=== PATIENT | male | born 1955 | race Caucasian/White ===

== ENCOUNTER 2024-10-13 21:47 | Inpatient (IN) ==
--- OUTSIDE RECORDS SUMMARY | 2024-10-13 21:54 | External Medical Summary | Summary of Care ---
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 [address] [place] [address] Jamel James MD [address] [place] [address] HTN, goal below 140/90 Allergies No known active allergiesdocumented as of this encounter (statuses as of 08/18/2024) Medications Medication Sig Dispensed Refills Start Date End Date Status Multivitamin Adult Oral Tablet Chewable Take by mouth . Active Iron 325 (65 Fe) MG Oral Tablet Take 1 Tablet by mouth once a day on Friday, Friday, and Friday only. Active Dicyclomine HCl 10 MG Oral Capsule (Bentyl) TAKE 1 CAPSULE BY MOUTH TWICE DAILY NEEDED FOR LOWER ABDOMINAL CRAMPING 180 Capsule 3 11/21/2023 Active Allopurinol 300 MG Oral Tablet (Zyloprim)Indicat ions:Chronic idiopathic gout involving toe without tophus, unspecified laterality Take 1 tablet by mouth once daily 90 Tablet 3 02/12/2024 Active Lisinopril-hydroC HLOROthiazide 20-25 MG Oral TabletIndications :HTN, goal below 140/90 TAKE 1 TABLET BY MOUTH IN THE MORNING 90 Tablet 2 02/26/2024 Active Omeprazole 20 MG Oral Capsule Delayed Release (PriLOSEC)Indicat ions:Anemia Take 1 capsule by mouth twice daily 180 Capsule 2 02/26/2024 Active Metoprolol Succinate ER 50 MG Oral Tablet Extended Release 24 Hour (toPROL XL)Indications:Pe rsistent atrial fibrillation (HCC),Ventricular ectopy TAKE 1 TABLET BY MOUTH IN THE MORNING 90 Tablet 3 03/04/2024 Active Rosuvastatin Calcium 20 MG Oral Tablet (Crestor)Indicati ons:Hypertriglyce ridemia Take 1 Tablet by mouth in the morning. 90 Tablet 3 03/25/2024 Active Lisinopril 20 MG Oral Tablet (Prinivil)Indicat ions:HTN, goal below 140/90 Take 1 Tablet by mouth in the morning. FOR A TOTAL OF 40 MG OF LISINOPRIL. 90 Tablet 1 03/25/2024 Active Eliquis 5 MG Oral Tablet (Apixaban)Indicat ions:PAF (paroxysmal atrial fibrillation) (HCC) TAKE 1 TABLET BY MOUTH IN THE MORNING 1 TABLET AT BEDTIME 180 Tablet 3 04/22/2024 Active traMADol HCl 50 MG Oral Tablet (Ultram)Indicatio ns:Polyarthralgia Take 1 Tablet by mouth every 8 hours as needed for Pain, Severe. 23 Tablet 08/06/2024 Active Amoxicillin 500 MG Oral Capsule (Amoxil)Indicatio ns:SBE (subacute bacterial endocarditis) prophylaxis candidate,S/P MVR (mitral valve replacement) One hour prior to dental appt 4 Capsule 3 08/09/2024 Active amLODIPine Besylate 5 MG Oral Tablet (Norvasc)Indicati ons:HTN, goal below 140/90 TAKE 1 TABLET BY MOUTH IN THE MORNING 90 Tablet 1 08/18/2024 Active amLODIPine Besylate 5 MG Oral Tablet (Norvasc)Indicati ons:HTN, goal below 140/90 Take 1 Tablet by mouth in the morning. 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 06/30/2022 PAF (paroxysmal atrial fibrillation) 06/02/2020 Chronic pain of both shoulders 07/27/2019 History of GI bleed 01/21/2019 Overview: UGI from NSAID NICM (nonischemic cardiomyopathy) 01/21/2019 Other irritable bowel syndrome 01/21/2019 Prediabetes 10/26/2018 Overview: Per Prediabetes protocol #1 Hypertriglyceridemia 07/23/2018 S/P MVR (mitral valve replacement) 05/12/2018 Non-rheumatic mitral regurgitation 03/20/2018 Erectile dysfunction 09/16/2014 HTN, goal below 140/90 Gout documented as of this encounter (statuses as of 08/18/2024) Resolved Problems Problem Noted Date Diagnosed Date Resolved Date Renal cyst, right 01/22/2021 06/26/2022 Mitral valve disease 04/09/2018 020 Bioprosthetic mitral valve r eplacement, current hospitalization 04/07/2018 05/12/2018 Persistent atrial fibrillation 02/13/2018 06/02/2020 Elevated glucose 09/16/2014 01/21/2019 GI bleed due to NSAIDs 06/06/201401/19 Joint pain, knee 01/19/2019 Dyslipidemia, goal LDL below 130 05/12/2018 documented as of this encounter (statuses as of 08/18/2024) Immunizations Name Administration Dates Next Due COVID-19 mRNA, LNP-s, No Pre serve, 2-Dose Series (Moderna) 06/23/2024,12/25/2020,11/27/2020 COVID-19, MRNA-LNP, PF, 30 M CG/0.3 mL, 12 YRS AND ABOVE, IM (PFIZER-Comirnaty) 07/08/2023 COVID-19, MRNA-LNP, PF, 50 M CG/0.5 mL, 12 YRS AND ABOVE, IM (MODERNA-Spikevax) 02/17/2024 COVID-19, mRNA, LNP-s, PF, B ooster, 100mcg/0.5mg (Moderna) 02/17/2024,06/21/2022,01/16/2022,07/14 H1N1 2009 Influenza, IM 08/23/2009 Pneumococcal Conjugate Vacc, 13 Valent (Prevnar) 07/23/2018 Pneumococcal Polysaccharide PPV23 (Pneumovax) 07/27/2019 RSV Vac., Bivalent, Perfusio n F, Pf,0.5 Ml (Abrysvo) 06/19/2023 Season Influenza, Quad, PF, Adjuvanted, 65+ Yrs, IM (FLUAD) 07/03/2020 Seasonal Influenza Vac., MDV , IM, 0.5 mL (Fluzone) 07/27/2014,10/11/2013,09/01/2012,08/1307/27/2015 Seasonal Influenza Virus Vac cine, Unspecified Formulation 07/08/2023,07/23/2022,07/18/2021,06/14,07/27/2019,07/23/2018,06/20/20 17,07/26/2016,07/24/2015,07/27/2014,1 ,09/01/2012,08/27/2010 Seasonal Influenza, PF, 6 M & above, IM , (FluLaval or Fluzone) 07/23/2018 Seasonal Influenza, Quadriva lent, No Preserve, IM 06/20/2017,07/26/2016,07/24/2015 Seasonal Influenza, Trivalen t, Adjuvanted, 65+ YRS, PF, (Fluad) 07/27/2019 TD - Tetanus/Diptheria (ADULT) 06/18/2005 TDAP (age 10 and older)(Boostrix) 05/16/2015 TDAP, Age 7 and older, IM (Adacel) 05/13/2005 Varicella Zoster Vaccine (Adult) 04/22/2013 Zoster Vaccine Recombinant (Shingrix) 03/14/2020 ,11/02/2019 documented as of this encounter Social History Tobacco Use Types Packs/Day Years Used Date Smoking Tobacco: Former Cigarettes 1 5 0 02/20/1978 - 02/20/1983 Smokeless Tobacco: Never Comments:Pt only smoked from age [age] Alcohol Use Standard Drinks/Week Comments Yes 11.7 (1 standard drink = 0.6 oz pure alcohol) 2 per day PHQ-2 Answer Date Recorded PHQ Adult Total Score 0 07/24/2023 Hunger Vital Sign Answer Date Recorded Within the past 12 months, y ou worried that your food would run out before you got the money to buy more. Never true 06/13/20 22 Within the past 12 months, t he food you bought just didn't last and you didn't have money to get more. Never true 06/13/2022 Utilities Answer Date Recorded Do you have trouble paying y our heating, water, or electric bill? (Adult - for ages 18 years and over) Not on file 03/30/2024 Is your family able to pay t he heat, water, or electric bill? (Household - for ages 0-17 years) Not on file 03/30/2024 Does your family have access to good internet? (Household - for ages 0-17 years) Not on file 03/30/2024 Social Connections Answer Date Recorded How often do you feel lonely or isolated from those around you? (Adult - for ages 18 years and over) Not on file 03/30/2024 Sex and Gender Information Value Date Recorded Sex Assigned at Male 07/27/2019 10:03 AM EDT Gender Identity Male 07/27/2019 10:03 AM EDT Sexual Orientation Straight 07/27/2019 10 :03 AM EDT Job Start Date Occupation Industry Not on file Not on file Not on file documented as of this encounter Miscellaneous Notes * Telephone Encounter - Jarek Mary [facility] - 08/18/2024 7:37 PM ESTSigned Prescriptions: Disp Refills amLODIPine Besylate 5 MG Oral Tablet (Norv*90 Tab*1 Sig: TAKE 1 TABLET BY MOUTH IN THE MORNINGAuthorizing Provider: JAMEL JAMES User: JAREK MARY documented in this encounter Plan of Treatment Upcoming Encounters Date Type Department Care Team (Late st Contact Info) Description 08/24/2024 8:00 AM EST Laboratory [facility] [address] [place] [phone] Leeann Pak [facility] [address] [place] [address] 09/02/2024 10:40 AM EST Office Visit General Internal Medicine [facility] [address] [facility] [place] [address] Jamel James MD [address] [facility] [place] [address] 10/27/2024 9:30 AM EST Cardiac Studies Cardiac Studies, [facility] [address] [facility] [place] [id number] Scheduled Procedures Name Priority Associated Diagnoses Date/Ti me COLONOSCOPY FLEXIBLE PROXIMA L DIAGNOSTIC Recall History of colonic polyps Health Maintenance Due Date Last Done Comments Cologuard 1998 Sigmoidoscopy 1998 Adult Wellness Visit 2019 Fecal Occult Blood Test 02/20/2023 02/21/20 22, 02/20/2022, 12/21/2018, Additional history exists Depression Screening 07/24/2024 07/24/2023 COVID-19 Vaccine ( season) 2024 06/23/2024, 02/17/2024, 02/17/2024, Additional history exists GFR 01/26/2025 01/27/2024, 12/12, 08/15/2022, Additional history exists HbA1c 01/26/2025 01/27/2024, 03/14, 01/03/2023, Additional history exists DTap/Tdap Vaccines (4 - Td or Tdap) 05/16/2025 05/16/2015, 06/18/2005, 05/13/2005 Albumin/Creatinine Ratio 06/26/2025 022, 02/05/2016, 06/07/2014 Colonoscopy 07/30/2025 07/30/2022, 07/13, 08/07/2016, Additional history exists Colorectal Cancer Screening 07/30/2025 Lipid Panel 01/26/2029 01/27/2024, 12/12, 12/18/2021, Additional history exists Pneumococcal Vaccine: 65+ Years Completed 07/27/2019, 07/23/2018 AAA Screening Completed 08/16/2019, 05/2018, 06/20/2017, Additional history exists Zoster Vaccines Completed 03/14/2020, 10/14, 04/22/2013 Influenza Vaccine (FLU shot) Completed 08/2024, 07/08/2023, 07/08/2023, Additional history exists HPV (Gardasil) Vaccine Aged Out No lo nger eligible based on patient's age to complete this topic Hepatitis B Vaccine Aged Out No longe r eligible based on patient's age to complete this topic MENINGOCOCCAL (MENACTRA/MENVEO) Aged Out No longer eligible based on patient's age to complete this topic documented as of this encounter Medical Devices Implanted Type Area [employer] Veterinarian Device Identifier Shelf Expiration Date Model / Serial / Lot Atriclip 40mm [id number] - [id number] Implanted:Qty : 1 on 04/06/2018 by Esequiel Kirkland MD at OR [facility] [place] N/A: Heart ATRICURE 10/13/2020 [id number] / / [id number] Suture Steel 6 B&S19 [id number] - [id number] Implanted:Qty : 4 on 04/06/2018 by Esequiel Kirkland MD at OR [facility] [place] N/A: Sternum JNJ : [employer] 12/10/2022 [id number] / / [id number] Valve Heart Mitral Epic 33mm - [id number] - [id number] Implanted:Qty : 1 on 04/06/2018 by Esequiel Kirkland MD at OR [facility] [place] N/A: Heart ST SUZANNA : CARDIOVASCULAR 10/26/2021 [id number] / [id number] / documented as of this encounter Visit Diagnoses Diagnosis HTN, goal below 140/90 Unspecified essential hypertension documented in this encounter Advance Directives Documents on File Type Date Recorded 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 Care Teams Commercial Shrimping Captain Relationship Specialty Start Date End Date Jamel James MD [address] [place] [address] PCP - General Internal Medicine 02/09/18 documented as of this encounter
--- OUTSIDE RECORDS SUMMARY | 2024-10-13 21:54 | External Medical Summary | Summary of Care ---
Author Name Unknown Organization [facility] Address [address] [place] [address] Phone [phone] Care Team Providers Care Grader Tender Name Role Phone Jamel Hutchison MD Primary Care Provider + Reason for Referral * Evaluate & Treat - Unlimited Visits (Within 30 days (routine)) - Authorized Specialty Diagnoses / Procedures Referred By Contact Referred To Contact Cardiovascular Medicine / Cardiology Diagnoses S/P MVR (mitral valve replacement) PAF (paroxysmal atrial fibrillation) (FORMERLY [facility]) Jamel Hutchison MD [address] [place] [address] Phone: tel: fax: Referral ID Status Reason Start Date Expiration Date Visits Requested Visits Authorized [id number] Authorized Specialty Services Required [phone] Question Answer Referral Priority Within 30 days (routine) Where should this appointment be scheduled? [facility] To which of the following clinics are you referring your patient? General Cardiology Clinic Reason for Visit * Reason Comments Re-Check Routine check up Medication Discussion Magnesium suppleme nt Encounter Details Date Type Department Care Team (Late st Contact Info) Description 09/02/2024 10:40 AM EST Office Visit General Internal Medicine Ralf Borrego [place] [address] [facility] [place] [address] Jamel Hutchison MD 200 [facility] [place] [address] HTN, goal below 140/90*; Idiopathic chronic gout of multiple sites without tophus; Prediabetes; Hypertriglyceridemia; Screening for prostate cancer; S/P MVR (mitral valve replacement); PAF (paroxysmal atrial fibrillation) (HCC); 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 Active Iron 325 (65 Fe) MG Oral Tablet Take 1 Tablet by mouth once a day on Friday, Friday, and Friday only. Active Dicyclomine HCl 10 MG Oral Capsule (Bentyl) TAKE 1 CAPSULE BY MOUTH TWICE DAILY NEEDED FOR LOWER ABDOMINAL CRAMPING 180 Capsule 3 4 Active Allopurinol 300 MG Oral Tablet (Zyloprim)Indicat ions:Chronic idiopathic gout involving toe without tophus, unspecified laterality Take 1 tablet by mouth once daily 90 Tablet 3 4 Active Lisinopril-hydroC HLOROthiazide 20-25 MG Oral TabletIndications :HTN, goal below 140/90 TAKE 1 TABLET BY MOUTH IN THE MORNING 90 Tablet 2 4 Active Omeprazole 20 MG Oral Capsule Delayed Release (PriLOSEC)Indicat ions:Anemia Take 1 capsule by mouth twice daily 180 Capsule 2 4 Active Metoprolol Succinate ER 50 MG Oral Tablet Extended Release 24 Hour (toPROL XL)Indications:Pe rsistent atrial fibrillation (HCC),Ventricular ectopy TAKE 1 TABLET BY MOUTH IN THE MORNING 90 Tablet 3 4 Active Rosuvastatin Calcium 20 MG Oral Tablet (Crestor)Indicati ons:Hypertriglyce ridemia Take 1 Tablet by mouth in the morning. 90 Tablet 3 4 Active Lisinopril 20 MG Oral Tablet (Prinivil)Indicat ions:HTN, goal below 140/90 Take 1 Tablet by mouth in the morning. FOR A TOTAL OF 40 MG OF LISINOPRIL. 90 Tablet 1 4 Active Eliquis 5 MG Oral Tablet (Apixaban)Indicat ions:PAF (paroxysmal atrial fibrillation) (HCC) TAKE 1 TABLET BY MOUTH IN THE MORNING 1 TABLET AT BEDTIME 180 Tablet 3 4 Active traMADol HCl 50 MG Oral Tablet (Ultram)Indicatio ns:Polyarthralgia Take 1 Tablet by mouth every 8 hours as needed for Pain, Severe. 23 Tablet 4 Active Amoxicillin 500 MG Oral Capsule (Amoxil)Indicatio ns:SBE (subacute bacterial endocarditis) prophylaxis candidate,S/P MVR (mitral valve replacement) One hour prior to dental appt 4 Capsule 3 4 Active amLODIPine Besylate 5 MG Oral Tablet (Norvasc)Indicati ons:HTN, goal below 140/90 TAKE 1 TABLET BY MOUTH IN THE MORNING 90 Tablet 1 4 Active documented as of this encounter (statuses as of 09/02/2024) Active Problems Problem Noted Date Diagnosed Date Heart failure 02/04/2024 Isolated proteinuria without specific morphologi c lesion 06/30/2022 PAF (paroxysmal atrial fibrillation) 06/02/2020 Chronic pain of both shoulders 07/27/2019 History of GI bleed 01/21/2019 Overview (01/21/2019): UGI from NSAID NICM (nonischemic cardiomyopathy) 01/21/2019 Other irritable bowel syndrome 01/21/2019 Prediabetes 10/26/2018 Overview: Per Prediabetes protocol #1 Hypertriglyceridemia 07/23/2018 S/P MVR (mitral valve replacement) 05/12/2018 Non-rheumatic mitral regurgitation 03/20/2018 Erectile dysfunction 09/16/2014 HTN, goal below 140/90 Gout documented as of this encounter (statuses as of 09/02/2024) Resolved Problems Problem Noted Date Diagnosed Date Resolved Date Renal cyst, right 01/22/2021 06/26/2022 Mitral valve disease 04/09/2018 020 Bioprosthetic mitral valve r eplacement, current hospitalization 04/07/2018 05/12/2018 Persistent atrial fibrillation 02/13/2018 06/02/2020 Elevated glucose 09/16/2014 01/21/2019 GI bleed due to NSAIDs 06/06/201401/19 Joint pain, knee 01/19/2019 Dyslipidemia, goal LDL below 130 05/12/2018 documented as of this encounter (statuses as of 09/02/2024) Immunizations Name Administration Dates Next Due COVID-19 [...] 0 02/20/1978 - 02/20/1983 Smokeless Tobacco: Never Tobacco Cessation:Counseling Given: Not Answered Comments:Pt only smoked from age [age] Alcohol [...] Assigned at Male 07/27/2019 10:03 AM EDT Legal Sex Male 5:54 AM EST Gender Identity Male 07/27/2019 10:03 AM EDT Sexual Orientation Straight 07/27/2019 10 :03 AM EDT Occupation Industry Job Start Date Job End Date RETIRED Not on file Not on file Not on file documented as of this encounter Last Filed Vital Signs Vital Sign Reading Time Taken Comments Blood Pressure 136/76 09/02/2024 10:45 AM EST Pulse 72 09/02/2024 10:34 AM EST Temperature 36.8 C (98.2 F) 09/02/2024 10:[address] Respiratory Rate 16 09/02/2024 10:34 AM EST Oxygen Saturation - - Inhaled Oxygen Concentration - - Weight 107.7 kg (237 lb 8 oz) 09/02/2024 10:34 A M EST Height - - Body Mass Index 36.11 04/22/2024 10:53 AM EDT documented in this encounter Progress Notes * Jamel Hutchison MD - 09/02/2024 10:53 AM EST Chief Complaint Patient presents with Re-Check Routine check up Medication Discussion Magnesium supplement SUBJECTIVE: Milton Nam is a 69 year old male with PMH as below who presents for follow up htn, pre-DM, gout. No cp, sob, stuart. Feels good. May take magnesium supplement. No n/v/d. 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 Iron 325 (65 Fe) MG Oral Tablet Take 1 Tablet by mouth once a day on Friday, Friday, and Friday only. Dicyclomine HCl 10 MG Oral Capsule (Bentyl) TAKE 1 CAPSULE BY MOUTH TWICE DAILY NEEDED FOR LOWERABDOMINAL CRAMPING 180 Capsule 3 Allopurinol 300 MG Oral Tablet (Zyloprim) Take 1 tablet by mouth once daily 90 Tablet 3 Lisinopril-hydroCHLOROthiazide 20-25 MG Oral Tablet TAKE 1 TABLET BY MOUTH IN THE MORNING 90 Tablet2 Omeprazole 20 MG Oral Capsule Delayed Release (PriLOSEC) Take 1 capsule by mouth twice daily 180 Capsule 2 Metoprolol Succinate ER 50 MG Oral Tablet Extended Release 24 Hour (toPROL XL) TAKE 1 TABLET BY MOUTH IN THE MORNING 90 Tablet 3 Rosuvastatin Calcium 20 MG Oral Tablet (Crestor) Take 1 Tablet by mouth in the morning. 90 Tablet 3 Lisinopril 20 MG Oral Tablet (Prinivil) Take 1 Tablet by mouth in the morning. FOR A TOTAL OF 40 MGOF LISINOPRIL. 90 Tablet 1 Eliquis 5 MG Oral Tablet (Apixaban) TAKE 1 TABLET BY MOUTH IN THE MORNING 1 TABLET AT BEDTIME 180 Tablet 3 traMADol HCl 50 MG Oral Tablet (Ultram) Take 1 Tablet by mouth every 8 hours as needed for Pain, Severe. 23 Tablet 0 Amoxicillin 500 MG Oral Capsule (Amoxil) One hour prior to dental appt 4 Capsule 3 amLODIPine Besylate 5 MG Oral Tablet (Norvasc) TAKE 1 TABLET BY MOUTH IN THE MORNING 90 Tablet 1 No current facility-administered medications for this visit. Review of patient's allergies indicates: No Known Allergies Health Maintenance Due Topic Date Due Adult Wellness Visit Never done Depression Screening 07/24/2024 COVID-19 Vaccine ( season) 2024 ROS: CONSTITUTIONAL: No weakness, No fatigue, and No fevers, sweats, or chills PULMONARY: No cough, sputum, or hemoptysis, No wheezing, No rales, No shortness of breath, and No recent change in breathing CARDIOVASCULAR: No chest pain, No shortness of breath, No dyspnea on exertion, No orthopnea, No paroxysmal nocturnal dyspnea, No edema, No palpitations, and No syncope GASTROINTESTINAL: No abdominal pain, No change in bowel habits, No significant heartburn, No significant change in appetite, No nausea, vomiting, diarrhea, or constipation, No hematemesis, No blood in stools or black tarry stools, No abdominal bloating or early satiety, and No dysphagia ALL OTHER SYSTEMS NEGATIVE I reviewed social, PMH, PSH, and family history and updated where needed. Social History Socioeconomic History Marital status: Spouse name: Nichole Number of children: 3 Years of education: Not on file Highest education level: Not on file Occupational History Occupation: RETIRED Tobacco Use Smoking status: Former Current packs/day: 0.00 Average packs/day: 1 pack/day for 5.0 years (5.0 ttl pk-yrs) Types: Cigarettes Start date: 02/20/1978 Quit date: 02/20/1983 Years since quittin.5 Smokeless tobacco: Never Tobacco comments: Pt only smoked from age [age] Vaping Use Vaping status: Never Used Substance and Sexual Activity Alcohol use: Yes Alcohol/week: 11.7 standard drinks of alcohol Types: 14 12 oz of beer per week Comment: 2 per day Drug use: No Sexual activity: Yes Partners: Female Comment: no history of STD's Other Topics Concern Not on file Social History Narrative Not on file Social Needs Financial Resource Strain: Not on file Food Insecurity: No Food Insecurity (06/13/2022) Hunger Vital Sign Worried About Running Out of Food in the Last Year: Never true Ran Out of Food in the Last Year: Never true Transportation Needs: Not on file Social Connections: Unknown (03/30/2024) Social Connections How often do you feel lonely or isolated from those around you? 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 06/30/2022 Joint pain, knee Other irritable bowel syndrome 01/21/2019 PAF (paroxysmal atrial fibrillation) (HCC) 06/02/2020 Renal cyst, right 01/22/2021 Past Surgical History: Procedure Laterality Date ARTHROPLASTY KNEE TOTAL 2010 ATRIA ABLATION,ADD-ON W/ CARDIOPULM BYPASS N/A 04/06/2018 MAZE procedure performed [place] Esequiel Kirkland [place] [facility], DIAGNOSTIC (RECTUM) 09/11/2011 diverticulosis, repeat in 10 years COLONOSCOPY, DIAGNOSTIC (RECTUM) N/A 08/07/2016 mild-mod inflammation/COLONOSCOPY FLEXIBLE PROXIMAL DIAGNOSTIC performed by Дмитрий Davis MD at END[facility]COPY [facility] COLONOSCOPY, DIAGNOSTIC (RECTUM) 07/30/2022 diverticulosis sigmoid and descending colon/internal hemorrhoids/congested and erythematous mucosa sigmoid in setting of diverticuli/biopsies show adenomatous polyps/recall 3 years/COLONOSCOPY FLEXIBLE PROXIMAL DIAGNOSTIC performed by Дмитрий Davis MD at ENDOSCOPY [facility] EGD, FLEXIBLE, DIAGNOSTIC 09/11/2011 ulcerations, await bx EGD, FLEXIBLE, DIAGNOSTIC 07/30/2022 single gastric polyp/biopsies normal/ESOPHAGOGASTRODUODENOSCOPY (EGD), FLEXIBLE, TRANSORAL, DIAGNOSTIC performed by Дмитрий Davis MD at [facility]OSCOPY [facility] EGD, FLEXIBLE, W/BIOPSY 10/10/2011 await BX REMOVAL OF APPENDIX 12/15/2004 [facility], Dr. Jones REMOVE TONSILS & ADENOIDS, UNDER 12 [address] REPLACE MITRAL VALVE W/BYPASS N/A 04/06/2018 REPLACEMENT MITRAL VALVE performed [place] Esequiel Kirkland [place] [facility] Family History Problem Relation Name Age of Onset Cancer Father bladder/prostate Other (afib) Mother No Past Hx Sister No Past Hx Brother No Past Hx Brother No Past Hx Sister Coronary Artery disease Grandfather (Maternal) 58 OBJECTIVE: PHYSICAL EXAM: BP 136/76 | Pulse 72 | Temp 98.2 F (36.8 C) (Tympanic) | Resp 16 | Wt 237 lb 8 oz (107.7 kg) | BMI 36.11 kg/m | BSA 2.27 m General: alert, healthy, and no distress Head: Normocephalic, No masses, lesions, or abnormalities Heart: regular rate & rhythm, no murmur, no gallops, PMI non-displaced, S-1 normal, and S-2 normal Lungs: normal respiratory rate and rhythm, lungs clear to auscultation Psych: normal affect, no flight of ideas or tangential thought, good eye contact, no pressured speech ASSESSMENT: (I10) HTN, goal below 140/90 (primary encounter diagnosis) (M1A.09X0) Idiopathic chronic gout of multiple sites without tophus (R73.03) Prediabetes (E78.1) Hypertriglyceridemia (Z12.5) Screening for prostate cancer (Z95.2) S/P MVR (mitral valve replacement) (I48.0) PAF (paroxysmal atrial fibrillation) (HCC) (R80.0) 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 (Z79.899) Encounter for long-term (current) use of medications PLAN: HTN, goal below 140/90 (Primary) - COMPREHENSIVE METABOLIC PANEL; Future; Expected date: 03/02/2025 - LIPID PANEL WITH DIRECT LDL IF TG IS HIGH; Future; Expected date: 03/02/2025 Cont amlodipine, lisinopril, metoprolol, hctz Idiopathic chronic gout of multiple sites without tophus - URIC ACID; Future; Expected date: 03/02/2025 Cont allopurinol Follow labs Prediabetes - HEMOGLOBIN A1C; Future; Expected date: 03/02/2025 Follow A1c, diet Hypertriglyceridemia Labs 6 months Cont rosuvastatin Screening for prostate cancer - PSA; Future; Expected date: 03/02/2025 S/P MVR (mitral valve replacement) - CARDIOLOGY REFERRAL OP PAF (paroxysmal atrial fibrillation) (HCC) - CARDIOLOGY REFERRAL OP Cont metoprolol, eloquis 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 | For: Fasting Labs 2-5 Days Before Next Visit Jamel Hutchison MD documented in this encounter Nursing Notes * Tristan Lerma, RN - 09/02/2024 10:36 AM EST Chief Complaint Patient presents with Re-Check Routine check up Medication Discussion Magnesium supplement documented in this encounter Plan of Treatment Upcoming Encounters Date Type Department Care Team (Late st Contact Info) Description 10/27/2024 9:30 AM EST Cardiac Studies Cardiac Studies, [facility] [address] [place] [address] 03/17/2025 8:00 AM EDT Office Visit Cardiology, [facility] [address] [place] [address] Edwin Zhao MD [address] [place] [address] 04/13/2025 12:00 PM EDT Office Visit General Internal Medicine [facility] 200 [facility] [place] [address] Jamel Hutchison MD 200 [facility] [place] [address] Scheduled Orders Name Type Priority Associated Diagnoses Orde r Schedule COMPREHENSIVE METABOLIC PANEL Lab Routine HTN, goal below 140/90 Expected: 03/02/2025 (Approximate), Expires: 09/02/2025 LIPID PANEL WITH DIRECT LDL IF TG IS HIGH Lab Routine HTN, goal below 140/90 Expected: 03/02/2025, Expires: 09/02/2025 PSA Lab Routine Screening for prostate cancer Expected: 03/02/2025 (Approximate), Expires: 09/02/2025 HEMOGLOBIN A1C Lab Routine Prediabetes Expected: 03/02/2025 (Approximate), Expires: 09/02/2025 URIC ACID Lab Routine Idiopathic chronic gout of multiple sites without tophus Expected: 03/02/2025 (Approximate), Expires: 09/02/2025 ALBUMIN / CREATININE RATIO, URINE Lab Routine 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 Expected: 03/02/2025 (Approximate), Expires: 09/02/2025 CBC WITH WBC DIFFERENTIAL Lab Routine Encounter for long-term (current) use of medications Expected: 03/02/2025, Expires: 09/02/2025 IRON SCREEN, INCLUDING TIBC Lab Routine Encounter for long-term (current) use of medications Expected: 03/02/2025, Expires: 09/02/2025 MAGNESIUM Lab Routine Encounter for long-term (current) use of medications Expected: 03/02/2025 (Approximate), Expires: 09/02/2025 VITAMIN B12 Lab Routine Encounter for long-term (current) use of medications Expected: 03/02/2025 (Approximate), Expires: 09/02/2025 Scheduled Procedures Name Priority Associated Diagnoses Date/Ti me COLONOSCOPY FLEXIBLE PROXIMA L DIAGNOSTIC Recall History of colonic polyps Scheduled Referrals Name Type Priority Associated Diagnoses Orde r Schedule CARDIOLOGY REFERRAL OP Referral Within 30 days (routine) S/P MVR (mitral valve replacement) PAF (paroxysmal atrial fibrillation) (HCC) Ordered: 09/02/2024 Health Maintenance Due Date Last Done Comments Cologuard 1998 Sigmoidoscopy 1998 Adult Wellness Visit 2019 Fecal Occult Blood Test 02/20/2023 02/21/20 22, 02/20/2022, 12/21/2018, Additional history exists Depression Screening 07/24/2024 07/24/2023 COVID-19 Vaccine ( season) 2024 06/23/2024, 02/17/2024, 02/17/2024, Additional history exists GFR 01/26/2025 01/27/2024, 12/12, 08/15/2022, Additional history exists DTap/Tdap Vaccines (4 - Td or Tdap) 05/16/2025 05/16/2015, 06/18/2005, 05/13/2005 Albumin/Creatinine Ratio 06/26/2025 022, 02/05/2016, 06/07/2014 Colonoscopy 07/30/2025 07/30/2022, 07/13, 08/07/2016, Additional history exists Colorectal Cancer Screening 07/30/2025 HbA1c 08/24/2025 08/24/2024, 01/11, 04/07/2023, Additional history exists Lipid Panel 01/26/2029 01/27/2024, 12/12, 12/18/2021, Additional history exists Pneumococcal Vaccine: 65+ Years Completed 07/27/2019, 07/23/2018 AAA Screening Completed 08/16/2019, 05/0 05/2018, 06/20/2017, Additional history exists Zoster Vaccines [...] this encounter Medical Devices Implanted Type Area Hotel Associate Device Identifier Shelf Expiration Date Model / Serial / Lot Atriclip 40mm [id number] - [id number] Implanted:Qty : 1 on 04/06/2018 by Esequiel Kirkland [place] [facility]/A: Heart ATRICURE 10/13/2020 [id number] / / [id number] Suture Steel 6 B&S19 M654g - [id number] Implanted:Qty : 4 on 04/06/2018 by Esequiel Kirkland [place] [facility] N/A: Sternum JNJ : [employer] 12/10/2022 [id number] / / [id number] Valve Heart Mitral Epic 33mm - [id number] - [id number] Implanted:Qty : 1 on 04/06/2018 by Esequiel Kirkland MD [place] [facility] N/A: Heart ST SUZANNA : CARDIOVASCULAR 10/26/2021 [id number] / [id number] / documented as of this encounter Visit Diagnoses Diagnosis HTN, goal below 140/90- Primary Unspecified essential hypertension Idiopathic chronic gout of multiple sites without tophus Chronic gouty arthropathy without mention of tophus (tophi) Prediabetes Other abnormal glucose Hypertriglyceridemia Pure hyperglyceridemia Screening for prostate cancer Special screening for malignant neoplasm of prostate S/P MVR (mitral valve replacement) Heart valve replaced by other means PAF (paroxysmal atrial fibrillation) (HCC) Atrial fibrillation 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 Care Teams Grader Tender Relationship Specialty Start Date End Date Jamel Hutchison MD [address] [place] [address], [place] [address] PCP - General Internal Medicine 02/09/18 documented as of this encounter"
--- OUTSIDE RECORDS SUMMARY | 2024-10-13 21:54 | External Medical Summary ---
Author Name Unknown Address Unknown Organization [id number]:LABORATORY [facility] [place] - [address] [facility] [address] Laboratory Report Ordering Provider Test Date Status JACOB BAGLEY 08/24/2024 07:51:26 Final Observation Date Value Abnormality Reference (Units ) Status HbA1C 08/24/2024 07:51:26 6.3 Above high normal 4. 0-5.6 (%) Final The use of HbA1c to monitor glycemic status is based on normal hemoglobin and HbA composition. This test should not be used in patients with abnormal hemoglobin that affects the half life of the red blood cell or the in vivo glycation rates. Glucose, estimated average 08/24/2024 07:51:26 134 Above high normal <126 (mg/dL) Carlos cisse Performing Location [facility] [place] - [address] [facility] [address]
--- OUTSIDE RECORDS SUMMARY | 2024-10-13 21:54 | External Medical Summary ---
Author Name Unknown Address Unknown Organization [id number]:[facility]ORY [facility] [place] - [address] [place] [address] Laboratory Report Ordering Provider Test Date Status JACOB BAGLEY 08/24/2024 07:51:26 Final Observation Date Value Abnormality Reference (Units ) Status Vitamin B12 08/24/2024 07:51:26 [id number] (pg/mL) Final Performing Location LABORATORY [facility] - [address] [place] [address]
--- OUTSIDE RECORDS SUMMARY | 2024-10-13 21:54 | External Medical Summary | Summary of Care ---
Author Name Unknown Organization [facility] Address [address] [place] [address] Phone [phone] Care Team Providers Care Card Seller Name Role Phone Jamel Hutchison MD Primary Care Provider + Reason for Visit * Reason Comments Follow Up Pt here to f/u for I BS/GERD. GERD stable on BID omeprazole. Pt states the iron regimen and Bentyl has improved his bowels. Encounter Details Date Type Department Care Team (Latest Contact Info) Description 04/22/2024 11:00 AM EDT Office Visit Gastroenterology, [facility] [address] [place] [address] Vinod Jones CRNP [address] [facility] [place] [address] Gastroesophageal reflux disease, unspecified whether esophagitis present*; History of IBS Allergies No known active allergiesdocumented as of this encounter (statuses as of 04/22/2024) Medications Medication Sig Dispensed Refills Start Date End Date Status Multivitamin Adult Oral Tablet Chewable Take by mouth . Active Iron 325 (65 Fe) MG Oral Tablet Take 1 Tablet by mouth once a day on Friday, Friday, and Friday only. Active amLODIPine Besylate 5 MG Oral Tablet (Norvasc)Indicati ons:HTN, goal below 140/90 Take 1 Tablet by mouth in the morning. 90 Tablet 3 08/05/2023 Active Dicyclomine HCl 10 MG Oral Capsule (Bentyl) TAKE 1 CAPSULE BY MOUTH TWICE DAILY NEEDED FOR LOWER ABDOMINAL CRAMPING 180 Capsule 3 11/21/2023 Active Allopurinol 300 MG Oral Tablet (Zyloprim)Indicat ions:Chronic idiopathic gout involving toe without tophus, unspecified laterality Take 1 tablet by mouth once daily 90 Tablet 3 02/12/2024 Active traMADol HCl 50 MG Oral Tablet (Ultram)Indicatio ns:Polyarthralgia Take 1 Tablet by mouth every 8 hours as needed for Pain, Severe. 23 Tablet 02/13/2024 Active Amoxicillin 500 MG Oral Capsule (Amoxil)Indicatio ns:SBE (subacute bacterial endocarditis) prophylaxis candidate,S/P MVR (mitral valve replacement) One hour prior to dental appt 4 Capsule 3 02/26/2024 Active Lisinopril-hydroC HLOROthiazide 20-25 MG Oral TabletIndications [...] OF LISINOPRIL. 90 Tablet 1 03/25/2024 Active Apixaban 5 MG Oral Tablet (Eliquis)Indicati ons:PAF (paroxysmal atrial fibrillation) (HCC) Take 1 Tablet by mouth in the morning and 1 Tablet before bedtime. 60 Tablet 11 05/02/2023 4 Discontinued documented as of this encounter (statuses as of 04/22/2024) Active Problems Problem Noted Date Diagnosed Date [...] as of this encounter (statuses as of 04/22/2024) Resolved Problems Problem Noted Date Diagnosed Date Resolved Date Renal cyst, right 01/22/2021 06/26/2022 Mitral valve disease 04/09/2018 020 Bioprosthetic mitral valve r eplacement, current hospitalization 04/07/2018 05/12/2018 Persistent atrial fibrillation 02/13/2018 06/02/2020 Elevated glucose 09/16/2014 01/21/2019 GI bleed due to NSAIDs 06/06/201401/19 Joint pain, knee 01/19/2019 Dyslipidemia, goal LDL below 130 05/12/2018 documented as of this encounter (statuses as of 04/22/2024) Immunizations Name Administration Dates Next Due COVID-19 mRNA, LNP-s, No Pre serve, 2-Dose Series (Moderna) 12/25/2020,11/27/2020 COVID-19, MRNA-LNP, 23-24, P F, 30 MCG/0.3 mL, 12 YRS AND ABOVE, IM (P[facility]ZER-[facility]) 07/08/2023 COVID-19, MRNA-LNP, 23-24, P F, 50 MCG/0.5 mL, 12 YRS AND ABOVE, IM (MODERNA-Spikevax) 02/17/2024 COVID-19, mRNA, LNP-s, PF, B ooster, 100mcg/0.5mg (Moderna) 02/17/2024,06/21/2022,01/16/2022,07/14 H1N1 2009 Influenza, IM 08/23/2009 Pneumococcal Conjugate Vacc, 13 Valent (Prevnar) 07/23/2018 Pneumococcal Polysaccharide PPV23 (Pneumovax) 07/27/2019 RSV Vac., Bivalent, Perfusio n F, Pf,0.5 Ml (Abrysvo) 06/19/2023 Season Influenza, Quad, PF, Adjuvanted, 65+ Yrs, IM (FLUAD) 07/03/2020 Seasonal Influenza Virus Vac cine, Unspecified Formulation 07/08/2023,07/23/2022,07/18/2021,06/14,07/27/2019,07/23/2018,06/20/20 17,07/26/2016,07/24/2015,07/27/2014,1 ,09/01/2012,08/27/2010 Seasonal Influenza, PF, 6 M & above, IM , (FluLaval or Fluzone) 07/23/2018 Seasonal Influenza, Quadriva lent, No Preserve, IM 06/20/2017,07/26/2016,07/24/2015 Seasonal Influenza, Split, I IV3, With Preserve, Inj 07/27/2014,10/11/2013,09/01/2012,08/1307/27/2015 Seasonal Influenza, Trivalen t, Adjuvanted, 65+ yrs 07/27/2019 TD - Tetanus/Diptheria (ADULT) 06/18/2005 TDAP [...] Sign Reading Time Taken Comments Blood Pressure 142/78 04/22/2024 10:53 AM EDT Pulse 74 04/22/2024 10:53 AM EDT Temperature 36.7 C (98 F) 04/22/2024 10:53 AM EDT Respiratory Rate - - Oxygen Saturation - - Inhaled Oxygen Concentration - - Weight 110.2 kg (243 lb) 04/22/2024 10:53 AM EDT Height 172.7 cm (5' 8") 04/22/2024 10:53 AM EDT Body Mass Index 36.95 04/22/2024 10:53 AM EDT documented in this encounter Progress Notes * Vinod Jones CRNP - 2024 9:48 AM EDT CC: dicyclomine refill; f/u recurrent diverticulitis HPI: Recall that Mr. Milton Nam is a 69 yr old male pt of Dr. Hutchison with a hx of HTN, A-fib, Mitral valve replacement (bioprosthetic), gout who has been seen previously most recently in 2021for iron deficiency anemia, diverticulitis, IBS. Current GI Meds: Dicyclomine 10 BID, takes regularly Omeprazole 20mg BID, takes regularly Current GI Symptoms: IBS is very well controlled, minimal pain. No reflux, doesn't remember his most recent reflux event/symptom. Diagnostic Testing: EGD 2021: - Normal esophagus. - A single gastric polyp. Biopsied. - Normal examined duodenum. Biopsied. Colonoscopy 2021: - The examined portion of the ileum was normal. - Two 3 to 5 mm polyps in the ascending colon, removed with a cold snare. Resected and retrieved. - One 1 mm polyp in the transverse colon, removed with a jumbo cold forceps. Resected and retrieved. - Congested and erythematous mucosa in the sigmoid colon in setting of diverticuli. - Diverticulosis in the sigmoid colon and in the descending colon. - Internal hemorrhoids. A: Duodenal biopsy: Duodenal mucosa with no pathologic diagnosis. B: Stomach, polyp, biopsy: Hyperplastic polyp. C: Ascending colon, polyps, biopsy: Fragments of tubular adenoma. D: Transverse colon, polyp, biopsy: Slightly polypoid colonic mucosa with some stromal edema and congestion. E: Sigmoid abnormal mucosa, biopsy: Colonic mucosa with slight reactive vascular congestion. Additional levels examined. Clinical Histor Colonoscopy Jul 2016: Congested, erythematous and inflamed mucosa in the sigmoid colon. Internal hemorrhoids. EGDs Aug 2011: Ring esophagitis, antral gastritis, duodenitis. H Pylori (-) Sep 2011: Resolution ofgastritis, duodenitis. Path: GE junc with inflammation no dysplasia. Duodenal bx w increased inflammation, no crypt abscess. EXAM: BP 142/78 | Pulse 74 | Temp 36.7 C (98 F) | Ht 1.727 m (5' 8") | Wt 110.2 kg (243 lb) | BMI 36.95 kg/m | BSA 2.3 m GENERAL: 69 year old male well developed and well nourished in no acute distress SKIN: no rashes, ulcers, or spider angiomata HEENT: normocephalic, sclera clear, pharynx normal NECK: supple, no lymphadenopathy, no masses or thyroid enlargement LUNGS: clear to auscultation anterior and posterior HEART: regular rate & rhythm, no murmurs and no gallops ABDOMEN: normo-active bowel sounds, soft, non-tender, non-distended no masses, no hepatosplenomegaly, no rebound or guarding, no bruits EXTREMITIES: no palmar erythema, no edema, no skin discoloration, no clubbing, no cyanosis NEURO: no lateralizing findings, Sensory/Motor grossly normal IMPRESSION/RECOMMENDATIONS: 69 year old male with Gastroesophageal reflux disease, unspecified whether esophagitis present (Primary) - try decreasing omeprazole to once daily in the morning, 1/2 hr before breakfast. If the reflux returns then back up to 2x/day. History of IBS - continue the dicyclomine 10mg BID. Hx of anemia Iron supplement no longer medically necessary . Yearly recheck. I spent a total of 30 minutes on the date of service in review of patient's record, and previously obtained information in person and appropriate medical visit, discussion and education of plan, withpatient and/or caregiver, placing orders for tests/referral/procedures as medically necessary and documentation of pertinent clinical information in patient's medical records for their visit today. documented in this encounter Nursing Notes * Karrie Adkins CMA - 04/22/2024 10:52 AM EDT Chief Complaint Patient presents with Follow Up Pt here to f/u for IBS/GERD. GERD stable on BID omeprazole. Pt states the iron regimen and Bentyl has improved his bowels. documented in this encounter Plan of Treatment Upcoming Encounters Date Type Department Care Team (Late st Contact Info) Description 09/02/2024 10:40 AM EST Office Visit General Internal Medicine [facility] [address] [place] [address] Jamel Hutchison MD [address] [place] [address] 10/27/2024 9:30 AM EST Cardiac Studies Cardiac Studies, [facility] [address] [facility] [place] [address] Scheduled Procedures Name Priority Associated Diagnoses Date/Ti me COLONOSCOPY FLEXIBLE PROXIMA L DIAGNOSTIC Recall History of colonic polyps Health Maintenance Due Date Last Done Comments Cologuard 1998 Sigmoidoscopy 1998 Fecal Occult Blood Test 02/20/2023 02/21/20 22, 02/20/2022, 12/21/2018, Additional history exists Influenza Vaccine (FLU shot) (#1) 2024 07/08/2023, 07/08/2023, 07/23/2022, Additional history exists COVID-19 Vaccine ( season) 2024 02/17/2024, 02/17/2024, 07/08/2023, Additional history exists Depression Screening 07/24/2024 07/24/2023 GFR 01/26/2025 01/27/2024, 12/12, 08/15/2022, Additional history exists HbA1c 01/26/2025 01/27/2024, 03/14, 01/03/2023, Additional history exists DTaP,Tdap,and Td Vaccines (4 - Td or Tdap) 05/16/2025 05/16/2015, 06/18/2005, 05/13/2005 Albumin/Creatinine Ratio 06/26/2025 022, 02/05/2016, 06/07/2014 Colonoscopy 07/30/2025 07/30/2022, 07/13, 08/07/2016, Additional history exists Colorectal Cancer Screening 07/30/2025 Lipid Panel 01/26/2029 01/27/2024, 12/12, 12/18/2021, Additional history exists Pneumococcal Vaccine: 65+ Years Completed 07/27/2019, 07/23/2018 AAA Screening Completed 08/16/2019, 05/0 05/2018, 06/20/2017, Additional history exists Zoster Vaccines Completed 03/14/2020, 10/14, 04/22/2013 HPV (Gardasil) Vaccine Aged Out No lo nger eligible based on patient's age to complete this topic Hepatitis B Vaccine Aged Out No longe r eligible based on patient's age to complete this topic MENINGOCOCCAL (MENACTRA/MENVEO) Aged Out No longer eligible based on patient's age to complete this topic documented as of this encounter Medical Devices Implanted Type Area Boiling Tub Operator Device Identifier Shelf Expiration Date Model / Serial / Lot Atriclip 40mm [id number] - [id number] Implanted:Qty : 1 on 04/06/2018 by Esequiel Kirkland MD at OR [facility] [place] [place] N/A: Heart ATRICURE 10/13/2020 [id number] / / [id number] Suture Steel 6 B&S19 M654g - [id number] Implanted:Qty : 4 on 04/06/2018 by Esqeuiel Kirkland MD at OR [facility] [place] [place] N/A: Sternum JNJ : [employer] 12/10/2022 [id number] / / [id number] Valve Heart Mitral Epic 33mm - [id number] - [id number] Implanted:Qty : 1 on 04/06/2018 by Esequiel Kirkland MD at OR [facility] [place] [place] N/A: Heart ST SUZANNA : CARDIOVASCULAR 10/26/2021 [id number] / [id number] / documented as of this encounter Visit Diagnoses Diagnosis Gastroesophageal reflux disease, unspecified whether esophagitis present- Primary History of IBS Personal history of other diseases of digestive system documented in this encounter Advance Directives Documents on File Type Date Recorded Patient Care Administrative Tech Expl anation Advance Directives and Living Will 04/07/2018 ADVANCE DIRECTIVE / LIVING WILL * Full Code (Latest Code Status on File) Date Activated Date Inactivated Comments 04/06/2018 10:57 AM 04/11/2018 3:17 PM This order reflects the patients wishes and were consensually agreed upon. Care Teams Card Seller Relationship Specialty Start Date End Date Jamel Hutchison MD [address] [facility] [place] [address] PCP - General Internal Medicine 02/09/18 documented as of this encounter
--- OUTSIDE RECORDS SUMMARY | 2024-10-13 21:54 | External Medical Summary | Summary of Care ---
Author Name Unknown Organization [facility] Address [address] [place] [address] Phone [phone] Care Team Providers Care Auditor Appraiser Name Role Phone Jamel James MD Primary Care Provider + Reason for Visit * Reason Onset Date Comments Medication Refill 08/04/2024 Encounter Details Date Type Department Care Team (Late st Contact Info) Description 08/04/2024 Refill General Internal Medicine [facility] [address] [place] [address] Jamel James MD [address] [place] [address] Polyarthralgia Allergies No known active allergiesdocumented as of this encounter (statuses as of 08/06/2024) Medications Medication Sig Dispensed Refills Start Date End Date Status Multivitamin Adult Oral Tablet Chewable Take by mouth . Active Iron 325 (65 Fe) MG Oral Tablet Take 1 Tablet by mouth once a day on Friday, Friday, and Friday only. Active amLODIPine Besylate 5 MG Oral Tablet (Norvasc)Indicatio ns:HTN, goal below 140/90 Take 1 Tablet by mouth in the morning. 90 Tablet 3 08/05/2023 Active Dicyclomine HCl 10 MG Oral Capsule (Bentyl) TAKE 1 CAPSULE BY MOUTH TWICE DAILY NEEDED FOR LOWER ABDOMINAL CRAMPING 180 Capsule 3 11/21/2023 Active Allopurinol 300 MG Oral Tablet (Zyloprim)Indicati ons:Chronic idiopathic gout involving toe without tophus, unspecified laterality Take 1 tablet by mouth once daily 90 Tablet 3 02/12/2024 Active Amoxicillin 500 MG Oral Capsule (Amoxil)Indication s:SBE (subacute bacterial endocarditis) prophylaxis candidate,S/P MVR (mitral valve replacement) One hour prior to dental appt 4 Capsule 3 02/26/2024 Active Lisinopril-hydroCH LOROthiazide 20-25 MG Oral TabletIndications: HTN, goal below 140/90 TAKE 1 TABLET BY MOUTH IN THE MORNING 90 Tablet 2 02/26/2024 Active Omeprazole 20 MG Oral Capsule Delayed Release (PriLOSEC)Indicati ons:Anemia Take 1 capsule by mouth twice daily 180 Capsule 2 02/26/2024 Active Metoprolol Succinate ER 50 MG Oral Tablet Extended Release 24 Hour (toPROL XL)Indications:Per sistent atrial fibrillation (HCC),Ventricular ectopy TAKE 1 TABLET BY MOUTH IN THE MORNING 90 Tablet 3 03/04/2024 Active Rosuvastatin Calcium 20 MG Oral Tablet (Crestor)Indicatio ns:Hypertriglyceri demia Take 1 Tablet by mouth in the morning. 90 Tablet 3 03/25/2024 Active Lisinopril 20 MG Oral Tablet (Prinivil)Indicati ons:HTN, goal below 140/90 Take 1 Tablet by mouth in the morning. FOR A TOTAL OF 40 MG OF LISINOPRIL. 90 Tablet 1 03/25/2024 Active Eliquis 5 MG Oral Tablet (Apixaban)Indicati ons:PAF (paroxysmal atrial fibrillation) (HCC) TAKE 1 TABLET BY MOUTH IN THE MORNING 1 TABLET AT BEDTIME 180 Tablet 3 04/22/2024 Active traMADol HCl 50 MG Oral Tablet (Ultram)Indication s:Polyarthralgia Take 1 Tablet by mouth every 8 hours as needed for Pain, Severe. 23 Tablet 08/06/2024 Active traMADol HCl 50 MG Oral Tablet (Ultram)Indication s:Polyarthralgia Take 1 Tablet by mouth every 8 hours as needed for Pain, Severe. 23 Tablet 02/13/2024 4 Discontinue d(Refill) documented as of this encounter (statuses as of 08/06/2024) Active Problems Problem Noted Date Diagnosed Date [...] as of this encounter (statuses as of 08/06/2024) Resolved Problems Problem Noted Date Diagnosed Date Resolved Date Renal cyst, right 01/22/2021 06/26/2022 Mitral valve disease 04/09/2018 020 Bioprosthetic mitral valve r eplacement, current hospitalization 04/07/2018 05/12/2018 Persistent atrial fibrillation 02/13/2018 06/02/2020 Elevated glucose 09/16/2014 01/21/2019 GI bleed due to NSAIDs 06/06/201401/19 Joint pain, knee 01/19/2019 Dyslipidemia, goal LDL below 130 05/12/2018 documented as of this encounter (statuses as of 08/06/2024) Immunizations Name Administration Dates Next Due COVID-19 mRNA, LNP-s, No Pre serve, 2-Dose Series (Moderna) 06/23/2024,12/25/2020,11/27/2020 COVID-19, MRNA-LNP, 23-24, P F, 30 MCG/0.3 mL, 12 YRS AND ABOVE, IM (PFIZER-[facility]) 07/08/2023 COVID-19, MRNA-LNP, 23-24, P F, 50 [...] encounter Miscellaneous Notes * Telephone Encounter - Jamel James MD - 08/06/2024 12:20 PM EDT Signed Prescriptions: Disp Refills traMADol HCl 50 MG Oral Tablet (Ultram) 23 Tab*0 Sig: Take 1 Tablet by mouth every 8 hours as needed for Pain, Severe. Authorizing Provider: JAMEL JAMES * Telephone Encounter - Yola Miramontes RPh - 08/06/2024 12:17 PM EDTPending Prescriptions: Disp Refills traMADol HCl 50 MG Oral Tablet (Ultram) 23 Tab*0 Sig: Take 1 Tablet by mouth every 8 hours as needed for Pain, Severe. * Telephone Encounter - Yola Miramontes RPh - 08/06/2024 12:16 PM EDT I have reviewed the patients controlled substance dispensing history in the Prescription Drug Monitoring Program in compliance with the [facility] regulations before prescribing a controlled substance. PDMP checked on 08/06/2024. Pending Prescriptions: Disp Refills traMADol HCl 50 MG Oral Tablet (Ultram) 23 Tab*0 Sig: Take 1 Tablet by mouth every 8 hours as needed for Pain, Severe. Last Visit: 02/04/2024 (in office), Visit date not found (telemedicine) Next Visit: 09/02/2024 Date medication was last filled: 02/19/24 Date medication is due for refill: 02/27/24 [facility] [address] [place] [address] Is this request for a controlled substance? Yes and Urine Drug Screen Not completed Toxicology results: No results found for this or any previous visit. Please approve if appropriate. Thanks, Yola Miramontes, PharmD Clinical Pharmacist [facility] [phone] 08/06/2024 12:16 PM documented in this encounter Plan of Treatment Upcoming Encounters Date Type Department Care Team (Late st Contact Info) Description 08/24/2024 8:00 AM EST [facility] [address] [address] [place] [phone] [place] [address] [place] [address] 09/02/2024 10:40 AM EST Office Visit General Internal Medicine [facility] [address] [facility] [place] [address] Jamel James MD [address] [facility] [place] [address] 10/27/2024 9:30 AM EST Cardiac Studies Cardiac Studies, [facility] [address] [facility] [place] [address] Scheduled Procedures Name Priority Associated Diagnoses Date/Ti [...] this encounter Medical Devices Implanted Type Area Resistance Welding Machine Operator Device Identifier Shelf Expiration Date Model / Serial / Lot Atriclip 40mm [id number] - [id number] Implanted:Qty : 1 on 04/06/2018 by Esequiel Kirkland MD [place] [facility] [place]: Heart ATRICURE 10/13/2020 [id number] / / [id number] Suture Steel 6 B&S19 M654g - [id number] Implanted:Qty : 4 on 04/06/2018 by Esequiel Kirkland MD at [place] [facility] [place]/A: Sternum JNJ : [employer] 12/10/2022 [id number] / / [id number] Valve Heart Mitral Epic 33mm - [id number] - [id number] Implanted:Qty : 1 on 04/06/2018 by Esequiel Kirkland MD at [place] [facility] [place] N/A: Heart ST SUZANNA : CARDIOVASCULAR 10/26/2021 [id number] / [id number] / documented as of this encounter Visit Diagnoses Diagnosis Polyarthralgia Pain in joint, multiple sites documented in this encounter Advance Directives Documents on File Type Date Recorded Patient Commercial Development Manager Expl anation Advance Directives and Living Will 04/07/2018 ADVANCE DIRECTIVE / LIVING WILL * Full Code (Latest Code Status on File) Date Activated Date Inactivated Comments 04/06/2018 10:57 AM 04/11/2018 3:17 PM This order reflects the patients wishes and were consensually agreed upon. Care Teams Auditor Appraiser Relationship Specialty Start Date End Date Jamel James MD [address] [place] [address] PCP - General Internal Medicine 02/09/18 documented as of this encounter
--- OUTSIDE RECORDS SUMMARY | 2024-10-13 21:54 | External Medical Summary | Summary of Care ---
Author Name Unknown Organization [facility] Address [address] [place] [address] Phone [phone] Care Team Providers Care Buttonholer Name Role Phone Jamel Hutchison MD Primary Care Provider + Reason for Visit * Reason Comments eRx-Medication Refill Encounter Details Date Type Department Care Team (Late st Contact Info) Description 04/22/2024 Refill Cardiology, [facility] [address] [place] [address] [place], [address] [place] [address] PAF (paroxysmal atrial fibrillation) ([facility]) Allergies No known active allergiesdocumented as of [...] AT BEDTIME 180 Tablet 3 04/22/2024 Active Apixaban 5 MG Oral Tablet (Eliquis)Indicati ons:PAF (paroxysmal atrial fibrillation) ([facility]) Take 1 Tablet by mouth in the [...] MCG/0.3 mL, 12 YRS AND ABOVE, IM (PFIZER-Comirnaty) 07/08/2023 COVID-19, MRNA-LNP, 23-24, P F, 48 [...] encounter Miscellaneous Notes * Telephone Encounter - Marielle Crawford PA-C - 04/22/2024 11:13 AM EDT Signed Prescriptions: Disp Refills Eliquis 5 MG Oral Tablet (Apixaban) 180 Ta*3 Sig: TAKE 1 TABLET BY MOUTH IN THE MORNING 1 TABLET AT BEDTIMEAuthorizing Provider: MARIELLE CRAWFORD * Telephone Encounter - Ching Andrews CMA - 04/22/2024 10:44 AM EDTPending Prescriptions: Disp Refills Eliquis 5 MG Oral Tablet (Apixaban) 180 Ta*3 Sig: TAKE 1 TABLET BY MOUTH IN THE MORNING 1 TABLET AT BEDTIME * Telephone Encounter - Ching Andrews CMA - 04/22/2024 10:44 AM EDT Did you pend patient's preferred pharmacy and medication before forwarding?yes Pharmacy: [facility] [address] [place] [address] OREN MENDEZ Pending Prescriptions: Disp Refills Eliquis 5 MG Oral Tablet (Apixaban) [Phar*180 Ta*3 Sig: TAKE 1 TABLET BY MOUTH IN THE MORNING 1 TABLET AT BEDTIME Last Visit: 10/08/2023 (in office), Visit date not found (telemedicine) Next Visit: Visit date not found If no future appointments scheduled, and last appointment is greater than a year ago, please schedule patient for a follow-up appointment Last date the medication was ordered: 05-02-2023 Is this request for a controlled substance?No Urine Drug Screen:No results found for this or any previous visit. Patient Phone Numbers Labs: Lab Results Component Value Date/Time CREAT 0.8 01/27/2024 07:54 AM CREAT 0.8 06/02/2020 11:23 AM POTASSIUM 4.2 01/27/2024 07:54 AM POTASSIUM 4.1 06/02/2020 11:23 AM TSH 1.83 03/20/2018 11:07 AM LDLCALC 32 01/27/2024 07:54 AM LDLCALC 31 04/08/2019 09:25 AM LDLDIRECT 41 06/02/2020 11:23 AM LDLDIRECT 124 (H) 05/25/2008 07:31 AM ALT 22 01/27/2024 07:54 AM ALT 28 06/02/2020 11:23 AM HGBA1C 6.2 (H) 01/27/2024 07:54 AM HGBA1C 5.8 (H) 06/02/2020 11:23 AM documented in this encounter Plan of Treatment Upcoming Encounters Date Type Department Care Team (Late st Contact Info) Description 09/02/2024 10:40 AM EST Office Visit General Internal Medicine [facility] [address] [facility] [place] [address] Jamel Hutchison MD [address] [facility] [address] 10/27/2024 9:30 AM EST Cardiac Studies Cardiac Studies, [facility] 132 [facility] [place] [address] Scheduled Procedures Name Priority Associated Diagnoses Date/Ti [...] this encounter Medical Devices Implanted Type Area Director Of Student Financial Aid Device Identifier Shelf Expiration Date Model / Serial / Lot Atriclip 40mm [id number] - [id number] Implanted:Qty : 1 on 04/06/2018 by Esequiel Kirkland MD at OR [facility] N/A: Heart ATRICURE 10/13/2020 [id number] / / [id number] Suture Steel 6 B&S19 M654g - [id number] Implanted:Qty : 4 on 04/06/2018 by Esequiel Kirkland MD at OR [facility] N/A: Sternum JNJ : [employer] 12/10/2022 [id number] / / [id number] Valve Heart Mitral Epic 33mm - [id number] - [id number] Implanted:Qty : 1 on 04/06/2018 by Esequiel Kirkland MD at OR [facility] N/A: Heart ST SUZANNA : CARDIOVASCULAR 10/26/2021 [id number] / [id number] / documented as of this encounter Visit Diagnoses Diagnosis PAF (paroxysmal atrial fibrillation) (HCC) Atrial fibrillation documented in this encounter Advance Directives Documents on File Type Date Recorded Patient Work Order Detailer Expl anation Advance Directives and Living Will 04/07/2018 ADVANCE DIRECTIVE / LIVING WILL * Full Code (Latest Code Status on File) Date Activated Date Inactivated Comments 04/06/2018 10:57 AM 04/11/2018 3:17 PM This order reflects the patients wishes and were consensually agreed upon. Care Teams Buttonholer Relationship Specialty Start Date End Date Jamel Hutchison MD [address] [place] [address] PCP - General Internal Medicine 02/09/18 documented as of this encounter
--- OUTSIDE RECORDS SUMMARY | 2024-10-13 21:54 | External Medical Summary | Summary of Care ---
Author Name Unknown Organization [facility] Address [address] [place] [address] Phone [phone] Care Team Providers Care Cargo Vessel Stewardess Name Role Phone Jamel Hutchison MD Primary Care Provider + Reason for Visit * Reason Onset Date Comments Medication Refill 08/04/2024 Encounter Details Date Type Department Care Team (Late st Contact Info) Description 08/04/2024 Refill Cardiology, [facility] [address] [place] [address] aPlma Ohara CRNP [address] [place] [address] SBE (subacute bacterial endocarditis) prophylaxis candidate; S/P MVR (mitral valve replacement) Allergies No known active allergiesdocumented as of this encounter (statuses as of 08/09/2024) Medications Medication Sig Dispensed Refills Start Date [...] once daily 90 Tablet 3 02/12/2024 Active Lisinopril-hydroCH LOROthiazide 20-25 MG Oral TabletIndications: [...] 08/06/2024 Active Amoxicillin 500 MG Oral Capsule (Amoxil)Indication s:SBE (subacute bacterial endocarditis) prophylaxis candidate,S/P MVR (mitral valve replacement) One hour prior to dental appt 4 Capsule 3 08/09/2024 Active Amoxicillin 500 MG Oral Capsule (Amoxil)Indication s:SBE (subacute bacterial endocarditis) prophylaxis candidate,S/P MVR (mitral valve replacement) One hour prior to dental appt 4 Capsule 3 02/26/2024 4 Discontinue d(Refill) documented as of this encounter (statuses as of 08/09/2024) Active Problems Problem Noted Date Diagnosed Date [...] as of this encounter (statuses as of 08/09/2024) Resolved Problems Problem Noted Date Diagnosed Date Resolved Date Renal cyst, right 01/22/2021 06/26/2022 Mitral valve disease 04/09/2018 020 Bioprosthetic mitral valve r eplacement, current hospitalization 04/07/2018 05/12/2018 Persistent atrial fibrillation 02/13/2018 06/02/2020 Elevated glucose 09/16/2014 01/21/2019 GI bleed due to NSAIDs 06/06/201401/19 Joint pain, knee 01/19/2019 Dyslipidemia, goal LDL below 130 05/12/2018 documented as of this encounter (statuses as of 08/09/2024) Immunizations Name Administration Dates Next Due COVID-19 [...] Telephone Encounter - Marielle Crawford PA-C - 08/09/2024 7:44 AM EDT Signed Prescriptions: Disp Refills Amoxicillin 500 MG Oral Capsule (Amoxil) 4 Caps*3 Sig: One hour prior to dental appt Authorizing Provider: MARIELLE CRAWFORD * Telephone Encounter - Viviane Ozuan RPh - 08/07/2024 1:37 PM EDTPending Prescriptions: Disp Refills Amoxicillin 500 MG Oral Capsule (Amoxil) 4 Caps*3 Sig: One hour prior to dental appt * Telephone Encounter - Viviane Ozuna RPh - 08/07/2024 1:36 PM EDT [facility] is currently not authorized to approve refills for the pended medication(s) per refill protocol. Please approve if appropriate. Thanks, Viviane Ozuna, PharmD Clinical Pharmacist [facility] ([facility]) 08/07/2024, 1:36 PM documented in this encounter Plan of Treatment Upcoming Encounters Date Type Department Care Team (Late st Contact Info) Description 08/24/2024 8:00 AM EST Laboratory Laboratory [place] Mellisa Guerrero [address] [place] [id number] Leeann Pak [place] [place] [address] 09/02/2024 10:40 AM EST Office Visit General Internal Medicine [place] [place] [address] [place] [address] Jamel Hutchison MD [address] [place] [id number] 10/27/2024 9:30 AM EST Cardiac Studies Cardiac Studies, [facility] [address] [place] [address] Scheduled Procedures Name Priority Associated Diagnoses Date/Ti [...] Completed 07/27/2019, 07/23/2018 AAA Screening Completed 08/16/2019, 05/05/2018, 06/20/2017, Additional history exists Zoster Vaccines Completed [...] this encounter Medical Devices Implanted Type Area Pants Maker Device Identifier Shelf Expiration Date Model / Serial / Lot Atriclip 40mm [id number] - [id number] Implanted:Qty : 1 on 04/06/2018 by Esequiel Kirkland MD at OR [facility] N/A: Heart ATRICURE 10/13/2020 [id number] / / [id number] Suture Steel 6 B&S19 M654g - [id number] Implanted:Qty : 4 on 04/06/2018 by Esequiel Kirkland MD at OR [facility] N/A: Sternum JNJ : [employer] 12/10/2022 M654G / / [id number] Valve Heart Mitral Epic 33mm - [id number] - [id number] Implanted:Qty : 1 on 04/06/2018 by Esequiel Kirkland MD at OR 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 Care Teams Cargo Vessel Stewardess Relationship Specialty Start Date End Date Jamel Hutchison MD [address] [place], [place] [address] PCP - General Internal Medicine 02/09/18 documented as of this encounter
--- OUTSIDE RECORDS SUMMARY | 2024-10-13 21:54 | External Medical Summary ---
Author Name Unknown Address Unknown Organization K01:[facility] [address] [place] [address] Laboratory Report Ordering Provider Test Date Status JACOB BAGLEY 08/24/2024 07:51:26 Final Observation Date Value Abnormality Reference (Units ) Status Magnesium 08/24/2024 07:51:26 1.5 1.5-2.6 (m g/dL) Final Performing Location [facility] [address] [place] [address]
--- OUTSIDE RECORDS SUMMARY | 2024-10-13 21:54 | External Medical Summary | Summary of Care ---
Author Name Unknown Organization [facility] Address [address] [place] [address] Phone [phone] Care Team Providers Care Music Assistant Name Role Phone Jamel Hutchison MD Primary Care Provider + Reason for Visit * Reason Comments Outpatient Testing Encounter Details Date Type Department Care Team (Late st Contact Info) Description 08/24/2024 8:00 AM EST [facility] [address] [facility] [place] [phone] [facility] [address] [place] [address] Prediabetes; Encounter for long-term (current) use of medications Allergies No known active allergiesdocumented as of this encounter (statuses as of 08/24/2024) Medications Multivitamin Adult Oral Tablet Chewable Take [...] as of this encounter (statuses as of 08/24/2024) Active Problems Problem Noted Date Diagnosed Date [...] as of this encounter (statuses as of 08/24/2024) Resolved Problems Problem Noted Date Diagnosed Date Resolved Date Renal cyst, right 01/22/2021 06/26/2022 Mitral valve disease 04/09/2018 020 Bioprosthetic mitral valve r eplacement, current hospitalization 04/07/2018 05/12/2018 Persistent atrial fibrillation 02/13/2018 06/02/2020 Elevated glucose 09/16/2014 01/21/2019 GI bleed due to NSAIDs 06/06/201401/19 Joint pain, knee 01/19/2019 Dyslipidemia, goal LDL below 130 05/12/2018 documented as of this encounter (statuses as of 08/24/2024) Immunizations Name Administration Dates Next Due COVID-19 [...] on file documented as of this encounter Plan of Treatment Upcoming Encounters Date Type Department Care Team (Late st Contact Info) Description 09/02/2024 10:40 AM EST Office Visit General Internal [facility] [address] [place], [place] [address] Jamel Hutchison MD [address] [place] [address] 10/27/2024 9:30 AM EST Cardiac Studies Cardiac Studies, [facility] [address] [facility] [place] [address] Pending Results Name Type Priority Associated Diagnoses Date /Time HEMOGLOBIN A1C Lab Routine Prediabetes 08/24/2024 7:51 AM EST MAGNESIUM Lab Routine Encounter for long-term (current) use of medications 08/24/2024 7:51 AM EST VITAMIN B12 Lab Routine Encounter for long-term (current) use of medications 08/24/2024 7:51 AM EST Scheduled Procedures Name Priority Associated Diagnoses Date/Ti [...] Completed 07/27/2019, 07/23/2018 AAA Screening Completed 08/16/2019, 0505/2018, 06/20/2017, Additional history exists Zoster Vaccines Completed [...] this encounter Medical Devices Implanted Type Area Insurance Marketing Rep Device Identifier Shelf Expiration Date Model / Serial / Lot Atriclip 40mm [id number] - [id number] Implanted:Qty : 1 on 04/06/2018 by Esequiel Kirkland MD at OR [facility] N/A: Heart ATRICURE 10/13/2020 [id number] / / [id number] Suture Steel 6 B&S19 M654g - [id number] Implanted:Qty : 4 on 04/06/2018 by Esequiel Kirkland MD at OR [facility] N/A: Sternum JNJ : [employer] 12/10/2022 M654G / / [id number] Valve Heart Mitral Epic 33mm - [id number] - [id number] Implanted:Qty : 1 on 04/06/2018 by Esequiel Kirkland MD at OR [facility] N/A: Heart ST SUZANNA : CARDIOVASCULAR 10/26/2021 [id number] / [id number] / documented as of this encounter Visit Diagnoses Diagnosis Prediabetes Other abnormal glucose Encounter for long-term (current) use of medications Encounter for long-term (current) use of other medications documented in this encounter Advance Directives Documents on File Type Date Recorded Patient Maritime Guard Expl anation Advance Directives and Living Will 04/07/2018 ADVANCE DIRECTIVE / LIVING WILL * Full Code (Latest Code Status on File) Date Activated Date Inactivated Comments 04/06/2018 10:57 AM 04/11/2018 3:17 PM This order reflects the patients wishes and were consensually agreed upon. Care Teams Music Assistant Relationship Specialty Start Date End Date Jamel Hutchison MD [address] [place] [address] PCP - General Internal Medicine 02/09/18 documented as of this encounter
[2024-10-13 22:14] LABS: Basophils # (auto) 0.02 K/uL (0.00-0.20); Basophils % (auto) 0.2 %; Eosinophils # (auto) 0.04 K/uL (0.00-0.50); Eosinophils % (auto) 0.4 %; Hematocrit (blood only) 39.8 % (42.0-52.0); Hemoglobin 13.3 g/dl (14.0-18.0); Immature Granulocytes # (auto) 0.03 K/uL (0.01-0.20); Immature Granulocytes % (auto) 0.3 %; Lymphocytes # (auto) 0.99 K/uL (1.20-3.40); Lymphocytes % (auto) 10.4 %; Mean Corpuscular Hemoglobin 31.5 pg (25.0-34.0); Mean Corpuscular Hgb Conc 33.4 g/dL (32.0-36.0); Mean Corpuscular Volume 94.3 fL (80.0-100.0); Mean Platelet Volume 9.6 fL (9.4-12.4); Monocytes % (auto) 10.5 %; Neutrophils # (auto) 7.44 K/uL (1.40-6.50); Neutrophils % (auto) 78.2 %; Platelet Count 175 K/uL (130-400); RDW Coefficient of Variation 14.1 % (11.5-14.5); RDW Standard Deviation 47.4 fL (36.4-46.3); Red Blood Count 4.22 M/uL (4.70-6.10); White Blood Count 9.52 K/ul (4.8-10.8)
[2024-10-13 22:32] LABS: Albumin Globulin Ratio 1.1 (0.9-2); Albumin Level 4.3 gm/dl (3.4-5.0); BUN Creatinine Ratio 13.7 (10-20); Bilirubin,Total 0.7 mg/dl (0.2-1.0); Calcium 9.7 mg/dl (8.6-10.3); Creatinine Clr Calc Pharmacy 64.9 ml/min; Globulin 3.8 gm/dl (2.5-4.0); Potassium 4.3 mmol/L (3.5-5.1); Total Protein 8.1 gm/dl (6.0-8.3)
[2024-10-13 22:38] LABS: Troponin I High Sensitivity 16.4 pg/ml (0-20)
[2024-10-13 22:47] LABS: INR 1.2 (0.9-1.1); Partial Thromboplastin Ratio 1.1; Partial Thromboplastin Time 29 Seconds (21-31); Prothrombin Time 12.4 Seconds (9.0-12.0)
--- NOTE | 2024-10-13 22:55 | Emergency Department Note ---
Impression & Plan Chest pain, Elevated brain natriuretic peptide (BNP) level, Thoracic aortic aneurysm ED Provider Note HISTORY OF PRESENT ILLNESS: Patient is a 69-year-old male presenting with chest pain. Patient reports that he was working out and doing exercises on Friday (3 days ago). He states he started having some vague substernal chest pain at that time and thought he just pulled a muscle. Reports the pain has been intermittent and persistently more prominent over the last 3 days. Reports that earlier today the pain became significantly worse. He describes the pain as a 9 out of 10. Describes it as a pressure and sharp sensation in the substernal region with radiation into his shoulder. He denies ever having pain like this before. He is on Eliquis. He reports a history of a mitral valve replacement. Denies any history of cardiac stents. Denies any DVT or PE history. Denies any associated shortness of breath or lightheadedness. Denies any associated nausea or vomiting. He denies any abdominal pain. Patient reports that he took multiple doses of his prescribed tramadol for his chest pain earlier today with little relief in his symptoms. ROS: as above PHYSICAL EXAM: Constitutional: Patient appears in no acute distress. HENT: Head: Normocephalic and atraumatic. Eyes: EOMI, PERRL Mouth/Throat: Mucous membranes moist. Neck: Trachea midline. Neck supple. Cardiovascular: RRR, No murmurs, rubs or gallops. Intact distal pulses. Pulmonary/Chest: No respiratory distress. Breath sounds clear and equal bilaterally. No wheezes or rales. Abdominal: Abdomen soft, no tenderness, rebound or guarding. Musculoskeletal: No edema, tenderness or deformity noted. Skin: Warm and dry. No rash, erythema, pallor or cyanosis Psychiatric: Appropriate mood and affect for situation. Neurological: Alert and keenly responsive. CN II-XII grossly intact, moving all extremities equally and fully. MDM: - Vitals signs showed hypertension - History obtained via patient. History as above. - Chronic conditions affecting care: HTN; HLD - Differential diagnoses include, but are not limited to: Acute coronary syndrome; pulmonary embolism; dissection; tension pneumothorax; esophageal rupture; pneumonia - Order placed for continuous cardiac monitoring. At this time, monitor showed rate of 62 bpm with normal sinus rhythm, per my interpretation. - External medical records reviewed. Cardiac catheterization documentation dated 03/05/2018 was reviewed. Patient had a left heart cath and a right heart cath at that catheterization. He was found to have mild left ventricular systolic dysfunction and mild to moderate mitral regurgitation. Recommendations by cardiology for medical therapy. No significant coronary artery disease. EF was 45 to 50% with global hypokinesis. - EKG interpreted by myself showed normal sinus rhythm. Rate 102 bpm. QT 360. Patient has noted to have frequent PVCs. Also looks like he has an incomplete right bundle branch block. - Laboratory workup interpreted by myself showed normal WBC; slightly elevated INR (1.2); stable electrolytes; hyperglycemia (glucose 139); normal troponin; elevated BNP (250) - CXR negative for pneumonia but does show cardiomegaly, per my interpretation. - Repeat EKG obtained at 2309 interpreted by myself showed normal sinus rhythm. Rate 88 bpm. QT 380. Noted to have frequent PVCs. - CTA chest showed a 4 cm aneurysm in the ascending aorta. Noted to have dilated pulmonary artery suggestive of pulmonary hypertension. No dissection or PE. - Given 0.4 mg SL nitro. - On reassessment, patient reports that his chest pain is only down to a 7 out of 10 after the sublingual nitro. 4 mg IV morphine ordered. - HEART score 6 (History +1 moderately suspicious; EKG +1; Age +2; Risk factors +2; Initial troponin +0), amounting to a moderate score. - Repeat troponin within normal limits - On reassessment, the patient is still complaining of chest pain. Will admit for further cardiac workup. - Discussion was had with social work case manager about patient's case and need for admission - Hospitalist, Dr. Goetz, consulted for admission - [facility] ASSESSMENT AND PLAN: Diagnosis: Chest pain; elevated BNP; thoracic aortic aneurysm Plan: admit Past Med/Surg History Problem List (Updated 05/28/18 @ 03:[address] [employer]) Thoracic aortic aneurysm (Acute) Elevated brain natriuretic peptide (BNP) level (Acute) Chest pain (Acute) Hypertension (Chronic) Hyperlipidemia (Chronic) Tophaceous gout (Chronic) Diverticulosis (Chronic) History of GI bleed (Chronic) History of gastric ulcer (Chronic) S/P appendectomy (Chronic) Hx of tonsillectomy (Chronic) H/O esophagogastroduodenoscopy (Chronic) Hx of total knee arthroplasty (Chronic) H/O colonoscopy (Chronic) Social History Smoking Status: Former smoker Preferred Language: [place] Feels Safe at Home: Yes Allergies Allergies Allergy/AdvReac Type Severity Reaction Status Date / Time No Known Allergies Allergy Mild Verified 12/15/04 13:04 Home Meds Home Medications Medication Instructions Recorded Confirmed Allopurinol (Zyloprim *) 300 mg PO QAM ##0 10/22/10 Fenofibrate (Tricor ) 145 mg PO QAM ##0 10/22/10 OMEPRAZOLE (PRILOSEC) 20 mg PO BID #0 caps 02/09/16 APIXABAN (ELIQUIS) 5 mg PO BID #0 tabs 03/05/18 DICYCLOMINE HCL 1 cap PO Q6H PRN Documentation 25 03/05/18 days #100 caps HCTZ/LISINOPRIL (Lisinopril/Hctz 1 tab PO DAILY #0 tabs 03/05/18 20/25 Mg) Lactobacillus (Probiotic 1 cap PO DAILY ##0 03/05/18 Acidophilus) Metoprolol Tartrate (Lopressor) 1 tab PO BID 90 days #180 tabs 03/05/18 (Lopressor) Tramadol (Ultram) 50 mg PO Q6H PRN Pain #0 tabs 03/05/18 Results & Data (ED) Vital Signs Vital Signs - 24 hr 10/13/24 21:50 10/13/24 22:33 10/13/24 22:39 Temperature 36.5 C Temperature Source Temporal Artery Scan Pulse Rate 62 86 93 H Pulse Rate from SpO2 Sensor Respiratory Rate 18 Respiratory Effort / Characteristics Non-Labored Spontaneous Respiratory Depth Normal Blood Pressure 166/70 H Blood Pressure Mean 102 Pulse Oximetry 93 Oxygen Delivery Method Room Air Sepsis Recent Fever Within 48 Hours No Sepsis New/Unexplained Change in Mental Status No Sepsis Action Taken by Nursing No Action Required 10/13/24 22:43 10/13/24 22:47 10/13/24 23:00 Temperature Temperature Source Pulse Rate 89 81 Pulse Rate from SpO2 Sensor 88 83 Respiratory Rate 19 19 Respiratory Effort / Characteristics Respiratory Depth Blood Pressure 160/110 H 147/93 H Blood Pressure Mean 128 111 Pulse Oximetry 93 92 Oxygen Delivery Method Room Air Sepsis Recent Fever Within 48 Hours Sepsis New/Unexplained Change in Mental Status Sepsis Action Taken by Nursing 10/13/24 23:54 10/14/24 00:00 Temperature Temperature Source Pulse Rate 86 86 Pulse Rate from SpO2 Sensor 88 78 Respiratory Rate 22 23 Respiratory Effort / Characteristics Respiratory Depth Blood Pressure 130/89 128/83 Blood Pressure Mean 94 96 Pulse Oximetry 94 94 Oxygen Delivery Method Sepsis Recent Fever Within 48 Hours Sepsis New/Unexplained Change in Mental Status Sepsis Action Taken by Nursing Laboratory Data 10/13/24 22:00 10/13/24 22:00 Lab Results 10/13/24 10/13/24 10/13/24 Range/Units 22:00 22:10 23:58 WBC 9.52 (4.8-10.8) K/ul RBC 4.22 L (4.70-6.10) M/uL Hgb 13.3 L (14.0-18.0) g/dl Hct 39.8 L (42.0-52.0) % MCV 94.3 (80.0-100.0) fL MCH 31.5 (25.0-34.0) pg MCHC 33.4 (32.0-36.0) g/dL RDW Std Deviation 47.4 H (36.4-46.3) fL RDW Coeff of Christina 14.1 (11.5-14.5) % Plt Count 175 (130-400) K/uL MPV 9.6 (9.4-12.4) fL Immature Gran % (Auto) 0.3 % Neut % (Auto) 78.2 % Lymph % (Auto) 10.4 % [place] % (Auto) 10.5 % Eos % (Auto) 0.4 % Baso % (Auto) 0.2 % Neut # (Auto) 7.44 H (1.40-6.50) K/uL Lymph # (Auto) 0.99 L (1.20-3.40) K/uL [place] # (Auto) 1.00 H (0.11-0.59) K/uL Eos # (Auto) 0.04 (0.00-0.50) K/uL Baso # (Auto) 0.02 (0.00-0.20) K/uL Immature Gran # (Auto) 0.03 (0.01-0.20) K/uL PT 12.4 H (9.0-12.0) Seconds INR 1.2 H (0.9-1.1) APTT 29 (21-31) Seconds PTT Ratio 1.1 Sodium 138 (136-145) mmol/L Potassium 4.3 (3.5-5.1) mmol/L Chloride 102 (98-107) mmol/L Carbon Dioxide 27 (21-32) mmol/L Anion Gap 9 (3-11) BUN 17 (6-23) mg/dl Creatinine 1.24 (0.6-1.4) mg/dl Est Cr Clr Drug Dosing 64.9 ml/min eGFR 62.16 BUN/Creatinine Ratio 13.7 (10-20) Glucose 139 H (70-99(Fasting)) mg/dl Calcium 9.7 (8.6-10.3) mg/dl Total Bilirubin 0.7 (0.2-1.0) mg/dl AST 24 (13-39) U/L ALT 21 (7-52) U/L Alkaline Phosphatase 99 (34-104) U/L Troponin I High Sens 16.4 14.4 (0-20) pg/ml B-Natriuretic Peptide 250 H (0-100) pg/ml Total Protein 8.1 (6.0-8.3) gm/dl Albumin 4.3 (3.4-5.0) gm/dl Globulin 3.8 (2.5-4.0) gm/dl Albumin/Globulin Ratio 1.1 (0.9-2) Administered Medications Discontinued Medications Ioversol (Optiray 320 125ml) 125 ml IV ONCE ONE Stop: 10/13/24 23:39 Last Admin: 10/13/24 23:39 Dose: 118 ml Documented By: NAHUN Morphine Sulfate (Morphine Sulfate 4 Mg/Ml 1 Ml Carp\Vial) 4 mg IV NOW STA Stop: 10/14/24 00:09 Last Admin: 10/14/24 00:17 Dose: 4 mg Documented By: MARIELENA Nitroglycerin (Nitroglycerin Sl 0.4 Mg/Tab Tab) 0.4 mg SL NOW STA Stop: 10/13/24 22:56 Last Admin: 10/13/24 23:06 Dose: 0.4 mg Documented By: MARLI Imaging Data Radiologist's Impression: Chest CTA 10/13/24 22:52 Exam(s): CTA CHEST W/WO Contrast IV Amt: 118 ML OPTIRAY 320 EXAM: CT Angiography Chest Without and With Intravenous Contrast CLINICAL HISTORY: Reason for exam: chest pain radiating to shoulder; hx of valve rep. TECHNIQUE: Axial computed tomographic angiography images of the chest without and with intravenous contrast. CTDI is 78.78 mGy and DLP is 1763.81 mGy-cm. Automated exposure control was utilized for the study. A dose lowering technique was utilized adhering to the principles of ALARA. MIP reconstructed images were created and reviewed. CONTRAST: Patient received 118 ML OPTIRAY 320 of IV contrast COMPARISON: No relevant prior studies available. FINDINGS: Pulmonary arteries: No pulmonary embolism is seen. There is dilatation of the main pulmonary artery. Aorta: There is a 4 cm aneurysm noted of the ascending aorta. No evidence of dissection.. Lungs: No mass. No consolidation. Pleural space: No significant effusion. No pneumothorax. Heart: The patient is status post midline sternotomy. There are postoperative changes involving the heart. Heart is enlarged and contains coronary artery calcifications.. Bones/joints: There are degenerative changes in the spine.. Soft tissues: Unremarkable. Lymph nodes: There are small mediastinal lymph nodes.. IMPRESSION: There is a 4 cm aneurysm noted of the ascending aorta. There is dilatation of the main pulmonary artery which can be seen with pulmonary hypertension. See discussion above. Electronically signed by: Anibal Larios MD 10/14/24 00:14 AM Discharge Plan Visit Data Chief Complaint: Cardiac Assessment Stated Complaint: CARDIAC ASSESSMENT ED Provider: Jazmin Rey Discharge Problem: Chest pain, Elevated brain natriuretic peptide (BNP) level, Thoracic aortic aneurysm Forms Stand Alone Forms: [facility] Prescriptions Prescriptions: No Action Allopurinol (Zyloprim *) 300 MG tablet 300 mg PO QAM Qty: 0 Fenofibrate (Tricor ) 145 MG tablet 145 mg PO QAM Qty: 0 OMEPRAZOLE (PRILOSEC) 20 MG CONTR REL CAP 20 mg PO BID Qty: 0 APIXABAN (ELIQUIS) 5 MG tablet 5 mg PO BID Qty: 0 DICYCLOMINE HCL 10 MG capsule 1 cap PO Q6H PRN (Reason: Documentation) 25 Days Qty: 100 HCTZ/LISINOPRIL (Lisinopril/Hctz 20/25 Mg) 1 EA tablet 1 tab PO DAILY Qty: 0 Lactobacillus (Probiotic Acidophilus) 1 CAP capsule 1 cap PO DAILY Qty: 0 Metoprolol Tartrate (Lopressor) (Lopressor) 25 MG tablet 1 tab PO BID 90 Days Qty: 180 Tramadol (Ultram) 50 MG tablet 50 mg PO Q6H PRN (Reason: Pain) Qty: 0 Referrals Referrals: Jamel Hutchison MD [Primary Care Provider] -
[2024-10-13] MEDS: NITROGLYCERIN SL 0.4 MG/TAB TAB SL STA (23:06)
[2024-10-13] MEDS: OPTIRAY 320 125ml IV ONE (23:39)
--- NOTE | 2024-10-14 00:15 | CT Scan Report ---
Exam(s): CTA CHEST W/WO Contrast IV Amt: 118 ML OPTIRAY 320 EXAM: CT Angiography Chest Without and With Intravenous Contrast CLINICAL HISTORY: Reason for exam: chest pain radiating to shoulder; hx of valve rep. TECHNIQUE: Axial computed tomographic angiography images of the chest without and with intravenous contrast. CTDI is 78.78 mGy and DLP is 1763.81 mGy-cm. Automated exposure control was utilized for the study. A dose lowering technique was utilized adhering to the principles of ALARA. MIP reconstructed images were created and reviewed. CONTRAST: Patient received 118 ML OPTIRAY 320 of IV contrast COMPARISON: No relevant prior studies available. FINDINGS: Pulmonary arteries: No pulmonary embolism is seen. There is dilatation of the main pulmonary artery. Aorta: There is a 4 cm aneurysm noted of the ascending aorta. No evidence of dissection.. Lungs: No mass. No consolidation. Pleural space: No significant effusion. No pneumothorax. Heart: The patient is status post midline sternotomy. There are postoperative changes involving the heart. Heart is enlarged and contains coronary artery calcifications.. Bones/joints: There are degenerative changes in the spine.. Soft tissues: Unremarkable. Lymph nodes: There are small mediastinal lymph nodes.. IMPRESSION: There is a 4 cm aneurysm noted of the ascending aorta. There is dilatation of the main pulmonary artery which can be seen with pulmonary hypertension. See discussion above. Electronically signed by: Anibal Larios MD 10/14/24 00:14 AM
[2024-10-14] MEDS: MoRPHine SULFATE 4 MG/ML 1 ML CARP\\VIAL IV STA (00:17)
[2024-10-14 00:34] LABS: Troponin I High Sensitivity 14.4 pg/ml (0-20)
--- NOTE | 2024-10-14 01:08 | XRay Report ---
Exam(s): XR CXR 1 VIEW EXAM: XR Chest, 1 View CLINICAL HISTORY: Reason for exam: Chest pain, nonspecific. TECHNIQUE: Frontal view of the chest. COMPARISON: 04/10/2016. FINDINGS: Lungs: No consolidation. Pleural space: No pleural effusion is seen. No pneumothorax. Heart: The patient is status post midline sternotomy. The heart is enlarged.. Mediastinum: There is mild uncoiling of thoracic aorta.. . IMPRESSION: No acute pulmonary disease. Cardiomegaly Electronically signed by: Anibal Larios MD 10/14/24 01:08 AM
[2024-10-14] MEDS ORDERED: ACETAMINOPHEN 325 MG TAB PO PRN (01:09)
[2024-10-14] MEDS ORDERED: PROMETHAZINE 6.25 MG/50.25 ML BAG IV PRN (01:09)
[2024-10-14] MEDS ORDERED: HYDROmorphone INJ 1 MG/ML SYRINGE IV PRN (01:09)
[2024-10-14 01:29] LABS: Magnesium 1.3 mg/dl (1.7-2.4)
--- NOTE | 2024-10-14 02:29 | History & Physical Report ---
Date of Service October 14, 2024 Assessment & Plan (1) Atypical chest pain: Plan: Likely musculoskeletal given reproducibility and history of new workout routine No relief with nitroglycerin administration at the ER chronic systolic heart failure (EF 45%, TTE 2022), patient euvolemic A-fib on Eliquis, rate controlled severe MR status post bioprosthetic MVR with concomitant Maze procedure Incidental finding of TAA on CT chest New onset anemia, outpatient hemoglobin the last couple of years 14, patient on iron intake following GI bleed episode from a few years ago; FOBT done at there was negative hypertension, slightly elevated upon arrival at the ER hyperlipidemia, on statin Rx pulmonary hypertension prediabetes, hemoglobin A1c of 6.15 August 2024 At risk EtOH intake OBS PCU Analgesia TTE, cardiology consult re: chest pain Anemia workup Outpatient follow-up surveillance imaging for TAA DVT prophylaxis. Eliquis Full code Text document was generated using [employer] voice recognition software. It may contain grammatical or spelling errors. Kindly contact undersigned for clarification of any documentation item in question. History of Present Illness Chief Complaint: Chest pain Primary Care Provider: Jamel Hutchison MD History obtained from patient and records. Medical history significant for chronic systolic heart failure (EF 45%, TTE 2022), A-fib on Eliquis, severe MR status post bioprosthetic MVR with concomitant Maze procedure, hypertension, hyperlipidemia, pulmonary hypertension, proteinuria as per records, prediabetes, gout, daily alcohol intake, past tobacco abuse 3 days history of pleuritic substernal pain with some radiation to the left arm. No SOB or cough symptoms. No fever, no chills. Denies abdominal pain, black/bloody stools. Admits to new workout routine last week. No relief with nitroglycerin administration at the ER. 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 Allergies Allergy/AdvReac Type Severity Reaction Status Date / Time No Known Allergies Allergy Mild Verified 12/15/04 13:04 Home Medications Medication Instructions Recorded Confirmed Type allopurinol 300 mg tablet 300 mg PO DAILY 10/14/24 10/14/24 History amlodipine 5 mg tablet 5 mg PO QAM 10/14/24 10/14/24 History amoxicillin 500 mg capsule 500 mg PO DIRECTED PRN DENTAL 10/14/24 10/14/24 History PROCEDURE apixaban 5 mg tablet (Eliquis) 5 mg PO BID 10/14/24 10/14/24 History dicyclomine 10 mg capsule 10 mg PO BID PRN CRAMPING 10/14/24 10/14/24 History ferrous sulfate 325 mg (65 mg 325 mg PO 3XWK 10/14/24 10/14/24 History iron) tablet (iron) lisinopril 20 1 tab PO QAM 10/14/24 10/14/24 History mg-hydrochlorothiazide 25 mg tablet metoprolol succinate 50 mg 50 mg PO QAM 10/14/24 10/14/24 History tablet,extended release 24 hr multivitamin 1 tab PO DAILY 10/14/24 10/14/24 History omeprazole 20 mg capsule,delayed 20 mg PO BID 10/14/24 10/14/24 History release rosuvastatin 20 mg tablet 20 mg PO QAM 10/14/24 10/14/24 History tramadol 50 mg tablet 50 mg PO Q8H PRN Pain 10/14/24 10/14/24 History Past Med/Surg History Problem List (Updated 10/14/24 @ 10:58 by JOSELO Parsons) Permanent atrial fibrillation Cardiomyopathy History of mitral valve replacement Atypical chest pain Thoracic aortic aneurysm (Acute) Elevated brain natriuretic peptide (BNP) level (Acute) Chest pain (Acute) Hypertension (Chronic) Hyperlipidemia (Chronic) Tophaceous gout (Chronic) Diverticulosis (Chronic) History of GI bleed (Chronic) History of gastric ulcer (Chronic) S/P appendectomy (Chronic) Hx of tonsillectomy (Chronic) H/O esophagogastroduodenoscopy (Chronic) Hx of total knee arthroplasty (Chronic) H/O colonoscopy (Chronic) Social History Smoking Status: Never smoker Do You Dip or Chew Tobacco: No; Hx Alcohol Use: Yes Hx Substance Use: No Preferred Language: Czech Communication Ability: Effective Piano Player Required: No Beliefs That Will Affect Care: None Current Living Situation: Spouse Feels Safe at Home: Yes Safety Concerns: Feels Safe At This Time Assistive Devices: Glasses Review of Systems Review of Systems: As per HPI, all other systems reviewed and negative Physical Exam Physical Exam: GENERAL: Comfortable, slightly anxious, pleasant, obese, no respiratory distress SKIN: Normal color, warm HEENT: [place] palpebral conjunctivae, no ptosis, dry buccal mucosa NECK : Supple, no tenderness CHEST : Decreased breath sounds, anterior chest wall tenderness HEART : Irregular, diminished S1-S2, systolic murmur ABDOMEN: Some distention, nontender RECTAL : Intact sphincter, brown stool (FOBT negative) EXTREMITIES : No LE swelling/tenderness, no other conspicuous deformities noted NEUROLOGIC : Coherent, no facial asymmetry, no other gross focality Results & Data Results & Data Vital Signs (Past 12 Hours) Vital Signs Temp Pulse Resp BP Pulse Ox O2 Del Method 10/14/24 01:01 79 23 152/88 H 92 10/14/24 00:00 86 23 128/83 94 10/13/24 23:54 86 22 130/89 94 10/13/24 23:00 81 19 147/93 H 92 10/13/24 22:47 Room Air 10/13/24 22:43 89 19 160/110 H 93 10/13/24 22:39 93 H 10/13/24 22:33 86 10/13/24 21:50 36.5 C 62 18 166/70 H 93 Room Air Laboratory Results Laboratory Results WBC 9.52 K/ul (4.8-10.8) 10/13/24 22:00 RBC 4.22 M/uL (4.70-6.10) L 10/13/24 22:00 Hgb 13.3 g/dl (14.0-18.0) L 10/13/24 22:00 Hct 39.8 % (42.0-52.0) L 10/13/24 22:00 MCV 94.3 fL (80.0-100.0) 10/13/24 22:00 MCH 31.5 pg (25.0-34.0) 10/13/24 22:00 MCHC 33.4 g/dL (32.0-36.0) 10/13/24 22:00 RDW Std Deviation 47.4 fL (36.4-46.3) H 10/13/24 22:00 RDW Coeff of Christina 14.1 % (11.5-14.5) 10/13/24 22:00 Plt Count 175 K/uL (130-400) 10/13/24 22:00 MPV 9.6 fL (9.4-12.4) 10/13/24 22:00 Immature Gran % (Auto) 0.3 % 10/13/24 22:00 Neut % (Auto) 78.2 % 10/13/24 22:00 Lymph % (Auto) 10.4 % 10/13/24 22:00 [place] % (Auto) 10.5 % 10/13/24 22:00 Eos % (Auto) 0.4 % 10/13/24 22:00 Baso % (Auto) 0.2 % 10/13/24 22:00 Neut # (Auto) 7.44 K/uL (1.40-6.50) H 10/13/24 22:00 Lymph # (Auto) 0.99 K/uL (1.20-3.40) L 10/13/24 22:00 [place] # (Auto) 1.00 K/uL (0.11-0.59) H 10/13/24 22:00 Eos # (Auto) 0.04 K/uL (0.00-0.50) 10/13/24 22:00 Baso # (Auto) 0.02 K/uL (0.00-0.20) 10/13/24 22:00 Immature Gran # (Auto) 0.03 K/uL (0.01-0.20) 10/13/24 22:00 PT 12.4 Seconds (9.0-12.0) H 10/13/24 22:00 INR 1.2 (0.9-1.1) H 10/13/24 22:00 APTT 29 Seconds (21-31) 10/13/24 22:00 PTT Ratio 1.1 10/13/24 22:00 Sodium 138 mmol/L (136-145) 10/13/24 22:00 Potassium 4.3 mmol/L (3.5-5.1) 10/13/24 22:00 Chloride 102 mmol/L (98-107) 10/13/24 22:00 Carbon Dioxide 27 mmol/L (21-32) 10/13/24 22:00 Anion Gap 9 (3-11) 10/13/24 22:00 BUN 17 mg/dl (6-23) 10/13/24 22:00 Creatinine 1.24 mg/dl (0.6-1.4) 10/13/24 22:00 Est Cr Clr Drug Dosing 64.9 ml/min 10/13/24 22:00 eGFR 62.16 10/13/24 22:00 BUN/Creatinine Ratio 13.7 (10-20) 10/13/24 22:00 Glucose 139 mg/dl (70-99(Fasting)) H 10/13/24 22:00 Calcium 9.7 mg/dl (8.6-10.3) 10/13/24 22:00 Magnesium 1.3 mg/dl (1.7-2.4) L 10/13/24 23:58 Total Bilirubin 0.7 mg/dl (0.2-1.0) 10/13/24 22:00 AST 24 U/L (13-39) 10/13/24 22:00 ALT 21 U/L (7-52) 10/13/24 22:00 Alkaline Phosphatase 99 U/L (34-104) 10/13/24 22:00 Troponin I High Sens 14.4 pg/ml (0-20) 10/13/24 23:58 B-Natriuretic Peptide 250 pg/ml (0-100) H 10/13/24 22:10 Total Protein 8.1 gm/dl (6.0-8.3) 10/13/24 22:00 Albumin 4.3 gm/dl (3.4-5.0) 10/13/24 22:00 Globulin 3.8 gm/dl (2.5-4.0) 10/13/24 22:00 Albumin/Globulin Ratio 1.1 (0.9-2) 10/13/24 22:00 Impressions Chest X-Ray 10/13/24 21:53 Exam(s): XR CXR 1 VIEW EXAM: XR Chest, 1 View CLINICAL HISTORY: Reason for exam: Chest pain, nonspecific. TECHNIQUE: Frontal view of the chest. COMPARISON: 04/10/2016. FINDINGS: Lungs: No consolidation. Pleural space: No pleural effusion is seen. No pneumothorax. Heart: The patient is status post midline sternotomy. The heart is enlarged.. Mediastinum: There is mild uncoiling of thoracic aorta.. . IMPRESSION: No acute pulmonary disease. Cardiomegaly Electronically signed by: Anibal Larios MD 10/14/24 01:08 AM Chest CTA 10/13/24 22:52 Exam(s): CTA CHEST W/WO Contrast IV Amt: 118 ML OPTIRAY 320 EXAM: CT Angiography Chest Without and With Intravenous Contrast CLINICAL HISTORY: Reason for exam: chest pain radiating to shoulder; hx of valve rep. TECHNIQUE: Axial computed tomographic angiography images of the chest without and with intravenous contrast. CTDI is 78.78 mGy and DLP is 1763.81 mGy-cm. Automated exposure control was utilized for the study. A dose lowering technique was utilized adhering to the principles of ALARA. MIP reconstructed images were created and reviewed. CONTRAST: Patient received 118 ML OPTIRAY 320 of IV contrast COMPARISON: No relevant prior studies available. FINDINGS: Pulmonary arteries: No pulmonary embolism is seen. There is dilatation of the main pulmonary artery. Aorta: There is a 4 cm aneurysm noted of the ascending aorta. No evidence of dissection.. Lungs: No mass. No consolidation. Pleural space: No significant effusion. No pneumothorax. Heart: The patient is status post midline sternotomy. There are postoperative changes involving the heart. Heart is enlarged and contains coronary artery calcifications.. Bones/joints: There are degenerative changes in the spine.. Soft tissues: Unremarkable. Lymph nodes: There are small mediastinal lymph nodes.. IMPRESSION: There is a 4 cm aneurysm noted of the ascending aorta. There is dilatation of the main pulmonary artery which can be seen with pulmonary hypertension. See discussion above. Electronically signed by: Anibal Larios MD 10/14/24 00:14 AM Diagnostic Findings EKG as per my interpretation :Rate 100, A-fib, LAD, LAFB, LVH, incomplete RBBB, T wave abnormality septal leads, PVCs
[2024-10-14] MEDS ORDERED: LORazepam 0.5 MG TAB PO PRN (02:33)
[2024-10-14] MEDS: oxyCODONE HCL IR 5 MG TAB (IMMEDIATE RELEASE) PO PRN (02:54)
[2024-10-14] MEDS: MAGNESIUM SULFATE / D5W 1 GM/100 ML BAG IV SCH (02:56)
[2024-10-14] MEDS: THIAMINE HCL 100 MG in SYRINGE 9 ML IV STA (02:58)
[2024-10-14 03:05] LABS: Basophils # (auto) 0.02 K/uL (0.00-0.20); Basophils % (auto) 0.2 %; Eosinophils # (auto) 0.04 K/uL (0.00-0.50); Eosinophils % (auto) 0.4 %; Hemoglobin 12.4 g/dl (14.0-18.0); Immature Granulocytes # (auto) 0.04 K/uL (0.01-0.20); Immature Granulocytes % (auto) 0.4 %; Lymphocytes # (auto) 0.92 K/uL (1.20-3.40); Lymphocytes % (auto) 10.2 %; Mean Corpuscular Hgb Conc 33.5 g/dL (32.0-36.0); Mean Corpuscular Volume 92.5 fL (80.0-100.0); Mean Platelet Volume 9.8 fL (9.4-12.4); Monocytes # (auto) 0.99 K/uL (0.11-0.59); Neutrophils # (auto) 6.98 K/uL (1.40-6.50); Neutrophils % (auto) 77.8 %; Platelet Count 159 K/uL (130-400); RDW Coefficient of Variation 14.2 % (11.5-14.5); RDW Standard Deviation 48.5 fL (36.4-46.3); White Blood Count 8.99 K/ul (4.8-10.8)
--- NOTE | 2024-10-14 08:40 | Cardiology Consultation ---
Date of Consultation October 14, 2024 Assessment & Plan (1) Chest pain: (2) Cardiomyopathy: (3) Hypertension: (4) Hyperlipidemia: (5) History of mitral valve replacement: (6) Thoracic aortic aneurysm: (7) Permanent atrial fibrillation: Plan Assessment: 69 year old male presents with chest pain, worse with exertion. hx of permanent atrial fibrillation with notable PVC's on EKG and telemetry. Echocardiogram with reduced LVEF change from one year prior. Plan: 1. Chest pain 2. Cardiomyopathy: -patient presents with several days of intermittent chest discomfort with radiation into the left shoulder. No acute ischemic changes on EKG; however, increased PVC burden noted on telemetry. -Carries a history of known non-ischemic Cardiomyopathy dating back to 2018 at time of mitral valve replacement. Last OP echo dated 08/2023 shows a stable EF of 45%. Repeat echocardiogram obtained today shows a drop in LVEF 25%. -In the setting of patient's symptoms, co-morbidities and decline in LVEF, recommend further ischemic work up through cardiac catheterization. Will hold Eliquis at this time in Lieu of starting a heparin gtt, standard protocol, no bolus at 2100 tonight. -NPO after midnight. -Will discuss case with Dr. Choe and Dr. Diaz. -Continue amlodipine, Toprol xl, Crestor and Lisinopril at this time. -Renal function stable. 3. HTN -Controlled. -Continue Amlodipine, Toprol xl and Lisinopril. 4. HLD: -Last known lipid panel 01/27/2024 OP. LDL 32 -Continue Crestor. 5. History of mitral valve replacement -Will await final echo report for review of his known bioprosthesis MVR 6. thoracic aortic aneurysm -CTA chest on admission suggest 4cm aneurysm of the ascending aorta 7. Permanent Atrial fibrillation -Rate controlled on telemetry. Continue Toprol xl -notation of PVC's, unsure if this is new, but is of concern given his sudden decline in LVEF. -Recommend pursing cardiac cath as previously noted for further investigation. -Received his AM dose of Eliquis. Hold starting now in lieu of starting heparin gtt. Case has been discussed with Dr. Choe. Further recommendations regarding plan of care as per his assessment. I spent a total of 40 minutes on the date of service in preparation, delivery, documentation of the care provided to the patient excluding any time spent in the performance of separately billed services. JOSELO Parsons [facility] Cardiology [facility] Supervising Physician Co-Signing Physician Notes Attending attestation: Case reviewed with the advanced practitioner. I have personally performed a history and physical examination on the patient. I have reviewed the advanced practitioner's documentation on the date of service referenced in note, and I agree with, and take responsibility for the plan of care. Subjective: Today is . Patient notes since starting an exercise routine with 1 pound free weights on Friday. He started having pain in his chest on Friday and this is progressed and as of yesterday on Friday when trying to go to sleep and it progressed to a 10/10 intensity with involvement of the shoulders. The discomfort that prompted him to come to the hospital did not come on with aerobic exertion. He takes tramadol at home and noted partial palliation with this medication. He took a dose of oxycodone just before my evaluation and he was without any discomfort when I had seen him. He states that his aerobic activity is limited by arthritis pain in his knees. During the summer he did utilize a push lawnmower to cut his grass without any perceived chest discomfort, shortness of breath, or decrease in activity tolerance. He had undergone surgical mitral valve replacement in 2018 with a bioprosthesis. Preoperative cardiac catheterization revealed no obstructive coronary heart disease. He had undergone a Piper-Michael procedure interoperatively in March,. Preoperatively he was felt to have a nonischemic cardiomyopathy with ejection fraction of around 45% and this has persisted throughout the intervening years. Postoperatively he has had persistent atrial fibrillation versus atypical atrial flutter. He has a history of what is felt to been been frequent premature ventricular contractions versus aberrant conduction, a 24-hour Holter monitor performed in 2018 was notable for over 13,000 isolated wide-complex beats in a 24-hour interval. He had been on amiodarone just after surgery but this was discontinued shortly after his surgery in 2018. Exam: Cardiovascular: Irregular rhythm, no murmurs, no edema Musculoskeletal:No chest discomfort reproduced on palpation of the costal sternal margin or scapula Data: EKG performed 10/14/2024 at 1501 and interpret independently: Atrial flutter with premature ventricular contractions versus aberrant complexes Summary of transthoracic echocardiogram performed 10/14/2024: The study is technically adequate for the evaluation of the referral indication. The ultrasound enhancement agent Definity was administered to improve delineation of the endocardial border. Rate controlled atrial fibrillation with frequent premature ventricular contractions present during the echocardiogram study. There is normal left ventricular wall thickness. There is severe global hypokinesis of the left ventricle. Left ventricular systolic function is severely reduced. Left Ventricular Ejection Fraction = 25-30%. The left atrium is mildly dilated. There is a mitral valve bioprosthesis present ([address] Prosper Epic ). The prosthetic leaflets appear thickened with noted reduced excursion of the posterior leaflet. The diastolic gradient across the mitral valve prosthesis= 6.8 mmHg (minimally elevated for this prosthesis) without suggestion of significant mitral valve stenosis. No significant mitral valve regurgitation is observed, however the evaluation may be limited due to the presence of the calcified mitral valve prosthesis with acoustic shadowing. There is mild tricuspid regurgitation. Mild pulmonary hypertension is present. The pulmonary artery systolic pressure is estimated be 47 mmHg. The aortic root diameter is normal. The proximal ascending aorta is not visualized adequately enough to allow for measurement. Compared to the report of the outpatient study performed 08/18/2023 was 45% at that time and the pulmonary artery systolic pressure was estimated to be 52 mm Hg at that time. High sensitive troponin negative x 2 Liver function test within normal limits Impression/ Plan: Chest discomfort, somewhat atypical in character for angina History of nonischemic cardiomyopathy, LVEF previously 45% on most recent echocardiogram August,, now down to 25-30% Chronic rate controlled atrial fibrillation/flutter with PVCs versus aberrant complexes -Eliquis is on hold, continue heparin. -Proceed with invasive coronary angiography to definitively exclude interval development of obstructive CAD -Continue current dose of metoprolol succinate 50 mg daily - add TSH to morning labs -Future considerations include adding amiodarone for arrhythmia suppression, but the patient does not endorse any recent dyspnea and is certainly not volume overloaded on exam, so I am uncertain if he will get much in the way of symptomatic relief to that regard. I spent a total of 30 minutes coordinating, documenting, and providing care for this patient excluding time spent in the performance of separately billed services or time spent by another provider. Sadiq Choe DO History of Present Illness Reason for Consultation: Chest pain Requesting Physician: Livia browne Attending Physician: Lexus Ag MD History of Present Illness HPI: Patient is a 69 year old male that presents to the ER on 10/13/2024 with 3 day complaints of intermittent chest pain. Patient states that he had been doing some weight training approx 4 days ago and so when he developed his pain the following day, he initially assumed it was musculoskeletal and tried Tramadol with little to no relief. Patient states that the episodes have been intermittent, but increasing in frequency. Described as a dull aching tightness substernal with radiation into the left shoulder. Often occur at rest, worse with exertion. No other associated symptoms. No aggravating or alleviating factors. Patient is chest pain free at time of exam and currently eating breakfast. 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 Last known cardiac cath was dated 2017 which demonstrates normal epicardial coronaries. Last echo noted in diagnostics through [facility] 08/2023 which demonstrates a LVEF of 45% Past Medical History: 1. Severe mitral regurgitation status post mitral valve replacement with a [address] Prosper Epic bioprosthesis with concomitant Piper Maze procedure 03/2018 2. Permanent atrial fibrillation 3. Hypertension 4. No significant coronary artery disease by cardiac catheterization preoperatively 2017 5. Nonischemic cardiomyopathy EF 40-45%. 6. Irritable bowel syndrome. Last seen by OP cardiology EKG Afib with PVC's rate 88bpm. Anterior infarct previously cited on studies dated 2018. Chest xray negative for acute process chest CTA: IMPRESSION: There is a 4 cm aneurysm noted of the ascending aorta. There is dilatation of the main pulmonary artery which can be seen with pulmonary hypertension. Troponin negative x2 Review of telemetry demonstrates A-fib with PVC's 90-110bpm. No acute events overnight. Echo pending Allergies Allergy/AdvReac Type Severity Reaction Status Date / Time No Known Allergies Allergy Mild Verified 12/15/04 13:04 Home Medications Medication Instructions Recorded Confirmed Type allopurinol 300 mg tablet 300 mg PO DAILY 10/14/24 10/14/24 History amlodipine 5 mg tablet 5 mg PO QAM 10/14/24 10/14/24 History amoxicillin 500 mg capsule 500 mg PO DIRECTED PRN DENTAL 10/14/24 10/14/24 History PROCEDURE apixaban 5 mg tablet (Eliquis) 5 mg PO BID 10/14/24 10/14/24 History dicyclomine 10 mg capsule 10 mg PO BID PRN CRAMPING 10/14/24 10/14/24 History ferrous sulfate 325 mg (65 mg 325 mg PO 3XWK 10/14/24 10/14/24 History iron) tablet (iron) lisinopril 20 1 tab PO QAM 10/14/24 10/14/24 History mg-hydrochlorothiazide 25 mg tablet metoprolol succinate 50 mg 50 mg PO QAM 10/14/24 10/14/24 History tablet,extended release 24 hr multivitamin 1 tab PO DAILY 10/14/24 10/14/24 History omeprazole 20 mg capsule,delayed 20 mg PO BID 10/14/24 10/14/24 History release rosuvastatin 20 mg tablet 20 mg PO QAM 10/14/24 10/14/24 History tramadol 50 mg tablet 50 mg PO Q8H PRN Pain 10/14/24 10/14/24 History Patient History Social History Smoking Status: Never smoker Do You Dip or Chew Tobacco: No; Hx Alcohol Use: Yes Hx Substance Use: No Preferred Language: Nauruan Communication Ability: Effective Barrow Worker Required: No Beliefs That Will Affect Care: None Current Living Situation: Spouse Feels Safe at Home: Yes Safety Concerns: Feels Safe At This Time Assistive Devices: Glasses Review of Systems Review of Systems: All systems reviewed & are unremarkable except as noted in HPI & below Physical Exam Constitutional: well developed and well nourished; no acute distress and not ill appearing Neck: normal visual inspection and trachea midline Respiratory: normal respiratory effort, lungs clear to auscultation Cardiovascular: Rate/Rhythm: + irregularly irregular Heart Sounds: normal S1, normal S2 and + murmur (+1/6 systolic ) Vessels: dorsalis pedis pulses present and radial pulses present; no JVD Extremities: no edema Skin: no rashes, warm and dry Psychiatric: A+Ox3, euthymic affect Results & Data Vital Signs (Past 12 Hours) Vital Signs Temp Pulse Pulse Resp BP BP Pulse Ox 10/14/24 07:52 103 H 10/14/24 07:46 86 20 135/96 97 10/14/24 06:27 70 16 128/88 96 10/14/24 05:30 10/14/24 03:52 36.5 C 82 20 131/70 93 10/14/24 03:00 85 24 131/70 92 10/14/24 02:50 87 10/14/24 02:00 85 22 122/101 H 92 10/14/24 01:01 79 23 152/88 H 92 10/14/24 00:00 86 23 128/83 94 10/13/24 23:54 86 22 130/89 94 10/13/24 23:00 81 19 147/93 H 92 10/13/24 22:47 10/13/24 22:43 89 19 160/110 H 93 10/13/24 22:39 93 H 10/13/24 22:33 86 10/13/24 21:50 36.5 C 62 18 166/70 H 93 Pulse Ox O2 Del Method O2 Del Method O2 Flow Rate O2 Flow Rate 10/14/24 07:52 10/14/24 07:46 Room Air 10/14/24 06:27 Nasal Cannula 2 10/14/24 05:30 94 Nasal Cannula 2 10/14/24 03:52 Room Air 10/14/24 03:00 10/14/24 02:50 10/14/24 02:00 10/14/24 01:01 10/14/24 00:00 10/13/24 23:54 10/13/24 23:00 10/13/24 22:47 Room Air 10/13/24 22:43 10/13/24 22:39 10/13/24 22:33 10/13/24 21:50 Room Air Laboratory Results Cardiac Enzymes 10/13/24 10/13/24 10/13/24 Range/Units 22:00 22:10 23:58 AST 24 (13-39) U/L Troponin I High Sens 16.4 14.4 (0-20) pg/ml B-Natriuretic Peptide 250 H (0-100) pg/ml Coagulation 10/13/24 10/13/24 Range/Units 22:00 22:10 PT 12.4 H (9.0-12.0) Seconds APTT 29 (21-31) Seconds B-Natriuretic Peptide 250 H (0-100) pg/ml CBC 10/13/24 10/14/24 Range/Units 22:00 02:50 WBC 9.52 8.99 (4.8-10.8) K/ul RBC 4.22 L 4.00 L (4.70-6.10) M/uL Hgb 13.3 L 12.4 L (14.0-18.0) g/dl Hct 39.8 L 37.0 L (42.0-52.0) % Plt Count 175 159 (130-400) K/uL Neut # (Auto) 7.44 H 6.98 H (1.40-6.50) K/uL Lymph # (Auto) 0.99 L 0.92 L (1.20-3.40) K/uL Todd # (Auto) 1.00 H 0.99 H (0.11-0.59) K/uL Eos # (Auto) 0.04 0.04 (0.00-0.50) K/uL Baso # (Auto) 0.02 0.02 (0.00-0.20) K/uL Comprehensive Metabolic Panel 10/13/24 10/14/24 Range/Units 22:00 08:10 Sodium 138 137 (136-145) mmol/L Potassium 4.3 3.8 (3.5-5.1) mmol/L Chloride 102 100 (98-107) mmol/L Carbon Dioxide 27 30 (21-32) mmol/L BUN 17 18 (6-23) mg/dl Creatinine 1.24 0.80 D (0.6-1.4) mg/dl Glucose 139 H 141 H (70-99(Fasting)) mg/dl Calcium 9.7 9.3 (8.6-10.3) mg/dl AST 24 (13-39) U/L ALT 21 (7-52) U/L Alkaline Phosphatase 99 (34-104) U/L Total Protein 8.1 (6.0-8.3) gm/dl Albumin 4.3 (3.4-5.0) gm/dl Intake and Output 10/13/24 10/14/24 10/14/24 22:59 06:59 14:59 Intake Total 100 / 100 100 / 100 Balance 100 / 100 100 / 100 Intake: IV 100 / 100 100 / 100 Magnesium Sulfate / D5w 1 gm In 100 / 100 100 / 100 100 ml @ 50 mls/hr IV Q2H [facility] Rx#:[id number] Other: Weight 107.3 kg 107.3 kg Weight Measurement Method Built in [facility] Diagnostic Findings EKG 10/08/23 ?atrial flutter with variable AV block with premature ventricular or aberrantly conducted complexes, 97 bpm Echo 08/18/23 Calculated LV ejection Fraction = 45% (three dimensional volumes). There is mild diffuse left ventricular hypokinesis. The left atrium is severely enlarged (>48 ml/m^2,). There is a mitral valve bioprosthesis present. Significant mitral valve prosthesis stenosis is absent. Significant mitral valve prosthesis regurgitation is absent. Mild tricuspid regurgitation is present. The estimated pulmonary artery systolic pressure is 52mm Hg. Dilated IVC with normal inspiratory variation suggesting a right atrial pressure of 8 mmHg. Compared to last available study changes are noted as follows: Bioprosthetic mitral valve inflow gradient has mildly increased, moderate pulmonary hypertension now present. Patient was last seen 10/08/2023 by VANESSA Arreaga
[2024-10-14 08:55] LABS: Reticulocyte % 2.05 % (0.50-2.00); Reticulocytes # 0.08 10^6/uL (0.020-0.100)
[2024-10-14 08:59] LABS: BUN Creatinine Ratio 22.5 (10-20); Calcium 9.3 mg/dl (8.6-10.3); Creatinine Clr Calc Pharmacy 100.6 ml/min; Potassium 3.8 mmol/L (3.5-5.1)
[2024-10-14] MEDS: amLODIPine BESYLATE 5 MG TAB PO SCH (09:18)
[2024-10-14] MEDS: METOPROLOL SUCC 50MG EXT REL TAB PO SCH (09:18)
[2024-10-14] MEDS: APIXABAN 5 MG TABLET PO SCH (09:18)
[2024-10-14] MEDS: lisinopril 20 MG TAB PO SCH (09:18)
[2024-10-14] MEDS: allopurinoL 300 MG TAB PO SCH (09:18)
[2024-10-14] MEDS: ROSUVASTATIN CALCIUM 20 MG TAB PO SCH (09:18)
[2024-10-14] MEDS: PANTOprazole 40 MG TAB PO SCH (09:18)
[2024-10-14] MEDS: MULTIVITAMIN TAB PO SCH (09:18)
[2024-10-14 09:19] LABS: Ferritin 214.3 ng/ml (8-388)
[2024-10-14] MEDS: HEPARIN SODIUM/DEXTROSE 25,000 UNITS/500 ML BAG IV SCH (12:01)
--- NOTE | 2024-10-14 12:13 | Communication Note ---
Date of Service: October 14, 2024 Patient was seen and examined and extensively discussed, echocardiogram was reviewed showed ejection fraction dropped to 25 to 30% from initial previously at 40%, cardiology recommended additional ischemic workup, Eliquis was held and patient will be made n.p.o. for cardiac catheterization tomorrow.
[2024-10-14] MEDS: Heparin IV Adult Wt-Based Standard *NO* INITIAL Bolus Protocol IV STA (12:22)
--- NOTE | 2024-10-14 12:52 | Electrocardiogram Report ---
Test Reason : Blood Pressure : */* mmHG Vent. Rate : 102 BPM Atrial Rate : 96 BPM P-R Int : * ms QRS Dur : 110 ms QT Int : 360 ms P-R-T Axes : * -52 85 degrees QTcB Int : 469 ms Atrial fibrillation with rapid ventricular response with premature ventricular or aberrantly conducte d complexes Left axis deviation Incomplete right bundle branch block Minimal voltage criteria for LVH, may be normal variant Anteroseptal infarct , age undetermined Abnormal ECG When compared with ECG of 09-Feb-2016 13:36, Atrial fibrillation now present Incomplete right bundle branch block is now Present Anteroseptal infarct is now Present Confirmed by Mykel Carlos ([id number]) on 10/14/2024 12:52:40 PM Referred By: REFERRED SELF Confirmed By: Mykel Carlos
--- NOTE | 2024-10-14 12:59 | Electrocardiogram Report ---
Test Reason : Blood Pressure : */* mmHG Vent. Rate : 88 BPM Atrial Rate : * BPM P-R Int : * ms QRS Dur : 112 ms QT Int : 380 ms P-R-T Axes : * -66 83 degrees QTcB Int : 459 ms Sinus rhythm with short LA Left axis deviation Anteroseptal infarct (cited on or before 13-Oct-2024) Abnormal ECG When compared with ECG of 13-Oct-2024 21:56, (unconfirmed) Atrial fibrillation no longer present Confirmed by Mykel Carlos ([id number]) on 10/14/2024 12:58:34 PM Referred By: REFERRED SELF Confirmed By: Mykel Carlos
--- NOTE | 2024-10-14 14:14 | Electrocardiogram Report ---
Test Reason : Blood Pressure : */* mmHG Vent. Rate : 94 BPM Atrial Rate : 90 BPM P-R Int : 72 ms QRS Dur : 112 ms QT Int : 378 ms P-R-T Axes : * -39 56 degrees QTcB Int : 472 ms Sinus rhythm with short NV with frequent , and consecutive Premature ventricular complexes Left axis deviation Minimal voltage criteria for LVH, may be normal variant Anterior infarct (cited on or before 13-Oct-2024) Abnormal ECG When compared with ECG of 13-Oct-2024 23:09, (unconfirmed) No significant change Confirmed by Mykel Carlos ([id number]) on 10/14/2024 2:13:50 PM Referred By: REFERRED SELF Confirmed By: Mykel Carlos
[2024-10-14] MEDS ORDERED: NITROGLYCERIN SL 0.4 MG/TAB TAB SL PRN (15:34)
[2024-10-14 19:21] LABS: ANTI-Xa, UFH(UnfractionatedHep 1.31 IU/ml (0.3-0.7)
[2024-10-14 20:26] LABS: ANTI-Xa, UFH(UnfractionatedHep 1.18 IU/ml (0.3-0.7)
[2024-10-14 21:10] LABS: ANTI-Xa, UFH(UnfractionatedHep 0.89 IU/ml (0.3-0.7)
[2024-10-14 22:05] LABS: ANTI-Xa, UFH(UnfractionatedHep 0.74 IU/ml (0.3-0.7)
[2024-10-15 01:48] LABS: ANTI-Xa, UFH(UnfractionatedHep 0.66 IU/ml (0.3-0.7)
[2024-10-15] MEDS: FERROUS SULFATE 325 MG TAB PO SCH (08:32)
--- NOTE | 2024-10-15 08:34 | Pre Anesthesia Assessment ---
Date of Service October 15, 2024 Pre Sedation Assessment Vital Signs Temp Pulse Pulse Pulse Resp BP BP 10/15/24 07:55 68 10/15/24 03:54 98.1 F 66 16 116/74 10/14/24 23:24 75 10/14/24 22:25 99.1 F 78 20 122/77 10/14/24 19:47 99.5 F 84 21 138/74 10/14/24 16:21 86 10/14/24 15:43 98.1 F 84 18 154/83 H 10/14/24 12:44 98.1 F 66 16 144/83 H 10/14/24 12:19 87 20 135/77 10/14/24 09:16 93 H 20 169/92 H Pulse Ox O2 Del Method O2 Flow Rate 10/15/24 07:55 10/15/24 03:54 92 Room Air 10/14/24 23:24 10/14/24 22:25 93 Nasal Cannula 2 10/14/24 19:47 91 Room Air 10/14/24 16:21 10/14/24 15:43 93 Room Air 10/14/24 12:44 91 Room Air 10/14/24 12:19 94 Nasal Cannula 1 10/14/24 09:16 97 Room Air Cardiovascular + regular rate Respiratory + respiratory effort normal Pre-Sedation Airway Assessment Smoking Status: Never smoker Hx Sleep Apnea: No Hx Difficult Intubation: No Short, Thick Neck: No Thyromental Distance: < 3.5 Finger Breadths Oral Cavity: + Dental Abnormalities ASA: ASA3 Procedure Planning Contraindications for Sedation: none Current Medications Reviewed: Yes Notes The planned sedation has been discussed with the patient. Informed Consent was obtained. I have identified the patient, determined the appropriateness of sedation and have assessed the patient immediately prior to the procedure. All medicine(s) and interventions are by my order.
--- NOTE | 2024-10-15 08:39 | Cardiology Progress Note ---
Date of Service October 15, 2024 Assessment & Plan (1) Chest pain: (2) Cardiomyopathy: (3) Hypertension: (4) Hyperlipidemia: (5) History of mitral valve replacement: (6) Thoracic aortic aneurysm: (7) Permanent atrial fibrillation: Plan Assessment: 69 year old male presents with chest pain, worse with exertion. hx of permanent atrial fibrillation with notable PVC's on EKG and telemetry. Echocardiogram with reduced LVEF change from one year prior. Plan: 1. Chest pain 2. Cardiomyopathy: -patient presents with several days of intermittent chest discomfort with radiation into the left shoulder. No acute ischemic changes on EKG; however, increased PVC burden noted on telemetry. -Carries a history of known non-ischemic Cardiomyopathy dating back to 2018 at time of mitral valve replacement. Last OP echo dated 08/2023 shows a stable EF of 45%. Repeat echocardiogram obtained today shows a drop in LVEF 25%. -In the setting of patient's symptoms, co-morbidities and decline in LVEF, recommend further ischemic work up through cardiac catheterization. Will hold E liquis at this time in Lieu of starting a heparin gtt, standard protocol, no bolus at 2100 tonight. -NPO after midnight. -Will discuss case with Dr. Choe and Dr. Diaz. -Continue amlodipine, Toprol xl, Crestor and Lisinopril at this time. -Renal function stable. 3. HTN -Controlled. -Continue Amlodipine, Toprol xl and Lisinopril. 4. HLD: -Last known lipid panel 01/27/2024 OP. LDL 32 -Continue Crestor. 5. History of mitral valve replacement -Will await final echo report for review of his known bioprosthesis MVR 6. thoracic aortic aneurysm -CTA chest on admission suggest 4cm aneurysm of the ascending aorta 7. Permanent Atrial fibrillation -Rate controlled on telemetry. Continue Toprol xl -notation of PVC's, unsure if this is new, but is of concern given his sudden decline in LVEF. -Recommend pursing cardiac cath as previously noted for further investigation. -Received his AM dose of Eliquis. Hold starting now in lieu of starting heparin gtt. 10/15/2024: -Patient underwent Left heart catheterization to further investigate decline in LVEF. Cardiac cath preformed by Dr. Bubba Diaz and Revealed minimal nonobstructive coronary heart disease with 20% mid LAD, 30% mid circumflex after OM 2. Elevated intracardiac filling pressure, LVEDP 24 mmHg. -Euvolemic on exam. -No acute changes on echocardiogram with regards to patient's history of bioprosthetic MVR. -At this time we will continue the following medications: Amlodipine 5mg QD, Toprol xl 50mg QD, Crestor 20mg Daily, and Lisinopril 20mg Daily. Resume Eliquis 5mg PO BID at time of discharge. -Patient will be contacted by Cardiology office to have a 3 day ZIO placed to assess PVC burden as we are suspicious an increased burden has precipitated a reduced LVEF. they will also arrange for close cardiology follow up and establish care with our [facility] clinical pharmacist for maximizing HF therapies. -Patient is ok for discharge from a cardiac perspective when post cath protocols have been achieved. Case has been discussed with Dr. Choe. Further recommendations regarding plan of care as per his assessment. I spent a total of 30 minutes on the date of service in preparation, delivery, documentation of the care provided to the patient excluding any time spent in the performance of separately billed services. JOSELO Parsons [facility] Cardiology [facility] Admission and Anticipated Discharge Date Admission Date: October 14, 2024 Supervising Physician Co-Signing Physician Notes Attending attestation: Case reviewed with the advanced practitioner. I have personally performed a history and physical examination on the patient. I have reviewed the advanced practitioner's documentation on the date of service referenced in note, and I agree with, and take responsibility for the plan of care. I do not believe his present symptom of chest pain was due to angina or heart failure. The finding of the decline in LVEF in retrospect may have been somewhat incidental. With heart catheter sensation data, can confidently say that the cardiomyopathy is nonischemic. Question if it is due to frequent ventricular ectopy. As an outpatient, we will optimize guideline directed medical therapy with consideration of transition ulcers amlodipine and onto Entresto, spironolactone, perhaps SGLT2 inhibitor. Repeat Zio patch as outpatient. Future considerations include EP consult as outpatient. Resume prior to hospital treatment with Eliquis. I spent a total of 30 minutes coordinating, documenting, and providing care for this patient excluding time spent in the performance of separately billed services or time spent by another provider. Sadiq Choe, Subjective 10/15/2024: Patient seen and examined in follow up today. Feeling well overall. Denies any active chest pain, pressure or palpitations. NPO in anticipation of left heart catheterization today. Labs, vitals, diagnostics, telemetry and documentation reviewed. Telemetry reviewed showing A-fib with PVC's 70-80's. Review of Systems Review of Systems: All systems reviewed & are unremarkable except as noted in HPI & below Physical Exam Constitutional: well developed and well nourished; no acute distress and not ill appearing Neck: normal visual inspection and trachea midline Respiratory: normal respiratory effort, lungs clear to auscultation Cardiovascular: Rate/Rhythm: + irregularly irregular Heart Sounds: normal S1, normal S2 and + murmur (+1/6 systolic ) Vessels: dorsalis pedis pulses present and radial pulses present; no JVD Extremities: no edema Skin: no rashes, warm and dry Psychiatric: A+Ox3, euthymic affect Results & Data Vital Signs (Past 12 Hours) Vital Signs Temp Pulse Pulse Resp BP Pulse Ox O2 Del Method 10/15/24 07:55 68 10/15/24 03:54 36.7 C 66 16 116/74 92 Room Air 10/14/24 23:24 75 10/14/24 22:25 37.3 C 78 20 122/77 93 Nasal Cannula O2 Flow Rate 10/15/24 07:55 10/15/24 03:54 10/14/24 23:24 10/14/24 22:25 2 Laboratory Results Comprehensive Metabolic Panel 10/14/24 Range/Units 08:10 Sodium 137 (136-145) mmol/L Potassium 3.8 (3.5-5.1) mmol/L Chloride 100 (98-107) mmol/L Carbon Dioxide 30 (21-32) mmol/L BUN 18 (6-23) mg/dl Creatinine 0.80 D (0.6-1.4) mg/dl Glucose 141 H (70-99(Fasting)) mg/dl Calcium 9.3 (8.6-10.3) mg/dl Intake and Output 10/14/24 10/15/24 10/15/24 22:59 06:59 14:59 Intake Total 523.5 / 623.5 0 / 623.5 Balance 523.5 / 623.5 0 / 623.5 Intake: IV 223.5 / 323.5 0 / 323.5 Heparin Sodium/Dextrose 25,000 223.5 / 223.5 0 / 223.5 units In 500 ml @ 1,100 UNITS/ HR 22 mls/hr IV .[id number] JANNET Rx #:[id number] Oral 300 / 300 0 / 300 Other: Other Intake Source NPO # Unmeasured Voids 1 2 Weight 106.8 kg Weight Measurement Method Standing Scale
[2024-10-15 08:45] LABS: Troponin I High Sensitivity 15.2 pg/ml (0-20)
[2024-10-15 08:49] LABS: ANTI-Xa, UFH(UnfractionatedHep 0.74 IU/ml (0.3-0.7)
[2024-10-15 08:54] LABS: Thyroid Stimulating Hormone 2.633 uIu/ml (0.300-4.500)
[2024-10-15 09:30] LABS: BUN Creatinine Ratio 26.2 (10-20); Calcium 9.3 mg/dl (8.6-10.3); Creatinine Clr Calc Pharmacy 95.6 ml/min; Potassium 4.1 mmol/L (3.5-5.1)
[2024-10-15] MEDS: niCARdipine 2,000 MCG/20 ML SYR ONE (10:43)
[2024-10-15] MEDS: NITROGLYCERIN/D5W 100MCG/ML 20ML SYR ONE (10:44)
[2024-10-15] MEDS: MIDAZOLAM HCL 1 MG/ML 2ML VIAL ONE (10:48)
[2024-10-15] MEDS: fentaNYL citrate PF 100 MCG/2 ML VIAL ONE (10:48)
[2024-10-15] MEDS: HEPARIN (PORCINE) 1000 UNIT/ML 10 ML (CATH LAB USE ONLY) ONE (10:48)
[2024-10-15] MEDS: OPTIRAY 350 ONE (10:49)
--- NOTE | 2024-10-15 10:55 | Post Anesthesia Assessment ---
Date of Service October 15, 2024 Post Sedation Assessment Vital Signs Temp Pulse Pulse Pulse Resp BP BP 10/15/24 09:24 80 18 140/88 10/15/24 08:27 98.1 F 81 16 117/71 10/15/24 07:55 68 10/15/24 03:54 98.1 F 66 16 116/74 10/14/24 23:24 75 10/14/24 22:25 99.1 F 78 20 122/77 10/14/24 19:47 99.5 F 84 21 138/74 10/14/24 16:21 86 10/14/24 15:43 98.1 F 84 18 10/14/24 12:44 98.1 F 66 16 10/14/24 12:19 87 20 BP Pulse Ox O2 Del Method O2 Flow Rate 10/15/24 09:24 92 Room Air 10/15/24 08:27 92 Room Air 10/15/24 07:55 10/15/24 03:54 92 Room Air 10/14/24 23:24 10/14/24 22:25 93 Nasal Cannula 2 10/14/24 19:47 91 Room Air 10/14/24 16:21 10/14/24 15:43 154/83 H 93 Room Air 10/14/24 12:44 144/83 H 91 Room Air 10/14/24 12:19 135/77 94 Nasal Cannula 1 Recovery Score Activity: Moves 4 extremities Respiration: Deep Breath/Cough Circulation: +/-20% PreAnes Value Consciousness: Fully Awake Oxygen Saturation: O2 needed for >90% Discharge Sedation Level of Care: Fast Track Phase II Post Sedation Plan On clinical assessment, the patient appears to have tolerated the sedation without complications. Patient is recovering as anticipated. Patient will continue to be monitored by nursing and may be discharged when sedation discharge criteria are met per below protocol. Upon Completions of procedure up to 15 minutes continue every 5 minute vital signs and the P.A.R. score; then discharge to a Phase I or Fast Track to Phase II per the following guidelines: * Discharge Patient to appropriate Phase II area if PAR is 8 or greater or return to pre- procedure baseline. The post - procedure orders will be as directed. * If PAR score is less than 8 or not return to pre-procedure baseline then patient will follow Phase I monitoring till PAR is reached for Phase II. The Phase I may be done in procedure room or may call to secure a Phase I area. * If naloxone or flumazenil are used for reversal, hold in Phase I for continued monitoring from when last reversal dose was given for a minimum of 60 minutes or longer pending the nurse and/or physician discretion of patient condition before discharge to Phase II. Please call the Sedation Physician to re-evaluate and complete post-note for discharge to Phase II area. Do NOT discharge from procedure sedation or Phase 1 until post- sedation evaluation note is complete by procedure /sedation MD Sedation Discharge Instructions to be given to the patient at discharge to home.
--- NOTE | 2024-10-15 11:05 | Cardiac Catheterization ---
[facility] Data: Delivery Analyst Cardiac Status Clinical evaluation leading to the procedure CAD Presenation: Sx unlikely to be ischemic Diagnostic Physicians Name: Bubba Diaz MD Closure Device Recommendations: Medical Therapy and/or Counseling Cardiac Cath Procedure Full Procedure Date October 15, 2024 Pre-Procedure Diagnosis Pre-Procedure Diagnosis: Angina and Cardiomyopathy AUC Score AUC Score: 7 Post-Procedure Diagnosis Post-Procedure Diagnosis: Mild CAD and Elevated Intracardiac Pressures Procedure(s) Performed Procedure(s) Performed: Coronary Angiography and Left Heart Cath Customer Resolution Specialist Bubba Diaz MD Pump Installation And Servicer(s) Showers Estimated Blood Loss Estimated Blood Loss: 10 Medication(s) Medication(s): Fentanyl, Lidocaine 1%, Nicardipine, Nitroglycerin and Versed Summary of Findings Indication: Chest pain, worsened LV dysfunction Access: 6 Fr slender right radial artery Catheters: Herman, diagnostic JR4 Findings: LM -normal caliber, no significant disease LAD -large-caliber, proximal luminal irregularities. 20% mid stenosis at takeoff of D2. Distal vessel without significant disease and wraps around apex. Large D2 without significant disease. Circumflex -codominant large-caliber, proximal luminal irregularities. Large OM2 without significant disease. 30% mid stenosis just after takeoff of OM2. Remainder of AV groove circumflex and left PDA without significant disease. RCA -codominant, small to medium caliber. Proximal/mid vessel without significant disease. Small distal vessel and very small RPDA without disease. LVEDP -24 Arterial Closure: TR band Summary: 1. Minimal nonobstructive coronary artery disease -20% mid LAD 30% mid circumflex after OM2 2. Elevated intracardiac filling pressure (LVEDP 24) Recommendations: GDMT for NICM and further arrhythmia management per Dr. Choe. Hemodynamics Rest Ao:: 106/68/83 Final Ao: 114/66/85 LV: 114/24 Recommendations Recommendations: Medical Therapy and/or Counseling Radiation Exposure (mGy) 1044 Contrast (mls) 45 Anesthesia Moderate [id number] Procedural Complication(s) None Disposition PCU I attest to the content of the Intraoperative Record and any orders documented therein. Any exceptions are noted below. Mor.slG Card Cath Procedure Codes Cardiac Catheterization Procedure 1: Cardiovascular Cath Procedures: 15916 Coronaries and LHC (+/-LV) Moderate Sedation Procedure 1: Sedation/Anesthesia: 09490 Mod Sedation by the same physician;Init15 Min Child Age 5 & Up PG Care Time/CCT Total # of Minutes Spent Total Time Spent with Patient: Total time spent is greater than 50% in coordination of care (as documented) at patient's floor/unit and/or counseling patient:
[2024-10-15 11:31] VITALS: RESP 16; TEMP 97.9
[2024-10-15 11:55] VITALS: O2SAT 92
--- NOTE | 2024-10-15 12:10 | Discharge Summary ---
Discharge Summary Date of Service October 15, 2024 Principal Dx & Hospital Course #1 = Principal Diagnosis (1) Atypical chest pain: (2) Permanent atrial fibrillation: (3) Cardiomyopathy: (4) Hypertension: (5) Chest pain: Notes For Next Care Provider Medication Changes From Visit Lisinopril 20 mg daily was added to the regimen Admission HPI Per Admitting Provider History obtained from patient and records. Medical history significant for chronic systolic heart failure (EF 45%, TTE 2022), A-fib on Eliquis, severe MR status post bioprosthetic MVR with concomitant Maze procedure, hypertension, hyperlipidemia, pulmonary hypertension, proteinuria as per records, prediabetes, gout, daily alcohol intake, past tobacco abuse who was admitted with chest pain, over the course of monitoring when patient was placed in observation, he was found to have some PVCs and PACs. Patient was seen by cardiology, recommended to have ischemic workup, he underwent cardiac catheterization this morning which showed no significant evidence of ischemia, he was reported to have 20% mild LAD disease and 30% mid circumflex after OM 2 disease. Case was discussed with cardiology, patient will be discharged on previous medications which would be Toprol-XL 50 mg daily, lisinopril 20 mg daily, amlodipine 5 mg daily, Crestor 20 mg daily And Eliquis. Patient will be followed up by cardiology as outpatient. I met him and gave him explanation of his findings, he was educated on how to reduce the total fluid intake every day and to lower his sodium intake and avoiding canned food and fast foods. Updated Medication List Medication Instructions Recorded Confirmed Type allopurinol 300 mg tablet 300 mg PO DAILY 10/14/24 10/14/24 History amlodipine 5 mg tablet 5 mg PO QAM 10/14/24 10/14/24 History amoxicillin 500 mg capsule 500 mg PO DIRECTED PRN DENTAL 10/14/24 10/14/24 History PROCEDURE apixaban 5 mg tablet (Eliquis) 5 mg PO BID 10/14/24 10/14/24 History dicyclomine 10 mg capsule 10 mg PO BID PRN CRAMPING 10/14/24 10/14/24 History ferrous sulfate 325 mg (65 mg 325 mg PO 3XWK 10/14/24 10/14/24 History iron) tablet (iron) metoprolol succinate 50 mg 50 mg PO QAM 10/14/24 10/14/24 History tablet,extended release 24 hr multivitamin 1 tab PO DAILY 10/14/24 10/14/24 History omeprazole 20 mg capsule,delayed 20 mg PO BID 10/14/24 10/14/24 History release rosuvastatin 20 mg tablet 20 mg PO QAM 10/14/24 10/14/24 History tramadol 50 mg tablet 50 mg PO Q8H PRN Pain 10/14/24 10/14/24 History lisinopril 20 mg tablet 20 mg PO QAM 30 days #30 tabs 10/15/24 Rx Hospital Stay Data Consultations 10/14/24 00:47 ED Decision to Admit Stat 10/14/24 03:28 Consult Cardiology Routine Procedures Performed Operation Date: 10/15/24 10:00 Actual Procedures p Cineradiography w/Routine Exam - Bubba Diaz MD p Cath, Left with Cors and Vent - Bubba Diaz MD Diagnostic Imagining Performed 10/13/24 22:52 CTA chest dissec wo/w con [CT angio chest dissec wo/w con] Stat 10/15/24 10:18 CL Cath Imgs for PACS use only Routine Pending Results Patient Have Any Pending Studies at Discharge: No Discharge Instructions Given to Patient (Per Discharging Provider) Follow-up with cardiology as recommended Total Time Total Time Spent Total Time Spent (In Minutes): More than 35 minutes
--- NOTE | 2024-10-15 13:18 | Electrocardiogram Report ---
Test Reason : Blood Pressure : */* mmHG Vent. Rate : 85 BPM Atrial Rate : 85 BPM P-R Int : 80 ms QRS Dur : 108 ms QT Int : 384 ms P-R-T Axes : -29 -41 84 degrees QTcB Int : 456 ms Poor data quality, interpretation may be adversely affected Sinus rhythm with short VT with frequent Premature ventricular complexes Left axis deviation Anterior infarct (cited on or before 13-Oct-2024) Abnormal ECG When compared with ECG of 14-Oct-2024 09:39, No significant change was found Confirmed by Mykel Carlos ([id number]) on 10/15/2024 1:18:29 PM Referred By: REFERRED SELF Confirmed By: Mykel Carlos
[2024-10-15 14:16] VITALS: BP 154/83; PULSE 84
== END 2024-10-15 14:49 | disposition home or self-care (01) | DRG 287 ==
LOC: ED 21:47 → EDINP 10-14 02:32 → 4W 10-14 03:30

== ENCOUNTER 2024-11-06 15:43 | Inpatient (IN) ==
--- OUTSIDE RECORDS SUMMARY | 2024-11-06 15:48 | External Medical Summary ---
Author Name Unknown Address Unknown Organization K01:[facility] - [address] [facility] [address] Laboratory Report Ordering Provider Test Date Status JACOB BAGLEY 11/05/2024 12:17:50 Final Observation Date Value Abnormality Reference (Units ) Status SARS Coronavirus 2 11/05/2024 12:17:50 Negative N egative Final No SARS-CoV2 Coronavirus RNA detected by PCR (amplified probe).
This express test was developed and its performance characteristics determined by [facility]. It has not been cleared or approved by the U.S. Food and Drug Administration (FDA). FDA does not require this test to go thru premarket FDA review. This test is used for clinical purposes. It should not be regarded as investigational or for research. This laboratory is certified under the Clinical Laboratory Improvement Amendments (CLIA) as qualified to perform high complexity clinical laboratory testing.

This test is a nucleic acid amplification test (NAAT), a reverse transcriptase polymerase chain reaction (RT-PCR) test, or a Centers for Disease Control-acceptable equivalent. The test is performed in a high complexity Clinical Laboratory Improvement Amendments-(CLIA) certified laboratory. The test is acceptable for SARS-CoV-2 diagnosis, surveillance, and travel within the [facility] and to most countries. Please check with local testing authorities about requirements before travel.

The validation of bronchial specimens, tracheal aspirates, and sputum for this assay was developed and performance characteristics determined by [facility]. The validation of alternate specimen types has not been cleared or approved by the U.S. Food and Drug Administration (FDA). It has been determined that such clearance is not necessary. Influenza virus A RNA [Prese nce] in Specimen by [facility] with probe detection 11/05/2024 12:17:50 Positive Abnormal Negative Final Influenza A RNA detected by PCR (amplified probe). Test results reported to [place] [facility]. Influenza virus B RNA [Prese nce] in Specimen by [facility] with probe detection 11/05/2024 12:17:50 Negative Negative Final No Influenza B RNA detected by PCR (amplified probe) Respiratory syncytial virus RNA [Identifier] in Specimen by [facility] with probe detection 11/05/2024 12:17:50 Negative Negative Final No Respiratory Syncytial Vir us RNA detected by PCR (amplified probe) Performing Location LABORATORY [address] Satish Larson. [facility] [id number]
--- OUTSIDE RECORDS SUMMARY | 2024-11-06 15:48 | External Medical Summary | Summary of Care ---
Author Name Unknown Organization [facility] Address [address] [place] [address] Phone [phone] Care Team Providers Care Estate Manager Name Role Phone Jamel Hutchison MD Primary Care Provider + Encounter Details Date Type Department Care Team (Late st Contact Info) Description 11/02/2024 10:15 AM EST Scheduled Telephone Care Coordination and Integration [address], [place] [id number] Jacinta Crain [facility] Elevator Technician [address] [place] [address] Allergies No known active allergiesdocumented as of this encounter (statuses as of 11/02/2024) Medications Multivitamin Adult Oral Tablet Chewable Take by mouth . Active Iron 325 (65 Fe) MG Oral Tablet Take 1 Tablet by mouth once a day on Friday, Friday, and Friday only. Active Dicyclomine HCl 10 MG Oral Capsule (Bentyl) TAKE 1 CAPSULE BY MOUTH TWICE DAILY NEEDED FOR LOWER ABDOMINAL CRAMPING 180 Capsule 3 4 Active Allopurinol 300 MG Oral Tablet (Zyloprim)Indica tions:Chronic idiopathic gout involving toe without tophus, unspecified laterality Take 1 tablet by mouth once daily 90 Tablet 3 4 Active Omeprazole 20 MG Oral Capsule Delayed Release (PriLOSEC)Indica tions:Anemia Take 1 capsule by mouth twice daily 180 Capsule 2 4 Active Metoprolol Succinate ER 50 MG Oral Tablet Extended Release 24 Hour (toPROL XL)Indications:P ersistent atrial fibrillation (HCC),Ventricula r ectopy TAKE 1 TABLET BY MOUTH IN THE MORNING 90 Tablet 3 4 Active Rosuvastatin Calcium 20 MG Oral Tablet (Crestor)Indicat ions:Hypertrigly ceridemia Take 1 Tablet by mouth in the morning. 90 Tablet 3 4 Active Lisinopril 20 MG Oral Tablet (Prinivil)Indica tions:HTN, goal below 140/90 Take 1 Tablet by mouth in the morning. FOR A TOTAL OF 40 MG OF LISINOPRIL. 90 Tablet 1 4 Active Additional Information Patient taking differently:20 mg Oral Daily(AM),(No instructions reported), Reported on 10/18/2024 Eliquis 5 MG Oral Tablet (Apixaban)Indica tions:PAF (paroxysmal atrial fibrillation) (HCC) TAKE 1 TABLET BY MOUTH IN THE MORNING 1 TABLET AT BEDTIME 180 Tablet 3 4 Active traMADol HCl 50 MG Oral Tablet (Ultram)Indicati ons:Polyarthralg ia Take 1 Tablet by mouth every 8 hours as needed for Pain, Severe. 23 Tablet 4 Active Amoxicillin 500 MG Oral Capsule (Amoxil)Indicati ons:SBE (subacute bacterial endocarditis) prophylaxis candidate,S/P MVR (mitral valve replacement) One hour prior to dental appt 4 Capsule 3 4 Active amLODIPine Besylate 5 MG Oral Tablet (Norvasc)Indicat ions:HTN, goal below 140/90 TAKE 1 TABLET BY MOUTH IN THE MORNING 90 Tablet 1 4 Active Magnesium 400 MG Oral Tablet Take 400 mg by mouth once a day on Friday, Friday, and Friday only. Active documented as of this encounter (statuses as of 11/02/2024) Active Problems Problem Noted Date Diagnosed Date [...] as of this encounter (statuses as of 11/02/2024) Resolved Problems Problem Noted Date Diagnosed Date Resolved Date Renal cyst, right 01/22/2021 06/26/2022 Mitral valve disease 04/09/2018 020 Bioprosthetic mitral valve r eplacement, current hospitalization 04/07/2018 05/12/2018 Persistent atrial fibrillation 02/13/2018 06/02/2020 Elevated glucose 09/16/2014 01/21/2019 GI bleed due to NSAIDs 06/06/201401/19 Joint pain, knee 01/19/2019 Dyslipidemia, goal LDL below 130 05/12/2018 documented as of this encounter (statuses as of 11/02/2024) Immunizations Name Administration Dates Next Due COVID-19 mRNA, LNP-s, No Pre serve, 2-Dose Series (Moderna) 06/23/2024,12/25/2020,11/27/2020 COVID-19, MRNA-LNP, PF, 30 M CG/0.3 mL, 12 YRS AND ABOVE, IM (PFIZER-Comirnaty) 07/08/2023 COVID-19, MRNA-LNP, PF, 50 M CG/0.5 mL, 12 YRS AND ABOVE, IM (MODERNA-Spikevax) 06/23/2024,02/17/2024 COVID-19, mRNA, LNP-s, PF, B ooster, 100mcg/0.5mg [...] age 25-30 Alcohol Use Standard Drinks/Week Comments Not Currently 11.7 (1 standard drink = 0.6 oz pure alcohol) 2 per day PHQ-2 Answer Date Recorded PHQ Adult Total Score 0 10/18/2024 Hunger Vital Sign Answer Date Recorded Within the past 12 months, y ou worried that your food would run out before you got the money to buy more. Never true 10/18/19 25 Within the past 12 months, t he food you bought just didn't last and you didn't have money to get more. Never true 10/18/2024 Childcare Answer Date Recorded Do you feel overwhelmed with taking care of a child, family member or friend? No 10/18/2024 Does your family need help f inding childcare? (Household - for ages 0-17 years) Not on file 10/18/2024 Clothing Answer Date Recorded Have you been unable to get clothing when it was really needed? No 10/18/2024 Is your family able to get c lothes or diapers when needed? (Household - for ages 0-17 years) Not on file 10/18/2024 Personal Safety Answer Date Recorded Do you feel unsafe or have concerns for your saf ety? No 10/18/2024 Do you have concerns for you r family's safety? (Household - for ages 0-17 years) Not on file 10/18/2024 Utilities Answer Date Recorded Do you have trouble paying y our heating, water, or electric bill? No 10/18/2024 Is your family able to pay t he heat, water, or electric bill? (Household - for ages 0-17 years) Not on file 10/18/2024 Does your family have access to good internet? (Household - for ages 0-17 years) Not on file 10/18/2024 Employment Status Answer Date Recorded Are you unemployed or without regular income? No 10/18/2024 Does the household have a re gular source of income? (Household - for ages 0-17 years) Not on file 10/18/2024 Social Connections Answer Date Recorded How often do you feel lonely or isolated from th ose around you? Never 10/18/2024 Financial Resource Strain Answer Date R ecorded Do you have any trouble payi ng for your medications, or do you think you might in the future? No 10/18/2024 Does your family have troubl e paying for medicine? (Household - for ages 0-17 years) Not on file 10/18/2024 Transportation Needs Answer Date Record ed Do you have trouble getting a ride to medical visits or work? (Adult - for ages 18 years and over) Not on file 10/18/2024 Does your family have a hard time getting a ride to doctors visits? (Household - for ages 0-17 years) Not on file 10/18/2024 Has lack of transportation k ept you from medical appointments, meetings, work, or from getting things needed for daily living? Check all that apply. No 10/18/2024 Do you (or your family) have trouble finding or paying for a ride (transportation)? (Household - for ages 0-17 years) Not on file 10/18/2024 Housing Stability Answer Date Recorded Do you currently live in a s helter or have no steady place to sleep at night? No 10/18/2024 Do you think you are at risk of becoming homeless? (Adult - for ages 18 years and over) Not on file 10/18/2024 Does your family worry about paying for your home or becoming homeless? (Household - for ages 0-17 years) Not on file 0 10/18/2024 Are you homeless or worried that you might be in the future? No 10/18/2024 Are you (or your family) yoana eless or worried that you might be in the future? (Household - for ages 0-17 years) Not on file Food Insecurity Answer Date Recorded Do you need food for this week? No 10/18/2024 Are you able to get enough f ood for your family? (Household - for ages 0-17 years) Not on file 10/18/2024 Does your family need food t his week? (Household - for ages 0-17 years) Not on file 10/18/2024 Do you always have enough fo od for your family? (Household - for ages 0-17 years) Not on file 10/18/2024 Sex and Gender Information Value Date Recorded Sex Assigned at Male 07/27/2019 10:03 AM EDT Legal Sex Male 5:54 AM EST Gender Identity Male 07/27/2019 10:03 AM EDT Sexual Orientation Straight 07/27/2019 10 :03 AM EDT Occupation Industry Job Start Date Job End Date RETIRED Not on file Not on file Not on file documented as of this encounter Progress Notes * Jacinta Crain [facility] Elevator Technician - 11/02/2024 10:17 AM EST Telemedicine visit: No Community Health Elevator Technician (KAY) documentation: CHW week 2 ismael call per NICOLE Marshall! Please call patient for weekly BE x 4. Please ask: how is appetite? good How is energy level? good Any pain? no Any falls? No Any changes to medications? no Are all appointments scheduled? Yes, PCP is Nov 05 and cardiology is Nov 19 How is breathing? no Any weight gain? Stable Need to report 3 lb weight gain over night, 5 lbs in one week. Any swelling in legs? no Are they watching their salt intake/Fluid intake? yes Did he get [facility] scale? Yes about a week and a half ago and it is transmitting as it should Confirmed pt has contact number for the CM documented in this encounter Plan of Treatment Upcoming Encounters Date Type Department Care Team (Late st Contact Info) Description 11/05/2024 12:00 PM EST Office Visit General Internal Medicine [facility] [address] [facility] [place] [address] [facility] [address] 11/19/2024 8:30 AM EST Office Visit Cardiology, [facility] [address] [place] [address] Helena Grewal CRNP [address] [place] [address] 03/17/2025 8:00 AM EDT Office Visit Cardiology, [facility] [address] [place] [address] Edwin Zhao MD [address] [place] [address] 04/13/2025 12:00 PM EDT Office Visit General Internal Medicine [address] [address] [place] [address] [place], [place] [address] Jamel Hutchison MD [address] [facility] [place] [address] Scheduled Procedures Name Priority Associated Diagnoses Date/Ti me COLONOSCOPY FLEXIBLE PROXIMA L DIAGNOSTIC Recall History of colonic polyps Health Maintenance Due Date Last Done Comments Cologuard 1998 Sigmoidoscopy 1998 Adult Wellness Visit 2019 Fecal Occult Blood Test 02/20/2023 02/21/20 22, 02/20/2022, 12/21/2018, Additional history exists COVID-19 Vaccine ( season) 2024 06/23/2024, 06/23/2024, 02/17/2024, Additional history exists GFR 01/26/2025 01/27/2024, 12/12, 08/15/2022, Additional history exists DTap/Tdap Vaccines (4 - Td or Tdap) 05/16/2025 05/16/2015, 06/18/2005, 05/13/2005 Albumin/Creatinine Ratio 06/26/2025 022, 02/05/2016, 06/07/2014 Colonoscopy 07/30/2025 07/30/2022, 07/13, 08/07/2016, Additional history exists Colorectal Cancer Screening 07/30/2025 HbA1c 08/24/2025 08/24/2024, 01/11, 04/07/2023, Additional history exists Depression Screening 10/18/2025 10/18/2024 Lipid Panel 01/26/2029 01/27/2024, 12/12, 12/18/2021, Additional history exists Pneumococcal Vaccine: 50+ Years Completed 07/27/2019, 07/23/2018 AAA Screening Completed 08/16/2019, 05/0 05/2018, 06/20/2017, Additional history exists Zoster Vaccines Completed 03/14/2020, 10/14, 04/22/2013 Influenza Vaccine (FLU shot) Completed 08/2024, 06/23/2024, 07/08/2023, Additional history exists HPV (Gardasil) Vaccine Aged Out No lo nger eligible based on patient's age to complete this topic Hepatitis B Vaccine Aged Out No longe r eligible based on patient's age to complete this topic MENINGOCOCCAL (MENACTRA/MENVEO) Aged Out No longer eligible based on patient's age to complete this topic documented as of this encounter Medical Devices Implanted Type Area Pressure Supervisor Device Identifier Shelf Expiration Date Model / Serial / Lot Atriclip 40mm [id number] - [id number] Implanted:Qty : 1 on 04/06/2018 by Esequiel Kirkland [place] [facility] [place]: Heart ATRICURE 10/13/2020 [id number] / / [id number] Suture Steel 6 B&S19 M654g - [id number] Implanted:Qty : 4 on 04/06/2018 by Esequiel Kirkland MD [place] [facility] [place]: Sternum JNJ : [employer] 12/10/2022 [id number] / / [id number] Valve Heart Mitral Epic 33mm - [id number] - [id number] Implanted:Qty : 1 on 04/06/2018 by Esequiel Kirkland MD [place] [facility] [place] N/A: Heart ST SUZANNA : CARDIOVASCULAR 10/26/2021 [id number] / [id number] / documented as of this encounter Advance Directives Documents on File Type Date Recorded 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 Healthcare Agents on File Name Relationship Healthcare Agent Relationshi p Communication Nichole Nam Spouse Health Care Agen t (per Health Care Power of Electronic Organ Technician document) Care Teams Estate Manager Relationship Specialty Start Date End Date Jamel Hutchison MD [address] [facility] [place] [address] PCP - General Internal Medicine 02/09/18 documented as of this encounter
--- OUTSIDE RECORDS SUMMARY | 2024-11-06 15:49 | External Medical Summary | Summary of Care ---
Author Name Unknown Organization [facility] Address [address] [place] [address] Phone [phone] Care Team Providers Care Human Intelligence Name Role Phone Jamel Hutchison MD Primary Care Provider + Reason for Referral * Evaluate & Treat - Unlimited Visits (Within 10 days (routine)) - Authorized Specialty Diagnoses / Procedures Referred By Theodore norman Referred To Contact Pharmacist / Pharmacy Diagnoses Hospital discharge follow-up NICM (nonischemic cardiomyopathy) (HCC) Helena Grewal CRNP [address] [place] [address] Phone: tel: fax: Referral ID Status Reason Start Date Expiration Date Visits Requested Visits Authorized [id number] Authorized Specialty Services Required 10/15/2024 04/13/2025 99 99 Question Answer Referral Priority Within 10 days (routine) Where should this appointment be scheduled? [facility] Referring Provider Role: Specialist Specialty: Cardio Reason for Referral: HF Comments Pharmacist Medication Therapy Management: Minimum frequency patient should be seen in person for medication management: as appropriate per clinical condition and patient status By my signature, I understand that my patient Milton Nam will have his medication therapy managed by the [facility] Medication Therapy [facility] ([facility]) per established policies, procedures, and protocols. I also certify that this referral may serve as an initiation of service for the management of drug therapy in the above noted patient. [facility] providers will be responsible for scheduling patient visits, obtaining appropriate laboratory studies, and adjusting medication management therapy per patient's need, in addition to those roles spelled out in the clinic policy, procedures, and drug management protocols. I understand that the service provided by the [facility] is voluntary and have informed patient that they can refuse the service at their discretion. I am aware that the [facility] will provide me with a copy of the patient encounter via my [employer]. I authorize the [facility] to carry out these activities on my behalf. I consider this program to be a necessary part of the patient's medical care. JOSELO Hoffman Reason for Visit * Reason Onset Date Comments Advice 10/15/2024 Carmina Encounter Details Date Type Department Care Team (Late st Contact Info) Description 10/15/2024 Telephone Cardiology, [facility] [address] [place] [address] Helena Grewal CRNP [address] [facility] [place] [address] Advice (Carmina) Allergies No known active allergiesdocumented as of this encounter (statuses as of 10/18/2024) Medications Multivitamin Adult Oral Tablet Chewable Take by mouth . Active Iron 325 (65 Fe) MG Oral Tablet Take 1 Tablet by mouth once a day on Friday, Friday, and Friday only. Active Dicyclomine HCl 10 MG Oral Capsule (Bentyl) TAKE 1 CAPSULE BY MOUTH TWICE DAILY NEEDED FOR LOWER ABDOMINAL CRAMPING 180 Capsule 3 11/21/19 24 Active Allopurinol 300 MG Oral Tablet (Zyloprim)Indic ations:Chronic idiopathic gout involving toe without tophus, unspecified laterality Take 1 tablet by mouth once daily 90 Tablet 3 02/12/20 24 Active Omeprazole 20 MG Oral Capsule Delayed Release (PriLOSEC)Indic ations:Anemia Take 1 capsule by mouth twice daily 180 Capsule 2 02/26/20 24 Active Metoprolol Succinate ER 50 MG Oral Tablet Extended Release 24 Hour (toPROL XL)Indications: Persistent atrial fibrillation (HCC),Ventricul ar ectopy TAKE 1 TABLET BY MOUTH IN THE MORNING 90 Tablet 3 03/04/20 24 Active Rosuvastatin Calcium 20 MG Oral Tablet (Crestor)Indica tions:Hypertrig lyceridemia Take 1 Tablet by mouth in the morning. 90 Tablet 3 03/25/20 24 Active Lisinopril 20 MG Oral Tablet (Prinivil)Indic ations:HTN, goal below 140/90 Take 1 Tablet by mouth in the morning. FOR A TOTAL OF 40 MG OF LISINOPRIL. 90 Tablet 1 03/25/20 24 Active Additional Information Patient taking differently:20 mg Oral Daily(AM),(No instructions reported), Reported on 10/18/2024 Eliquis 5 MG Oral Tablet (Apixaban)Indic ations:PAF (paroxysmal atrial fibrillation) (HCC) TAKE 1 TABLET BY MOUTH IN THE MORNING 1 TABLET AT BEDTIME 180 Tablet 3 04/22/20 24 Active traMADol HCl 50 MG Oral Tablet (Ultram)Indicat ions:Polyarthra lgia Take 1 Tablet by mouth every 8 hours as needed for Pain, Severe. 23 Tablet 08/06/20 24 Active Amoxicillin 500 MG Oral Capsule (Amoxil)Indicat ions:SBE (subacute bacterial endocarditis) prophylaxis candidate,S/P MVR (mitral valve replacement) One hour prior to dental appt 4 Capsule 3 08/09/20 24 Active amLODIPine Besylate 5 MG Oral Tablet (Norvasc)Indica tions:HTN, goal below 140/90 TAKE 1 TABLET BY MOUTH IN THE MORNING 90 Tablet 1 08/18/20 24 Active Lisinopril-hydr oCHLOROthiazide 20-25 MG Oral TabletIndicatio ns:HTN, goal below 140/90 TAKE 1 TABLET BY MOUTH IN THE MORNING 90 Tablet 2 02/26/20 24 2024 Discontinued documented as of this encounter (statuses as of 10/18/2024) Active Problems Problem Noted Date Diagnosed Date [...] as of this encounter (statuses as of 10/18/2024) Resolved Problems Problem Noted Date Diagnosed Date Resolved Date Renal cyst, right 01/22/2021 06/26/2022 Mitral valve disease 04/09/2018 020 Bioprosthetic mitral valve r eplacement, current hospitalization 04/07/2018 05/12/2018 Persistent atrial fibrillation 02/13/2018 06/02/2020 Elevated glucose 09/16/2014 01/21/2019 GI bleed due to NSAIDs 06/06/201401/19 Joint pain, knee 01/19/2019 Dyslipidemia, goal LDL below 130 05/12/2018 documented as of this encounter (statuses as of 10/18/2024) Immunizations Name Administration Dates Next Due COVID-19 [...] 10/18/2024 Does the household have a re lar source of income? (Household - for ages [...] encounter Miscellaneous Notes * Telephone Encounter - Helena Grewal CRNP - 10/18/2024 1:10 PM EST Noted. Thank you * Telephone Encounter - Job Bowen OSA - 10/18/2024 11:24 AM EST ECHO has been cancelled. * Telephone Encounter - Job Bowen OSA - 10/18/2024 11:23 AM EST Called patient he is setup for the ZIO and is aware of the date and time: ZIOPATCH at 1:15 PM (15 min) Sunday October 20, 2024 Appointment Provider:NURSE CARDIO LUIS VELEZ in [facility] LUIS VELEZ * Telephone Encounter - Taiwo Loya LPN - 10/18/2024 11:10 AM EST Echo on 10/27/24 can be cancelled per Helena. * Telephone Encounter - Helena Grewal CRNP - 10/18/2024 11:07 AM EST Patient will not need his Echo on 10/27 as he just had one on the hospital. It will be too soon. We can do a resting EKG on the day of his visit. I also sent a patient reply. Thank you, Helena * Telephone Encounter - Taiwo Loya LPN - 10/18/2024 10:52 AM EST Sent patient a MyChart to ask about additional questions. Awaiting reply. * Telephone Encounter - Era Disla OSA - 10/18/2024 10:22 AM EST Person calling: Elías Relationship to patient: self Phone/Fax to return call: [phone] Reason for call(brief): echo/questions Pharmacy: na Provider Name:Helena Grewal Detailed message to office:Patient has echo scheduled for 10/27, had echo while in patient at [facility] asking if he still needs it, also has some other questions for Helena. Please advise. Thanks * Telephone Encounter - Helena rGewal CRNP - 10/15/2024 12:07 PM EST Established patient/Hospital discharge follow up needed: Admission date: 10/14/2024 Anticipated DC date: today 10/15/2024 Dx: Chest pain, Reduced LVEF Patient will need to be set up HUBER for a 3 day ZIO with our office. He will need cardiology follow up in 4-5 weeks (post zio results) Will also need set up with [facility] pharmacy for maximizing HF regimen. (Looping in [facility] as FYI) Previously followed with Dr. Jeronimo, then Dr. Franklin so establish with Dr. Choe please. Thank you, Helena documented in this encounter Plan of Treatment Upcoming Encounters Date Type Department Care Team (Late st Contact Info) Description 10/20/2024 1:15 PM EST Cardiac Studies Cardiac Studies, [facility] [address] [facility] [place] [address] 11/05/2024 12:00 PM EST Office Visit General Internal Medicine [facility] [address] [place] [address] Jamel Hutchison MD [address] [facility] [place] [address] 11/19/2024 8:30 AM EST Office Visit Cardiology, [facility] [address] [place] [address] Helena Grewal CRNP [address] [place] [address] 03/17/2025 8:00 AM EDT Office Visit Cardiology, [facility] [address] [place] [address] Edwin Zhao MD [address] [place] [address] 04/13/2025 12:00 PM EDT Office Visit General Internal Medicine [facility] [address] [place] [address] Jamel Hutchison MD [address] [place] [address] Scheduled Orders Name Type Priority Associated Diagnoses Orde r Schedule EXTERNAL EKG 2 TO 7 DAYS Holter Routine Hospital discharge follow-up NICM (nonischemic cardiomyopathy) (HCC) Ventricular ectopy Expected: 10/16/2024 (Approximate), Expires: 10/15/2025 Scheduled Procedures Name Priority Associated Diagnoses Date/Ti me COLONOSCOPY FLEXIBLE PROXIMA L DIAGNOSTIC Recall History of colonic polyps Scheduled Referrals Name Type Priority Associated Diagnoses Orde r Schedule PHARMACIST MEDS THERAPY MGMT REFERRAL OP Referral Within 10 days (routine) Hospital discharge follow-up NICM (nonischemic cardiomyopathy) (HCC) Ordered: 10/15/2024 Health Maintenance Due Date Last Done Comments Cologuard 1998 Sigmoidoscopy 1998 Adult Wellness Visit 2019 Fecal Occult Blood Test 02/20/2023 02/21/20 22, 02/20/2022, 12/21/2018, Additional history exists Depression Screening 07/24/2024 07/24/2023 COVID-19 Vaccine ( season) 2024 06/23/2024, 06/23/2024, [...] Completed 07/27/2019, 07/23/2018 AAA Screening Completed 08/16/2019, 050 05/2018, 06/20/2017, Additional history exists Zoster Vaccines [...] this encounter Medical Devices Implanted Type Area Certified Surgical First Assistant Device Identifier Shelf Expiration Date Model / Serial / Lot Atriclip 40mm [id number] - [id number] Implanted:Qty : 1 on 04/06/2018 by Esequiel Kirkland MD at [place] [facility] [place] N/A: Heart ATRICURE 10/13/2020 [id number] / / [id number] Suture Steel 6 B&S19 M654g - [id number] Implanted:Qty : 4 on 04/06/2018 by Esequiel Kirkland MD at OR [facility] N/A: Sternum JNJ : [employer] 12/10/2022 [id number] / / [id number] Valve Heart Mitral Epic 33mm - [id number] - [id number] Implanted:Qty : 1 on 04/06/2018 by Esequiel Kirkland MD at OR [facility] [place] N/A: Heart ST SUZANNA : CARDIOVASCULAR 10/26/2021 [id number] / [id number] / documented as of this encounter Visit Diagnoses Diagnosis Hospital discharge follow-up- Primary Other follow-up examination NICM (nonischemic cardiomyopathy) (HCC) Other primary cardiomyopathies Ventricular ectopy Other premature beats documented in this encounter Advance Directives Documents on File Type Date 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
--- OUTSIDE RECORDS SUMMARY | 2024-11-06 15:49 | External Medical Summary | Summary of Care ---
Author Name Unknown Organization [facility] Address [address] [place] [address] Phone [phone] Care Team Providers Care Director Of Collections And Archives Name Role Phone Jamel Hutchison MD Primary Care Provider + Encounter Details Date Type Department Care Team (Late st Contact Info) Description 10/22/2024 2:15 PM EST Scheduled Telephone Care Coordination and Integration [address], [place] [id number] Jacinta Crain [facility] [address], [place] [id number] Allergies No known active allergiesdocumented as of this encounter (statuses as of 10/22/2024) Medications Multivitamin Adult Oral Tablet Chewable Take [...] as of this encounter (statuses as of 10/22/2024) Active Problems Problem Noted Date Diagnosed Date [...] as of this encounter (statuses as of 10/22/2024) Resolved Problems Problem Noted Date Diagnosed Date Resolved Date Renal cyst, right 01/22/2021 06/26/2022 Mitral valve disease 04/09/2018 020 Bioprosthetic mitral valve r eplacement, current hospitalization 04/07/2018 05/12/2018 Persistent atrial fibrillation 02/13/2018 06/02/2020 Elevated glucose 09/16/2014 01/21/2019 GI bleed due to NSAIDs 06/06/201401/19 Joint pain, knee 01/19/2019 Dyslipidemia, goal LDL below 130 05/12/2018 documented as of this encounter (statuses as of 10/22/2024) Immunizations Name Administration Dates Next Due COVID-19 [...] Progress Notes * Jacinta [facility] - 10/22/2024 2:23 PM EST Telemedicine visit: No [facility] (KAY) documentation: CHW ismael call week1 per NICOLE Marshall CHW spoke with pt. This date. How is appetite? Fine How is energy level? Pretty good improving Any pain? None Any falls? None Any changes to medications? No Are all appointments scheduled? Yes How is breathing? Good no problems Any weight gain? Steady, no gains Need to report 3 lb weight gain over night, 5 lbs in one week. Any swelling in legs? No Are they watching their salt intake/Fluid intake? Watching it, but not happy about it. Did he get [facility] scale? He did receive it and has it connected. Confirmed pt had contact information for CM documented in this encounter Plan of Treatment Upcoming Encounters Date Type Department Care Team (Late st Contact Info) Description 11/05/2024 12:00 PM EST Office Visit General Internal Medicine [facility] [address] [facility] [place], [place] [address] Jamel Hutchison MD 200 [place] [place] [address] 11/19/2024 8:30 AM EST Office Visit Cardiology, [facility] [address] [place] [address] Helena Grewal CRNP [address] [place] [address] 03/17/2025 8:00 AM EDT Office Visit Cardiology, [facility] [address] [place] [address] Edwin Zhao MD [address] [place] [address] 04/13/2025 12:00 PM EDT Office Visit General Internal Medicine [facility] [place] [address] [facility] [place], [place] [address] Jamel Hutchison MD [address] [facility] [place], [place] [address] Scheduled Procedures Name Priority Associated Diagnoses Date/Ti [...] this encounter Medical Devices Implanted Type Area Commercial Pest Control Representative Device Identifier Shelf Expiration Date Model / Serial / Lot Atriclip 40mm [id number] - [id number] Implanted:Qty : 1 on 04/06/2018 by Esequiel Kirkland MD at OR [facility] N/A: Heart ATRICURE 10/13/2020 [id number] / / [id number] Suture Steel 6 B&S19 M654g - [id number] Implanted:Qty : 4 on 04/06/2018 by Esequiel Kirkland MD at OR [facility] N/A: Sternum JNJ : [employer] 12/10/2022 [id number] / / [id number] Valve Heart Mitral Epic 33mm - [id number] - [id number] Implanted:Qty : 1 on 04/06/2018 by Esequiel Kirkland MD at OR [facility] N/A: Heart ST SUZANNA : CARDIOVASCULAR 10/26/2021 [id number] / [id number] / documented as of this encounter Advance Directives Documents on File Type Date Recorded Patient Head Of Maintenance Expl anation Advance Directives and Living Will 04/07/2018 ADVANCE DIRECTIVE / LIVING WILL * Full Code (Latest Code Status on File) Date Activated Date Inactivated Comments 04/06/2018 10:57 AM 04/11/2018 3:17 PM This order reflects the patients wishes and were consensually agreed upon. Healthcare Agents on File Name Relationship Healthcare Agent Relationshi p Communication Nichole Guzmann Spouse Health Care Agen t (per Health Care Power of Ui Designer document) Care Teams Director Of Collections And Archives Relationship Specialty Start Date End Date Jamel Hutchison MD [address] [place] [address] PCP - General Internal Medicine 02/09/18 documented as of this encounter
--- OUTSIDE RECORDS SUMMARY | 2024-11-06 15:49 | External Medical Summary | Summary of Care ---
Author Name Unknown Organization [facility] Address [address] [place] [address] Phone [phone] Care Team Providers Care Gum Puller Name Role Phone Jamel Hutchison MD Primary Care Provider + Reason for Referral * Evaluate & Treat - Unlimited Visits (Within 10 days (routine)) - Authorized Specialty Diagnoses / Procedures Referred By Theodore norman Referred To Contact Pharmacist / Pharmacy Diagnoses Hospital discharge follow-up NICM (nonischemic cardiomyopathy) (HCC) Helena Grewal CRNP [address] [place] [address] Phone: tel: fax: Referral ID Status Reason Start Date Expiration Date Visits Requested Visits Authorized [id number] Authorized Specialty Services Required 10/15/2024 04/13/2025 99 99 Question Answer Referral Priority Within 10 days (routine) Where should this appointment be scheduled? [facility] Referring Provider Role: Specialist Specialty: Cardio Reason for Referral: HF Comments Pharmacist Medication Therapy Management: Minimum frequency patient should be seen in person for medication management: as appropriate per clinical condition and patient status By my signature, I understand that my patient Milton Nam will have his medication therapy managed by the [facility] Medication Therapy Disease Management Clinic (MTD) per established policies, procedures, and protocols. I also certify that this referral may serve as an initiation of service for the management of drug therapy in the above noted patient. [facility] providers will be responsible for scheduling patient visits, obtaining appropriate laboratory studies, and adjusting medication management therapy per patient's need, in addition to those roles spelled out in the clinic policy, procedures, and drug management protocols. I understand that the service provided by the [facility] is voluntary and have informed patient that they can refuse the service at their discretion. I am aware that the [facility] will provide me with a copy of the patient encounter via my [employer]. I authorize the [facility] to carry out these activities on my behalf. I consider this program to be a necessary part of the patient's medical care. JOSELO Hoffman Reason for Visit * Reason Onset Date Comments Advice 10/15/2024 Carmina Encounter Details Date Type Department Care Team (Late st Contact Info) Description 10/15/2024 Telephone Cardiology, [facility] [address] [place] [address] Helena Grewal CRNP 132 [facility] [place] [address] Advice (Carmina) Allergies No known active allergiesdocumented [...] money to get more. Never true 06/13/2022 Sex and Gender Information Value Date Recorded [...] encounter Miscellaneous Notes * Telephone Encounter - Job Bowen OSA [...] to patient: self Phone/Fax to return call: [phone] Reason for call(brief): echo/questions Pharmacy: na Provider Name:Helena Grewal Detailed message to office:Patient has echo scheduled for 10/27, had echo while in patient at [facility] asking if he still needs it, also has some other questions for Helena. Please advise. Thanks * Telephone Encounter - Helena Grewal CRNP - 10/15/2024 12:07 PM EST Established patient/Hospital discharge follow up needed: Admission date: 10/14/2024 Anticipated DC date: today 10/15/2024 Dx: Chest pain, Reduced LVEF Patient will need to be set up HUBER for a 3 day ZIO with our office. He will need cardiology follow up in 4-5 weeks (post zio results) Will also need set up with [facility] pharmacy for maximizing HF regimen. (Looping in [facility] as FYI) Previously followed with Dr. Jeronimo, then Dr. Franklin so establish with Dr. Choe please. Thank you, Helena documented in this encounter Plan of Treatment Upcoming Encounters Date Type Department Care Team (Late st Contact Info) Description 10/20/2024 1:15 PM EST Cardiac Studies Cardiac Studies, [address] [place] [address] 10/26/2024 11:00 AM EST Office Visit General Internal Medicine [facility] [address] [facility] [place], [place] [address] Viri Carroll MD [address] [facility] [place], [place] [address] 11/19/2024 8:30 AM EST Office Visit Cardiology, [facility] [address] [facility] [place] [address] Helena Grewal CRNP [address] [place] [address] 03/17/2025 8:00 AM EDT Office Visit Cardiology, [facility] 132 [place] [address] Edwin Zhao MD [address] [place] [address] 04/13/2025 12:00 PM EDT Office Visit General Internal Medicine [facility] [address] [facility] [place], [place] [address] Jamel Hutchison MD [address] [facility] [place], [place] [address] Scheduled Orders Name Type Priority Associated Diagnoses [...] this encounter Medical Devices Implanted Type Area Hassock Maker Device Identifier Shelf Expiration Date Model / Serial / Lot Atriclip 40mm [id number] - [id number] Implanted:Qty : 1 on 04/06/2018 by Esequiel Kirkland MD at OR [facility] N/A: Heart ATRICURE 10/13/2020 [id number] / / [id number] Suture Steel 6 B&S19 M654g - [id number] Implanted:Qty : 4 on 04/06/2018 by Esequiel Kirkland MD at OR [facility] N/A: Sternum JNJ : [employer] 12/10/2022 M654G / / [id number] Valve Heart Mitral Epic 33mm - [id number] - [id number] Implanted:Qty : 1 on 04/06/2018 by Esequiel Kirkland MD at OR [facility] N/A: Heart ST SUZANNA : CARDIOVASCULAR 10/26/2021 [id number] / [id number] / documented as of this encounter Visit Diagnoses Diagnosis Hospital discharge follow-up- Primary Other follow-up examination NICM (nonischemic cardiomyopathy) (HCC) Other primary cardiomyopathies Ventricular ectopy Other premature beats documented in this encounter Advance Directives Documents on File Type Date Recorded Patient Computer Technology Instructor Expl anation Advance Directives and Living Will 04/07/2018 ADVANCE DIRECTIVE / LIVING WILL * Full Code (Latest Code Status on File) Date Activated Date Inactivated Comments 04/06/2018 10:57 AM 04/11/2018 3:17 PM This order reflects the patients wishes and were consensually agreed upon. Care Teams Gum Puller Relationship Specialty Start Date End Date Jamel Hutchison MD [address] [facility] [place] [address] PCP - General Internal Medicine 02/09/18 documented as of this encounter
--- OUTSIDE RECORDS SUMMARY | 2024-11-06 15:49 | External Medical Summary | Summary of Care ---
Author Name Unknown Organization [facility] Address [address] [place] [address] Phone [phone] Care Team Providers Care Uniform Designer Name Role Phone Jamel Hutchison MD Primary Care Provider + Encounter Details Date Type Department Care Team (Late st Contact Info) Description 11/01/2024 Population Health External Data Unspecified Department Allergies No known active allergiesdocumented as of this encounter (statuses as of 11/01/2024) Medications Multivitamin Adult Oral Tablet Chewable Take [...] as of this encounter (statuses as of 11/01/2024) Active Problems Problem Noted Date Diagnosed Date [...] as of this encounter (statuses as of 11/01/2024) Resolved Problems Problem Noted Date Diagnosed Date Resolved Date Renal cyst, right 01/22/2021 06/26/2022 Mitral valve disease 04/09/2018 020 Bioprosthetic mitral valve r eplacement, current hospitalization 04/07/2018 05/12/2018 Persistent atrial fibrillation 02/13/2018 06/02/2020 Elevated glucose 09/16/2014 01/21/2019 GI bleed due to NSAIDs 06/06/201401/19 Joint pain, knee 01/19/2019 Dyslipidemia, goal LDL below 130 05/12/2018 documented as of this encounter (statuses as of 11/01/2024) Immunizations Name Administration Dates Next Due COVID-19 [...] PM EST Office Visit General Internal Medicine [facility] [place] [address] [place] [address] Jamel Hutchison MD 200 [facility] [place] [address] 11/19/2024 8:30 AM EST Office Visit Cardiology, [facility] [address] [place] [address] Helena Grewal CRNP [address] [place] [address] 03/17/2025 8:00 AM EDT Office Visit Cardiology, [facility] [address] [place] [address] Edwin Zhao MD [address] [place] [address] 04/13/2025 12:00 PM EDT Office Visit General Internal Medicine [facility] [address] [facility] [place] [address] Jamel Hutchison MD 200 [facility] [place], [place] [address] Scheduled Procedures Name Priority Associated Diagnoses Date/Ti [...] this encounter Medical Devices Implanted Type Area Manager Of Human Resources Device Identifier Shelf Expiration Date Model / Serial / Lot Atriclip 40mm [id number] - [id number] Implanted:Qty : 1 on 04/06/2018 by Esequiel Kirkland MD at [place] [facility] N/A: Heart ATRICURE 10/13/2020 [id number] / / [id number] Suture Steel 6 B&S19 M654g - [id number] Implanted:Qty : 4 on 04/06/2018 by Esequiel Kirkland MD at [place] [facility] N/A: Sternum JNJ : [employer] 12/10/2022 M654G / / [id number] Valve Heart Mitral Epic 33mm - [id number] - [id number] Implanted:Qty : 1 on 04/06/2018 by Esequiel Kirkland MD [place] [facility] N/A: Heart ST SUZANNA : CARDIOVASCULAR 10/26/2021 [id number] / [id number] / documented as of this encounter Advance Directives Documents on File Type Date Recorded Patient General Merchandise Salesperson Expl anation Advance Directives and Living Will 04/07/2018 ADVANCE DIRECTIVE / LIVING WILL * Full Code (Latest Code Status on File) Date Activated Date Inactivated Comments 04/06/2018 10:57 AM 04/11/2018 3:17 PM This order reflects the patients wishes and were consensually agreed upon. Healthcare Agents on File Name Relationship Healthcare Agent [facility] Communication Nichole Nam Spouse Health Care Agen t (per Health Care Power of Wastewater Treatment Plant Supervisor document) Care Teams Uniform Designer Relationship Specialty Start Date End Date Jamel Hutchison MD 200 [place] [address] PCP - General Internal Medicine 02/09/18 documented as of this encounter
--- OUTSIDE RECORDS SUMMARY | 2024-11-06 15:49 | External Medical Summary | Summary of Care ---
Author Name Unknown Organization [facility] Address [address] [place] [address] Phone [phone] Care Team Providers Care Auricular Acupuncturist Name Role Phone Jamel Hutchison MD Primary Care Provider + Reason for Referral * Evaluate & Treat - Unlimited Visits (Within 10 days (routine)) - Authorized Specialty Diagnoses / Procedures Referred By Theodore norman Referred To Contact Pharmacist / Pharmacy Diagnoses Hospital discharge follow-up NICM (nonischemic cardiomyopathy) (HCC) Helena Grewal CRNP [address] [place] [address] Phone: tel: fax: Referral ID Status Reason Start Date Expiration Date Visits Requested Visits Authorized [id number] Authorized Specialty Services Required 10/15/2024 04/13/2025 99 99 Question Answer Referral Priority Within 10 days (routine) Where should this appointment be scheduled? [facility] Referring Provider Role: Specialist Specialty: Cardio Reason for Referral: HF Comments Pharmacist Medication Therapy Management: Minimum frequency patient should be seen in person for medication management: as appropriate per clinical condition and patient status By my signature, I understand that my patient Milton Nam will have his medication therapy managed by the [facility] Medication Therapy Disease Management Clinic (MTD) per established policies, procedures, and protocols. I also certify that this referral may serve as an initiation of service for the management of drug therapy in the above noted patient. [facility] providers will be responsible for scheduling patient visits, obtaining appropriate laboratory studies, and adjusting medication management therapy per patient's need, in addition to those roles spelled out in the clinic policy, procedures, and drug management protocols. I understand that the service provided by the [facility] is voluntary and have informed patient that they can refuse the service at their discretion. I am aware that the [facility] Clinic will provide me with a copy of the patient encounter via my [employer]. I authorize the [facility] to carry out these activities on my behalf. I consider this program to be a necessary part of the patient's medical care. JOSELO Hoffman Reason for Visit * Reason Onset Date Comments Advice 10/15/2024 Carmina Encounter Details Date Type Department Care Team (Late st Contact Info) Description 10/15/2024 Telephone Cardiology, [facility] [address] [place] [address] Helena Grewal CRNP 132 [facility] [place] [address] Advice (Carmina) Allergies No known active allergiesdocumented [...] to patient: self Phone/Fax to return call: [phone] Reason for call(brief): echo/questions Pharmacy: na Provider Name:Helena Grewal Detailed message to office:Patient has echo scheduled for 10/27, had echo while in patient at [facility] asking if he still needs it, also [...] results) Will also need set up with [facility] pharmacy for maximizing HF regimen. (Looping in [facility] as FYI) Previously followed with Dr. Jeronimo, then Dr. Franklin so establish with Dr. Choe please. Thank you, Helena documented in this encounter Plan of Treatment Upcoming Encounters Date Type Department Care Team (Late st Contact Info) Description 10/20/2024 1:15 PM EST Cardiac Studies Cardiac Studies, [address] [place] [address] 10/26/2024 11:00 AM EST Office Visit General Internal Medicine [facility] [address] [facility] [place], [place] [address] Viri Carroll MD [address] [facility] [place], [place] [address] 11/19/2024 8:30 AM EST Office Visit Cardiology, [facility] [address] [facility] [address] Helena Grewal CRNP [address] [place] [address] 03/17/2025 8:00 AM EDT Office Visit Cardiology, [facility] [address] [place] [address] Edwin Zhao MD [address] [place] [address] 04/13/2025 12:00 PM EDT Office Visit General Internal Medicine [facility] [address] [facility] [place], [place] [address] Jamel Hutchison MD [address] [facility] [place], [place] [address] Scheduled Orders Name Type Priority Associated Diagnoses [...] this encounter Medical Devices Implanted Type Area Vp & General Counsel Device Identifier Shelf Expiration Date Model / Serial / Lot Atriclip 40mm [id number] - [id number] Implanted:Qty : 1 on 04/06/2018 by Esequiel Kirkland MD at [place] [facility] [place] N/A: Heart ATRICURE 10/13/2020 [id number] / / [id number] Suture Steel 6 B&S19 M654g - [id number] Implanted:Qty : 4 on 04/06/2018 by Esequiel Kirkland MD at [place] [facility] [place] [facility] N/A: Sternum JNJ : [employer] 12/10/2022 M654G / / [id number] Valve Heart Mitral Epic 33mm - [id number] - [id number] Implanted:Qty : 1 on 04/06/2018 by Esequiel Kirkland MD at OR [facility] [place] N/A: Heart ST SUZANNA : CARDIOVASCULAR 10/26/2021 [id number] 0 / [id number] / documented as of this encounter Visit Diagnoses Diagnosis Hospital discharge follow-up- Primary Other follow-up examination NICM (nonischemic cardiomyopathy) (HCC) Other primary cardiomyopathies Ventricular ectopy Other premature beats documented in this encounter Advance Directives Documents on File Type Date Recorded Patient Planning Technician Expl anation Advance Directives and Living Will 04/07/2018 ADVANCE DIRECTIVE / LIVING WILL * Full Code (Latest Code Status on File) Date Activated Date Inactivated Comments 04/06/2018 10:57 AM 04/11/2018 3:17 PM This order reflects the patients wishes and were consensually agreed upon. Care Teams Auricular Acupuncturist Relationship Specialty Start Date End Date Jamel Hutchison MD 200 [facility] [place] [address] PCP - General Internal Medicine 02/09/18 documented as of this encounter
--- OUTSIDE RECORDS SUMMARY | 2024-11-06 15:49 | External Medical Summary | Summary of Care ---
Author Name Unknown Organization [facility] Address [address] [place] [address] Phone [phone] Care Team Providers Care Meat Department Manager Name Role Phone Jamel Hutchison MD Primary Care Provider + Encounter Details Date Type Department Care Team (Late st Contact Info) Description 10/15/2024 Result Scan Unspecified Department <No scans attached> Allergies No known active allergiesdocumented as of [...] Influenza Virus Vac cine, Unspecified Formulation 07/08/2023,07/23/2022,07/18/2021,06/14,07/27/2019,07/23/2018,06/20/20 17,07/26/2016,07/24/2015,07/27/2014,,09/01/2012,08/27/2010 Seasonal Influenza, PF, 6 M & above, [...] Care Team (Late st Contact Info) Description 10/26/2024 11:00 AM EST Office Visit General Internal Medicine [facility] [place] [address] [place] [address] Viri Carroll MD [address] [place] [address] 10/27/2024 9:30 AM EST Cardiac Studies Cardiac Studies, [facility] [address] [place] [address] 03/17/2025 8:00 AM EDT Office Visit Cardiology, [facility] [address] [place] [address] Edwin Zhao MD [address] [address] 04/13/2025 12:00 PM EDT Office Visit General Internal Medicine [facility] [place] [address] [place] [place] [address] Jamel Hutchison MD [address] [facility] [place] [address] Scheduled Procedures Name Priority Associated Diagnoses Date/Ti [...] this encounter Medical Devices Implanted Type Area Surgical Physician Assistant Device Identifier Shelf Expiration Date Model / Serial / Lot Atriclip 40mm [id number] - [id number] Implanted:Qty : 1 on 04/06/2018 by Esequiel Kirkland MD at OR [facility] N/A: Heart ATRICURE 10/13/2020 [id number] / / [id number] Suture Steel 6 B&S19 M654g - [id number] Implanted:Qty : 4 on 04/06/2018 by Esequiel Kirkland MD at OR [facility] N/A: Sternum JNJ : [employer] 12/10/2022 [id number] / / [id number] Valve Heart Mitral Epic 33mm - [id number] - [id number] Implanted:Qty : 1 on 04/06/2018 by Esequiel Kirkland MD at OR [facility] N/A: Heart [employer] SUZANNA : CARDIOVASCULAR 10/26/2021 [id number] / [id number] / documented as of this encounter Procedures Procedure Name Priority Date/Time Associated Diagnosis Comments CARDIAC CATH SCANNED RESULT 10/15/2024 documented in this encounter Results * CARDIAC CATH SCANNED RESULT (10/15/2024) 10/15/2024 us No Physician Data Unknown CARD CATH Final Result documented in this encounter Advance Directives Documents on File Type Date Recorded Patient Structural Engineering Technician Expl anation Advance Directives and Living Will 04/07/2018 ADVANCE DIRECTIVE / LIVING WILL * Full Code (Latest Code Status on File) Date Activated Date Inactivated Comments 04/06/2018 10:57 AM 04/11/2018 3:17 PM This order reflects the patients wishes and were consensually agreed upon. Care Teams Meat Department Manager Relationship Specialty Start Date End Date Jamel Hutchison MD [facility] [place] [address] PCP - General Internal Medicine 02/09/18 documented as of this encounter
--- OUTSIDE RECORDS SUMMARY | 2024-11-06 15:49 | External Medical Summary | Summary of Care ---
Author Name Unknown Organization [facility] Address [address] [place] [address] Phone [phone] Care Team Providers Care Pier Worker Name Role Phone Jamel Hutchison MD Primary Care Provider + Reason for Referral * Evaluate & Treat - Unlimited Visits (Within 10 days (routine)) - Authorized Specialty Diagnoses / Procedures Referred By Theodore norman Referred To Contact Pharmacist / Pharmacy Diagnoses Hospital discharge follow-up NICM (nonischemic cardiomyopathy) (HCC) Helena Grewal CRNP [address] [place] [address] Phone: tel: fax: Referral ID Status Reason Start Date Expiration Date Visits Requested Visits Authorized [id number] Authorized Specialty Services Required 10/15/2024 04/13/2025 99 99 Question Answer Referral Priority Within 10 days (routine) Where should this appointment be scheduled? [facility] Referring Provider Role: Specialist Specialty: Cardio Reason for Referral: HF Comments Pharmacist Medication Therapy Management: Minimum frequency patient should be seen in person for medication management: as appropriate per clinical condition and patient status By my signature, I understand that my patient Milton Nam will have his medication therapy managed by the [facility] Medication Therapy [facility] ([facility]) per established policies, procedures, and protocols. I also certify that this referral may serve as an initiation of service for the management of drug therapy in the above noted patient. [facility] providers will be responsible for scheduling patient visits, obtaining appropriate laboratory studies, and adjusting medication management therapy per patient's need, in addition to those roles spelled out in the clinic policy, procedures, and drug management protocols. I understand that the service provided by the [facility] Clinic is voluntary and have informed patient that they can refuse the service at their discretion. I am aware that the [facility] Clinic will provide me with a copy of the patient encounter via my [employer]. I authorize the [facility] Clinic to carry out these activities on my behalf. I consider this program to be a necessary part of the patient's medical care. JOSELO Hoffman Reason for Visit * Reason Onset Date Comments Advice 10/15/2024 [place] Encounter Details Date Type Department Care Team (Late st Contact Info) Description 10/15/2024 Telephone Cardiology, [facility] [address] [place] [address] Helena Grewla CRNP [address] [facility] [place] [address] Advice ([place]) Allergies No known active allergiesdocumented [...] to patient: self Phone/Fax to return call: [phone] Reason for call(brief): echo/questions Pharmacy: na Provider Name:Helena Grewal Detailed message to office:Patient has echo scheduled for 10/27, had echo while in patient at [facility] asking if he still needs it, also [...] results) Will also need set up with [facility] for maximizing HF regimen. (Looping in [facility] as FYI) Previously followed with Dr. Jeronimo, then Dr. Franklin so establish with Dr. Choe please. Thank you, Helena documented in this encounter Plan of Treatment Upcoming Encounters Date Type Department Care Team (Late st Contact Info) Description 10/20/2024 1:15 PM EST Cardiac Studies Cardiac Studies, [facility] [address] [facility] [place] [address] 10/26/2024 11:00 AM EST Office Visit General Internal Medicine [place] [address] [place] [address] Viri Carroll MD [address] [facility] [place] [address] 11/19/2024 8:30 AM EST Office Visit Cardiology, [facility] [address] [place] [address] Helena Grewal CRNP [address] [place] [address] 03/17/2025 8:00 AM EDT Office Visit Cardiology, [facility] [address] [place] [address] Edwin Zhao MD [address] [place] [address] 04/13/2025 12:00 PM EDT Office Visit General Internal Medicine [facility] [address] [place] [address] Jamel Hutchison MD [address] [place] [address] Scheduled Orders Name Type Priority Associated Diagnoses [...] this encounter Medical Devices Implanted Type Area Rn Office Device Identifier Shelf Expiration Date Model / Serial / Lot Atriclip 40mm [id number] - [id number] Implanted:Qty : 1 on 04/06/2018 by Esequiel Kirkland MD at OR [facility] N/A: Heart ATRICURE 10/13/2020 [id number] / / [id number] Suture Steel 6 B&S19 M654g - [id number] Implanted:Qty : 4 on 04/06/2018 by Esequiel Kirkland MD at OR [facility] N/A: Sternum JNJ : [employer] 12/10/2022 M654G / / [id number] Valve Heart Mitral Epic 33mm - [id number] - [id number] Implanted:Qty : 1 on 04/06/2018 by Esequiel Kirkland MD at OR [facility] N/A: Heart [facility] SUZ[employer] : CARDIOVASCULAR 10/26/2021 [id number] / [id number] / documented as of this encounter Visit Diagnoses Diagnosis Hospital discharge follow-up- Primary Other follow-up examination NICM (nonischemic cardiomyopathy) (HCC) Other primary cardiomyopathies Ventricular ectopy Other premature beats documented in this encounter Advance Directives Documents on File Type Date Recorded Patient Nurse Infection Control Expl anation Advance Directives and Living Will 04/07/2018 ADVANCE DIRECTIVE / LIVING WILL * Full Code (Latest Code Status on File) Date Activated Date Inactivated Comments 04/06/2018 10:57 AM 04/11/2018 3:17 PM This order reflects the patients wishes and were consensually agreed upon. Care Teams Pier Worker Relationship Specialty Start Date End Date Jamel Hutchison MD [address] [facility] [place] [address] PCP - General Internal Medicine 02/09/18 documented as of this encounter
--- NOTE | 2024-11-06 16:03 | Emergency Department Note ---
Impression & Plan Influenza A, Acute hypoxic respiratory failure, Fall down stairs, Closed intertrochanteric fracture of left femur ED Provider Note HISTORY OF PRESENT ILLNESS: Patient is a 69-year-old male presenting as a trauma. Patient reports that he fell down around 10 steps. He states that he started having diffuse bodyaches and fevers 4 days ago and he went to his primary care provider yesterday and was diagnosed with influenza A. He states he was started on Tamiflu yesterday. He reports he got up this morning and was feeling a little bit woozy and was trying to walk down his stairs when his foot slipped and he fell down the 10 stairs. He denies any chest pain, shortness of breath or dizziness prior to his fall. He reports he just lost his footing. He is complaining of left hip pain. He is on Eliquis. Denies striking his head or loss of consciousness. He states that he was unable to get up off the ground secondary to deformity of his left hip. He currently is denying any headache or changes in vision. Denies any numbness or tingling or weakness in his extremities. Denies any abdominal pain or shortness of breath. ROS: as above PHYSICAL EXAM: Vitals: See nursing chart. Constitutional: GCS 15. HENT: Head: No external signs of trauma. Mouth/Throat: Midface stable. No malocclusion. Eyes: EOMI. Pupils are 3 mm, round and reactive bilaterally. Nose: No nasal septal hematoma. No gross deformity. Neck: No cervical collar in place. No midline C-spine tenderness. No step- offs. Cardiovascular: RRR. Pulses present in all 4 extremities. Pulmonary/Chest: BS equal bilaterally. No tenderness or ecchymosis. Abdomen: No tenderness or ecchymosis. Musculoskeletal: Pelvis: No instability. Patient has significant tenderness to palpation of the left lateral pelvis. Back: No midline tenderness. No step-offs. Extremities: Left leg is shortened and externally rotated as compared to the right. Tenderness palpation to the proximal femur on the left. Skin: No laceration. No abrasion. Neuro: No focal neurological deficits. GCS as above. Psych: Normal mood and affect. MDM: - Vitals signs showed hypoxia and fever. Patient placed on supplemental oxygen - History obtained via patient. History as above. - Chronic conditions affecting care: HTN; HLD; Afib (on Eliquis); hx of mitral regurgitation (s/p bioprosthetic MVR); CHF - Differential diagnoses include, but are not limited to: Intracranial hemorrhage; spinal fracture; femur fracture; hip fracture; pneumothorax; rib fractures - Order placed for continuous cardiac monitoring. At this time, monitor showed rate of 80 bpm with normal sinus rhythm, per my interpretation. - External medical records reviewed. Discharge summary dated 10/15/2024 was reviewed. Patient was admitted that time for atypical chest pain. - EKG interpreted by myself showed normal sinus rhythm. Rate 75 bpm. QT 394. No acute ischemic changes. - Laboratory workup interpreted by myself showed normal WBC; therapeutic INR (1.3); normal lactate; stable electrolytes; elevated CK (367); elevated troponin (29.4); normal lipase - Repeat troponin slightly higher at 34.5 - UA negative for infection - CXR negative for pneumonia or pneumothorax, per my interpretation - Xray left pelvis showed intertrochanteric fracture of the left femur, per my interpretation. - CT head wo contrast negative for acute pathology - CT cervical spine wo contrast negative for acute injury - CT chest with IV contrast negative for acute traumatic injury. - CT abdomen/pelvis with IV contrast again showed the acute left intertrochanteric femur fracture. Noted to have colonic diverticulosis and possible diverticulitis. Noted to have a large right renal cyst and gallbladder stone. - Patient was hypoxic on arrival to the emergency department, likely secondary to his influenza A infection. He was initially given 50 mcg of IV fentanyl for pain management. He did sound slightly wheezy on auscultation of his lungs and was given a DuoNeb treatment. He is complaining of significant pain after coming back from CT imaging and was given 0.5 mg IV Dilaudid and 1000 mg of IV Tylenol. Patient's pain was initially improved, but then started to come back and he was given additional 0.5 mg of IV Dilaudid. - Discussed case with orthopedist on-call, Dr. Sorensen, at 18:30. He recommended admission to hospital service and plan for possible surgical fixation tomorrow. - Discussion was had with trimming caser about patient's case and need for admission - Hospitalist, Dr. Goetz, consulted for admission - Patient admitted to [facility] service for further evaluation and management. ASSESSMENT AND PLAN: Diagnosis: Influenza A; acute hypoxemic respiratory failure; fall downstairs; left intertrochanteric femur fracture Plan: Admit Past Med/Surg History Problem List (Updated 10/14/24 @ 10:58 by JOSELO Parsons) Closed intertrochanteric fracture of left femur (Acute) Fall down stairs (Acute) Acute hypoxic respiratory failure (Acute) Influenza A (Acute) Permanent atrial fibrillation Cardiomyopathy History of mitral valve replacement Atypical chest pain Thoracic aortic aneurysm (Acute) Elevated brain natriuretic peptide (BNP) level (Acute) Chest pain (Acute) Hypertension (Chronic) Hyperlipidemia (Chronic) Tophaceous gout (Chronic) Diverticulosis (Chronic) History of GI bleed (Chronic) History of gastric ulcer (Chronic) S/P appendectomy (Chronic) Hx of tonsillectomy (Chronic) H/O esophagogastroduodenoscopy (Chronic) Hx of total knee arthroplasty (Chronic) H/O colonoscopy (Chronic) Social History Smoking Status: Never smoker Do You Dip or Chew Tobacco: No; Hx Alcohol Use: Yes Hx Substance Use: No Preferred Language: Urdu Communication Ability: Effective Park Interpreter Required: No Beliefs That Will Affect Care: None Current Living Situation: Spouse Feels Safe at Home: Yes Assistive Devices: None Allergies Allergies Allergy/AdvReac Type Severity Reaction Status Date / Time No Known Allergies Allergy Mild Verified 11/06/24 19:32 Home Meds Home Medications Medication Instructions Recorded Confirmed allopurinol 300 mg tablet 300 mg PO DAILY 10/14/24 11/06/24 amlodipine 5 mg tablet 5 mg PO QAM 10/14/24 11/06/24 amoxicillin 500 mg capsule 500 mg PO DIRECTED PRN DENTAL 10/14/24 11/06/24 PROCEDURE apixaban 5 mg tablet (Eliquis) 5 mg PO BID 10/14/24 11/06/24 dicyclomine 10 mg capsule 10 mg PO BID PRN CRAMPING 10/14/24 11/06/24 ferrous sulfate 325 mg (65 mg 325 mg PO 3XWK 10/14/24 11/06/24 iron) tablet (iron) metoprolol succinate 50 mg 50 mg PO QAM 10/14/24 11/06/24 tablet,extended release 24 hr multivitamin 1 tab PO DAILY 10/14/24 11/06/24 omeprazole 20 mg capsule,delayed 20 mg PO BID 10/14/24 11/06/24 release rosuvastatin 20 mg tablet 20 mg PO QPM 10/14/24 11/06/24 tramadol 50 mg tablet 50 mg PO Q8H PRN Pain 10/14/24 11/06/24 magnesium oxide 400 mg PO 3XWK 11/06/24 11/06/24 Previous Rx's Medication Instructions Recorded lisinopril 20 mg tablet 20 mg PO QAM 30 days #30 tabs 10/15/24 Results & Data (ED) Vital Signs Vital Signs - 24 hr 11/06/24 15:45 11/06/24 15:50 11/06/24 16:00 Temperature 38.1 C H 38.1 C H Temperature Source Oral Pulse Rate 78 81 Pulse Rate [Left Finger] Pulse Rate from SpO2 Sensor Pulse Rhythm [Left Finger] Pulse Strength [Bilateral] Normal Pulse Strength [Left Finger] Respiratory Rate 20 19 Respiratory Effort / Characteristics Non-Labored Spontaneous Respiratory Depth Normal Respiratory Pattern Blood Pressure 130/79 140/77 Blood Pressure [Right Arm] Blood Pressure Mean 96 Blood Pressure Mean [Right Arm] Blood Pressure Position [Right Arm] Pulse Oximetry 88 L 93 94 Oxygen Delivery Method Room Air Nasal Cannula Nasal Cannula Oxygen Flow Rate 3 3 Sepsis Recent Fever Within 48 Hours No Sepsis New/Unexplained Change in Mental Status N/A Sepsis Action Taken by Nursing No Action Required 11/06/24 16:03 11/06/24 17:00 11/06/24 17:18 Temperature Temperature Source Pulse Rate 80 78 75 Pulse Rate [Left Finger] Pulse Rate from SpO2 Sensor 76 Pulse Rhythm [Left Finger] Pulse Strength [Bilateral] Pulse Strength [Left Finger] Respiratory Rate 23 23 Respiratory Effort / Characteristics Respiratory Depth Respiratory Pattern Blood Pressure 132/72 Blood Pressure [Right Arm] Blood Pressure Mean 96 Blood Pressure Mean [Right Arm] Blood Pressure Position [Right Arm] Pulse Oximetry 95 95 Oxygen Delivery Method Nasal Cannula Nasal Cannula Oxygen Flow Rate 3 3 Sepsis Recent Fever Within 48 Hours Sepsis New/Unexplained Change in Mental Status Sepsis Action Taken by Nursing 11/06/24 17:36 11/06/24 18:20 11/06/24 19:19 Temperature 38.0 C H 37.1 C Temperature Source Oral Oral Pulse Rate Pulse Rate [Left Finger] 78 73 Pulse Rate from SpO2 Sensor Pulse Rhythm [Left Finger] Regular Pulse Strength [Bilateral] Pulse Strength [Left Finger] Normal Respiratory Rate 18 12 Respiratory Effort / Characteristics Non-Labored Respiratory Depth Normal Respiratory Pattern Regular Blood Pressure Blood Pressure [Right Arm] 109/63 122/67 Blood Pressure Mean Blood Pressure Mean [Right Arm] 78 85 Blood Pressure Position [Right Arm] Lying Pulse Oximetry 96 97 Oxygen Delivery Method Nasal Cannula Nasal Cannula Oxygen Flow Rate 3 3 Sepsis Recent Fever Within 48 Hours Sepsis New/Unexplained Change in Mental Status Sepsis Action Taken by Nursing 11/06/24 19:48 11/06/24 20:09 11/06/24 20:09 Temperature Temperature Source Pulse Rate 81 Pulse Rate [Left Finger] 63 61 Pulse Rate from SpO2 Sensor Pulse Rhythm [Left Finger] Regular Regular Pulse Strength [Bilateral] Pulse Strength [Left Finger] Normal Normal Respiratory Rate 23 21 Respiratory Effort / Characteristics Non-Labored Non-Labored Respiratory Depth Normal Normal Respiratory Pattern Regular Regular Blood Pressure Blood Pressure [Right Arm] 111/59 L 111/59 L Blood Pressure Mean Blood Pressure Mean [Right Arm] 76 76 Blood Pressure Position [Right Arm] Lying Lying Pulse Oximetry 92 98 Oxygen Delivery Method Nasal Cannula Nasal Cannula Oxygen Flow Rate 3 3 Sepsis Recent Fever Within 48 Hours Sepsis New/Unexplained Change in Mental Status Sepsis Action Taken by Nursing Laboratory Data 11/06/24 15:53 11/06/24 15:53 Lab Results 11/06/24 11/06/24 11/06/24 Range/Units 15:53 15:57 16:36 WBC 6.54 (4.8-10.8) K/ul RBC 4.26 L (4.70-6.10) M/uL Hgb 13.1 L (14.0-18.0) g/dl POC Hgb 13.6 L (14.0-18.0) g/dl Hct 39.5 L (42.0-52.0) % POC Hct 40 L (42-52) % MCV 92.7 (80.0-100.0) fL MCH 30.8 (25.0-34.0) pg MCHC 33.2 (32.0-36.0) g/dL RDW Std Deviation 49.3 H (36.4-46.3) fL RDW Coeff of Christina 14.6 H (11.5-14.5) % Plt Count 120 L (130-400) K/uL MPV 9.9 (9.4-12.4) fL Immature Gran % (Auto) 0.3 % Neut % (Auto) 80.2 % Lymph % (Auto) 7.5 % Carolina % (Auto) 11.8 % Eos % (Auto) 0.0 % Baso % (Auto) 0.2 % Neut # (Auto) 5.25 (1.40-6.50) K/uL Lymph # (Auto) 0.49 L (1.20-3.40) K/uL Carolina # (Auto) 0.77 H (0.11-0.59) K/uL Eos # (Auto) 0.00 (0.00-0.50) K/uL Baso # (Auto) 0.01 (0.00-0.20) K/uL Immature Gran # (Auto) 0.02 (0.01-0.20) K/uL PT 14.0 H (9.0-12.0) Seconds INR 1.3 H (0.9-1.1) APTT 30 (21-31) Seconds PTT Ratio 1.1 VBG pH (7.36-7.41) VBG pCO2 (38-50) mmHg VBG pO2 mmHg VBG HCO3 mmol/L VBG O2 Saturation % VBG Base Excess mEq/L POC Sodium 139 (135-144) mmol/L Sodium 137 (136-145) mmol/L POC Potassium 3.9 (3.3-5.0) mmol/L Potassium 3.9 (3.5-5.1) mmol/L POC Chloride 102 (101-112) mmol/L Chloride 101 (98-107) mmol/L Carbon Dioxide 27 (21-32) mmol/L POC Total CO2 24 (24-31) mmol/L Anion Gap 9 (3-11) POC Anion Gap 18.0 (16-25) mmol/L POC BUN 17 (7-18) mg/dl BUN 19 (6-23) mg/dl Creatinine 1.02 (0.6-1.4) mg/dl POC Creatinine 1.0 (0.6-1.3) mg/dl Est Cr Clr Drug Dosing 78.4 ml/min eGFR 78.58 BUN/Creatinine Ratio 18.6 (10-20) Glucose 107 H (70-99(Fasting)) mg/dl POC Glucose (other) 107 H (70-99) mg/dl Lactate 1.3 (0.4-2.0) mmol/L Calcium 9.3 (8.6-10.3) mg/dl POC Ioniz Calcium Amanda 1.10 L (1.12-1.32) mmol/l Total Bilirubin 1.0 (0.2-1.0) mg/dl AST 27 (13-39) U/L ALT 19 (7-52) U/L Alkaline Phosphatase 72 (34-104) U/L Total Creatine Kinase 367 H (30-223) U/L Troponin I High Sens 29.4 H (0-20) pg/ml Total Protein 7.7 (6.0-8.3) gm/dl Albumin 4.3 (3.4-5.0) gm/dl Globulin 3.4 (2.5-4.0) gm/dl Albumin/Globulin Ratio 1.3 (0.9-2) Lipase 29 (11-82) U/L Urine Color Urine Appearance (Clear) Urine pH (4.5-7.5) Ur Specific Neola (1.000-1.030) Urine Protein (Negative) Urine Glucose (UA) (Negative) Urine Ketones (Negative) Urine Blood (Negative) Urine Nitrite (Negative) Urine Bilirubin (Negative) Urine Urobilinogen (Negative) Ur Leukocyte Esterase (Negative) Urine WBC (Auto) (0-5) /hpf Urine RBC (Auto) (0-2) /hpf U Hyaline Cast (Auto) (0-2) /lpf U Epithel Cells (Auto) (0-2) /hpf Urine Bacteria (Auto) (None Seen) Blood Type O Positive Antibody Screen NEGATIVE 11/06/24 11/06/24 11/06/24 Range/Units 17:50 19:55 Unknown WBC (4.8-10.8) K/ul RBC (4.70-6.10) M/uL Hgb (14.0-18.0) g/dl POC Hgb (14.0-18.0) g/dl Hct (42.0-52.0) % POC Hct (42-52) % MCV (80.0-100.0) fL MCH (25.0-34.0) pg MCHC (32.0-36.0) g/dL RDW Std Deviation (36.4-46.3) fL RDW Coeff of Christina (11.5-14.5) % Plt Count (130-400) K/uL MPV (9.4-12.4) fL Immature Gran % (Auto) % Neut % (Auto) % Lymph % (Auto) % Carolina % (Auto) % Eos % (Auto) % Baso % (Auto) % Neut # (Auto) (1.40-6.50) K/uL Lymph # (Auto) (1.20-3.40) K/uL Carolina # (Auto) (0.11-0.59) K/uL Eos # (Auto) (0.00-0.50) K/uL Baso # (Auto) (0.00-0.20) K/uL Immature Gran # (Auto) (0.01-0.20) K/uL PT (9.0-12.0) Seconds INR (0.9-1.1) APTT (21-31) Seconds PTT Ratio VBG pH 7.39 (7.36-7.41) VBG pCO2 46 (38-50) mmHg VBG pO2 33 mmHg VBG HCO3 28 mmol/L VBG O2 Saturation < 60.0 % VBG Base Excess 2.2 mEq/L POC Sodium (135-144) mmol/L Sodium (136-145) mmol/L POC Potassium (3.3-5.0) mmol/L Potassium (3.5-5.1) mmol/L POC Chloride (101-112) mmol/L Chloride (98-107) mmol/L Carbon Dioxide (21-32) mmol/L POC Total CO2 (24-31) mmol/L Anion Gap (3-11) POC Anion Gap (16-25) mmol/L POC BUN (7-18) mg/dl BUN (6-23) mg/dl Creatinine (0.6-1.4) mg/dl POC Creatinine (0.6-1.3) mg/dl Est Cr Clr Drug Dosing ml/min eGFR BUN/Creatinine Ratio (10-20) Glucose (70-99(Fasting)) mg/dl POC Glucose (other) (70-99) mg/dl Lactate (0.4-2.0) mmol/L Calcium (8.6-10.3) mg/dl POC Ioniz Calcium Amanda (1.12-1.32) mmol/l Total Bilirubin (0.2-1.0) mg/dl AST (13-39) U/L ALT (7-52) U/L Alkaline Phosphatase (34-104) U/L Total Creatine Kinase (30-223) U/L Troponin I High Sens 34.5 H (0-20) pg/ml Total Protein (6.0-8.3) gm/dl Albumin (3.4-5.0) gm/dl Globulin (2.5-4.0) gm/dl Albumin/Globulin Ratio (0.9-2) Lipase (11-82) U/L Urine Color Dark Yellow Urine Appearance Clear (Clear) Urine pH 5.5 (4.5-7.5) Ur Specific Neola 1.033 H (1.000-1.030) Urine Protein 3+ H (Negative) Urine Glucose (UA) Negative (Negative) Urine Ketones 2+ H (Negative) Urine Blood Negative (Negative) Urine Nitrite Negative (Negative) Urine Bilirubin 1+ H (Negative) Urine Urobilinogen Positive H (Negative) Ur Leukocyte Esterase Negative (Negative) Urine WBC (Auto) 0-5 (0-5) /hpf Urine RBC (Auto) 6-10 H (0-2) /hpf U Hyaline Cast (Auto) 0-2 (0-2) /lpf U Epithel Cells (Auto) 0-2 (0-2) /hpf Urine Bacteria (Auto) None Seen (None Seen) Blood Type Antibody Screen Administered Medications Discontinued Medications Albuterol (Albut/Ipratrop 3mg/0.5mg Neb 3 Ml Vial) 3 ml NEB NOW STA; Protocol Stop: 11/06/24 16:49 Last Admin: 11/06/24 16:56 Dose: 3 ml Documented By: LIZET Fentanyl Citrate (Fentanyl Citrate Pf 100 Mcg/2 Ml Vial) 50 mcg IV NOW STA Stop: 11/06/24 15:56 Last Admin: 11/06/24 16:04 Dose: 50 mcg Documented By: LIZET Fentanyl Citrate (Fentanyl Citrate Pf 100 Mcg/2 Ml Vial) Confirm Administered Dose 100 mcg .ROUTE .STK-MED ONE Stop: 11/06/24 16:00 Last Admin: 11/06/24 16:04 Dose: Not Given Documented By: LIZET Hydromorphone HCl (Hydromorphone Inj 0.5 Mg/0.5 Ml Syr) 0.5 mg IV NOW STA Stop: 11/06/24 16:49 Last Admin: 11/06/24 17:00 Dose: 0.5 mg Documented By: LIZET Hydromorphone HCl (Hydromorphone Inj 0.5 Mg/0.5 Ml Syr) 0.5 mg IV NOW STA Stop: 11/06/24 19:07 Last Admin: 11/06/24 19:22 Dose: 0.5 mg Documented By: JO ANN Acetaminophen (Ofirmev) 1,000 mg in 100 mls @ 400 mls/hr IV NOW STA Stop: 11/06/24 16:40 Last Infusion: 11/06/24 17:39 Dose: Infused Documented By: Admin: 11/06/24 16:56 Dose: 400 mls/hr Documented By: LIZET Ioversol (Optiray 320 100ml) 95 ml IV ONCE ONE Stop: 11/06/24 16:28 Last Admin: 11/06/24 16:28 Dose: 95 ml Documented By: BRAULIO Imaging Data Radiologist's Impression: Chest X-Ray 11/06/24 15:54 INDICATION: Chest pain. TECHNIQUE: Frontal radiograph of the chest. COMPARISON: Radiograph from 10/13/2024. FINDINGS: Cardiolite. Chronic appearing interstitial lung markings. Pulmonary vasculature appear within normal limits. No infiltrate, pleural effusion or pneumothorax. No acute osseous abnormality evident. IMPRESSION: No acute cardiopulmonary process. Electronically signed by Dileep Barrientos 11-06-2024 4:16 PM Hip/Pelvis X-Ray 11/06/24 15:54 INDICATION: Pain and injury. TECHNIQUE: 2 views of the pelvis. 2 views of the left hip.. COMPARISON: No relevant priors. FINDINGS: Nondisplaced left femur intertrochanteric fracture. Remaining osseous structures intact. Mild bilateral hip joint space loss. Soft tissues appear unremarkable. IMPRESSION: Nondisplaced left femur intertrochanteric fracture. Electronically signed by Dileep Barrientos 11-06-2024 4:16 PM Abdomen/Pelvis CT 11/06/24 15:57 EXAM: CT abd pelvis IV con only CLINICAL HISTORY: Trauma, fell down 10 steps, on blood thinners. TECHNIQUE: Contrast-enhanced CT of the abdomen and pelvis was performed, with the following protocol: axial images with, and reconstructed coronal and sagittal images. Intravenous contrast 95 ml Optiray 320 was administered. One of the following dose reduction techniques was utilized for this exam: Automated exposure control, adjustment of the mA and/or kV according to patient size, and use of iterative reconstruction. COMPARISON: None. FINDINGS: Abdomen: Liver: Normal in size, shape, and density. No focal lesions, cysts, or masses were identified. Hepatic vasculature and biliary ducts are unremarkable. Gallbladder and Biliary System: The gallbladder Shows 3 cm stone inside. No wall thickening or pericholecystic fluid. The common bile duct is normal in caliber without dilation. Pancreas: Pancreatic head, body, and tail are visualized and appear normal in size and density. No pancreatic masses or calcifications were noted. The pancreatic duct is not dilated. Spleen: Normal in size, shape, and density. No splenic lesions or masses were identified. Appendix: Not clearly identified. No evidence of appendiceal abscess or perforation. Kidneys and Adrenal Glands: Both kidneys are normal in size, shape, and position. Cortical thickness is within normal limits. A 13.7 cm right upper pole renal cyst. No renal calculi or hydronephrosis. Adrenal glands are unremarkable with no evidence of masses or hyperplasia. Pelvis: Urinary Bladder: Decompress the by Soares's catheter. No intraluminal lesions identified. Prostate: Normal in size and contour. No focal lesions or masses identified. Seminal Vesicles: Normal in size and appearance. No abnormalities noted. Peritoneal and Retroperitoneal Structures: No free fluid or abnormal fluid collections were identified within the abdomen or pelvis. No lymphadenopathy was noted. Bowel: Scattered colonic diverticulosis. Associated mural thickening and pericolic fat smudging in the sigmoid region denoting possible diverticulitis. Bones and Soft Tissues: Intertrochanteric fracture of the left femoral neck extending to the greater trochanter. Soft tissue calcification capping the ischial tuberosities on both sides likely along the hamstring muscles. Degenerative changes of the spine, sacroiliac and hip joints as well as the symphysis pubis. Vascular calcification of the aorta and its branches. IMPRESSION: 1. Acute left femoral intertrochanteric fracture. 2. Scattered colonic diverticulosis with mural thickening and fat smudging around the sigmoid colon raising possibility of sigmoid diverticulitis. 3. Gallbladder stone. 4. Large right renal cyst. 5. Correlate with clinical findings. Electronically signed by Bobby Gallegos 11-06-2024 6:[address] 01/25/25 15:57 EXAM: CT cervical spine wo con CLINICAL HISTORY: Trauma, fell 10 steps, on blood thinners. TECHNIQUE: CT scan of the cervical spine was performed without the administration of intravenous contrast. Contiguous axial images were obtained from the skull base to the upper thoracic spine. Coronal and sagittal reformatted images were also reviewed. One of the following dose reduction techniques was utilized for this exam. Automated exposure control, adjustment of the mA and/or kV according to patient size, and use of iterative reconstruction. COMPARISON: None. FINDINGS: Vertebrae: Straightening of cervical spine noted possibly positional vs. muscle spasm. Moderate spondylosis of the scanned vertebrae with osteophyte formation. The vertebral bodies are normal in height and alignment. No evidence of acute fracture or dislocation. The cortical and trabecular bone patterns are normal. No signs of lytic or sclerotic lesions. Normal configuration of the posterior elements. Intervertebral Discs: Decreased intervertebral disc space is evident at the C6-C7 C3-C4 there is a possible diffuse disc osteophyte complex measuring 4.3 mm indenting the thecal sac causing mild narrowing of the neural exit canals. Mild facet joint arthropathy. C4-C5: There is a possible diffuse disc osteophyte complex measuring 2.4 mm indenting the thecal sac causing the bilateral mild narrowing of the neural exit canals more inclined to the right side. Bilateral facet joint arthropathy more on the right side. C5-C6: There is a possible diffuse disc bulge measuring 3.5 mm indenting the thecal sac causing bilateral mild narrowing of the neural exit canals. Bilateral facet joint arthropathy. C6-C7: There is a marked reduction of the intervertebral disc space with a possible diffuse disc bulge measuring 2.9 mm indenting the thecal sac causing the bilateral mild narrowing of the neural exit canals. Bilateral facet joint arthropathy. Facet Joints: Multilevel facet joint arthropathy. Prevertebral Soft Tissues: The prevertebral soft tissues are normal in thickness without evidence of mass or abnormal fluid collection. Several small bilateral cervical lymph nodes. Coarse calcification in the nuchal ligament. Calcific foci in the transverse ligament, showing "crown dens". Additional Findings: No other significant findings are noted in the visualized soft tissue structures or bony elements. IMPRESSION: 1. No evidence of acute fracture or dislocation 2. Straightening of cervical spine noted possibly positional vs. muscle spasm. 3. Moderate cervical spondylotic changes with osteophytes, uncovertebral and facet joint arthropathies. 4. Multilevel possible disc osteophytic disc bulges as mentioned. 5. Several small bilateral cervical lymph nodes. Correlate clinically. Electronically signed by Bobby Gallegos 11-06-2024 6:[address] 11/06/24 15:57 EXAM: CT chest diagnostic w con CLINICAL HISTORY: Trauma, fell down 10 steps, on blood thinners. TECHNIQUE: Contiguous 3.[address] images of the chest were acquired with administration of 93ml Opitray-320mg/ml intravenous contrast. Coronal and sagittal reconstructions were obtained. 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 7 mm air filled pulmonary cyst is seen in the right lung apex. No evidence of consolidation or collapse. No ground-glass opacities or interstitial changes. No pleural effusion or pleural thickening. Mediastinum: No mediastinal mass or abnormal lymphadenopathy. Normal appearance of the thymus. Hilar Structures: Normal size and configuration, no enlargement. Heart and Great Vessels: Occlusion device of the left atrial appendage is noted. Increased heart size. Mitral valvular calcification/ surgical sutures. No pericardial effusion. Normal caliber and course of the thoracic aorta and other great vessels. Tiny vascular calcification of the aorta. Coronary artery calcification. Normal enhancement of the great vessels post-contrast. Pulmonary Arteries: No evidence of pulmonary embolism. Normal size and course of the pulmonary arteries. Esophagus: Normal course and caliber. No masses or dilatation. Bones: Sternotomy wires sutures. Spine degenerative changes. Chest Wall: No masses or soft tissue abnormalities. Upper Abdomen: 13.3 cm cyst is seen at the right upper renal pole. 3.1 cm gallbladder stone is noted. No signs of acute cholecystitis Thyroid: Normal size and morphology. No nodules or masses. IMPRESSION: 1. No evidence of acute traumatic injury could be noted. 2. Sternotomy, occlusion device of the left atrial appendage. 3. Mitral valve the calcification/surgical sutures. 4. Increased cardiac size. 5. Bilateral pulmonary subpleural reticulations, nonspecific. 6. Compared to prior studies no detected interval changes Electronically signed by Bobby Gallegos 11-06-2024 6:[address] 11/06/24 15:57 EXAM: CT head/brain wo con CLINICAL HISTORY: Trauma, fell 10 steps, on blood thinners. TECHNIQUE: An axial non-contrast CT scan of the brain was performed from the skull base to the high parietal region. One of the following dose reduction techniques were utilized for this exam: Automated exposure control, adjustment of the mA and/or kV according to patient size, use of iterative reconstruction. COMPARISON: None. FINDINGS: Brain Parenchyma: Mild hypovolemic involutional age-related brain changes or evidence of by prominent sulci and ventricles. Deep white matter microvascular ischemia evident by hypodensities in the bilateral centrum semioval and the watershed areas. 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 Normal attenuation of the cerebral hemispheres, cerebellum, and brainstem. There is no evidence of acute infarct, hemorrhage, or mass effect. No evidence of hydrocephalus No evidence of subarachnoid hemorrhage or extra-axial fluid collections. No cerebellum or brainstem masses, lesions, or areas of abnormal signal. Orbits: Normal appearance of the globes, optic nerves, and extraocular muscles. No evidence of orbital masses or abnormal signal. Sinuses: Bilateral maxillary sinusitis. Moderate right deviation of the nasal septum. Mastoid Air Cells: Clear mastoid air cells. No evidence of mastoiditis. Skull: Normal skull morphology. IMPRESSION: 1. No CT evidence of acute infarction, or hemorrhage. 2. Mild hypovolemic involutional age-related brain. 3. Deep white matter microvascular ischemia. Electronically signed by Bobby Gallegos 11-06-2024 5:28 PM Discharge Plan Visit Data Chief Complaint: Trauma ED Provider: Jazmin Rey Discharge Problem: Influenza A, Acute hypoxic respiratory failure, Fall down stairs, Closed intertrochanteric fracture of left femur Forms Stand Alone Forms: My [facility] [employer] Prescriptions Prescriptions: No Action multivitamin Tablet 1 tab PO DAILY amoxicillin 500 mg capsule 500 mg PO DIRECTED PRN (Reason: DENTAL PROCEDURE) Rx Instructions: Take before dental appointments metoprolol succinate 50 mg tablet extended release 24 hr 50 mg PO QAM amlodipine 5 mg tablet 5 mg PO QAM tramadol 50 mg tablet 50 mg PO Q8H PRN (Reason: Pain) ferrous sulfate [iron] 325 mg (65 mg iron) Tablet 325 mg PO 3XWK Rx Instructions: MON, WED, FRI omeprazole 20 mg capsule,delayed release(DR/EC) 20 mg PO BID allopurinol 300 mg tablet 300 mg PO DAILY dicyclomine 10 mg capsule 10 mg PO BID PRN (Reason: CRAMPING) rosuvastatin 20 mg tablet 20 mg PO QPM Eliquis 5 mg tablet 5 mg PO BID lisinopril 20 mg Tablet 20 mg PO QAM 30 Days Qty: 30 0RF magnesium oxide 400 mg magnesium Tablet 400 mg PO 3XWK Referrals Referrals: Jamel Hutchison MD [Primary Care Provider] -
[2024-11-06] MEDS: fentaNYL citrate PF 100 MCG/2 ML VIAL ONE (16:04)
[2024-11-06] MEDS: fentaNYL citrate PF 100 MCG/2 ML VIAL IV STA (16:04)
[2024-11-06 16:10] LABS: iSTAT Hemoglobin 13.6 g/dl (14.0-18.0); iSTAT Ionized Calcium 1.1 mmol/l (1.12-1.32); iSTAT Potassium 3.9 mmol/L (3.3-5.0)
--- NOTE | 2024-11-06 16:17 | XRay Report ---
INDICATION: Chest pain. TECHNIQUE: Frontal radiograph of the chest. COMPARISON: Radiograph from 10/13/2024. FINDINGS: Cardiolite. Chronic appearing interstitial lung markings. Pulmonary vasculature appear within normal limits. No infiltrate, pleural effusion or pneumothorax. No acute osseous abnormality evident. IMPRESSION: No acute cardiopulmonary process. Electronically signed by Dileep Barrientos 11-06-2024 4:16 PM
--- NOTE | 2024-11-06 16:17 | XRay Report ---
INDICATION: Pain and injury. TECHNIQUE: 2 views of the pelvis. 2 views of the left hip.. COMPARISON: No relevant priors. FINDINGS: Nondisplaced left femur intertrochanteric fracture. Remaining osseous structures intact. Mild bilateral hip joint space loss. Soft tissues appear unremarkable. IMPRESSION: Nondisplaced left femur intertrochanteric fracture. Electronically signed by Dileep Barrientos 11-06-2024 4:16 PM
[2024-11-06 16:19] LABS: Basophils # (auto) 0.01 K/uL (0.00-0.20); Basophils % (auto) 0.2 %; Hematocrit (blood only) 39.5 % (42.0-52.0); Hemoglobin 13.1 g/dl (14.0-18.0); Immature Granulocytes # (auto) 0.02 K/uL (0.01-0.20); Immature Granulocytes % (auto) 0.3 %; Lymphocytes # (auto) 0.49 K/uL (1.20-3.40); Lymphocytes % (auto) 7.5 %; Mean Corpuscular Hemoglobin 30.8 pg (25.0-34.0); Mean Corpuscular Hgb Conc 33.2 g/dL (32.0-36.0); Mean Corpuscular Volume 92.7 fL (80.0-100.0); Mean Platelet Volume 9.9 fL (9.4-12.4); Monocytes # (auto) 0.77 K/uL (0.11-0.59); Monocytes % (auto) 11.8 %; Neutrophils # (auto) 5.25 K/uL (1.40-6.50); Neutrophils % (auto) 80.2 %; Platelet Count 120 K/uL (130-400); RDW Coefficient of Variation 14.6 % (11.5-14.5); RDW Standard Deviation 49.3 fL (36.4-46.3); Red Blood Count 4.26 M/uL (4.70-6.10); White Blood Count 6.54 K/ul (4.8-10.8)
[2024-11-06] MEDS: OPTIRAY 320 100ml IV ONE (16:28)
[2024-11-06 16:29] LABS: Appearance Urine Clear (Clear); Bacteria Urine Automated None Seen (None Seen); Bilirubin Urine 1+ (Negative); Blood Urine Negative (Negative); Cast Urine Automated 0-2 /lpf (0-2); Color Urine Dark Yellow; Epithelial Cell Urine Auto 0-2 /hpf (0-2); Glucose Urine UA Negative (Negative); Ketones Urine 2+ (Negative); Leukocyte Esterase Urine Negative (Negative); Nitrite Urine Negative (Negative); Protein Urine 3+ (Negative); Specific Gravity Urine 1.033 (1.000-1.030); Urobilinogen Urine Positive (Negative); WBC Urine Automated 0-5 /hpf (0-5); pH Urine 5.5 (4.5-7.5)
[2024-11-06 16:34] LABS: Albumin Globulin Ratio 1.3 (0.9-2); Albumin Level 4.3 gm/dl (3.4-5.0); BUN Creatinine Ratio 18.6 (10-20); Calcium 9.3 mg/dl (8.6-10.3); Creatinine Clr Calc Pharmacy 78.4 ml/min; Globulin 3.4 gm/dl (2.5-4.0); Potassium 3.9 mmol/L (3.5-5.1); Total Protein 7.7 gm/dl (6.0-8.3)
[2024-11-06 16:40] LABS: Troponin I High Sensitivity 29.4 pg/ml (0-20)
[2024-11-06 16:44] LABS: INR 1.3 (0.9-1.1); Partial Thromboplastin Ratio 1.1; Partial Thromboplastin Time 30 Seconds (21-31)
[2024-11-06] MEDS: ALBUT/IPRATROP 3MG/0.5MG NEB 3 ML VIAL NEB STA (16:56)
[2024-11-06] MEDS: ACETAMINOPHEN 1,000 MG/100 ML VIAL IV STA (16:56)
[2024-11-06] MEDS: HYDROmorphone INJ 0.5 MG/0.5 ML SYR IV STA ×2 (17:00→19:22)
--- NOTE | 2024-11-06 17:29 | CT Scan Report ---
EXAM: CT head/brain wo con CLINICAL HISTORY: Trauma, fell 10 steps, on blood thinners. TECHNIQUE: An axial non-contrast CT scan of the brain was performed from the skull base to the high parietal region. One of the following dose reduction techniques were utilized for this exam: Automated exposure control, adjustment of the mA and/or kV according to patient size, use of iterative reconstruction. COMPARISON: None. FINDINGS: Brain Parenchyma: Mild hypovolemic involutional age-related brain changes or evidence of by prominent sulci and ventricles. Deep white matter microvascular ischemia evident by hypodensities in the bilateral centrum semioval and the watershed areas. 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 Normal attenuation of the cerebral hemispheres, cerebellum, and brainstem. There is no evidence of acute infarct, hemorrhage, or mass effect. No evidence of hydrocephalus No evidence of subarachnoid hemorrhage or extra-axial fluid collections. No cerebellum or brainstem masses, lesions, or areas of abnormal signal. Orbits: Normal appearance of the globes, optic nerves, and extraocular muscles. No evidence of orbital masses or abnormal signal. Sinuses: Bilateral maxillary sinusitis. Moderate right deviation of the nasal septum. Mastoid Air Cells: Clear mastoid air cells. No evidence of mastoiditis. Skull: Normal skull morphology. IMPRESSION: 1. No CT evidence of acute infarction, or hemorrhage. 2. Mild hypovolemic involutional age-related brain. 3. Deep white matter microvascular ischemia. Electronically signed by Bobby Gallegos 11-06-2024 5:28 PM
--- NOTE | 2024-11-06 18:10 | CT Scan Report ---
EXAM: CT abd pelvis IV con only CLINICAL HISTORY: Trauma, fell down 10 steps, on blood thinners. TECHNIQUE: Contrast-enhanced CT of the abdomen and pelvis was performed, with the following protocol: axial images with, and reconstructed coronal and sagittal images. Intravenous contrast 95 ml Optiray 320 was administered. One of the following dose reduction techniques was utilized for this exam: Automated exposure control, adjustment of the mA and/or kV according to patient size, and use of iterative reconstruction. COMPARISON: None. FINDINGS: Abdomen: Liver: Normal in size, shape, and density. No focal lesions, cysts, or masses were identified. Hepatic vasculature and biliary ducts are unremarkable. Gallbladder and Biliary System: The gallbladder Shows 3 cm stone inside. No wall thickening or pericholecystic fluid. The common bile duct is normal in caliber without dilation. Pancreas: Pancreatic head, body, and tail are visualized and appear normal in size and density. No pancreatic masses or calcifications were noted. The pancreatic duct is not dilated. Spleen: Normal in size, shape, and density. No splenic lesions or masses were identified. Appendix: Not clearly identified. No evidence of appendiceal abscess or perforation. Kidneys and Adrenal Glands: Both kidneys are normal in size, shape, and position. Cortical thickness is within normal limits. A 13.7 cm right upper pole renal cyst. No renal calculi or hydronephrosis. Adrenal glands are unremarkable with no evidence of masses or hyperplasia. Pelvis: Urinary Bladder: Decompress the by Soares's catheter. No intraluminal lesions identified. Prostate: Normal in size and contour. No focal lesions or masses identified. Seminal Vesicles: Normal in size and appearance. No abnormalities noted. Peritoneal and Retroperitoneal Structures: No free fluid or abnormal fluid collections were identified within the abdomen or pelvis. No lymphadenopathy was noted. Bowel: Scattered colonic diverticulosis. Associated mural thickening and pericolic fat smudging in the sigmoid region denoting possible diverticulitis. Bones and Soft Tissues: Intertrochanteric fracture of the left femoral neck extending to the greater trochanter. Soft tissue calcification capping the ischial tuberosities on both sides likely along the hamstring muscles. Degenerative changes of the spine, sacroiliac and hip joints as well as the symphysis pubis. Vascular calcification of the aorta and its branches. IMPRESSION: 1. Acute left femoral intertrochanteric fracture. 2. Scattered colonic diverticulosis with mural thickening and fat smudging around the sigmoid colon raising possibility of sigmoid diverticulitis. 3. Gallbladder stone. 4. Large right renal cyst. 5. Correlate with clinical findings. Electronically signed by Bobby Gallegos 11-06-2024 6:09 PM
--- NOTE | 2024-11-06 18:13 | CT Scan Report ---
EXAM: CT cervical spine wo con CLINICAL HISTORY: Trauma, fell 10 steps, on blood thinners. TECHNIQUE: CT scan of the cervical spine was performed without the administration of intravenous contrast. Contiguous axial images were obtained from the skull base to the upper thoracic spine. Coronal and sagittal reformatted images were also reviewed. One of the following dose reduction techniques was utilized for this exam. Automated exposure control, adjustment of the mA and/or kV according to patient size, and use of iterative reconstruction. COMPARISON: None. FINDINGS: Vertebrae: Straightening of cervical spine noted possibly positional vs. muscle spasm. Moderate spondylosis of the scanned vertebrae with osteophyte formation. The vertebral bodies are normal in height and alignment. No evidence of acute fracture or dislocation. The cortical and trabecular bone patterns are normal. No signs of lytic or sclerotic lesions. Normal configuration of the posterior elements. Intervertebral Discs: Decreased intervertebral disc space is evident at the C6-C7 C3-C4 there is a possible diffuse disc osteophyte complex measuring 4.3 mm indenting the thecal sac causing mild narrowing of the neural exit canals. Mild facet joint arthropathy. C4-C5: There is a possible diffuse disc osteophyte complex measuring 2.4 mm indenting the thecal sac causing the bilateral mild narrowing of the neural exit canals more inclined to the right side. Bilateral facet joint arthropathy more on the right side. C5-C6: There is a possible diffuse disc bulge measuring 3.5 mm indenting the thecal sac causing bilateral mild narrowing of the neural exit canals. Bilateral facet joint arthropathy. C6-C7: There is a marked reduction of the intervertebral disc space with a possible diffuse disc bulge measuring 2.9 mm indenting the thecal sac causing the bilateral mild narrowing of the neural exit canals. Bilateral facet joint arthropathy. Facet Joints: Multilevel facet joint arthropathy. Prevertebral Soft Tissues: The prevertebral soft tissues are normal in thickness without evidence of mass or abnormal fluid collection. Several small bilateral cervical lymph nodes. Coarse calcification in the nuchal ligament. Calcific foci in the transverse ligament, showing "crown dens". Additional Findings: No other significant findings are noted in the visualized soft tissue structures or bony elements. IMPRESSION: 1. No evidence of acute fracture or dislocation 2. Straightening of cervical spine noted possibly positional vs. muscle spasm. 3. Moderate cervical spondylotic changes with osteophytes, uncovertebral and facet joint arthropathies. 4. Multilevel possible disc osteophytic disc bulges as mentioned. 5. Several small bilateral cervical lymph nodes. Correlate clinically. Electronically signed by Bobby Gallegos 11-06-2024 6:13 PM
--- NOTE | 2024-11-06 18:36 | CT Scan Report ---
EXAM: CT chest diagnostic w con CLINICAL HISTORY: Trauma, fell down 10 steps, on blood thinners. TECHNIQUE: Contiguous 3.[address] images of the chest were acquired with administration of 93ml Opitray-320mg/ml intravenous contrast. Coronal and sagittal reconstructions were obtained. One of the following dose reduction techniques were utilized for this exam: Automated exposure control, adjustment of the mA and/or kV according to patient size, and use of iterative reconstruction COMPARISON: X-ray on the same day 11/06/2024 15:05:[address] dated 10/13/2024 FINDINGS: Lungs: Mild subpleural reticulations scattered throughout both lungs more evident at both lung bases. 7 mm air filled pulmonary cyst is seen in the right lung apex. No evidence of consolidation or collapse. No ground-glass opacities or interstitial changes. No pleural effusion or pleural thickening. Mediastinum: No mediastinal mass or abnormal lymphadenopathy. Normal appearance of the thymus. Hilar Structures: Normal size and configuration, no enlargement. Heart and Great Vessels: Occlusion device of the left atrial appendage is noted. Increased heart size. Mitral valvular calcification/ surgical sutures. No pericardial effusion. Normal caliber and course of the thoracic aorta and other great vessels. Tiny vascular calcification of the aorta. Coronary artery calcification. Normal enhancement of the great vessels post-contrast. Pulmonary Arteries: No evidence of pulmonary embolism. Normal size and course of the pulmonary arteries. Esophagus: Normal course and caliber. No masses or dilatation. Bones: Sternotomy wires sutures. Spine degenerative changes. Chest Wall: No masses or soft tissue abnormalities. Upper Abdomen: 13.3 cm cyst is seen at the right upper renal pole. 3.1 cm gallbladder stone is noted. No signs of acute cholecystitis Thyroid: Normal size and morphology. No nodules or masses. IMPRESSION: 1. No evidence of acute traumatic injury could be noted. 2. Sternotomy, occlusion device of the left atrial appendage. 3. Mitral valve the calcification/surgical sutures. 4. Increased cardiac size. 5. Bilateral pulmonary subpleural reticulations, nonspecific. 6. Compared to prior studies no detected interval changes Electronically signed by Bobby Gallegos 11-06-2024 6:35 PM
[2024-11-06 20:13] LABS: Base Excess VBG 2.2 mEq/L; HCO3 VBG 28 mmol/L; Oxygen Saturation VBG < 60.0 %; PCO2 VBG 46 mmHg (38-50); PO2 VBG 33 mmHg; pH VBG 7.39 (7.36-7.41)
[2024-11-06 20:35] LABS: Magnesium 1.6 mg/dl (1.7-2.4)
[2024-11-06] MEDS ORDERED: PROMETHAZINE 6.25 MG/50.25 ML BAG IV PRN (20:35)
[2024-11-06] MEDS ORDERED: MoRPHine SULFATE 4 MG/ML 1 ML CARP\\VIAL IV PRN (20:35)
[2024-11-06] MEDS ORDERED: bisacodyL 10 MG SUPP PR PRN (20:36)
[2024-11-06] MEDS ORDERED: NALOXONE HCL 0.4 MG/1 ML VIAL/CARP IV PRN (20:36)
--- NOTE | 2024-11-06 20:38 | History & Physical Report ---
Date of Service November 06, 2024 Assessment & Plan (1) Acute hypoxic respiratory failure: Plan: Underlying hypertension Secondary to influenza illness Symptoms improving after first dose of Tamiflu this morning. chronic systolic heart failure (EF 25-30%, TTE 2024), patient on the dry side Mild rhabdomyolysis/CPK/troponin elevation secondary to fall hx A-fib on Eliquis severe MR status post bioprosthetic MVR with concomitant Maze procedure PVD (TAA on past imaging) hypertension, stable hyperlipidemia on statin Rx pulmonary hypertension chronic anemia, hemoglobin at baseline prediabetes, hemoglobin A1c of 6.15 August 2024 Past tobacco abuse Admit to medical telemetry Supplemental O2 Baseline VBG Complete Tamiflu course Orthopedics consult Re: Left hip fracture (ED provider already in touch with Dr. Reid. Surgery recommended tomorrow a.m. hold Eliquis in anticipation of procedure.) Acceptable risk for cardiac complications resulting from prospective procedure Revised Cardiac Risk Index (RCRI): 1. High-risk type of surgery (examples include vascular and any open intraperitoneal or intrathoracic procedures). No 2. History of ischemic heart disease (history of myocardial infarction or positive exercise test, current compliant of chest pain considered to be secondary to myocardial ischemia, use of nitrate therapy, or ECG with pathological Q waves; do not count prior coronary revascularization procedure unless one of the other criteria for ischemic heart disease is present). No 3. History of heart failure. Yes 4. History of cerebrovascular disease. No 5. Diabetes mellitus requiring treatment with insulin. No 6. Preoperative serum creatinine >2.0. No Pt has revised cardiac index score of 0 points. (Class II Risk.) 6 % 30-day risk of , PR, or cardiac arrest. Acceptable risk for cardiac complications if surgery recommended by Orthopedics and patient/family agreeable to attendant procedural benefits and risks.. Monitor CPK response to gentle IV hydration, hold statin for now DVT prophylaxis. SCDs for now re: surgery in AM Resume Eliquis postop once Ortho agreeable. Full code Text document was generated using [employer] voice recognition software. It may contain grammatical or spelling errors. Kindly contact undersigned for clarification of any documentation item in question. History of Present Illness Chief Complaint: Fall, left hip pain Primary Care Provider: Jamel Hutchison MD History obtained from patient and records. Medical history significant for chronic systolic heart failure (EF 25-30%, TTE 2024), A-fib on Eliquis, severe MR status post bioprosthetic MVR with concomitant Maze procedure, PVD, hypertension, hyperlipidemia, pulmonary hypertension, proteinuria as per records, chronic anemia (baseline hemoglobin 12-13), prediabetes, gout, daily alcohol intake, past tobacco abuse. Recent confinement 3 weeks ago for atypical chest pain Repeat echo showed EF dropped to 25%. Nonocclusive CAD on diagnostic cardiac catheterization. Yesterday, patient noted fever, dry cough symptoms without chest pain or SOB. Mild sinus congestion. Sick family members at home. Patient seen at PCP's office. Chest x-ray negative for pneumonia. Positive influenza A PCR. Tamiflu prescribed by PCP, first dose taken this morning. Patient felt woozy this afternoon while trying to walk down a flight of stairs. His foot slipped causing him to fall down a flight of stairs. No head trauma, no chest pain, SOB, LOC. Achy left hip pain. Patient unable to get up. O2 sats of 80s upon arrival at the ER. 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 Allergies Allergy/AdvReac Type Severity Reaction Status Date / Time No Known Allergies Allergy Mild Verified 11/06/24 19:32 Home Medications Medication Instructions Recorded Confirmed Type allopurinol 300 mg tablet 300 mg PO DAILY 10/14/24 11/06/24 History amlodipine 5 mg tablet 5 mg PO QAM 10/14/24 11/06/24 History amoxicillin 500 mg capsule 500 mg PO DIRECTED PRN DENTAL 10/14/24 11/06/24 History PROCEDURE apixaban 5 mg tablet (Eliquis) 5 mg PO BID 10/14/24 11/06/24 History dicyclomine 10 mg capsule 10 mg PO BID PRN CRAMPING 10/14/24 11/06/24 History ferrous sulfate 325 mg (65 mg 325 mg PO 3XWK 10/14/24 11/06/24 History iron) tablet (iron) metoprolol succinate 50 mg 50 mg PO QAM 10/14/24 11/06/24 History tablet,extended release 24 hr multivitamin 1 tab PO DAILY 10/14/24 11/06/24 History omeprazole 20 mg capsule,delayed 20 mg PO BID 10/14/24 11/06/24 History release rosuvastatin 20 mg tablet 20 mg PO QPM 10/14/24 11/06/24 History tramadol 50 mg tablet 50 mg PO Q8H PRN Pain 10/14/24 11/06/24 History lisinopril 20 mg tablet 20 mg PO QAM 30 days #30 tabs 10/15/24 11/06/24 Rx magnesium oxide 400 mg PO 3XWK 11/06/24 11/06/24 History Past Med/Surg History Problem List (Updated 10/14/24 @ 10:58 by JOSELO Parsons) Closed intertrochanteric fracture of left femur (Acute) Fall down stairs (Acute) Acute hypoxic respiratory failure (Acute) Influenza A (Acute) Permanent atrial fibrillation Cardiomyopathy History of mitral valve replacement Atypical chest pain Thoracic aortic aneurysm (Acute) Elevated brain natriuretic peptide (BNP) level (Acute) Chest pain (Acute) Hypertension (Chronic) Hyperlipidemia (Chronic) Tophaceous gout (Chronic) Diverticulosis (Chronic) History of GI bleed (Chronic) History of gastric ulcer (Chronic) S/P appendectomy (Chronic) Hx of tonsillectomy (Chronic) H/O esophagogastroduodenoscopy (Chronic) Hx of total knee arthroplasty (Chronic) H/O colonoscopy (Chronic) Social History Smoking Status: Never smoker Do You Dip or Chew Tobacco: No; Hx Alcohol Use: No Hx Substance Use: No Preferred Language: Cambodian Communication Ability: Effective Curb And Gutter Laborer Required: No Beliefs That Will Affect Care: None Current Living Situation: Spouse Current Living Situation Comment: at home with Other Information That Helps Us Care for You: No Feels Safe at Home: Yes Safety Concerns: Feels Safe At This Time Assistive Devices: None Review of Systems Review of Systems: As per HPI, all other systems reviewed and negative Physical Exam Physical Exam: GENERAL: Comfortable, pleasant, obese, no respiratory distress SKIN: Normal color, warm HEENT: [place] palpebral conjunctivae, no ptosis, dry buccal mucosa, nasal cannula in place NECK : Supple, no tenderness CHEST : Decreased breath sounds, no chest wall tenderness HEART : RRR, diminished S1-S2, systolic murmur ABDOMEN: Some distention, nontender EXTREMITIES : No LE swelling, left hip tenderness NEUROLOGIC : Coherent, no facial asymmetry, no other gross focality Results & Data Results & Data Vital Signs (Past 12 Hours) Vital Signs Temp Pulse Pulse Resp BP BP Pulse Ox 11/06/24 20:09 61 21 111/59 L 98 11/06/24 20:09 63 23 111/59 L 92 11/06/24 19:48 81 11/06/24 19:19 73 12 122/67 97 11/06/24 18:20 37.1 C 78 18 109/63 96 11/06/24 17:36 38.0 C H 11/06/24 17:18 75 23 95 11/06/24 17:00 78 23 132/72 95 11/06/24 16:03 80 11/06/24 16:00 38.1 C H 81 19 140/77 94 11/06/24 15:50 38.1 C H 78 20 130/79 93 11/06/24 15:45 88 L O2 Del Method O2 Flow Rate 11/06/24 20:09 Nasal Cannula 3 11/06/24 20:09 Nasal Cannula 3 11/06/24 19:48 11/06/24 19:19 Nasal Cannula 3 11/06/24 18:20 Nasal Cannula 3 11/06/24 17:36 11/06/24 17:18 Nasal Cannula 3 11/06/24 17:00 Nasal Cannula 3 11/06/24 16:03 11/06/24 16:00 Nasal Cannula 3 11/06/24 15:50 Nasal Cannula 3 11/06/24 15:45 Room Air Laboratory Results Laboratory Results WBC 6.54 K/ul (4.8-10.8) 11/06/24 15:53 RBC 4.26 M/uL (4.70-6.10) L 11/06/24 15:53 Hgb 13.1 g/dl (14.0-18.0) L 11/06/24 15:53 POC Hgb 13.6 g/dl (14.0-18.0) L 11/06/24 15:57 Hct 39.5 % (42.0-52.0) L 11/06/24 15:53 POC Hct 40 % (42-52) L 11/06/24 15:57 MCV 92.7 fL (80.0-100.0) 11/06/24 15:53 MCH 30.8 pg (25.0-34.0) 11/06/24 15:53 MCHC 33.2 g/dL (32.0-36.0) 11/06/24 15:53 RDW Std Deviation 49.3 fL (36.4-46.3) H 11/06/24 15:53 RDW Coeff of Christina 14.6 % (11.5-14.5) H 11/06/24 15:53 Plt Count 120 K/uL (130-400) L 11/06/24 15:53 MPV 9.9 fL (9.4-12.4) 11/06/24 15:53 Immature Gran % (Auto) 0.3 % 11/06/24 15:53 Neut % (Auto) 80.2 % 11/06/24 15:53 Lymph % (Auto) 7.5 % 11/06/24 15:53 [place] % (Auto) 11.8 % 11/06/24 15:53 Eos % (Auto) 0.0 % 11/06/24 15:53 Baso % (Auto) 0.2 % 11/06/24 15:53 Neut # (Auto) 5.25 K/uL (1.40-6.50) 11/06/24 15:53 Lymph # (Auto) 0.49 K/uL (1.20-3.40) L 11/06/24 15:53 [place] # (Auto) 0.77 K/uL (0.11-0.59) H 11/06/24 15:53 Eos # (Auto) 0.00 K/uL (0.00-0.50) 11/06/24 15:53 Baso # (Auto) 0.01 K/uL (0.00-0.20) 11/06/24 15:53 Immature Gran # (Auto) 0.02 K/uL (0.01-0.20) 11/06/24 15:53 PT 14.0 Seconds (9.0-12.0) H 11/06/24 15:53 INR 1.3 (0.9-1.1) H 11/06/24 15:53 APTT 30 Seconds (21-31) 11/06/24 15:53 PTT Ratio 1.1 11/06/24 15:53 VBG pH 7.39 (7.36-7.41) 11/06/24 19:55 VBG pCO2 46 mmHg (38-50) 11/06/24 19:55 VBG pO2 33 mmHg 11/06/24 19:55 VBG HCO3 28 mmol/L 11/06/24 19:55 VBG O2 Saturation < 60.0 % 11/06/24 19:55 VBG Base Excess 2.2 mEq/L 11/06/24 19:55 POC Sodium 139 mmol/L (135-144) 11/06/24 15:57 Sodium 137 mmol/L (136-145) 11/06/24 15:53 POC Potassium 3.9 mmol/L (3.3-5.0) 11/06/24 15:57 Potassium 3.9 mmol/L (3.5-5.1) 11/06/24 15:53 POC Chloride 102 mmol/L (101-112) 11/06/24 15:57 Chloride 101 mmol/L (98-107) 11/06/24 15:53 Carbon Dioxide 27 mmol/L (21-32) 11/06/24 15:53 POC Total CO2 24 mmol/L (24-31) 11/06/24 15:57 Anion Gap 9 (3-11) 11/06/24 15:53 POC Anion Gap 18.0 mmol/L (16-25) 11/06/24 15:57 POC BUN 17 mg/dl (7-18) 11/06/24 15:57 BUN 19 mg/dl (6-23) 11/06/24 15:53 Creatinine 1.02 mg/dl (0.6-1.4) 11/06/24 15:53 POC Creatinine 1.0 mg/dl (0.6-1.3) 11/06/24 15:57 Est Cr Clr Drug Dosing 78.4 ml/min 11/06/24 15:53 eGFR 78.58 11/06/24 15:53 BUN/Creatinine Ratio 18.6 (10-20) 11/06/24 15:53 Glucose 107 mg/dl (70-99(Fasting)) H 11/06/24 15:53 POC Glucose (other) 107 mg/dl (70-99) H 11/06/24 15:57 Lactate 1.3 mmol/L (0.4-2.0) 11/06/24 16:36 Calcium 9.3 mg/dl (8.6-10.3) 11/06/24 15:53 POC Ioniz Calcium Amanda 1.10 mmol/l (1.12-1.32) L 11/06/24 15:57 Magnesium 1.6 mg/dl (1.7-2.4) L 11/06/24 19:55 Total Bilirubin 1.0 mg/dl (0.2-1.0) 11/06/24 15:53 AST 27 U/L (13-39) 11/06/24 15:53 ALT 19 U/L (7-52) 11/06/24 15:53 Alkaline Phosphatase 72 U/L (34-104) 11/06/24 15:53 Total Creatine Kinase 367 U/L (30-223) H 11/06/24 15:53 Troponin I High Sens 34.5 pg/ml (0-20) H 11/06/24 17:50 Total Protein 7.7 gm/dl (6.0-8.3) 11/06/24 15:53 Albumin 4.3 gm/dl (3.4-5.0) 11/06/24 15:53 Globulin 3.4 gm/dl (2.5-4.0) 11/06/24 15:53 Albumin/Globulin Ratio 1.3 (0.9-2) 11/06/24 15:53 Lipase 29 U/L (11-82) 11/06/24 15:53 Urine Color Dark Yellow 11/06/24 Unknown Urine Appearance Clear (Clear) 11/06/24 Unknown Urine pH 5.5 (4.5-7.5) 11/06/24 Unknown Ur Specific [place] 1.033 (1.000-1.030) H 11/06/24 Unknown Urine Protein 3+ (Negative) H 11/06/24 Unknown Urine Glucose (UA) Negative (Negative) 11/06/24 Unknown Urine Ketones 2+ (Negative) H 11/06/24 Unknown Urine Blood Negative (Negative) 11/06/24 Unknown Urine Nitrite Negative (Negative) 11/06/24 Unknown Urine Bilirubin 1+ (Negative) H 11/06/24 Unknown Urine Urobilinogen Positive (Negative) H 11/06/24 Unknown Ur Leukocyte Esterase Negative (Negative) 11/06/24 Unknown Urine WBC (Auto) 0-5 /hpf (0-5) 11/06/24 Unknown Urine RBC (Auto) 6-10 /hpf (0-2) H 11/06/24 Unknown U Hyaline Cast (Auto) 0-2 /lpf (0-2) 11/06/24 Unknown U Epithel Cells (Auto) 0-2 /hpf (0-2) 11/06/24 Unknown Urine Bacteria (Auto) None Seen (None Seen) 11/06/24 Unknown Blood Type O Positive 11/06/24 16:36 Antibody Screen NEGATIVE 11/06/24 16:36 Impressions Chest X-Ray 11/06/24 15:54 INDICATION: Chest pain. TECHNIQUE: Frontal radiograph of the chest. COMPARISON: Radiograph from 10/13/2024. FINDINGS: Cardiolite. Chronic appearing interstitial lung markings. Pulmonary vasculature appear within normal limits. No infiltrate, pleural effusion or pneumothorax. No acute osseous abnormality evident. IMPRESSION: No acute cardiopulmonary process. Electronically signed by Dileep Barrientos 11-06-2024 4:16 PM Hip/Pelvis X-Ray 11/06/24 15:54 INDICATION: Pain and injury. TECHNIQUE: 2 views of the pelvis. 2 views of the left hip.. COMPARISON: No relevant priors. FINDINGS: Nondisplaced left femur intertrochanteric fracture. Remaining osseous structures intact. Mild bilateral hip joint space loss. Soft tissues appear unremarkable. IMPRESSION: Nondisplaced left femur intertrochanteric fracture. Electronically signed by Dileep Barrientos 11-06-2024 4:16 PM Abdomen/Pelvis CT 11/06/24 15:57 EXAM: CT abd pelvis IV con only CLINICAL HISTORY: Trauma, fell down 10 steps, on blood thinners. TECHNIQUE: Contrast-enhanced CT of the abdomen and pelvis was performed, with the following protocol: axial images with, and reconstructed coronal and sagittal images. Intravenous contrast 95 ml Optiray 320 was administered. One of the following dose reduction techniques was utilized for this exam: Automated exposure control, adjustment of the mA and/or kV according to patient size, and use of iterative reconstruction. COMPARISON: None. FINDINGS: Abdomen: Liver: Normal in size, shape, and density. No focal lesions, cysts, or masses were identified. Hepatic vasculature and biliary ducts are unremarkable. Gallbladder and Biliary System: The gallbladder Shows 3 cm stone inside. No wall thickening or pericholecystic fluid. The common bile duct is normal in caliber without dilation. Pancreas: Pancreatic head, body, and tail are visualized and appear normal in size and density. No pancreatic masses or calcifications were noted. The pancreatic duct is not dilated. Spleen: Normal in size, shape, and density. No splenic lesions or masses were identified. Appendix: Not clearly identified. No evidence of appendiceal abscess or perforation. Kidneys and Adrenal Glands: Both kidneys are normal in size, shape, and position. Cortical thickness is within normal limits. A 13.7 cm right upper pole renal cyst. No renal calculi or hydronephrosis. Adrenal glands are unremarkable with no evidence of masses or hyperplasia. Pelvis: Urinary Bladder: Decompress the by Soares's catheter. No intraluminal lesions identified. Prostate: Normal in size and contour. No focal lesions or masses identified. Seminal Vesicles: Normal in size and appearance. No abnormalities noted. Peritoneal and Retroperitoneal Structures: No free fluid or abnormal fluid collections were identified within the abdomen or pelvis. No lymphadenopathy was noted. Bowel: Scattered colonic diverticulosis. Associated mural thickening and pericolic fat smudging in the sigmoid region denoting possible diverticulitis. Bones and Soft Tissues: Intertrochanteric fracture of the left femoral neck extending to the greater trochanter. Soft tissue calcification capping the ischial tuberosities on both sides likely along the hamstring muscles. Degenerative changes of the spine, sacroiliac and hip joints as well as the symphysis pubis. Vascular calcification of the aorta and its branches. IMPRESSION: 1. Acute left femoral intertrochanteric fracture. 2. Scattered colonic diverticulosis with mural thickening and fat smudging around the sigmoid colon raising possibility of sigmoid diverticulitis. 3. Gallbladder stone. 4. Large right renal cyst. 5. Correlate with clinical findings. Electronically signed by Bobby Gallegos 11-06-2024 6:[address] 11/06/24 15:57 EXAM: CT cervical spine wo con CLINICAL HISTORY: Trauma, fell 10 steps, on blood thinners. TECHNIQUE: CT scan of the cervical spine was performed without the administration of intravenous contrast. Contiguous axial images were obtained from the skull base to the upper thoracic spine. Coronal and sagittal reformatted images were also reviewed. One of the following dose reduction techniques was utilized for this exam. Automated exposure control, adjustment of the mA and/or kV according to patient size, and use of iterative reconstruction. COMPARISON: None. FINDINGS: Vertebrae: Straightening of cervical spine noted possibly positional vs. muscle spasm. Moderate spondylosis of the scanned vertebrae with osteophyte formation. The vertebral bodies are normal in height and alignment. No evidence of acute fracture or dislocation. The cortical and trabecular bone patterns are normal. No signs of lytic or sclerotic lesions. Normal configuration of the posterior elements. Intervertebral Discs: Decreased intervertebral disc space is evident at the C6-C7 C3-C4 there is a possible diffuse disc osteophyte complex measuring 4.3 mm indenting the thecal sac causing mild narrowing of the neural exit canals. Mild facet joint arthropathy. C4-C5: There is a possible diffuse disc osteophyte complex measuring 2.4 mm indenting the thecal sac causing the bilateral mild narrowing of the neural exit canals more inclined to the right side. Bilateral facet joint arthropathy more on the right side. C5-C6: There is a possible diffuse disc bulge measuring 3.5 mm indenting the thecal sac causing bilateral mild narrowing of the neural exit canals. Bilateral facet joint arthropathy. C6-C7: There is a marked reduction of the intervertebral disc space with a possible diffuse disc bulge measuring 2.9 mm indenting the thecal sac causing the bilateral mild narrowing of the neural exit canals. Bilateral facet joint arthropathy. Facet Joints: Multilevel facet joint arthropathy. Prevertebral Soft Tissues: The prevertebral soft tissues are normal in thickness without evidence of mass or abnormal fluid collection. Several small bilateral cervical lymph nodes. Coarse calcification in the nuchal ligament. Calcific foci in the transverse ligament, showing "crown dens". Additional Findings: No other significant findings are noted in the visualized soft tissue structures or bony elements. IMPRESSION: 1. No evidence of acute fracture or dislocation 2. Straightening of cervical spine noted possibly positional vs. muscle spasm. 3. Moderate cervical spondylotic changes with osteophytes, uncovertebral and facet joint arthropathies. 4. Multilevel possible disc osteophytic disc bulges as mentioned. 5. Several small bilateral cervical lymph nodes. Correlate clinically. Electronically signed by Bobby Gallegos 11-06-2024 6:[address] 11/06/24 15:57 EXAM: CT chest diagnostic w con CLINICAL HISTORY: Trauma, fell down 10 steps, on blood thinners. TECHNIQUE: Contiguous 3.[address] images of the chest were acquired with administration of 93ml Opitray-320mg/ml intravenous contrast. Coronal and sagittal reconstructions were obtained. 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 7 mm air filled pulmonary cyst is seen in the right lung apex. No evidence of consolidation or collapse. No ground-glass opacities or interstitial changes. No pleural effusion or pleural thickening. Mediastinum: No mediastinal mass or abnormal lymphadenopathy. Normal appearance of the thymus. Hilar Structures: Normal size and configuration, no enlargement. Heart and Great Vessels: Occlusion device of the left atrial appendage is noted. Increased heart size. Mitral valvular calcification/ surgical sutures. No pericardial effusion. Normal caliber and course of the thoracic aorta and other great vessels. Tiny vascular calcification of the aorta. Coronary artery calcification. Normal enhancement of the great vessels post-contrast. Pulmonary Arteries: No evidence of pulmonary embolism. Normal size and course of the pulmonary arteries. Esophagus: Normal course and caliber. No masses or dilatation. Bones: Sternotomy wires sutures. Spine degenerative changes. Chest Wall: No masses or soft tissue abnormalities. Upper Abdomen: 13.3 cm cyst is seen at the right upper renal pole. 3.1 cm gallbladder stone is noted. No signs of acute cholecystitis Thyroid: Normal size and morphology. No nodules or masses. IMPRESSION: 1. No evidence of acute traumatic injury could be noted. 2. Sternotomy, occlusion device of the left atrial appendage. 3. Mitral valve the calcification/surgical sutures. 4. Increased cardiac size. 5. Bilateral pulmonary subpleural reticulations, nonspecific. 6. Compared to prior studies no detected interval changes Electronically signed by Bobby Gallegos 11-06-2024 6:[address] 11/06/24 15:57 EXAM: CT head/brain wo con CLINICAL HISTORY: Trauma, fell 10 steps, on blood thinners. TECHNIQUE: An axial non-contrast CT scan of the brain was performed from the skull base to the high parietal region. One of the following dose reduction techniques were utilized for this exam: Automated exposure control, adjustment of the mA and/or kV according to patient size, use of iterative reconstruction. COMPARISON: None. FINDINGS: Brain Parenchyma: Mild hypovolemic involutional age-related brain changes or evidence of by prominent sulci and ventricles. Deep white matter microvascular ischemia evident by hypodensities in the bilateral centrum semioval and the watershed areas. 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 Normal attenuation of the cerebral hemispheres, cerebellum, and brainstem. There is no evidence of acute infarct, hemorrhage, or mass effect. No evidence of hydrocephalus No evidence of subarachnoid hemorrhage or extra-axial fluid collections. No cerebellum or brainstem masses, lesions, or areas of abnormal signal. Orbits: Normal appearance of the globes, optic nerves, and extraocular muscles. No evidence of orbital masses or abnormal signal. Sinuses: Bilateral maxillary sinusitis. Moderate right deviation of the nasal septum. Mastoid Air Cells: Clear mastoid air cells. No evidence of mastoiditis. Skull: Normal skull morphology. IMPRESSION: 1. No CT evidence of acute infarction, or hemorrhage. 2. Mild hypovolemic involutional age-related brain. 3. Deep white matter microvascular ischemia. Electronically signed by Bobby Gallegos 11-06-2024 5:28 PM Diagnostic Findings EKG as per my interpretation :Rate 75, NSR, LAD, LAFB, T wave abnormalities lateral leads Code Status & VTE Plan VTE Prophylaxis Plan VTE Prophylaxis will be ordered: Yes
[2024-11-06 20:41] LABS: Troponin I High Sensitivity 38.7 pg/ml (0-20)
[2024-11-06] MEDS ORDERED: OSELTAMIVIR PHOSPHATE 75 MG CAP PO SCH (21:00)
[2024-11-06] MEDS: PANTOprazole 40 MG TAB PO SCH (21:27)
[2024-11-06] MEDS: OSELTAMIVIR PHOSPHATE 75 MG CAP PO STA (21:27)
[2024-11-06] MEDS: SODIUM CHLORIDE 0.9% 1,000 ML IV ONE (21:27)
[2024-11-06] MEDS: MAGNESIUM SULFATE / D5W 1 GM/100 ML BAG IV ONE (23:01)
[2024-11-06] MEDS: oxyCODONE HCL IR 5 MG TAB (IMMEDIATE RELEASE) PO PRN (23:03)
[2024-11-07] MEDS: ACETAMINOPHEN 325 MG TAB PO PRN (01:06)
[2024-11-07] MEDS: POTASSIUM CHLORIDE CRTAB 20 MEQ TABCR PO STA (04:23)
[2024-11-07] MEDS: MAGNESIUM SULFATE / D5W 1 GM/100 ML BAG IV ONE (04:23)
[2024-11-07] MEDS: METOPROLOL TARTRATE 25 MG TAB PO STA (04:31)
[2024-11-07 07:18] LABS: Basophils # (auto) 0.01 K/uL (0.00-0.20); Basophils % (auto) 0.2 %; Hematocrit (blood only) 34.7 % (42.0-52.0); Hemoglobin 11.5 g/dl (14.0-18.0); Immature Granulocytes # (auto) 0.02 K/uL (0.01-0.20); Immature Granulocytes % (auto) 0.3 %; Lymphocytes # (auto) 0.62 K/uL (1.20-3.40); Lymphocytes % (auto) 10.7 %; Mean Corpuscular Hemoglobin 30.9 pg (25.0-34.0); Mean Corpuscular Hgb Conc 33.1 g/dL (32.0-36.0); Mean Corpuscular Volume 93.3 fL (80.0-100.0); Mean Platelet Volume 10.2 fL (9.4-12.4); Monocytes # (auto) 1.04 K/uL (0.11-0.59); Neutrophils % (auto) 70.8 %; Platelet Count 101 K/uL (130-400); RDW Coefficient of Variation 14.6 % (11.5-14.5); RDW Standard Deviation 50.4 fL (36.4-46.3); Red Blood Count 3.72 M/uL (4.70-6.10); White Blood Count 5.79 K/ul (4.8-10.8)
[2024-11-07] MEDS: allopurinoL 300 MG TAB PO SCH (07:45)
[2024-11-07] MEDS: amLODIPine BESYLATE 5 MG TAB PO SCH (07:46)
[2024-11-07] MEDS: MULTIVITAMIN TAB PO SCH (07:46)
[2024-11-07] MEDS: OSELTAMIVIR PHOSPHATE 75 MG CAP PO SCH (07:46)
[2024-11-07] MEDS: METOPROLOL SUCC 50MG EXT REL TAB PO SCH (07:46)
[2024-11-07 07:47] LABS: Calcium 8.9 mg/dl (8.6-10.3); Magnesium 2.3 mg/dl (1.7-2.4); Potassium 4.3 mmol/L (3.5-5.1)
[2024-11-07] MEDS: MoRPHine SULFATE 2 MG/ML CARP IV PRN (07:49)
--- NOTE | 2024-11-07 08:07 | Anesthesiology Consultation ---
Date of Service November 07, 2024 Assessment & Plan Chart Review Chart Review: Acceptable Risk for Surgery and Patient NOT seen in Pre Admission Testing Consults Requested none History Surgery Operation Date: 11/07/24 10:00 Proposed Procedures p Intramedullary Michael Femur - Daniel Sorensen MD Height/Weight Height: 5 ft 8 in Weight: 106.2 kg Allergies Allergy/AdvReac Type Severity Reaction Status Date / Time No Known Allergies Allergy Mild Verified 11/06/24 19:32 Medications Home Medications Medication Instructions Recorded Confirmed Last Taken allopurinol 300 mg tablet 300 mg PO DAILY 10/14/24 11/06/24 11/06/24 07:00 amlodipine 5 mg tablet 5 mg PO QAM 10/14/24 11/06/24 11/06/24 07:00 amoxicillin 500 mg capsule 500 mg PO DIRECTED PRN DENTAL 10/14/24 11/06/24 Unknown PROCEDURE apixaban 5 mg tablet (Eliquis) 5 mg PO BID 10/14/24 11/06/24 11/06/24 07:00 dicyclomine 10 mg capsule 10 mg PO BID PRN CRAMPING 10/14/24 11/06/24 11/06/24 07:00 ferrous sulfate 325 mg (65 mg 325 mg PO 3XWK 10/14/24 11/06/24 11/05/24 iron) tablet (iron) metoprolol succinate 50 mg 50 mg PO QAM 10/14/24 11/06/24 11/06/24 07:00 tablet,extended release 24 hr multivitamin 1 tab PO DAILY 10/14/24 11/06/24 11/06/24 07:00 omeprazole 20 mg capsule,delayed 20 mg PO BID 10/14/24 11/06/24 11/06/24 07:00 release rosuvastatin 20 mg tablet 20 mg PO QPM 10/14/24 11/06/24 11/05/24 20:00 tramadol 50 mg tablet 50 mg PO Q8H PRN Pain 10/14/24 11/06/24 10/23/24 lisinopril 20 mg tablet 20 mg PO QAM 30 days #30 tabs 10/15/24 11/06/24 11/06/24 07:00 magnesium oxide 400 mg PO 3XWK 11/06/24 11/06/24 11/05/24 Active Medications Generic Name Dose Route Start Last Admin Trade Name Freq PRN Reason Stop Dose Admin Acetaminophen 650 mg 11/06/24 19:39 11/07/24 01:06 Acetaminophen 325 Mg Tab PO 12/06/24 19:38 650 mg QID PRN Administration pain/fever Allopurinol 300 mg 11/07/24 09:00 11/07/24 07:45 Allopurinol 300 Mg Tab PO 12/07/24 08:59 300 mg DAILY JANNET Administration Amlodipine Besylate 2.5 mg 11/08/24 09:00 11/07/24 07:46 Amlodipine Besylate 5 Mg Tab PO 12/08/24 08:59 2.5 mg QAM JANNET Administration Sodium Chloride 1,000 mls @ 50 mls/hr 11/06/24 20:35 11/06/24 21:27 Nss IV 11/07/24 16:34 50 mls/hr .Q20H ONE Administration Metoprolol Succinate 50 mg 11/08/24 09:00 11/07/24 07:46 Metoprolol Succ 50mg Ext Rel Tab PO 12/08/24 08:59 50 mg QAM JANNET Administration Morphine Sulfate 2 mg 11/07/24 04:21 11/07/24 07:49 Morphine Sulfate 2 Mg/Ml Carp IV 11/21/24 04:20 2 mg Q3H PRN Administration Pain Multivitamins 1 tab 11/07/24 09:00 11/07/24 07:46 Multivitamin Tab PO 12/07/24 08:59 1 tab DAILY JANNET Administration Oseltamivir Phosphate 75 mg 11/07/24 09:00 11/07/24 07:46 Oseltamivir Phosphate 75 Mg Cap PO 11/11/24 09:01 75 mg BID JANNET Administration Protocol Oxycodone HCl 5 - 10 mg 11/06/24 19:39 11/07/24 04:34 Oxycodone Hcl Ir 5 Mg Tab (Immediate Release) PO 11/20/24 19:38 5 mg QID PRN Administration Pain Pantoprazole Sodium 40 mg 11/06/24 21:00 11/07/24 07:46 Pantoprazole 40 Mg Tab PO 12/06/24 20:59 40 mg BID JANNET Administration Social History Smoking Status: Never smoker Do You Dip or Chew Tobacco: No Hx Alcohol Use: No alcohol intake frequency: 0-2 drinks per day Hx Substance Use: No Physical Exam Vital Signs Last Vital Signs Temp 36.9 C 11/07/24 08:00 Pulse 60 11/07/24 08:00 Resp 19 11/07/24 08:00 BP 105/63 11/07/24 08:00 Pulse Ox 94 11/07/24 08:00 O2 Del Method Nasal Cannula 11/07/24 08:00 O2 Flow Rate 2 11/07/24 08:00 Testing Laboratory Results 11/07/24 06:46 11/07/24 06:46 PT 14.0 Seconds (9.0-12.0) H 11/06/24 15:53 INR 1.3 (0.9-1.1) H 11/06/24 15:53 APTT 30 Seconds (21-31) 11/06/24 15:53 Urine Color Dark Yellow 11/06/24 Unknown Urine Appearance Clear (Clear) 11/06/24 Unknown Urine pH 5.5 (4.5-7.5) 11/06/24 Unknown Ur Specific [place] 1.033 (1.000-1.030) H 11/06/24 Unknown Urine Protein 3+ (Negative) H 11/06/24 Unknown Urine Glucose (UA) Negative (Negative) 11/06/24 Unknown Urine Ketones 2+ (Negative) H 11/06/24 Unknown Urine Nitrite Negative (Negative) 11/06/24 Unknown Ur Leukocyte Esterase Negative (Negative) 11/06/24 Unknown Urine WBC (Auto) 0-5 /hpf (0-5) 11/06/24 Unknown Urine RBC (Auto) 6-10 /hpf (0-2) H 11/06/24 Unknown U Hyaline Cast (Auto) 0-2 /lpf (0-2) 11/06/24 Unknown U Epithel Cells (Auto) 0-2 /hpf (0-2) 11/06/24 Unknown Urine Bacteria (Auto) None Seen (None Seen) 11/06/24 Unknown Blood Type O Positive 11/06/24 16:36 Antibody Screen NEGATIVE 11/06/24 16:36 Electrocardiogram Date: 10/14/24 Findings: + NSR @ PVCs Echocardiogram Date: 10/14/24 EF: 25 LV Function: dysfunctional (severely reduced ) severe globa hypokinesis of LV Cardiac Catheterization Date: 10/15/24 Findings: LM -normal caliber, no significant disease LAD -large-caliber, proximal luminal irregularities. 20% mid stenosis at takeoff of D2. Distal vessel without significant disease and wraps around apex. Large D2 without significant disease. Circumflex -codominant large-caliber, proximal luminal irregularities. Large OM2 without significant disease. 30% mid stenosis just after takeoff of OM2. Remainder of AV groove circumflex and left PDA without significant disease. RCA -codominant, small to medium caliber. Proximal/mid vessel without significant disease. Small distal vessel and very small RPDA without disease. LVEDP -24 Arterial Closure: TR band Summary: 1. Minimal nonobstructive coronary artery disease -20% mid LAD 30% mid circumflex after OM2 2. Elevated intracardiac filling pressure (LVEDP 24) Recommendations: GDMT for NICM and further arrhythmia management per Dr. Choe.
[2024-11-07] MEDS ORDERED: DEXAMETHASONE SOD INJ 4 MG/ML VIAL ONE (08:19)
[2024-11-07] MEDS ORDERED: ETOMIDATE 2 MG/ML 20 ML VIAL IV ONE (08:19)
[2024-11-07] MEDS ORDERED: PROPOFOL IV EMULSION 10 MG/ML 20 ML VIAL IV ONE (08:19)
[2024-11-07] MEDS ORDERED: ONDANSETRON INJ 2 MG/ML 2 ML VIAL ONE (08:19)
[2024-11-07] MEDS ORDERED: fentaNYL citrate PF 100 MCG/2 ML VIAL ONE (08:19)
[2024-11-07] MEDS ORDERED: MIDAZOLAM HCL 1 MG/ML 2ML VIAL ONE (08:19)
[2024-11-07] MEDS ORDERED: ROCURONIUM BROMIDE 10 MG/ML 5 ML VIAL IV ONE ×2 (08:19→12:34)
[2024-11-07] MEDS ORDERED: SUGAMMADEX SODIUM 200 MG/2 ML VIAL IV ONE (08:19)
[2024-11-07] MEDS ORDERED: lisinopril 20 MG TAB PO SCH (09:00)
[2024-11-07] MEDS ORDERED: amLODIPine BESYLATE 5 MG TAB PO SCH (09:00)
[2024-11-07] MEDS ORDERED: METOPROLOL SUCC 50MG EXT REL TAB PO SCH (09:00)
[2024-11-07] MEDS ORDERED: ONDANSETRON INJ 2 MG/ML 2 ML VIAL IV PRN (09:58)
[2024-11-07] MEDS ORDERED: ePHEDrine sulfate 50 MG/ML AMP IV PRN (09:58)
[2024-11-07] MEDS ORDERED: ATROPINE SULFATE 0.1 MG/ML 10ML SYR IV PRN (09:58)
--- NOTE | 2024-11-07 11:35 | Orthopedic Consultation ---
Date of Consultation November 07, 2024 Assessment & Plan (1) Closed intertrochanteric fracture of left femur: I discussed the diagnosis with the patient. He is a candidate for surgery given the poor natural history of nonsurgical treatment for intertrochanteric femur fractures including bedsores, blood clots, malunion, continued pain. However, he does have significant risk factors for complications as a result of surgery. These include his atrial fibrillation, heart failure, and being anticoagulated on Eliquis. Risk-benefit butler I think it is better to proceed with surgery sooner rather than later to allow him to mobilize. I reviewed the risks and benefits of surgery, alternatives, and expected outcomes. After reviewing all these he elected to proceed with surgery. All questions were answered. Informed consent was signed. Surgical site was marked. Proceed to the operating room today for intramedullary delia left intertrochanteric femur fracture. Readmit to the hospitalist service after surgery. Eliquis has been held since his arrival to the hospital yesterday. Plan on resuming Eliquis tomorrow after surgery. (2) Permanent atrial fibrillation: (3) Anticoagulated: History of Present Illness Attending Physician: Deisy More MD History of Present Illness Patient is a 69-year-old male who fell down around 10 steps yesterday. He states that he started having diffuse bodyaches and fevers 4 days ago and he went to his primary care provider yesterday and was diagnosed with influenza A. He states he was started on Tamiflu yesterday. He reports he got up this morning and was feeling a little bit woozy and was trying to walk down his stairs when his foot slipped and he fell down the 10 stairs. He denies any chest pain, shortness of breath or dizziness prior to his fall. He reports he just lost his footing. He is complaining of left hip pain. He is on Eliquis. Denies striking his head or loss of consciousness. He states that he was unable to get up off the ground secondary to deformity of his left hip. He currently is denying any headache or changes in vision. Denies any numbness or tingling or weakness in his extremities. Denies any abdominal pain or shortness of breath. He was brought to the emergency room where x-rays demonstrated a left intertrochanteric femur fracture. He was admitted to the internal medicine serv ice. He has been n.p.o. since midnight last night. Orthopedics was consulted for evaluation and management of his left intertrochanteric femur fracture. Patient was seen this morning. He denies any numbness or tingling down the leg. No prior history of problems with the left hip. He lives in [place] with his who has early Alzheimer's. His son is there to help take care of his . Does not use an ambulatory assistive device at baseline. He reports that his last top hospitalization for chest pain that he had a cath that was reportedly clean. However he says his ejection fraction dropped from 45 down to 25. Allergies Allergy/AdvReac Type Severity Reaction Status Date / Time No Known Allergies Allergy Mild Verified 11/06/24 19:32 Home Medications Medication Instructions Recorded Confirmed Type allopurinol 300 mg tablet 300 mg PO DAILY 10/14/24 11/06/24 History amlodipine 5 mg tablet 5 mg PO QAM 10/14/24 11/06/24 History amoxicillin 500 mg capsule 500 mg PO DIRECTED PRN DENTAL 10/14/24 11/06/24 History PROCEDURE apixaban 5 mg tablet (Eliquis) 5 mg PO BID 10/14/24 11/06/24 History dicyclomine 10 mg capsule 10 mg PO BID PRN CRAMPING 10/14/24 11/06/24 History ferrous sulfate 325 mg (65 mg 325 mg PO 3XWK 10/14/24 11/06/24 History iron) tablet (iron) metoprolol succinate 50 mg 50 mg PO QAM 10/14/24 11/06/24 History tablet,extended release 24 hr multivitamin 1 tab PO DAILY 10/14/24 11/06/24 History omeprazole 20 mg capsule,delayed 20 mg PO BID 10/14/24 11/06/24 History release rosuvastatin 20 mg tablet 20 mg PO QPM 10/14/24 11/06/24 History tramadol 50 mg tablet 50 mg PO Q8H PRN Pain 10/14/24 11/06/24 History lisinopril 20 mg tablet 20 mg PO QAM 30 days #30 tabs 10/15/24 11/06/24 Rx magnesium oxide 400 mg PO 3XWK 11/06/24 11/06/24 History Patient History Social History Smoking Status: Never smoker Do You Dip or Chew Tobacco: No; Hx Alcohol Use: No Hx Substance Use: No Preferred Language: Yakut Communication Ability: Effective Bilingual Student Tutor Required: No Beliefs That Will Affect Care: None Current Living Situation: Spouse Current Living Situation Comment: at home with Other Information That Helps Us Care for You: No Feels Safe at Home: Yes Safety Concerns: Feels Safe At This Time Assistive Devices: None Physical Exam Physical Exam: Pleasant male, alert and oriented x 3, obese with a body mass index of 35, resting in bed in no acute distress. Left hip exam shows the patient's skin to be intact without any bruising or skin lesions. Distally he is neurovascularly intact. There is swelling around the left hip. He is tender to palpation over the intertrochanteric region. Results & Data Vital Signs (Past 12 Hours) Vital Signs Temp Pulse Pulse Resp BP BP Pulse Ox 11/07/24 08:00 36.9 C 60 19 105/63 94 11/07/24 07:45 11/07/24 07:00 60 11/07/24 03:10 36.9 C 62 16 109/67 95 11/06/24 23:38 11/06/24 23:38 37.5 C 68 18 111/65 97 O2 Del Method O2 Flow Rate 11/07/24 08:00 Nasal Cannula 2 11/07/24 07:45 Nasal Cannula 2 11/07/24 07:00 11/07/24 03:10 Nasal Cannula 2 11/06/24 23:38 Nasal Cannula 2 11/06/24 23:38 Nasal Cannula 2 Diagnostic Findings X-rays done yesterday in the emergency room are independently interpreted by me. He has an intertrochanteric femur fracture with mild displacement.
[2024-11-07] MEDS: BUPIVACAINE 0.5 % 5 MG/1 ML MPF 30ML VIAL ONE (12:00)
[2024-11-07] MEDS ORDERED: ceFAZolin 330 MG/ML 1 GM VIAL ONE (12:10)
[2024-11-07] MEDS ORDERED: PHENYLEPHRINE 100MCG/ML 5ML SYR ONE (12:10)
[2024-11-07] MEDS: ceFAZolin 2000MG 2,000 MG/15 ML SYR IV ONE (12:12)
[2024-11-07] MEDS ORDERED: KETAMINE HCL 10MG/ML SYR ONE (12:45)
[2024-11-07] MEDS ORDERED: MAG SULFATE 50% 1GM/2ML VIAL IV ONE (12:53)
--- NOTE | 2024-11-07 13:23 | Fluoroscopy Report ---
FL hip LT 2-3V CLINICAL HISTORY: LT HIP SYNTHES NAIL COMPARISON STUDY: None FLUOROSCOPY TIME: 113 seconds FLUOROSCOPY IMAGES: 5 EXPOSURE DOSE: 32 mGy FINDINGS: Fluoroscopy was provided for internal fixation of proximal femur fracture. IMPRESSION: Intraoperative fluoroscopy. ACT 112: Negative or not required by law. Electronically signed by: Edmund Rosenberg M.D. 11/07/2024 1:21 PM
--- NOTE | 2024-11-07 13:33 | Operative Report ---
Post Operative Report Pre & Post Diagnosis Operation Date: 11/07/24 10:00 Pre-Op Diagnosis: Closed intertrochanteric fracture of left femur Post-Op Diagnosis: Closed intertrochanteric fracture of left femur I identified the patient and participated in the time-out.: Yes Procedure Operation Date: 11/07/24 10:00 Actual Procedures p Intramedullary Michael Left Intertrochanteric Femur Fracture(Left) - Daniel Sorensen MD Surgeon Daniel Sorensen MD Stage Electrician Helper José Miguel Ureña PA-C Estimated Blood Loss 50 Findings Consistent with Post-Op Diagnosis Specimens none Description of Procedure I was present during the entire case assisting with positioning, prepping, draping, wound retraction, wound closure and dressing application. No fellow pr esent. Please see Dr. Sorensen procedure note for specifics of the case. I attest to the content of the Intraoperative Record and any orders documented therein. Any exceptions are noted below.
[2024-11-07] MEDS ORDERED: DICYCLOMINE HCL 10 MG CAP PO PRN (13:38)
[2024-11-07] MEDS ORDERED: traMADol HCL 50 MG TABLET PO PRN (13:38)
--- NOTE | 2024-11-07 13:38 | Electrocardiogram Report ---
Test Reason : Blood Pressure : */* mmHG Vent. Rate : 75 BPM Atrial Rate : 75 BPM P-R Int : * ms QRS Dur : 108 ms QT Int : 394 ms P-R-T Axes : * -56 93 degrees QTcB Int : 439 ms Atrial Fibrillation-flutter Left axis deviation Anterior infarct (cited on or before 13-Oct-2024) Abnormal ECG When compared with ECG of 14-Oct-2024 15:01, No significant change was found Confirmed by Gracie Newell ([id number]) on 11/07/2024 1:38:12 PM Referred By: REFERRED SELF Confirmed By: Gracie Newell
--- NOTE | 2024-11-07 13:39 | Operative Report ---
Post Operative Report Pre & Post Diagnosis Operation Date: 11/07/24 10:00 Pre-Op Diagnosis: Closed intertrochanteric fracture of left femur Post-Op Diagnosis: Closed intertrochanteric fracture of left femur I identified the patient and participated in the time-out.: Yes Procedure Operation Date: 11/07/24 10:00 Actual Procedures p Intramedullary Michael Left Intertrochanteric Femur Fracture(Left) - Daniel Sorensen MD Surgeon Daniel Sorensen MD Vice President Compliance REGI Ureña PA-C. No resident or fellow was available to assist. Estimated Blood Loss 50 Findings Consistent with Post-Op Diagnosis Specimens None Anesthesia Type General Complications none Disposition Disposition: Recovery Room Indications 69-year-old male, medical history significant for atrial fibrillation, heart failure with ejection fraction 25%, recent hospitalization for chest pain, on Eliquis for anticoagulation, history of mitral valve replacement, cardiomyopathy, fell down 10 stairs yesterday at home injuring his left hip. He presented to the emergency room yesterday where x-rays of his left hip showed an intertrochanteric left femur fracture. He was admitted to the internal medicine service. Orthopedics was consulted for evaluation management of his hip. I saw and examined the patient this morning. I discussed the diagnosis and treatment options. Surgery is indicated to allow him to regain the ability to walk. I had a long discussion with him about the risks and benefits of surgery, alternatives to surgery, and expected outcomes. After reviewing all these he elected to proceed with surgery. All questions were answered. Informed consent was signed. Description of Procedure Patient was identified in the preoperative holding area where his surgical site was marked. An arterial line was placed by anesthesia for intraoperative and postoperative monitoring. He was brought back to the operating room where general anesthesia was administered on the hospital bed. He was then carefully moved onto the fracture table. The nonoperative hip was flexed and AB ducted to facilitate fluoroscopic view imaging of the left hip. The left arm was draped across his chest. All bony prominences were padded. Perioperative antibiotics were administered. Close reduction was then performed under fluoroscopic visualization. Using a combination of traction and internal rotation of the leg we were able to achieve satisfactory close reduction. His femoral neck shaft angle was slightly more varus than normal. Operative site was then prepped and draped in the usual sterile fashion. Prior to incision a multidisciplinary time was called. All in the room in agreement. I began by making incision approximately 6 cm in length starting about 3 cm above the tip of the greater trochanter. I dissected down to subcutaneous tissues to the level of fascia. Guidewire was placed. Starting point was optimized on the AP and lateral fluoroscopic images. Guidewire was then driven down to below the lesser trochanter. Once the guidewire was in the appropriate position the fascia was then incised where the guidewire pierced the fascia. This allowed the protective sleeve to slide down onto the tip of the trochanter. The opening reamer was then placed and drilled down to the positive stop. Based off of our preoperative x-ray measurements I elected to use a 11 mm diameter nail. This was opened up on the back table. It was then slid down through the incision into the proximal femur. It was tapped down to the appropriate depth for the cephalomedullary screw. The outrigger device was then attached. A little bit more traction was then pulled on the leg to try to tip his fracture into slight valgus to optimize the biomechanics of fracture healing, and address his slightly varus femoral neck shaft angle. Next, the skin was incised as was the fascia through the outrigger arm to allow the trocar to slide down onto the lateral cortex of the femur. This was optimized in the AP and lateral fluoroscopic images then the guidewire was drilled up into the center center position of the femoral head. We took our measurement which was 115 mm. I elected to use 110 mm screw because I plan to compress the fracture. The cortex was then opened. The step drill set at 115 mm was then used to drill up into the femoral head. The 110 mm screw was then placed up over the guidewire. Excellent fixation was obtained. The metal attachment device was then placed and we were able to compress the fracture approximately 3 to 4 mm which I was happy with. The setscrew was then placed through the top, tightened all the way down, then loosened a quarter turn to allow dynamization in line with the cephalomedullary screw. Next, our distal cross locking screw was placed through the outrigger arm. This measured a 38 mm. Screw was placed with a little bit of difficulty as the patient's bone was very hard requiring significant torque on the screwdriver. Final fluoroscopic images were then obtained and saved to the system. I was happy with the fracture reduction, hardware position, and screw lengths. Wounds were then irrigated out with copious amounts normal saline. The fascia at the proximal wound was closed with interrupted 0 Vicryl suture. The subcutaneous layer was closed with 0 Vicryl in running fashion. 2-0 Vicryl was used in the deep dermal layer at both incisions. Skin was closed with mariely. Sterile dressings were applied. Patient was then awoken from anesthesia and transferred to the intensive care unit in stable condition. Postoperative course: Patient will be readmitted to the internal medicine service. He will be toe-touch weightbearing for the next 2 weeks. Must use a walker for the next 6 weeks. He can resume Eliquis tomorrow for DVT prophylax is. I attest to the content of the Intraoperative Record and any orders documented therein. Any exceptions are noted below.
--- NOTE | 2024-11-07 13:45 | Hospitalist Progress Note ---
Date of Service November 07, 2024 Assessment & Plan (1) Acute hypoxic respiratory failure: Plan: 69-year-old male with PMH of chronic systolic heart failure [EF of 25 to 30%, TTE 2024], A-fib on Eliquis, severe MR is status post bioprosthetic MVR with concomitant Maze procedure, PVD, HTN, HLD, pulmonary hypertension, proteinuria, chronic anemia [baseline hemoglobin of 12-13], prediabetes, gout, daily alcohol intake, past tobacco abuse who was recently in the hospital about 3 weeks ago [employer] for typical chest pain [repeat echo showed EF dropped to 25%, nonocclusive CAD on diagnostic cardiac cath] presented this time after his foot slipped down a flight of stairs causing him to fall. He denied head trauma or chest pain or shortness of breath or loss of consciousness. He complained of left hip pain. He also reported being diagnosed with influenza A URTI 1 day ago [employer]. Oxygen saturation was in 80s upon arrival at ED. He is being managed for the following: Influenza A upper respiratory tract infection Acute hypoxia Patient noted to be saturating in 80s at presentation in ED. ED or admitting note do not mention about any respiratory distress. VBG wnl, admitting CXR and CT chest w/ not acute findings. Patient saturating well on 2 L oxygen. Continue oseltamivir, continue to provide supportive treatment DuoNeb for shortness of breath or wheezing. Monitor for volume overload given poor cardiac function at baseline. Intraoperatively pt noted to be bronchospastic per anesthesiologist, will utilize ayan and prn albuterol for now and follow up clinically. Mechanical fall Left hip fracture Elevated CPK: s/p ivf, trend cpk, hold home statin for now. Patient had fall. See above. CT head with no acute finding. Admitting imagings reviewed, nondisplaced left femur intertrochanteric fracture noted. Status post intramedullary delia left intertrochanteric femur fracture 11/07/2024 Resume home eliquis w/ clearance (from ortho) when bleeding risk deemed minimal per ortho. c/w pain mx /bowel regimen. PT/ot. Other chronic medical conditions: Continue with/resume home meds as and when able. chronic systolic heart failure (EF 25-30%, TTE 2024), patient on the dry side at presentation, monitor for volume overload perioperatively. Mild rhabdomyolysis/CPK/troponin elevation secondary to fall hx A-fib on Eliquis severe MR status post bioprosthetic MVR with concomitant Maze procedure PVD (TAA on past imaging) hypertension, stable hyperlipidemia on statin Rx pulmonary hypertension chronic anemia, hemoglobin at baseline prediabetes, hemoglobin A1c of 6.15 August 2024 Past tobacco abuse DVT prophylaxis. SCDs for now, Resume Eliquis postop once Ortho agreeable. Full code Text document was generated using Tutor voice recognition software. It may contain grammatical or spelling errors. Kindly contact undersigned for clarification of any documentation item in question. Admission and Anticipated Discharge Date Admission Date: November 06, 2024 Subjective Patient was seen and examined at bedside. Patient was lying in bed, on 2 L oxygen via nasal cannula, NAD, resting comfortably. Patient is postoperative status, well conversing, oriented. Patient reports operative site pain 6/10, denies shortness of breath, reports improving cough. Physical Exam Physical Exam: GENERAL: Comfortable, pleasant, obese, no respiratory distress SKIN: Normal color, warm HEENT: [place] palpebral conjunctivae, no ptosis, moist buccal mucosa, nasal cannula in place - 2L O2 NECK : Supple, no tenderness CHEST : no chest wall tenderness, occasional rhonchi b/l HEART : RRR, diminished S1-S2, systolic murmur ABDOMEN: Some distention, nontender EXTREMITIES : No LE swelling, left hip w/ dressing c/d/i. Distal Neurovascular status wnl. NEUROLOGIC : Coherent, no facial asymmetry, no other gross focality Results & Data Results & Data Vital Signs (Past 12 Hours) Vital Signs Temp Pulse Pulse Resp BP Pulse Ox O2 Del Method 11/07/24 08:00 36.9 C 60 19 105/63 94 Nasal Cannula 11/07/24 07:45 Nasal Cannula 11/07/24 07:00 60 11/07/24 03:10 36.9 C 62 16 109/67 95 Nasal Cannula O2 Flow Rate 11/07/24 08:00 2 11/07/24 07:45 2 11/07/24 07:00 11/07/24 03:10 2
[2024-11-07] MEDS: fentaNYL citrate PF 100 MCG/2 ML VIAL IV PRN (13:49)
[2024-11-07] MEDS: HYDROmorphone INJ 1 MG/ML SYRINGE IV PRN (14:20)
[2024-11-07] MEDS ORDERED: HYDROmorphone INJ 0.5 MG/0.5 ML SYR IV PRN (14:41)
[2024-11-07] MEDS ORDERED: ACETAMINOPHEN 1000 MG/100 ML IV IV ONE ×2 (14:42)
[2024-11-07] MEDS: ACETAMINOPHEN 1,000 MG/100 ML VIAL IV STA (14:52)
[2024-11-07] MEDS ORDERED: ALBUT/IPRATROP 3MG/0.5MG NEB 3 ML VIAL NEB PRN (15:09)
--- NOTE | 2024-11-07 15:09 | XRay Report ---
INDICATION: Postoperative evaluation. TECHNIQUE: 2 views of the left hip. COMPARISON: Radiograph from the same day. FINDINGS/IMPRESSION: Interval placement of left hip hardware with improved alignment of fracture. Hardware appears intact. No new fracture or dislocation. Postoperative changes in the soft tissues. Electronically signed by Dileep Barrientos 11-07-2024 3:08 PM
--- NOTE | 2024-11-07 15:14 | Anesthesiology Progress Note ---
Date of Service November 07, 2024 Anesthesia Post Procedure Vital Signs Vital Signs: Temp Pulse Pulse Pulse Resp BP BP 11/07/24 15:00 69 16 11/07/24 14:50 69 17 11/07/24 14:40 68 19 11/07/24 14:30 66 15 11/07/24 14:20 37.0 C 68 14 11/07/24 14:10 71 14 11/07/24 14:00 67 15 11/07/24 13:55 67 14 11/07/24 13:45 67 14 11/07/24 13:36 36.0 C L 72 23 11/07/24 08:00 36.9 C 60 19 105/63 11/07/24 07:45 11/07/24 07:00 60 11/07/24 03:10 36.9 C 62 16 109/67 11/06/24 23:38 11/06/24 23:38 37.5 C 68 18 11/06/24 22:53 37.5 C 68 18 11/06/24 22:36 67 11/06/24 21:58 36.8 C 65 21 110/64 11/06/24 21:26 66 21 11/06/24 20:46 71 21 11/06/24 20:46 66 21 11/06/24 20:09 61 21 11/06/24 20:09 63 23 11/06/24 19:48 81 11/06/24 19:19 73 12 11/06/24 18:20 37.1 C 78 18 11/06/24 17:36 38.0 C H 11/06/24 17:18 75 23 11/06/24 17:00 78 23 132/72 11/06/24 16:03 80 11/06/24 16:00 38.1 C H 81 19 140/77 11/06/24 15:50 38.1 C H 78 20 130/79 11/06/24 15:45 BP BP Pulse Ox O2 Del Method O2 Flow Rate 11/07/24 15:00 131/50 L 112/64 94 Nasal Cannula 2 11/07/24 14:50 129/50 L 113/60 93 Nasal Cannula 2 11/07/24 14:40 123/50 L 111/63 92 Nasal Cannula 2 11/07/24 14:30 119/48 L 106/61 94 Nasal Cannula 2 11/07/24 14:20 99/42 L 97/48 L 95 Nasal Cannula 2 11/07/24 14:10 116/44 L 106/80 94 Nasal Cannula 2 11/07/24 14:00 111/47 L 99/57 L 98 Nasal Cannula 2 11/07/24 13:55 98/62 L 98 Oxymask 10 11/07/24 13:45 121/80 98 Oxymask 10 11/07/24 13:36 107/76 95 Oxymask 10 11/07/24 08:00 94 Nasal Cannula 2 11/07/24 07:45 Nasal Cannula 2 11/07/24 07:00 11/07/24 03:10 95 Nasal Cannula 2 11/06/24 23:38 Nasal Cannula 2 11/06/24 23:38 111/65 97 Nasal Cannula 2 11/06/24 22:53 111/65 97 Nasal Cannula 2 11/06/24 22:36 11/06/24 21:58 92 Nasal Cannula 3 11/06/24 21:26 104/66 94 Nasal Cannula 3 11/06/24 20:46 95/60 L 95 Nasal Cannula 3 11/06/24 20:46 95 Nasal Cannula 3 11/06/24 20:09 111/59 L 98 Nasal Cannula 3 11/06/24 20:09 111/59 L 92 Nasal Cannula 3 11/06/24 19:48 11/06/24 19:19 122/67 97 Nasal Cannula 3 11/06/24 18:20 109/63 96 Nasal Cannula 3 11/06/24 17:36 11/06/24 17:18 95 Nasal Cannula 3 11/06/24 17:00 95 Nasal Cannula 3 11/06/24 16:03 11/06/24 16:00 94 Nasal Cannula 3 11/06/24 15:50 93 Nasal Cannula 3 11/06/24 15:45 88 L Room Air Pain Intensity Left Hip: Pain Intensity: 4 Transfer of Care Handoff Completed per policy Notes Mental Status: alert / awake / arousable Patient Amnestic to Procedure: Yes Nausea / Vomiting: adequately controlled Pain: adequately controlled Airway Patency, RR, SpO2: stable & adequate BP & HR: stable & adequate Hydration State: stable & adequate Anesthetic Complications: no major complications apparent and Pt Satisfied with anesthetic care
[2024-11-07] MEDS: TRANEXAMIC ACID / 0.7% NACL 1,000 MG/100 ML BAG IV STA (15:54)
[2024-11-07] MEDS: ALBUTEROL 0.5% NEB SOLN 2.5 MG/0.5 ML VIAL NEB SCH (20:13)
[2024-11-07] MEDS ORDERED: ROSUVASTATIN CALCIUM 20 MG TAB PO SCH (21:00)
[2024-11-07] MEDS: ceFAZolin 2000MG 2,000 MG/15 ML SYR IV SCH (21:02)
[2024-11-07] MEDS: APIXABAN 5 MG TABLET PO SCH (22:09)
[2024-11-08 06:14] LABS: Hematocrit (blood only) 30.3 % (42.0-52.0); Hemoglobin 10.1 g/dl (14.0-18.0); Immature Granulocytes # (auto) 0.03 K/uL (0.01-0.20); Immature Granulocytes % (auto) 0.4 %; Lymphocytes # (auto) 0.43 K/uL (1.20-3.40); Lymphocytes % (auto) 6.1 %; Mean Corpuscular Hemoglobin 30.9 pg (25.0-34.0); Mean Corpuscular Hgb Conc 33.3 g/dL (32.0-36.0); Mean Corpuscular Volume 92.7 fL (80.0-100.0); Mean Platelet Volume 10.5 fL (9.4-12.4); Monocytes # (auto) 0.79 K/uL (0.11-0.59); Monocytes % (auto) 11.2 %; Neutrophils # (auto) 5.78 K/uL (1.40-6.50); Neutrophils % (auto) 82.3 %; Platelet Count 113 K/uL (130-400); RDW Coefficient of Variation 14.1 % (11.5-14.5); RDW Standard Deviation 48.6 fL (36.4-46.3); Red Blood Count 3.27 M/uL (4.70-6.10); White Blood Count 7.03 K/ul (4.8-10.8)
[2024-11-08 06:28] LABS: BUN Creatinine Ratio 29.5 (10-20); Calcium 8.6 mg/dl (8.6-10.3); Creatinine Clr Calc Pharmacy 65.6 ml/min; Magnesium 2.3 mg/dl (1.7-2.4); Phosphorus 3.8 mg/dl (2.5-4.9); Potassium 4.8 mmol/L (3.5-5.1)
[2024-11-08] MEDS: FERROUS SULFATE 325 MG TAB PO SCH (08:02)
[2024-11-08] MEDS: lisinopril 10 MG TAB PO SCH (08:02)
[2024-11-08] MEDS: MAGNESIUM OXIDE 400 MG TAB PO SCH (08:03)
--- NOTE | 2024-11-08 09:18 | Orthopedic Progress Note ---
Date of Service November 08, 2024 Assessment & Plan (1) Closed intertrochanteric fracture of left femur: Plan: POD1 s/p left hip intertrochanteric nail PWB with walker PT/OT Frequently ice DVT prophylaxis: Eliquis resumed Pain control: per medicine service Dressing: left in place today, will change tomorrow 11/08 Discharge home - for discharge needs, would consider HH/Home Pt as pt lives alone with his who has Alzheimer's Follow up with [facility] in 2 weeks Admission and Anticipated Discharge Date Admission Date: November 06, 2024 Subjective Pt was seen and examined bedside. POD #1 s/p left hip intertrochanteric nail with Dr Sorensen. No major events over night. Vitals are stable. Hg 10.1. Pt reports they are doing well and pain is controlled. They are tolerating PO intake. PT here to work with him. Pt denies F/C, N/V/D, SOB, CP. Physical Exam Physical Exam: General: Pt laying in hospital bed AA&O, in NAD, calm and cooperative during exam Lower Extremity: Dressing in tact and not saturated. Left in place today. Thigh soft and compressible. Swelling and bruising normal pos op. Pt has full ROM of ankle and all 5 digits. Pt has 5/5 strength with resisted DF/PF. AAROM knee. Calf supple and non tender. NVI with sensation to light touch distally and faint pulses present. He is able to tolerate gentle PROM left hip in flexion, abduction and adduction. Results & Data Vital Signs (Past 12 Hours) Vital Signs Temp Pulse Pulse Pulse Resp BP Pulse Ox 11/08/24 07:43 77 11/08/24 07:34 11/08/24 07:21 36.7 C 73 18 122/75 98 11/08/24 07:12 75 12 97 11/08/24 03:22 36.6 C 75 18 108/67 96 11/07/24 23:02 36.8 C 67 18 108/64 96 11/07/24 22:00 68 O2 Del Method O2 Flow Rate 11/08/24 07:43 11/08/24 07:34 Nasal Cannula 1 11/08/24 07:21 Room Air 11/08/24 07:12 Nasal Cannula 1.5 11/08/24 03:22 Nasal Cannula 2 11/07/24 23:02 Nasal Cannula 2 11/07/24 22:00 Laboratory Results 11/08/24 Range/Units 05:59 WBC 7.03 (4.8-10.8) K/ul RBC 3.27 L (4.70-6.10) M/uL Hgb 10.1 L (14.0-18.0) g/dl Hct 30.3 L (42.0-52.0) % MCV 92.7 (80.0-100.0) fL MCH 30.9 (25.0-34.0) pg MCHC 33.3 (32.0-36.0) g/dL RDW Std Deviation 48.6 H (36.4-46.3) fL RDW Coeff of Christina 14.1 (11.5-14.5) % Plt Count 113 L (130-400) K/uL MPV 10.5 (9.4-12.4) fL Immature Gran % (Auto) 0.4 % Neut % (Auto) 82.3 % Lymph % (Auto) 6.1 % Ector % (Auto) 11.2 % Eos % (Auto) 0.0 % Baso % (Auto) 0.0 % Neut # (Auto) 5.78 (1.40-6.50) K/uL Lymph # (Auto) 0.43 L (1.20-3.40) K/uL Ector # (Auto) 0.79 H (0.11-0.59) K/uL Eos # (Auto) 0.00 (0.00-0.50) K/uL Baso # (Auto) 0.00 (0.00-0.20) K/uL Immature Gran # (Auto) 0.03 (0.01-0.20) K/uL Sodium 137 (136-145) mmol/L Potassium 4.8 (3.5-5.1) mmol/L Chloride 104 (98-107) mmol/L Carbon Dioxide 28 (21-32) mmol/L Anion Gap 5 (3-11) BUN 36 H (6-23) mg/dl Creatinine 1.22 (0.6-1.4) mg/dl Est Cr Clr Drug Dosing 65.6 ml/min eGFR 63.38 BUN/Creatinine Ratio 29.5 H (10-20) Glucose 159 H (70-99(Fasting)) mg/dl Calcium 8.6 (8.6-10.3) mg/dl Phosphorus 3.8 (2.5-4.9) mg/dl Magnesium 2.3 (1.7-2.4) mg/dl Total Creatine Kinase 298 H (30-223) U/L 25-OH Vitamin D Total 33.0 (30-100) ng/ml
--- NOTE | 2024-11-08 16:06 | Hospitalist Progress Note ---
Date of Service November 08, 2024 Assessment & Plan (1) Acute hypoxic respiratory failure: Plan: 69-year-old male with PMH of chronic systolic heart failure [EF of 25 to 30%, TTE 2024], A-fib on Eliquis, severe MR is status post bioprosthetic MVR with concomitant Maze procedure, PVD, HTN, HLD, pulmonary hypertension, proteinuria, chronic anemia [baseline hemoglobin of 12-13], prediabetes, gout, daily alcohol intake, past tobacco abuse who was recently in the hospital about 3 weeks ago ANTHROPOLOGIST PHYSICAL for typical chest pain [repeat echo showed EF dropped to 25%, nonocclusive CAD on diagnostic cardiac cath] presented this time after his foot slipped down a flight of stairs causing him to fall. He denied head trauma or chest pain or shortness of breath or loss of consciousness. He complained of left hip pain. He also reported being diagnosed with influenza A URTI 1 day ago ANTHROPOLOGIST PHYSICAL. Oxygen saturation was in 80s upon arrival at ED. He is being managed for the following: Influenza A upper respiratory tract infection Acute hypoxia, resolved. Patient noted to be saturating in 80s at presentation in ED. ED or admitting note do not mention about any respiratory distress. VBG wnl, admitting CXR and CT chest w/ not acute findings. Patient saturating well on 2 L oxygen. Continue oseltamivir, continue to provide supportive treatment DuoNeb prn for shortness of breath or wheezing. Monitor for volume overload given poor cardiac function at baseline. Intraoperatively pt noted to be bronchospastic per anesthesiologist 11/07, now appears resolved. c/w incentive spirometry Mechanical fall Left hip fracture Elevated CPK: s/p ivf, trend cpk, hold home statin for now. Acute blood loss anemia: Preop Hb 13, Hb dropped to 10 on 11/08. Likely blood loss 2/2 hip fracture and perioperative blood loss w/ some dilutional component. pt w/ no chest pain/dizziness/sob. No indication for transfusion now, c/t monitor HnH. Patient had fall. See above. CT head with no acute finding. Admitting imagings reviewed, nondisplaced left femur intertrochanteric fracture noted. Status post intramedullary delia left intertrochanteric femur fracture 11/07/2024, eliquis resumed per ortho recs. PWB w/ walker, f/u ortho in 2 weeks. c/w pain mx /bowel regimen. PT/ot. Likely rehab. Other chronic medical conditions: Continue with/resume home meds as and when able. chronic systolic heart failure (EF 25-30%, TTE 2024), patient on the dry side at presentation, monitor for volume overload perioperatively. Mild rhabdomyolysis/CPK/troponin elevation secondary to fall hx A-fib on Eliquis severe MR status post bioprosthetic MVR with concomitant Maze procedure PVD (TAA on past imaging) hypertension, stable hyperlipidemia on statin Rx pulmonary hypertension chronic anemia, hemoglobin at baseline prediabetes, hemoglobin A1c of 6.15 August 2024 Past tobacco abuse DVT prophylaxis. on eliquis Full code Text document was generated using [employer] voice recognition software. It may contain grammatical or spelling errors. Kindly contact undersigned for clarification of any documentation item in question. Admission and Anticipated Discharge Date Admission Date: November 06, 2024 Subjective Patient was seen and examined at bedside. Patient was sitting up in chair, on RA, NAD, resting comfortably. Patient reports operative site pain 2/10, denies shortness of breath, reports improving cough. Pt reports eating ok, hasnot moved bowel, moving gas, no belly pain. Encouraged Incentive spirometry. Physical Exam Physical Exam: GENERAL: Comfortable, pleasant, obese, no respiratory distress SKIN: Normal color, warm HEENT: [place] palpebral conjunctivae, no ptosis, moist buccal mucosa. NECK : Supple, no tenderness CHEST : no chest wall tenderness, no rhonchi HEART : RRR, diminished S1-S2, systolic murmur ABDOMEN: Some distention, nontender EXTREMITIES : No LE swelling, left hip w/ dressing c/d/i. Distal Neurovascular status wnl. NEUROLOGIC : Coherent, no facial asymmetry, no other gross focality Results & Data Results & Data Vital Signs (Past 12 Hours) Vital Signs Temp Pulse Pulse Pulse Resp BP Pulse Ox 11/08/24 11:20 36.8 C 84 20 100/60 92 11/08/24 07:43 77 11/08/24 07:34 11/08/24 07:21 36.7 C 73 18 122/75 98 11/08/24 07:12 75 12 97 O2 Del Method O2 Flow Rate 11/08/24 11:20 Room Air 11/08/24 07:43 11/08/24 07:34 Nasal Cannula 1 11/08/24 07:21 Room Air 11/08/24 07:12 Nasal Cannula 1.5
[2024-11-09 03:53] VITALS: RESP 14
[2024-11-09 07:09] LABS: Hemoglobin 9.2 g/dl (14.0-18.0)
[2024-11-09 07:35] VITALS: O2SAT 95
--- NOTE | 2024-11-09 09:42 | Orthopedic Progress Note ---
Date of Service November 09, 2024 Assessment & Plan (1) Closed intertrochanteric fracture of left femur: Plan: POD #2 s/p intramedullary delia for Left Intertrochanteric Femur Fracture Subjectively doing better today than yesterday from a pain standpoint. He still has weakness with hip flexion and knee extension but full strength with ankle plantarflexion, dorsiflexion, inversion, eversion. No sensory deficits. His dressings were taken down and there was a small amount of dried blood present on both dressings but no drainage. Dressing change performed today by myself. Wounds were cleansed with sterile saline, dried, and dressed with Xeroform, 4 x 4 gauze, and Tegaderm. These can be changed on an as needed basis and the patient can shower with these but advised him not to soak in the water. PT/OT evaluated patient yesterday and both recommended rehab. Patient met with [facility] today prior to this evaluation and was accepted. Continue PT/OT while admitted. Patient should be toe-touch weightbearing over the next 2 weeks with a walker, and use a walker for total of 6 weeks. Frequently ice DVT prophylaxis: Eliquis Pain control: per medicine service Follow up with [facility] in 2 weeks. Admission and Anticipated Discharge Date Admission Date: November 06, 2024 Subjective Patient seen sitting in chair today. He states that he feels better than he did yesterday from a pain standpoint. Still feels weak in the left leg and agrees that he would benefit from rehab. He met with [facility] earlier this morning and is accepted there. He denies any numbness or tingling in his feet, calf pain, chest pain, lightheadedness, dizziness, or shortness of breath. Physical Exam Constitutional: Resting comfortably sitting upright in chair. Pleasant. In no distress. Cardiovascular: Left DP pulse 1+ Musculoskeletal: Left lower extremity: 2 dressings on the left hip. Small amount of dried blood present in the gauze on both dressings. Incisions with minimal dried blood. There is no surrounding erythema. No drainage. Incisions are intact with no dehiscence. Stephanie are in place. There is some mild edema about the left hip. Strength 2/5 with active hip flexion and knee extension. Able to actively flex the knee. Strength 5/5 with ankle plantarflexion, dorsiflexion, inversion, and eversion. Moves all toes. No pain with passive range of motion of the knee. Skin: Trace ecchymotic changes about both incisions on the left upper leg. Neurologic: No sensory deficits to light touch in L3-S1 dermatomes in bilateral lower extremities Results & Data Vital Signs (Past 12 Hours) Vital Signs Temp Pulse Pulse Pulse Resp BP Pulse Ox 11/09/24 07:32 98.2 F 76 120/57 L 95 11/09/24 03:21 97.9 F 73 14 107/57 L 94 11/08/24 22:51 98.2 F 82 16 100/60 95 11/08/24 22:30 78 O2 Del Method 11/09/24 07:32 Room Air 11/09/24 03:21 Room Air 11/08/24 22:51 Room Air 11/08/24 22:30 Laboratory Results 11/09/24 06:22 Hgb 9.2 L Hct 28.0 L
--- NOTE | 2024-11-09 11:40 | Discharge Summary ---
Date of Service November 09, 2024 Admission HPI Per Admitting Provider History obtained from patient and records. Medical history significant for chronic systolic heart failure (EF 25-30%, TTE 2024), A-fib on Eliquis, severe MR status post bioprosthetic MVR with concomitant Maze procedure, PVD, hypertension, hyperlipidemia, pulmonary hypertension, proteinuria as per records, chronic anemia (baseline hemoglobin 12-13), prediabetes, gout, daily alcohol intake, past tobacco abuse. Recent confinement 3 weeks ago for atypical chest pain Repeat echo showed EF dropped to 25%. Nonocclusive CAD on diagnostic cardiac catheterization. Yesterday, patient noted fever, dry cough symptoms without chest pain or SOB. Mild sinus congestion. Sick family members at home. Patient seen at PCP's office. Chest x-ray negative for pneumonia. Positive influenza A PCR. Tamiflu prescribed by PCP, first dose taken this morning. Patient felt woozy this afternoon while trying to walk down a flight of stairs. His foot slipped causing him to fall down a flight of stairs. No head trauma, no chest pain, SOB, LOC. Achy left hip pain. Patient unable to get up. O2 sats of 80s upon arrival at the ER. 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 Admission Exam Per Admitting Provider GENERAL: Comfortable, pleasant, obese, no respiratory distress SKIN: Normal color, warm HEENT: Rafael Pena palpebral conjunctivae, no ptosis, dry buccal mucosa, nasal cannula in place NECK : Supple, no tenderness CHEST : Decreased breath sounds, no chest wall tenderness HEART : RRR, diminished S1-S2, systolic murmur ABDOMEN: Some distention, nontender EXTREMITIES : No LE swelling, left hip tenderness NEUROLOGIC : Coherent, no facial asymmetry, no other gross focality Principal Diagnosis Influenza A upper respiratory tract infection Acute hypoxia, resolved Mechanical fall Left hip fracture Elevated CPK Acute blood loss anemia Discharge Exam GENERAL: Comfortable, pleasant, obese, no respiratory distress SKIN: Normal color, warm HEENT: Rafael Pena palpebral conjunctivae, no ptosis, moist buccal mucosa. NECK : Supple, no tenderness CHEST : no chest wall tenderness, no rhonchi HEART : RRR, diminished S1-S2, systolic murmur ABDOMEN: Some distention, nontender EXTREMITIES : No LE swelling, left hip w/ dressing c/d/i. Distal Neurovascular status wnl. NEUROLOGIC : Coherent, no facial asymmetry, no other gross focality Discharge Data Allergies Allergy/AdvReac Type Severity Reaction Status Date / Time No Known Allergies Allergy Mild Verified 11/06/24 19:32 Consultations 11/06/24 18:43 Consult Orthopedic Surgery Routine 11/06/24 19:07 ED Decision to Admit Stat Procedures Performed Operation Date: 11/07/24 10:00 Actual Procedures p Intramedullary Michael Left Intertrochanteric Femur Fracture(Left) - Daniel Sorensen MD Ordered Studies 11/06/24 15:57 CT abd pelvis IV con only Stat CT cervical spine wo con Stat CT chest diagnostic w con Stat CT head/brain wo con Stat 11/07/24 09:00 FL hip LT 2-3V Routine Hospital Course (1) Acute hypoxic respiratory failure: 69-year-old male with PMH of chronic systolic heart failure [EF of 25 to 30%, TTE 2024], A-fib on Eliquis, severe MR is status post bioprosthetic MVR with concomitant Maze procedure, PVD, HTN, HLD, pulmonary hypertension, proteinuria, chronic anemia [baseline hemoglobin of 12-13], prediabetes, gout, daily alcohol intake, past tobacco abuse who 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 He denied head trauma or chest pain or shortness of breath or loss of consciousness. He complained of left hip pain. 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 Oxygen saturation was in 80s upon arrival at ED. He was managed for the following: Influenza A upper respiratory tract infection Acute hypoxia, resolved. Patient noted to be saturating in 80s at presentation in ED. ED or admitting note do not mention about any respiratory distress. VBG wnl, admitting CXR and CT chest w/ not acute findings. Patient saturating well on 2 L oxygen. Continue oseltamivir, continue to provide supportive treatment DuoNeb prn for shortness of breath or wheezing. Monitor for volume overload given poor cardiac function at baseline. Intraoperatively pt noted to be bronchospastic per anesthesiologist 11/07, now appears resolved 11/08. c/w incentive spirometry for 7-10 days. Mechanical fall Left hip fracture Elevated CPK: s/p ivf, trend cpk, hold home statin for now. Acute blood loss anemia: Preop Hb 13, Hb dropped to 10 on 11/08. Likely blood loss 2/2 hip fracture and perioperative blood loss w/ some dilutional component. pt w/ no chest pain/dizziness/sob. No indication for transfusion now, c/t monitor HnH in 2-3 days upon dc to rehab. Patient had fall. See above. CT head with no acute finding. Admitting imagings reviewed, nondisplaced left femur intertrochanteric fracture noted. Status post intramedullary michael left intertrochanteric femur fracture 11/07/2024, eliquis resumed per ortho recs. PWB w/ walker, f/u ortho in 2 weeks. c/w pain mx /bowel regimen. PT/ot. Likely rehab. Other chronic medical conditions: Continue with/resume home meds as and when a ble. chronic systolic heart failure (EF 25-30%, TTE 2024), patient on the dry side at presentation, monitor for volume overload perioperatively. Mild rhabdomyolysis/CPK/troponin elevation secondary to fall hx A-fib on Eliquis severe MR status post bioprosthetic MVR with concomitant Maze procedure PVD (TAA on past imaging) hypertension, stable hyperlipidemia on statin Rx pulmonary hypertension chronic anemia, hemoglobin at baseline prediabetes, hemoglobin A1c of 6.15 August 2024 Past tobacco abuse DVT prophylaxis. on eliquis Full code Patient is being discharged to rehab with following instructions at the point of discharge: Follow-up with your primary care physician within a week time and likely you will need labs CBC/CMP/magnesium/phosphorus. Continue with your Tamiflu to complete the course for influenza A upper respiratory tract infection. Continue with physical therapy at rehab facility. Your amlodipine and lisinopril dose has been decreased due to your softer blood pressure while in hospital, continue to measure your blood pressure twice a day and maintain a log for ongoing monitoring/management of your hypertension. You can use [id number] Tylenol for pain management for mild pain. You have been prescribed with oxycodone for moderate to severe pain, utilize svao-[id number] laxative/stool softener with a goal of 1-2 bowel movements a day while you are on opiate pain medication. Can remove dickson in next 2-3 days once mobility is some better. Follow-up with orthopedics in 2 weeks time upon discharge. Continue wound care. Take your medications as prescribed. Please make sure that you are able to get your medications today by calling your pharmacy before you leave the hospital so that your treatment continuity is not broken. Text document was generated using [employer] recognition software. It may contain grammatical or spelling errors. Kindly contact undersigned for clarification of any documentation item in ques tion. Home Health Attestation I certify that this patient is under my care and that I, or a physicians child care assistant working with me, had a face to-face encounter that meets the home health jote-co-wxab encounter requirements with this patient. The encounter with the patient was in whole, or in part, for the following medical condition, which is the primary reason for home health care (list medical condition): I certify that, based on my findings, the following services are medically necessary home health services: My clinical findings support the need for the above services because: Further, I certify that my clinical findings support that this patient is homebound (i.e. absences from home require considerable and taxing effort and are for medical reasons or sikh services or infrequently or of short duration when for other reasons) because: Certification for Home Health Services: Based on the above findings, I certify that this patient is confined to the home and needs intermittent alf care, physical therapy and/or speech therapy or continues to need occupational therapy. The patient is under my care, and I have initiated the establishment of the plan of care. This patient will be followed by a physician who will periodically review the plan of care. Total Time Total Time Spent Total Time Spent (In Minutes): 35 Discharge Plan Discharge Items Patient Disposition: Transfer Inpatient Rehab Fac Reason For Visit: RESP FAILURE Discharge Diagnosis: Influenza A upper respiratory tract infection Acute hypoxia, resolved Mechanical fall Left hip fracture Elevated CPK Acute blood loss anemia Activity: As commented below Activity Comment: per ortho recs Non-emergency contact: Primary Care Provider Call non-emergency contact if: you have any medication questions and your symptoms worsen Follow-up/Referrals: Bennie Ureña PA-C [Physician Police And Fire Dispatcher] - 11/24/24 9:30 am Jamel Hutchison MD [Primary Care Provider] - Diet: Heart Healthy French Attending Provider Instructions: Follow-up with your primary care physician within a week time and likely you will need labs CBC/CMP/magnesium/phosphorus. Continue with your Tamiflu to complete the course for influenza A upper respiratory tract infection. Continue with physical therapy at rehab facility. Your amlodipine and lisinopril dose has been decreased due to your softer blood pressure while in hospital, continue to measure your blood pressure twice a day and maintain a log for ongoing monitoring/management of your hypertension. You can use [id number] Tylenol for pain management for mild pain. You have been prescribed with oxycodone for moderate to severe pain, utilize [id number] laxative/stool softener with a goal of 1-2 bowel movements a day while you are on opiate pain medication. Can remove dickson in next 2-3 days once mobility is some better. Follow-up with orthopedics in 2 weeks time upon discharge. Continue wound care. Take your medications as prescribed. Please make sure that you are able to get your medications today by calling your pharmacy before you leave the hospital so that your treatment continuity is not broken. French Die Tester Provider Instructions: ORTHOPEDIC DISCHARGE INSTRUCTIONS -Toe-touch weightbearing for the first 2 weeks with walker. Walker for 6 weeks. -PT/OT -Frequently ice, at least 20 minutes 5 times a day for the first 3 days -Dressing change as needed. Can shower with the dressings in place but do not soak in water. -DVT prophylaxis: Eliquis -Pain control: Per primary team -Follow up in 2 weeks with [facility] for post op evaluation and staple removal. Please call our office sooner @ [phone] if you have any questions or concerns Pending Studies at Discharge: No Stand-Alone Forms: My [facility] Skilled Items Patient informed of condition?: Yes DNR: No Discharge Level of Care: Acute rehab Communicable Disease: No Discharge Prognosis: Stable Lines: None Urinary Catheter: Yes Medications and DC Order Prescriptions: New oseltamivir [Tamiflu] 75 mg Capsule 75 mg PO BID 2 Days Qty: 4 0RF oxycodone 5 mg Tablet 5 - 10 mg PO QID PRN (Reason: moderate to severe pain) 5 Days Qty: 20 0RF bisacodyl 10 mg Suppository 10 mg [place] DAILY PRN (Reason: constipation) Qty: 30 0RF Continued multivitamin Tablet 1 tab PO DAILY amoxicillin 500 mg capsule 500 mg PO DIRECTED PRN (Reason: DENTAL PROCEDURE) Rx Instructions: Take before dental appointments metoprolol succinate 50 mg tablet extended release 24 hr 50 mg PO QAM tramadol 50 mg tablet 50 mg PO Q8H PRN (Reason: Pain) ferrous sulfate [iron] 325 mg (65 mg iron) Tablet 325 mg PO 3XWK Rx Instructions: MON, WED, FRI omeprazole 20 mg capsule,delayed release(DR/EC) 20 mg PO BID allopurinol 300 mg tablet 300 mg PO DAILY dicyclomine 10 mg capsule 10 mg PO BID PRN (Reason: CRAMPING) Eliquis 5 mg tablet 5 mg PO BID magnesium oxide 400 mg magnesium Tablet 400 mg PO 3XWK Changed amlodipine 5 mg tablet 2.5 mg PO QAM Qty: 15 0RF lisinopril 20 mg Tablet 10 mg PO QAM 30 Days Qty: 30 0RF Held rosuvastatin 20 mg tablet 20 mg PO QPM Hold Instructions: Resume on 11/12/24. Discharge Orders: Discharge Order (Routine); Ordered 11/09/24 Ordered By: Deisy More Admission Data Admit Date/Time: 11/06/24 19:46 Attending Provider: Deisy More Admit Provider: Arturo Goetz Primary Care Provider: Jamel Hutchison Other Providers: Daniel Sorensen; Arturo Goetz; [facility]
[2024-11-09 12:09] VITALS: BP 128/67; TEMP 98.6
[2024-11-09 15:10] VITALS: PULSE 93
[2024-11-09] MEDS ORDERED: POLYETHYLENE (MIRALAX) 17 GM PACK PO SCH (18:00)
== END 2024-11-09 16:33 | DRG 480 ==
LOC: ED 15:43 → 2W 19:46

== ENCOUNTER 2025-05-08 13:08 | Inpatient (IN) ==
[2025-05-08] MEDS: ONDANSETRON INJ 2 MG/ML 2 ML VIAL IV STA (14:00)
[2025-05-08] MEDS: SODIUM CHLORIDE 0.9% 1,000 ML IV SCH ×2 (14:02→18:32)
[2025-05-08] MEDS: ACETAMINOPHEN 1,000 MG/100 ML VIAL IV STA (14:03)
[2025-05-08 14:12] LABS: Hematocrit (blood only) 39.5 % (42.0-52.0); Hemoglobin 13.6 g/dl (14.0-18.0); Mean Corpuscular Hemoglobin 29.8 pg (25.0-34.0); Mean Corpuscular Volume 86.6 fL (80.0-100.0); Platelet Count 87 K/uL (130-400); RDW Standard Deviation 52.3 fL (36.4-46.3); Red Blood Count 4.56 M/uL (4.70-6.10); White Blood Count 6.36 K/ul (4.8-10.8)
[2025-05-08 14:28] LABS: Immature Granulocytes # (auto) 0.02 K/uL (0.01-0.20); Immature Granulocytes % (auto) 0.3 %
--- NOTE | 2025-05-08 14:32 | Emergency Department Note ---
Impression & Plan Abdominal pain, lower, Nausea, vomiting, and diarrhea, Fever ED Provider Note NAME: ROSLYN CULVER AGE: 70 SEX: Male INFORMANT: Patient ED PROVIDER(S): Neri Tobar MD CHIEF COMPLAINT: Abdominal pain PLAN: Disposition: Admitted Outpatient prescription management: none Referral: None MEDICAL DECISION MAKING: Patient presented with abdominal pain. On examination he had some mild discomfort in the lower abdomen. He was mildly hypotensive and tachycardic. He was also febrile. Blood cultures were added to his labs as well as a lactate. He was given fluid boluses and Zofran. He declined analgesia. CT imaging as well as stool studies ordered. Patient's blood pressure continued to drop despite fluid boluses. He was given sepsis fluid bolus based on ideal body weight. Empiric antibiotic treatment with Zosyn and vancomycin ordered. Patient had low-dose Levophed ordered as well. Concerns for developing sepsis. Lactate normal however patient's cardiac troponin was elevated. Repeat troponin did not reveal significant delta. He did not provide a stool sample. CT imaging did reveal the presence of diverticulitis without abscess or perforation. [facility] Patient was evaluated in the ER. Also discussed the case with critical care medicine, Dr. pulido. Patient's blood pressure did improve with albumin ordered by critical care However patient was still requiring low-dose Levophed. Critical care did ask for the patient to receive hydrocortisone 100 mg after random cortisol. This was done. Patient was admitted to the ICU for further management. Care/management discussed with: statement clerks manager Level of care consideration(s): After review of the information above and other included data, I feel the patient requires escalation of care to admission Triage Nursing notes: reviewed and agree them. Vital Signs: reviewed and remarkable for hypertension and tachycardia Additional History obtained from: none Chronic Medical/Social Conditions affecting care: CAD Prior/ Outside/ External records reviewed: none Differential Diagnosis: Etiologies such as colitis gastroenteritis, food borne illness, infections, diverticulitis, inflammatory bowel disease, GI bleed, biliary pathology, as well as others were entertained. Diagnostics, independently interpreted by me: ECG: Twelve-lead ECG reveals a sinus tachycardia with PACs at 111 bpm. Left axis deviation. Inferior and anteroseptal Q waves present. No ST elevation. Cardiac Monitoring: Cardiac monitoring ordered by me: The patient was placed on continuous cardiac monitoring and observed. It revealed a sinus tachycardia at 105 bpm. Medical decision rules: none Imaging studies: CT scan of the abdomen pelvis is concerning for diverticulitis Chest x-ray. Findings: A chest x-ray was performed and revealed no pneumothorax, effusion, infiltrate, pulmonary edema, free air under the diaphragm, or wide mediastinum. Impression: No acute disease. HPI: 70 year old Male arrives for evaluation of abdominal pain. This started 3 days ago and is lower. The patient also notes the following associated symptoms, nausea and vomiting today, loose stool last 3 days. Patient also notes feeling generally weak lightheaded today. The patient has found no relieving factors. Current pain is rated as 3/10. Patient states that he just finished Augmentin for sinus infection. Pt denies LOC, headache, fevers, chills, diaphoresis, visual changes, neck pain, chest pain, breathing difficulties, back pain, melena, hematochezia, urinary symptoms, numbness, weakness, lymphadenopathy, rash, or other complaints. PAST MEDICAL HISTORY: See Below, CAD PAST SURGICAL HISTORY: See Below, appendectomy SOCIAL HISTORY: See Below, HOME MEDICATIONS: See Below ALLERGIES: See Below VITALS: See Below PHYSICAL EXAMINATION: GENERAL: Awake, alert, mildly ill-appearing, in no distress HENT: Normocephalic, atraumatic. Oropharynx unremarkable. EYES: Normal conjunctiva. Sclera non-icteric. NECK: Inspection normal. Non-tender. Supple. No nuchal rigidity. FROM. No masses. RESPIRATORY: Clear to auscultation. No wheezes. No rales. Normal respiratory effort. CARDIAC: Tachycardic rate. Normal rhythm. No murmurs. No rubs. Extremities warm and well perfused. Pulses equal. No JVD. GI: Soft, non-distended. Lower tenderness to palpation. No rebound or guarding. No masses. RECTAL: Deferred. MUSCULOSKELETAL: Atraumatic. Chest examination reveals no tenderness. The back is symmetrical on inspection without obvious abnormality. There is no CVA tenderness to palpation. No joint edema. LOWER EXTREMITIES: Calves are equal size bilaterally and non-tender. No edema. No discoloration. NEURO: Normal sensorium. No sensory or motor deficits noted. SKIN: No rash or jaundice noted. PROCEDURES: none CRITICAL CARE: I have personally spent 45 minutes of critical care time in the direct management of this patient. This includes bedside care, interpretation of diagnostic studies, and testing, discussion with consultants, patient, and family members, and other required patient management activities. These minutes are in excess of all separately billable procedures. OBSERVATION NOTE: none Past Med/Surg History Problem List (Updated 11/15/24 @ 00:06 by Background Daemon) Shock circulatory Hypovolemia Systolic heart failure Elevated troponin Sepsis Diverticulitis Fever (Acute) Nausea, vomiting, and diarrhea (Acute) Abdominal pain, lower (Acute) Anticoagulated Closed intertrochanteric fracture of left femur (Acute) Fall down stairs (Acute) Acute hypoxic respiratory failure (Acute) Influenza A (Acute) Permanent atrial fibrillation Cardiomyopathy History of mitral valve replacement Atypical chest pain Thoracic aortic aneurysm (Acute) Elevated brain natriuretic peptide (BNP) level (Acute) Chest pain (Acute) Hypertension (Chronic) Hyperlipidemia (Chronic) Tophaceous gout (Chronic) Diverticulosis (Chronic) History of GI bleed (Chronic) History of gastric ulcer (Chronic) S/P appendectomy (Chronic) Hx of tonsillectomy (Chronic) H/O esophagogastroduodenoscopy (Chronic) Hx of total knee arthroplasty (Chronic) H/O colonoscopy (Chronic) Social History Smoking Status: Never smoker Hx Alcohol Use: No Hx Substance Use: No Preferred Language: Marshallese Communication Ability: Effective [employer] Required: No Beliefs That Will Affect Care: None Current Living Situation: Spouse Current Living Situation Comment: at home with Feels Safe at Home: Yes Assistive Devices: None Allergies Allergies Allergy/AdvReac Type Severity Reaction Status Date / Time No Known Allergies Allergy Mild Verified 05/08/25 17:26 Home Meds Home Medications Medication Instructions Recorded Confirmed allopurinol 300 mg tablet 300 mg PO DAILY 10/14/24 05/08/25 apixaban 5 mg tablet (Eliquis) 5 mg PO BID 10/14/24 05/08/25 dicyclomine 10 mg capsule 10 mg PO BID PRN CRAMPING 10/14/24 05/08/25 ferrous sulfate 325 mg (65 mg 325 mg PO 3XWK 10/14/24 05/08/25 iron) tablet (iron) multivitamin 1 tab PO DAILY 10/14/24 05/08/25 omeprazole 20 mg capsule,delayed 20 mg PO BID 10/14/24 05/08/25 release rosuvastatin 20 mg tablet 20 mg PO QPM 10/14/24 05/08/25 tramadol 50 mg tablet 50 mg PO Q8H PRN Pain 10/14/24 05/08/25 magnesium oxide 400 mg PO 3XWK 11/06/24 05/08/25 empagliflozin 10 mg tablet 10 mg PO QAM 05/08/25 05/08/25 (Jardiance) metoprolol succinate 100 mg 50 mg PO QPM 05/08/25 05/08/25 tablet,extended release 24 hr metoprolol succinate 100 mg 100 mg PO QAM 05/08/25 05/08/25 tablet,extended release 24 hr sacubitril 49 mg-valsartan 51 mg 1 tab PO BID 05/08/25 05/08/25 tablet (Entresto) spironolactone 25 mg tablet 25 mg PO QAM 05/08/25 05/08/25 Previous Rx's Medication Instructions Recorded bisacodyl 10 mg rectal suppository 10 mg OH DAILY PRN constipation 11/09/24 #30 ea Results & Data (ED) Vital Signs Vital Signs - 24 hr 05/08/25 13:10 05/08/25 13:27 05/08/25 14:03 Temperature 37.7 C H Temperature Source Oral Pulse Rate 106 H 112 H 95 H Pulse Rate [Apical] Pulse Rate from SpO2 Sensor 213 H Pulse Rhythm Regular Pulse Strength Normal Respiratory Rate 20 16 29 H Respiratory Effort / Characteristics Non-Labored Spontaneous Respiratory Depth Normal Respiratory Pattern Regular Blood Pressure 112/72 99/75 L Blood Pressure [Left Arm] Blood Pressure Mean 85 83 Blood Pressure Mean [Left Arm] Blood Pressure Position Lying Blood Pressure Position [Left Arm] Pulse Oximetry 94 95 Oxygen Delivery Method Room Air Sepsis Recent Fever Within 48 Hours Yes Sepsis New/Unexplained Change in Mental Status No Sepsis Action Taken by Nursing No Action Required 05/08/25 14:05 05/08/25 14:33 05/08/25 15:15 Temperature Temperature Source Pulse Rate 110 H 91 H 85 Pulse Rate [Apical] Pulse Rate from SpO2 Sensor 90 Pulse Rhythm Pulse Strength Respiratory Rate 26 H 23 Respiratory Effort / Characteristics Respiratory Depth Respiratory Pattern Blood Pressure Blood Pressure [Left Arm] Blood Pressure Mean Blood Pressure Mean [Left Arm] Blood Pressure Position Blood Pressure Position [Left Arm] Pulse Oximetry 94 95 Oxygen Delivery Method Sepsis Recent Fever Within 48 Hours Sepsis New/Unexplained Change in Mental Status Sepsis Action Taken by Nursing 05/08/25 15:47 05/08/25 15:47 05/08/25 15:59 Temperature 37.0 C Temperature Source Oral Pulse Rate 80 Pulse Rate [Apical] 73 Pulse Rate from SpO2 Sensor 77 Pulse Rhythm Pulse Strength Respiratory Rate 17 18 Respiratory Effort / Characteristics Respiratory Depth Respiratory Pattern Blood Pressure 82/46 L Blood Pressure [Left Arm] 82/44 L Blood Pressure Mean 58 Blood Pressure Mean [Left Arm] 56 Blood Pressure Position Blood Pressure Position [Left Arm] Semi-fowlers Pulse Oximetry 96 96 Oxygen Delivery Method Room Air Sepsis Recent Fever Within 48 Hours Sepsis New/Unexplained Change in Mental Status Sepsis Action Taken by Nursing 05/08/25 16:11 05/08/25 16:15 05/08/25 16:35 Temperature Temperature Source Pulse Rate 73 Pulse Rate [Apical] Pulse Rate from SpO2 Sensor 75 Pulse Rhythm Pulse Strength Respiratory Rate 21 Respiratory Effort / Characteristics Respiratory Depth Respiratory Pattern Blood Pressure 76/45 L 76/50 L 96/54 L Blood Pressure [Left Arm] Blood Pressure Mean 49 58 77 Blood Pressure Mean [Left Arm] Blood Pressure Position Blood Pressure Position [Left Arm] Pulse Oximetry 95 Oxygen Delivery Method Sepsis Recent Fever Within 48 Hours Sepsis New/Unexplained Change in Mental Status Sepsis Action Taken by Nursing Laboratory Data 05/08/25 13:26 05/08/25 13:26 Lab Results 05/08/25 05/08/25 05/08/25 Range/Units 13:26 14:31 14:37 WBC 6.36 (4.8-10.8) K/ul RBC 4.56 L (4.70-6.10) M/uL Hgb 13.6 L (14.0-18.0) g/dl Hct 39.5 L (42.0-52.0) % MCV 86.6 (80.0-100.0) fL MCH 29.8 (25.0-34.0) pg MCHC 34.4 (32.0-36.0) g/dL RDW Std Deviation 52.3 H (36.4-46.3) fL RDW Coeff of Christina 16.9 H (11.5-14.5) % Plt Count 87 L (130-400) K/uL MPV 10.9 (9.4-12.4) fL Immature Gran % (Auto) 0.3 % Neut % (Auto) 94.8 % Lymph % (Auto) 1.9 % Real % (Auto) 2.7 % Eos % (Auto) 0.0 % Baso % (Auto) 0.3 % Neut # (Auto) 6.03 (1.40-6.50) K/uL Lymph # (Auto) 0.12 L (1.20-3.40) K/uL Real # (Auto) 0.17 (0.11-0.59) K/uL Eos # (Auto) 0.00 (0.00-0.50) K/uL Baso # (Auto) 0.02 (0.00-0.20) K/uL Immature Gran # (Auto) 0.02 (0.01-0.20) K/uL Sodium 131 L (136-145) mmol/L Potassium 3.9 (3.5-5.1) mmol/L Chloride 98 (98-107) mmol/L Carbon Dioxide 21 (21-32) mmol/L Anion Gap 12 H (3-11) BUN 42 H (6-23) mg/dl Creatinine 1.20 (0.6-1.4) mg/dl Est Cr Clr Drug Dosing 61.4 ml/min eGFR 64.25 BUN/Creatinine Ratio 35.0 H (10-20) Glucose 113 H (70-99(Fasting)) mg/dl Lactate 1.5 (0.4-2.0) mmol/L Calcium 9.0 (8.6-10.3) mg/dl Total Bilirubin 1.0 (0.2-1.0) mg/dl AST 90 H (13-39) U/L ALT 52 (7-52) U/L Alkaline Phosphatase 106 H (34-104) U/L Troponin I High Sens 345.9 H* (0-20) pg/ml Total Protein 7.3 (6.0-8.3) gm/dl Albumin 3.7 (3.4-5.0) gm/dl Globulin 3.6 (2.5-4.0) gm/dl Albumin/Globulin Ratio 1.0 (0.9-2) Lipase 210 H (11-82) U/L Random Cortisol mcg/dl Urine Color Dark Yellow Urine Appearance Cloudy A (Clear) Urine pH 5.5 (4.5-7.5) Ur Specific [place] 1.025 (1.000-1.030) Urine Protein 3+ H (Negative) Urine Glucose (UA) 3+ H (Negative) Urine Ketones Trace H (Negative) Urine Blood 1+ H (Negative) Urine Nitrite Negative (Negative) Urine Bilirubin 1+ H (Negative) Urine Urobilinogen Negative (Negative) Ur Leukocyte Esterase Negative (Negative) Urine WBC (Auto) 0-5 (0-5) /hpf Urine RBC (Auto) 3-5 H (0-2) /hpf U Hyaline Cast (Auto) >20 H (0-2) /lpf U Epithel Cells (Auto) 6-10 H (0-2) /hpf Urine Bacteria (Auto) None Seen (None Seen) Hyaline Casts Present A (None Presnt) /lpf Urine Mucus Present A (None Prsent) Urine Comment Anaplasma Smear See Comment Babesia Smear See Comment 05/08/25 Range/Units 15:33 WBC (4.8-10.8) K/ul RBC (4.70-6.10) M/uL Hgb (14.0-18.0) g/dl Hct (42.0-52.0) % MCV (80.0-100.0) fL MCH (25.0-34.0) pg MCHC (32.0-36.0) g/dL RDW Std Deviation (36.4-46.3) fL RDW Coeff of Christina (11.5-14.5) % Plt Count (130-400) K/uL MPV (9.4-12.4) fL Immature Gran % (Auto) % Neut % (Auto) % Lymph % (Auto) % Real % (Auto) % Eos % (Auto) % Baso % (Auto) % Neut # (Auto) (1.40-6.50) K/uL Lymph # (Auto) (1.20-3.40) K/uL Real # (Auto) (0.11-0.59) K/uL Eos # (Auto) (0.00-0.50) K/uL Baso # (Auto) (0.00-0.20) K/uL Immature Gran # (Auto) (0.01-0.20) K/uL Sodium (136-145) mmol/L Potassium (3.5-5.1) mmol/L Chloride (98-107) mmol/L Carbon Dioxide (21-32) mmol/L Anion Gap (3-11) BUN (6-23) mg/dl Creatinine (0.6-1.4) mg/dl Est Cr Clr Drug Dosing ml/min eGFR BUN/Creatinine Ratio (10-20) Glucose (70-99(Fasting)) mg/dl Lactate (0.4-2.0) mmol/L Calcium (8.6-10.3) mg/dl Total Bilirubin (0.2-1.0) mg/dl AST (13-39) U/L ALT (7-52) U/L Alkaline Phosphatase (34-104) U/L Troponin I High Sens 345.4 H* (0-20) pg/ml Total Protein (6.0-8.3) gm/dl Albumin (3.4-5.0) gm/dl Globulin (2.5-4.0) gm/dl Albumin/Globulin Ratio (0.9-2) Lipase (11-82) U/L Random Cortisol 35.05 mcg/dl Urine Color Urine Appearance (Clear) Urine pH (4.5-7.5) Ur Specific [place] (1.000-1.030) Urine Protein (Negative) Urine Glucose (UA) (Negative) Urine Ketones (Negative) Urine Blood (Negative) Urine Nitrite (Negative) Urine Bilirubin (Negative) Urine Urobilinogen (Negative) Ur Leukocyte Esterase (Negative) Urine WBC (Auto) (0-5) /hpf Urine RBC (Auto) (0-2) /hpf U Hyaline Cast (Auto) (0-2) /lpf U Epithel Cells (Auto) (0-2) /hpf Urine Bacteria (Auto) (None Seen) Hyaline Casts (None Presnt) /lpf Urine Mucus (None Prsent) Urine Comment Anaplasma Smear Babesia Smear Administered Medications Norepinephrine Bitartrate (Levophed/D5w) 4 mg in 250 mls @ 0 mls/hr IV .Q0M [facility]; Protocol Stop: 06/07/25 16:29 Last Titration: 05/08/25 19:46 Dose: 0.04 mcg/kg/min, 13.9 mls/hr Documented By: CP Co-signed By: CLC Titration: 05/08/25 18:19 Dose: 0 mcg/kg/min, 0 mls/hr Documented By: LAF Co-signed By: GPF Titration: 05/08/25 18:15 Dose: 0.01 mcg/kg/min, 3.5 mls/hr Documented By: LAF Co-signed By: GPF Titration: 05/08/25 18:00 Dose: 0.03 mcg/kg/min, 10.4 mls/hr Documented By: LAF Co-signed By: GPF Titration: 05/08/25 17:28 Dose: 0.05 mcg/kg/min, 17.3 mls/hr Documented By: CEF Co-signed By: LIZET Titration: 05/08/25 17:06 Dose: 0.07 mcg/kg/min, 24.3 mls/hr Documented By: CEF Co-signed By: LIZET Admin: 05/08/25 16:28 Dose: 0.05 mcg/kg/min, 17.3 mls/hr Documented By: CEF Co-signed By: QGV Doxycycline Hyclate 100 mg/ (Dextrose) 100 mls @ 50 mls/hr IV Q12H JANNET Stop: 05/13/25 17:59 Last Admin: 05/08/25 18:34 Dose: 50 mls/hr Documented By: LAF Lactated Ringer's (Lr) 1,000 mls @ 75 mls/hr IV .[id number] JANNET Stop: 05/11/25 19:29 Last Admin: 05/08/25 19:44 Dose: 75 mls/hr Documented By: CP Discontinued Medications Hydrocortisone Sodium Succinate (Hydrocortisone Sod Succinate 100 Mg/2 Ml Vial) 100 mg IV NOW STA Stop: 05/08/25 17:10 Last Admin: 05/08/25 17:30 Dose: 100 mg Documented By: CEF Sodium Chloride (Nss) 1,000 mls @ 999 mls/hr IV .[id number] JANNET Stop: 05/08/25 16:00 Last Infusion: 05/08/25 16:18 Dose: Infused Documented By: Admin: 05/08/25 15:16 Dose: 999 mls/hr Documented By: Infusion: 05/08/25 15:03 Dose: Infused Documented By: Admin: 05/08/25 14:02 Dose: 999 mls/hr Documented By: CEF Acetaminophen (Ofirmev) 1,000 mg in 100 mls @ 400 mls/hr IV NOW STA Stop: 05/08/25 14:02 Last Infusion: 05/08/25 14:42 Dose: Infused Documented By: Admin: 05/08/25 14:03 Dose: 400 mls/hr Documented By: CEF Sodium Chloride (Nss) 500 mls @ 999 mls/hr IV .Q31M ONE Stop: 05/08/25 16:32 Last Infusion: 05/08/25 17:09 Dose: Infused Documented By: Admin: 05/08/25 16:16 Dose: 999 mls/hr Documented By: CEF Piperacillin Sod/Tazobactam Sod (Zosyn) 4.5 gm in 100 mls @ 200 mls/hr IV NOW ONE; Protocol Stop: 05/08/25 16:48 Last Infusion: 05/08/25 17:09 Dose: Infused Documented By: Admin: 05/08/25 16:36 Dose: 200 mls/hr Documented By: CEF Vancomycin HCl 1,750 mg/ (Sodium Chloride) 535 mls @ 200 mls/hr IV NOW ONE Stop: 05/08/25 19:00 Last Admin: 05/08/25 17:09 Dose: 200 mls/hr Documented By: CEF Albumin Human (Albumin 5%) 250 mls @ 500 mls/hr IV ONE ONE Stop: 05/08/25 17:12 Last Infusion: 05/08/25 18:18 Dose: Infused Documented By: Admin: 05/08/25 17:05 Dose: 500 mls/hr Documented By: CEF Sodium Chloride (Nss) 1,000 mls @ 80 mls/hr IV .[id number] JANNET Stop: 05/11/25 17:59 Last Infusion: 05/08/25 19:48 Dose: Infused Documented By: Admin: 05/08/25 18:32 Dose: 80 mls/hr Documented By: PHU Ioversol (Optiray 320 100ml) 94 ml IV ONCE ONE Stop: 05/08/25 15:07 Last Admin: 05/08/25 15:06 Dose: 94 ml Documented By: ANU Ondansetron HCl (Ondansetron Inj 2 Mg/Ml 2 Ml Vial) 4 mg IV NOW STA Stop: 05/08/25 13:49 Last Admin: 05/08/25 14:00 Dose: 4 mg Documented By: CEF Imaging Data Radiologist's Impression: Abdomen/Pelvis CT 05/08/25 13:52 EXAMINATION: CT of the abdomen and pelvis performed after the administration of IV contrast TECHNIQUE: Helical CT images from the lung bases through the symphysis pubis were obtained with contrast. Coronal and sagittal reformatted images were generated at a workstation for further assessment. Dose reduction techniques were achieved by using automatic exposure control and/or adjustment of mA and/or kV according to patient size and/or use of iterative reconstruction technique. COMPARISON: 11/06/2024 HISTORY: Abdominal pain FINDINGS: Lower chest: No consolidation. No pleural effusion or pneumothorax. The heart is enlarged. Mitral valve annuloplasty. Liver: No suspicious liver lesions. Portal veins appear patent. Gallbladder: There is a calcified gallstone. No evidence of acute cholecystitis. Spleen: Normal size. Pancreas: No suspicious pancreatic lesions. The pancreatic duct is not dilated. Adrenal glands: No adrenal nodules. Kidneys: No hydronephrosis or obstructing renal stones. A large right renal cyst is again seen. Bladder / Pelvic organs: Unremarkable. Bowel: No bowel obstruction. There is prominent wall thickening inflammatory fat stranding throughout the sigmoid colon. There are numerous diverticuli. Mild surrounding free fluid. Lymph nodes: No retroperitoneal, mesenteric, or pelvic lymphadenopathy. Peritoneum / Retroperitoneum: No free fluid or air within the abdomen. Vessels: No infrarenal aortic aneurysm. Bones and soft tissues: No suspicious lesion in the bones. Fixation changes of the left femur. IMPRESSION: Acute uncomplicated sigmoid diverticulitis. No free air or abscess. Electronically signed by Bubba Fletcher 05-08-2025 4:24 PM Chest X-Ray 05/08/25 16:19 Chest radiograph, one view History: Sepsis Comparison: None Findings: Single AP view of the chest performed. No focal consolidation or pleural effusion. No pneumothorax. The cardiomediastinal silhouette is within normal limits. Normal pulmonary vascularity. No evidence for lymphadenopathy.Left atrial appendage clip. No visualized bony or soft tissue abnormality. Median sternotomy wires. Impression: Normal chest radiograph Electronically signed by Bubba Fletcher 05-08-2025 5:10 PM Discharge Plan Visit Data Chief Complaint: Abdominal Pain Stated Complaint: ABD PAIN, VOMIT, DIARRHEA ED Provider: Neri Tobar Discharge Problem: Abdominal pain, lower, Nausea, vomiting, and diarrhea, Fever Patient Disposition: Admitted As Inpatient Condition: Critical Discharge Instructions Interventions: ED Discharge Assessment Last Done: 05/08/25 17:50
[2025-05-08 14:37] LABS: Alanine Aminotransferase 52.0 U/L (7-52); Albumin Globulin Ratio 1.0 (0.9-2); Alkaline Phosphatase 106.0 U/L (34-104); Anion Gap 12.0 (3-11); Bilirubin,Total 1.0 mg/dl (0.2-1.0); Blood Urea Nitrogen 42.0 mg/dl (6-23); Calcium 9.0 mg/dl (8.6-10.3); Carbon Dioxide 21.0 mmol/L (21-32); Chloride 98.0 mmol/L (98-107); Creatinine Clr Calc Pharmacy 61.4 ml/min; Globulin 3.6 gm/dl (2.5-4.0); Glucose 113.0 mg/dl (70-99(Fasting)); Lipase 210.0 U/L (11-82); Potassium 3.9 mmol/L (3.5-5.1); Sodium 131.0 mmol/L (136-145); Total Protein 7.3 gm/dl (6.0-8.3)
[2025-05-08] MEDS: OPTIRAY 320 100ml IV ONE (15:06)
[2025-05-08 16:11] LABS: Appearance Urine Cloudy (Clear); Bacteria Urine Automated None Seen (None Seen); Cast Urine Automated >20 /lpf (0-2); Glucose Urine UA 3+ (Negative); WBC Urine Automated 0-5 /hpf (0-5)
[2025-05-08] MEDS: SODIUM CHLORIDE 0.9% 500 ML IV ONE (16:16)
[2025-05-08] MEDS ORDERED: STAT IV Infusion **Titration per Protocol STA (16:20)
[2025-05-08] MEDS ORDERED: VANCOMYCIN CONSULT ACTIVE PRN (16:20)
--- NOTE | 2025-05-08 16:25 | CT Scan Report ---
EXAMINATION: CT of the abdomen and pelvis performed after the administration of IV contrast TECHNIQUE: Helical CT images from the lung bases through the symphysis pubis were obtained with contrast. Coronal and sagittal reformatted images were generated at a workstation for further assessment. Dose reduction techniques were achieved by using automatic exposure control and/or adjustment of mA and/or kV according to patient size and/or use of iterative reconstruction technique. COMPARISON: 11/06/2024 HISTORY: Abdominal pain FINDINGS: Lower chest: No consolidation. No pleural effusion or pneumothorax. The heart is enlarged. Mitral valve annuloplasty. Liver: No suspicious liver lesions. Portal veins appear patent. Gallbladder: There is a calcified gallstone. No evidence of acute cholecystitis. Spleen: Normal size. Pancreas: No suspicious pancreatic lesions. The pancreatic duct is not dilated. Adrenal glands: No adrenal nodules. Kidneys: No hydronephrosis or obstructing renal stones. A large right renal cyst is again seen. Bladder / Pelvic organs: Unremarkable. Bowel: No bowel obstruction. There is prominent wall thickening inflammatory fat stranding throughout the sigmoid colon. There are numerous diverticuli. Mild surrounding free fluid. Lymph nodes: No retroperitoneal, mesenteric, or pelvic lymphadenopathy. Peritoneum / Retroperitoneum: No free fluid or air within the abdomen. Vessels: No infrarenal aortic aneurysm. Bones and soft tissues: No suspicious lesion in the bones. Fixation changes of the left femur. IMPRESSION: Acute uncomplicated sigmoid diverticulitis. No free air or abscess. Electronically signed by Bubba Fletcher 05-08-2025 4:24 PM
[2025-05-08] MEDS: NOREPINEPHRINE/D5W 4 MG/250 ML PLCT IV SCH (16:28)
[2025-05-08] MEDS: PIPERACILLIN/TAZOBACTAM 4.5 GM/100 ML BAG IV ONE (16:36)
--- NOTE | 2025-05-08 16:46 | History & Physical Report ---
Date of Service May 08, 2025 Assessment & Plan (1) Hypovolemia: Plan: Patient is a 70 year old M with a past medical history of HTN, HLD, thoracic aortic aneurysm, permanent afib, systolic HF with EF 35%, cardiomyopathy, mitral valve replacement, IBS presenting with lower abdominal pain, nausea, vomiting, loose stool x 2 days. Symptoms began on Friday afternoon with nausea, decreased appetite and loose stool ~4x/day. H/O IBS, took Bentyl as per home routine without improvement. Tolerating po fluids okay. BP ranging 110/65 at home, so he took his regular scheduled home meds as prescribed. Reports having fevers, chills, slight headache at home, had 1 episode of vomiting on the way to the hospital today. No blood in stool, emesis, or urine. Recent sinusitis infection, treated OP with Augmentin and completed antibiotic course on Friday. In the emergency department, patient was initially hemodynamically stable, then blood pressure began dropping to . Suspect infectious etiology despite stable wbc and lactate 1.5. Labs workup showing hyponatremia with Na+ 131, clinically dry with no evidence of RAMON, initially 2 L NSS given with mild improvement in blood pressure, additional 500 ml NSS given for SBP >90. Norepi initiated. CT abdomen/pelvis showed acute uncomplicated sigmoid diverticulitis. No free air or abscess. ICU dental prosthetist consulted with the recommendation to give Albumin infusion, followed by Hydrocortisone. + BP response to 106/67 with albumin alone. Admitted to ICU. Hypovolemia 2/2 diverticulitis with r/o C Diff * Admit to ICU for pressure support and further management * BP initially stable with drop to 70-80/40's, no evidence of sepsis, norm lactate * Clinically dry with no evidence of RAMON, initially 2 L NSS given with mild improvement in blood pressure, additional 500 ml NSS given for SBP >90. Norepi initiated. * CT abdomen/pelvis showed acute uncomplicated sigmoid diverticulitis. No free air or abscess. * Blood cultures pending. Vanc and Zosyn given in the ED. * Needs stool cultures- ordered * NPO for now * Gentle IV fluids with NSS 80 ml/hr for max 1L * Transition to step down unit when able * PT/OT when able #Chronic systolic heart failure #Hypertension * Hypotensive in ED, requiring fluid resuscitation, norepi gtts * Given albumin in ED per ICU recs; hydrocortisone to follow * Holding AM dose metoprolol, Aldactone, Entresto * Goal below 140/90- baseline home BPs 110/65 with current home regimen * Trend BP and slowly resume home meds when clinically improved #PAF (paroxysmal atrial fibrillation) #Elevated Trop * Trop elevated at 345 initially with no change at 2 hr repeat; EKG showing sinus tachycardia with pac, vent rate 111, QTc 451 * Trend Trops Q6H * Telemetry monitoring while inpatient * Rate control with metoprolol- continue PM dose tonight, hold AM dose and reevaluate * Continue home eliquis * Check Mag/Pos with AM labs #Nonobstructive CAD #Hypertriglyceridemia * Echo in 02/10/2025 showing LVEF 35-39%, LA severe enlarge, mild tricuspid regurg * Mild transaminitis noted on labs workup- AST 90, ALT 52, Alk Phos 106,Lipase 210 * Hold home statin for now * Trend LFTs with AM labs #Irritable bowel syndrome * H/O intermittent IBS flares, managed at home with Bentyl- no improvement at home with current illness * Hold home Bentyl while inpatient, resume home routine at d/c DVT Ppx:SCDs, on Eliquis Code status: Full PCP: Dr. Hutchison Dispo: Admit to ICU Patient seen in collaboration with Dr. Fontanez. Please see addendum.I spent a total of 60 minutes coordinating, documenting and providing care for this patient excluding time spent in the performance of separately billed services or time spent by another provider/QHP. (2) Diverticulitis: (3) Permanent atrial fibrillation: (4) Cardiomyopathy: (5) Elevated troponin: (6) Hypertension: (7) Hyperlipidemia: (8) Systolic heart failure: History of Present Illness Primary Care Provider: Jamel Hutchison MD Patient is a 70 year old M with a past medical history of HTN, HLD, thoracic aortic aneurysm, permanent afib, systolic HF with EF 35%, cardiomyopathy, mitral valve replacement, IBS presenting with lower abdominal pain, nausea, vomiting, loose stool x 2 days. Symptoms began on Friday afternoon with nausea, decreased appetite and loose stool ~4x/day. H/O IBS, took Bentyl as per home routine without improvement. Tolerating po fluids okay. BP ranging 110/65 at home, so he took his regular scheduled home meds as prescribed. Reports having fevers, chills, slight headache at home, had 1 episode of vomiting enroute to he hospital today. No blood in stool, emesis, or urine. Denies weight loss, weakness, cognitive changes, vision/hearing changes, chest pain, SOB, swelling, difficulty breathing, urinary concerns, joint swelling/pain, ambulation difficulty, skin rashes, lesions, bleeding, bruising. In the emergency department, patient was initially hemodynamically stable, then blood pressure began dropping to 70-80/40's. Suspect infectious etiology despite stable wbc and lactate 1.5. Labs workup showing hyponatremia with Na+ 131, clinically dry with no evidence of ARMON, initially 2 L NSS given with mild improvement in blood pressure, additional 500 ml NSS given for SBP >90. Norepi initiated. CT abdomen/pelvis showed acute uncomplicated sigmoid diverticulitis. No free air or abscess. AST 90, ALT 52, Alk Phos 106, Lipase 210. Blood cultures pending. Vanc and Zosyn given in the ED. Trop elevated at 345 initially with no change at 2 hr repeat. EKG showing sinus tachy with pac, vent rate 111, QTc 451. History obtained primarily from the patient and via hospitalization record. External chart review obtained from [facility]. Allergies Allergy/AdvReac Type Severity Reaction Status Date / Time No Known Allergies Allergy Mild Verified 05/08/25 17:26 Home Medications Medication Instructions Recorded Confirmed Type allopurinol 300 mg tablet 300 mg PO DAILY 10/14/24 05/08/25 History apixaban 5 mg tablet (Eliquis) 5 mg PO BID 10/14/24 05/08/25 History dicyclomine 10 mg capsule 10 mg PO BID PRN CRAMPING 10/14/24 05/08/25 History ferrous sulfate 325 mg (65 mg 325 mg PO 3XWK 10/14/24 05/08/25 History iron) tablet (iron) multivitamin 1 tab PO DAILY 10/14/24 05/08/25 History omeprazole 20 mg capsule,delayed 20 mg PO BID 10/14/24 05/08/25 History release rosuvastatin 20 mg tablet 20 mg PO QPM 10/14/24 05/08/25 History tramadol 50 mg tablet 50 mg PO Q8H PRN Pain 10/14/24 05/08/25 History magnesium oxide 400 mg PO 3XWK 11/06/24 05/08/25 History bisacodyl 10 mg rectal suppository 10 mg GA DAILY PRN constipation 11/09/24 05/08/25 Rx #30 ea empagliflozin 10 mg tablet 10 mg PO QAM 05/08/25 05/08/25 History (Jardiance) metoprolol succinate 100 mg 50 mg PO QPM 05/08/25 05/08/25 History tablet,extended release 24 hr metoprolol succinate 100 mg 100 mg PO QAM 05/08/25 05/08/25 History tablet,extended release 24 hr sacubitril 49 mg-valsartan 51 mg 1 tab PO BID 05/08/25 05/08/25 History tablet (Entresto) spironolactone 25 mg tablet 25 mg PO QAM 05/08/25 05/08/25 History Past Med/Surg History Problem List (Updated 11/15/24 @ 00:06 by Background Cece) Shock circulatory Hypovolemia Systolic heart failure Elevated troponin Sepsis Diverticulitis Fever (Acute) Nausea, vomiting, and diarrhea (Acute) Abdominal pain, lower (Acute) Anticoagulated Closed intertrochanteric fracture of left femur (Acute) Fall down stairs (Acute) Acute hypoxic respiratory failure (Acute) Influenza A (Acute) Permanent atrial fibrillation Cardiomyopathy History of mitral valve replacement Atypical chest pain Thoracic aortic aneurysm (Acute) Elevated brain natriuretic peptide (BNP) level (Acute) Chest pain (Acute) Hypertension (Chronic) Hyperlipidemia (Chronic) Tophaceous gout (Chronic) Diverticulosis (Chronic) History of GI bleed (Chronic) History of gastric ulcer (Chronic) S/P appendectomy (Chronic) Hx of tonsillectomy (Chronic) H/O esophagogastroduodenoscopy (Chronic) Hx of total knee arthroplasty (Chronic) H/O colonoscopy (Chronic) Social History Smoking Status: Never smoker Hx Alcohol Use: No Hx Substance Use: No Preferred Language: Nepali Communication Ability: Effective Hand Cell Tuber Required: No Beliefs That Will Affect Care: None Current Living Situation: Spouse Current Living Situation Comment: at home with Feels Safe at Home: Yes Assistive Devices: None Review of Systems Review of Systems: All systems reviewed & are unremarkable except as noted in HPI & below Physical Exam Physical Exam: VITALS: Reviewed. WEIGHT/BMI reviewed. GEN: Healthy appearing, well-developed, NAD. PSYCH: Good Judgment. AOx3. Normal memory, mood, and affect. HEENT -Head: NC/AT; -Eyes: PERRL, EOMI. No discharge or redn ess; -Ears: External ears are normal. -Nose: Normal nares. -Mouth and throat: MMM. Normal gums, muc danny, palate,. Good dentition. NECK: Supple, with no masses. CV: S1, S2 no murmurs, extra sounds, reg rhythm, no swelling, pulses strong LUNGS: CTAB, no w/r/c. sats 95% RA ABD: Soft, distended, hyperactive bowel sounds, tender to lower quads, no masses or organomegaly. : N/A SKIN: Warm, well perfused. Abrasions to right knee MSK: No deformities, GARCIA without difficulty EXT: No clubbing, cyanosis, or edema. NEURO: CN II-XII grossly intact. Normal muscle strength and tone. No focal deficits. Results & Data Results & Data Vital Signs (Past 12 Hours) Vital Signs Temp Pulse Pulse Resp BP BP Pulse Ox 05/08/25 16:35 96/54 L 05/08/25 16:15 73 21 76/50 L 95 05/08/25 16:11 76/45 L 05/08/25 15:59 80 18 82/46 L 96 05/08/25 15:47 73 17 82/44 L 96 05/08/25 15:47 37.0 C 05/08/25 15:15 85 23 95 05/08/25 14:33 91 H 26 H 94 05/08/25 14:05 110 H 05/08/25 14:03 95 H 29 H 05/08/25 13:27 112 H 16 99/75 L 95 05/08/25 13:10 37.7 C H 106 H 20 112/72 94 O2 Del Method 05/08/25 16:35 05/08/25 16:15 05/08/25 16:11 05/08/25 15:59 05/08/25 15:47 Room Air 05/08/25 15:47 05/08/25 15:15 05/08/25 14:33 05/08/25 14:05 05/08/25 14:03 05/08/25 13:27 05/08/25 13:10 Room Air Laboratory Results Short CBC 05/08/25 Range/Units 13:26 WBC 6.36 (4.8-10.8) K/ul Hgb 13.6 L (14.0-18.0) g/dl Hct 39.5 L (42.0-52.0) % Plt Count 87 L (130-400) K/uL BMP 05/08/25 13:26 Sodium 131 L Potassium 3.9 Chloride 98 Carbon Dioxide 21 BUN 42 H Creatinine 1.20 Glucose 113 H Calcium 9.0 Liver Function 05/08/25 Range/Units 13:26 Total Bilirubin 1.0 (0.2-1.0) mg/dl AST 90 H (13-39) U/L ALT 52 (7-52) U/L Alkaline Phosphatase 106 H (34-104) U/L Albumin 3.7 (3.4-5.0) gm/dl Urine 05/08/25 Range/Units 14:37 Urine Color Dark Yellow Urine Appearance Cloudy A (Clear) Urine pH 5.5 (4.5-7.5) Ur Specific [place] 1.025 (1.000-1.030) Urine Protein 3+ H (Negative) Urine Glucose (UA) 3+ H (Negative) Diagnostic Findings Abdomen/Pelvis CT 05/08/25 13:52 EXAMINATION: CT of the abdomen and pelvis performed after the administration of IV contrast TECHNIQUE: Helical CT images from the lung bases through the symphysis pubis were obtained with contrast. Coronal and sagittal reformatted images were generated at a workstation for further assessment. Dose reduction techniques were achieved by using automatic exposure control and/or adjustment of mA and/or kV according to patient size and/or use of iterative reconstruction technique. COMPARISON: 11/06/2024 HISTORY: Abdominal pain FINDINGS: Lower chest: No consolidation. No pleural effusion or pneumothorax. The heart is enlarged. Mitral valve annuloplasty. Liver: No suspicious liver lesions. Portal veins appear patent. Gallbladder: There is a calcified gallstone. No evidence of acute cholecystitis. Spleen: Normal size. Pancreas: No suspicious pancreatic lesions. The pancreatic duct is not dilated. Adrenal glands: No adrenal nodules. Kidneys: No hydronephrosis or obstructing renal stones. A large right renal cyst is again seen. Bladder / Pelvic organs: Unremarkable. Bowel: No bowel obstruction. There is prominent wall thickening inflammatory fat stranding throughout the sigmoid colon. There are numerous diverticuli. Mild surrounding free fluid. Lymph nodes: No retroperitoneal, mesenteric, or pelvic lymphadenopathy. Peritoneum / Retroperitoneum: No free fluid or air within the abdomen. Vessels: No infrarenal aortic aneurysm. Bones and soft tissues: No suspicious lesion in the bones. Fixation changes of the left femur. IMPRESSION: Acute uncomplicated sigmoid diverticulitis. No free air or abscess. Electronically signed by Bubba Fletcher 05-08-2025 4:24 PM Chest X-Ray 05/08/25 16:19 Chest radiograph, one view History: Sepsis Comparison: None Findings: Single AP view of the chest performed. No focal consolidation or pleural effusion. No pneumothorax. The cardiomediastinal silhouette is within normal limits. Normal pulmonary vascularity. No evidence for lymphadenopathy.Left atrial appendage clip. No visualized bony or soft tissue abnormality. Median sternotomy wires. Impression: Normal chest radiograph Electronically signed by Bubba Fletcher 05-08-2025 5:10 PM Supervising Physician Co-Signing Physician Notes I have seen and discussed the case with the collaborating advanced practitioner. I agree with the above H&P. I have reviewed and confirmed the patients medical history, the findings on physical examination, and the patients diagnosis and treatment plan with Gordo JOSUE and agree with the information documented. Mr. Milton Nam is a 70 year old male medical history remarkable for PAF, HTN, HFrEF iso NICM (EF 35% 02/14/2025), prediabetes admitted for acute diverticulitis and shock requiring pressor support. Patient states he noted abdominal pain Armani that persisted. He has continued to take all his heart failure medications.Reports poor intake overall. CT ab/p + acute uncomplicated diverticulitis CXR reviewed, no signs of pna/pulm edema GENERAL APPEARANCE: AxOx4, generally well-appearing male, no acute distress. on 0.4 levo HEENT: NC, AT. MMM. EOMI, clear conjunctiva, oropharynx clear. NECK: Supple without lymphadenopathy. No stiffness or restricted ROM. HEART: Normal rate and regular rhythm, normal S1/S1, no m/r/g LUNGS: CTAB, moving air well. No crackles or wheezes are heard. ABDOMEN: Soft, lower left quadrant tenderness, nondistended with good bowel sounds heard. EXTREMITIES: Without cyanosis, clubbing or edema. NEUROLOGICAL: Grossly nonfocal. Alert and oriented, moving all 4 extremities. CN not formally tested but appear grossly intact Skin: Warm and dry without any rash. #Hypotension, suspect hypovolemic shock #Acute diverticulitis does not meet sepsis criteria. 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 Continue Metoprolol Er 150 mg QD Hold Entresto 49-51 mg BID Hold Spironolactone 25 mg QD Hold Jardiance 10 mg QD #Chronic normocytic anemia #Acute on chronic Thrombocytopenia likely iso acute illness #transaminitis elevated lipase noted, no pancreatitis noted on imaging suspect 2/2 to ongoing process, liver appears stable on imaging trend cmp NPO for now Gentle IVF #HLD hold statin #Prediabetes A1C 6.3% 02/2025 -hold Jardiance -glucose POC ACHS DVT ppx eliquis admit ICU I spent a total of 25 minutes coordinating, documenting, and providing care for this patient excluding time spent in the performance of separately billed services. All of the aforementioned completed outside of collaborating with the assigned advanced practitioner for a full treatment plan. I have reviewed the advanced practitioner's documentation, and I agree with, and take responsibility for the plan of care
[2025-05-08] MEDS: ALBUMIN 5% 250 ML IV ONE ×2 (17:05→20:59)
[2025-05-08] MEDS: VANCOMYCIN HCL 1,750 MG in SODIUM CHLORIDE 0.9% 500 ML IV ONE (17:09)
--- NOTE | 2025-05-08 17:10 | XRay Report ---
Chest radiograph, one view History: Sepsis Comparison: None Findings: Single AP view of the chest performed. No focal consolidation or pleural effusion. No pneumothorax. The cardiomediastinal silhouette is within normal limits. Normal pulmonary vascularity. No evidence for lymphadenopathy.Left atrial appendage clip. No visualized bony or soft tissue abnormality. Median sternotomy wires. Impression: Normal chest radiograph Electronically signed by Bubba Fletcher 05-08-2025 5:10 PM
[2025-05-08] MEDS: HYDROCORTISONE SOD SUCCINATE 100 MG/2 ML VIAL IV STA (17:30)
--- NOTE | 2025-05-08 17:49 | Critical Care Consultation ---
Date of Consultation May 08, 2025 Assessment & Plan (1) Systolic heart failure: (2) Hypovolemia: (3) Shock circulatory: (4) Permanent atrial fibrillation: (5) Nausea, vomiting, and diarrhea: (6) Diverticulitis: Plan Reason Critically Ill: 70-year-old male present to the hospital for abdominal pain nausea vomiting and loose stools x 2 days. Was found to be hypotensive needing vasopressor support. Past medical history: A-fib on Eliquis, hypertension, dyslipidemia, cardiomyopathy with EF 35%, IBS, history of mitral valve replacement, bioprosthetic Neuro - [facility]: Negative Cardiac - 2D echo 10/14/2024: EF 25-30%, severe global hypokinesis of the left ventricle, RV normal in size with moderately reduced function -- Shock Etiology not clear Likely septic component of cardiac cannot be ruled out Continue with vasopressor support to keep MAP greater than 65 -- Elevated troponin Likely type II ID from hypotension Continue to trend EKG 05/08/2025, 13:18:-sinus tachycardia, left axis deviation, Q waves in 3 and aVF, poor R wave progression, mild ST depression on the V5 V6 -- History of A-fib On Eliquis at home --Systolic CHF On metoprolol succinate 50 as well as Entresto and spironolactone 25 Patient to take medication today Respiratory - -- Remote only 5-pack-year smoking history Saturating well on room air GI - -- Nausea vomiting diarrhea with acute sigmoid diverticulitis CT abdomen pelvis showing acute sigmoid diverticulitis. Does have history of diverticulosis --Transaminitis Mild elevation of AST and ALT along with alk phos Continue to trend -- GERD On omeprazole at home -- IBS Takes dicyclomine and bisacodyl as needed RENAL/LYTES - -- RAMON with elevated BUN likely from hypotension Dehydration a possibility as well Follow-up urine lites Monitor BUN/creatinine Avoid nephrotoxic medications Strict ins and outs ENDO - -- ICU hyperglycemia protocol HEME - -- Thrombocytopenia Chronic with acute worsening Continue to monitor -- Normocytic anemia Monitor H&H ID - -- Etiology is likely abdominal-sigmoid diverticulitis UA does not seem to be infectious Chest x-ray does not show any signs of infection Continue with empiric antibiotics --Prophylaxis VTE: Eliquis GI: Pantoprazole Lines: Peripheral Diet: N.p.o. Plan: Strict ins and outs Given the worsening of thrombocytopenia, I will order anaplasmosis, empirically treat with doxycycline right now. Random cortisol to be ordered now, 100 mg of hydrocortisone given empirically. Would recommend repeat 2D echo if not already ordered. Continue with empiric antibiotics I have personally spent 58 minutes of critical care time in the direct management of this patient. This is a life/limb threatening event. This includes time spent evaluating patient, direct bedside care, chart review, placing orders, interpretation of diagnostic studies, discussion with consultants, patient, and family members, as well as other required patient management activities. This time is exclusive of all separately billable procedures, and teaching time and separate from and in addition to any other critical care service time. History of Present Illness Attending Physician: Francisca Fontanez MD History of Present Illness 70-year-old male present to the hospital for abdominal pain nausea vomiting and loose stools x 2 days. Was found to be hypotensive needing vasopressor support. Past medical history: A-fib on Eliquis, hypertension, dyslipidemia, cardiomyopathy with EF 35%, IBS, history of mitral valve replacement, bioprosthetic Brief signout was given by ER At the time of examination patient was on 0.07 of Levophed, systolic blood pressure was in the 100s with MAP in the mid 80s. I went down to 0.05 He was diaphoretic but not in any respiratory distress. Denied any chest pain. No shortness of breath He was saturating 95-96% on room air. Complain of mild abdominal discomfort. No nausea vomiting right now, no diarrhea right now He just finished the amoxicillin for sinusitis. Which he took for 7 days He had some loose stools in the last couple of days, denied any watery diarrhea. No hematochezia. No dysuria, no hematuria, no epistaxis No unusual headache or blurry vision No fever or chills Denies any tick bites. Subjective chills but no fever. No recent travel history Social history: Only 5-pack-year smoking history, quit in his 20s. He used to be a heavy drinker, quit 8 months ago. 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 Allergies Allergy/AdvReac Type Severity Reaction Status Date / Time No Known Allergies Allergy Mild Verified 05/08/25 17:26 Home Medications Medication Instructions Recorded Confirmed Type allopurinol 300 mg tablet 300 mg PO DAILY 10/14/24 05/08/25 History apixaban 5 mg tablet (Eliquis) 5 mg PO BID 10/14/24 05/08/25 History dicyclomine 10 mg capsule 10 mg PO BID PRN CRAMPING 10/14/24 05/08/25 History ferrous sulfate 325 mg (65 mg 325 mg PO 3XWK 10/14/24 05/08/25 History iron) tablet (iron) multivitamin 1 tab PO DAILY 10/14/24 05/08/25 History omeprazole 20 mg capsule,delayed 20 mg PO BID 10/14/24 05/08/25 History release rosuvastatin 20 mg tablet 20 mg PO QPM 10/14/24 05/08/25 History tramadol 50 mg tablet 50 mg PO Q8H PRN Pain 10/14/24 05/08/25 History magnesium oxide 400 mg PO 3XWK 11/06/24 05/08/25 History bisacodyl 10 mg rectal suppository 10 mg MS DAILY PRN constipation 11/09/24 05/08/25 Rx #30 ea empagliflozin 10 mg tablet 10 mg PO QAM 05/08/25 05/08/25 History (Jardiance) metoprolol succinate 100 mg 50 mg PO QPM 05/08/25 05/08/25 History tablet,extended release 24 hr metoprolol succinate 100 mg 100 mg PO QAM 05/08/25 05/08/25 History tablet,extended release 24 hr sacubitril 49 mg-valsartan 51 mg 1 tab PO BID 05/08/25 05/08/25 History tablet (Entresto) spironolactone 25 mg tablet 25 mg PO QAM 05/08/25 05/08/25 History Patient History Social History Smoking Status: Never smoker Do You Dip or Chew Tobacco: No; Hx Alcohol Use: No Hx Substance Use: No Preferred Language: Cymraes Communication Ability: Effective 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 Beliefs That Will Affect Care: None Current Living Situation: Spouse Current Living Situation Comment: at home with Feels Safe at Home: Yes Assistive Devices: None Review of Systems 2 Review of Systems: All systems reviewed & are unremarkable except as noted in HPI & below Physical Exam 2 Physical Exam: Constitutional: No acute distress HEENT: EOMI, PERRLA Respiratory system: Good air entry bilaterally, no wheeze, no rhonchi, no crackles CVS: S1-S2 positive, no murmurs or gallops Abdomen: Soft, nontender, nondistended, positive bowel sounds x4 Extremities: +2 pulses bilaterally radialis/ dorsalis pedis, no cyanosis, no edema Neuro: Awake alert oriented x3 Psych: Normal mood and affect G/U: No Soares Results & Data Results & Data Vital Signs (Past 12 Hours) Vital Signs Temp Pulse Pulse Resp BP BP Pulse Ox 05/08/25 17:15 86 21 106/67 97 05/08/25 17:10 68 14 95/58 L 97 05/08/25 17:05 82/53 L 05/08/25 17:00 91/57 L 05/08/25 16:56 70 22 90/57 L 96 05/08/25 16:50 87/63 L 05/08/25 16:46 85/52 L 05/08/25 16:35 96/54 L 05/08/25 16:15 73 21 76/50 L 95 05/08/25 16:11 76/45 L 05/08/25 15:59 80 18 82/46 L 96 05/08/25 15:47 73 17 82/44 L 96 05/08/25 15:47 37.0 C 05/08/25 15:15 85 23 95 05/08/25 14:33 91 H 26 H 94 05/08/25 14:05 110 H 05/08/25 14:03 95 H 29 H 05/08/25 13:27 112 H 16 99/75 L 95 05/08/25 13:10 37.7 C H 106 H 20 112/72 94 O2 Del Method 05/08/25 17:15 Room Air 05/08/25 17:10 05/08/25 17:05 05/08/25 17:00 05/08/25 16:56 05/08/25 16:50 05/08/25 16:46 05/08/25 16:35 05/08/25 16:15 05/08/25 16:11 05/08/25 15:59 05/08/25 15:47 Room Air 05/08/25 15:47 05/08/25 15:15 05/08/25 14:33 05/08/25 14:05 05/08/25 14:03 05/08/25 13:27 05/08/25 13:10 Room Air Laboratory Results 05/08/25 13:26 05/08/25 13:26 Coding Level of Care Code 53198 CRITICAL CARE 1ST 30-74M Diagnoses Systolic heart failure I50.20 Hypovolemia E86.1 Shock circulatory R57.9 Permanent atrial fibrillation I48.21 Nausea, vomiting, and diarrhea R11.2; R19.7 Diverticulitis K57.92
[2025-05-08] MEDS ORDERED: ACETAMINOPHEN 1,000 MG/100 ML VIAL IV PRN (18:06)
[2025-05-08] MEDS: DOXYCYCLINE HYCLATE 100 MG in DEXTROSE 5% MINI-B 100 ML IV SCH (18:34)
[2025-05-08] MEDS: LACTATED RINGER'S 1,000 ML IV SCH (19:44)
[2025-05-08] MEDS: APIXABAN 5 MG TABLET PO SCH (20:09)
[2025-05-09 03:55] LABS: A calco-baum cmplx NotReported Not Detected (NotDetected); Bact fragilis Not Reported Not Detected (NotDetected); Blood Culture Id Panel See PCR Comment (NotDetected); C auris Not Reported Not Detected (NotDetected); CTX-M Resistant Gene Not Detected (NotDetected); Calbicans Not Reported Not Detected (NotDetected); Candida glabrata Not Reported Not Detected (NotDetected); Candida krusei Not Reported Not Detected (NotDetected); Cneoformans/gatti Not Reported Not Detected (NotDetected); Cparapsilosis Not Reported Not Detected (NotDetected); Ctropicalis Not Reported Not Detected (NotDetected); E cloacae compx Not Reported Not Detected (NotDetected); Efaecalis Not Reported Not Detected (NotDetected); Efaecium Not Reported Not Detected (NotDetected); Enterobacterales DETECTED (NotDetected); Enterobacterales Not Reported DETECTED (NotDetected); Escherichia coli Not Reported DETECTED (NotDetected); H influenzae Not Reported Not Detected (NotDetected); IMP Resistant Gene Not Detected (NotDetected); K aerogenes Not Reported Not Detected (NotDetected); KPC Resistant Gene Not Detected (NotDetected); Koxytoca Not Reported Not Detected (NotDetected); Kpneumoniae grp Not Reported Not Detected (NotDetected); Lmonocyt Not Reported Not Detected (NotDetected); N meningitidis Not Reported Not Detected (NotDetected); NDM Resistant Gene Not Detected (NotDetected); OXA 48 Like Resistant Gene Not Detected (NotDetected); P aeruginosa Not Reported Not Detected (NotDetected); Proteus spp Not Reported Not Detected (NotDetected); Salmonella spp Not Reported Not Detected (NotDetected); Staph lugdunensis Not Reported Not Detected (NotDetected); Staph spp. Not Reported Not Detected (NotDetected); Staphaureus Not Reported Not Detected (NotDetected); Staphepi Not Reported Not Detected (NotDetected); Stenmaltophilia Not Reported Not Detected (NotDetected); Strep agal(GrpB) Not Reported Not Detected (NotDetected); Strep pneum Not Reported Not Detected (NotDetected); Strep pyog (GrpA) Not Reported Not Detected (NotDetected); Strep spp Not Reported Not Detected (NotDetected); VIM Resistant Gene Not Detected (NotDetected); mcr-1 Colistin Resistant Gene Not Detected (NotDetected)
[2025-05-09 04:51] LABS: Hematocrit (blood only) 36.8 % (42.0-52.0); Hemoglobin 12.0 g/dl (14.0-18.0); Immature Granulocytes # (auto) 0.12 K/uL (0.01-0.20); Immature Granulocytes % (auto) 1.1 %; Mean Corpuscular Hemoglobin 29.5 pg (25.0-34.0); Mean Corpuscular Volume 90.4 fL (80.0-100.0); Platelet Count 76 K/uL (130-400); RDW Standard Deviation 55.8 fL (36.4-46.3); Red Blood Count 4.07 M/uL (4.70-6.10); White Blood Count 11.10 K/ul (4.8-10.8)
[2025-05-09 05:13] LABS: Anion Gap 9.0 (3-11); Calcium 8.5 mg/dl (8.6-10.3); Carbon Dioxide 22.0 mmol/L (21-32); Chloride 106.0 mmol/L (98-107); Magnesium 1.8 mg/dl (1.7-2.4); Potassium 4.2 mmol/L (3.5-5.1); Sodium 137.0 mmol/L (136-145)
[2025-05-09 05:19] LABS: Blood Urea Nitrogen 28.0 mg/dl (6-23); Creatinine Clr Calc Pharmacy 76.7 ml/min; Glucose 121.0 mg/dl (70-99(Fasting))
[2025-05-09 06:53] LABS: Toxic Vacuolation 3+
--- NOTE | 2025-05-09 07:24 | Hospitalist Progress Note ---
Date of Service May 09, 2025 Assessment & Plan (1) Hypovolemia: (2) Diverticulitis: (3) Permanent atrial fibrillation: (4) Cardiomyopathy: (5) Elevated troponin: (6) Hypertension: (7) Hyperlipidemia: (8) Systolic heart failure: Plan Mr. Milton Nam is a 70 year old male medical history remarkable for PAF, HTN, HFrEF iso NICM (EF 35% 02/14/2025), prediabetes admitted for acute diverticulitis and shock requiring pressor support. Patient was noted to have acute uncomplicated diverticulitis. Brief ICU admission for pressor support. Patient with notable improvement over night and downgrade planned from ICU. Patient likely medically stable in next 24-48 hours. #Hypotension, suspect hypovolemic shock an likely early sepsis contributing #Bacteremia, Ecoli on PCR #Acute diverticulitis does not meet sepsis criteria. 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 ECHO stable compared to previous Continue Metoprolol Er 150 mg QD Hold Entresto 49-51 mg BID, will resume as able Hold Spironolactone 25 mg QD will resume as able Hold Jardiance 10 mg will resume as able QD #Chronic normocytic anemia #Acute on chronic Thrombocytopenia likely iso acute illness trend CBC in am, holding DOAC for now, resume eliquis as able #transaminitis likely 2/2 hypotension elevated lipase noted, no pancreatitis noted on imaging suspect 2/2 to ongoing process, liver appears stable on imaging trend cmp in am #HLD hold statin #Prediabetes A1C 6.3% 02/2025 -hold Jardiance -glucose POC daily DVT ppx eliquis downgrade to Med/tele Admission and Anticipated Discharge Date Admission Date: May 08, 2025 Subjective evaluated at bedside in ICU reports notable improvement in symptoms, no further lower abdominal pain tolerating fluids at this time, ready for diet advancement Physical Exam Constitutional: WD/WN, vitals as above Respiratory: normal respiratory effort, lungs clear to auscultation Cardiovascular: RRR, no murmur, no edema Gastrointestinal (Abdomen): normal bowel sounds, soft, nontender, no hepatosplenomegaly Musculoskeletal: no cyanosis or clubbing, extremities motor strength 5/5 Results & Data Results & Data Vital Signs (Past 12 Hours) Vital Signs Temp Pulse Resp BP Pulse Ox O2 Del Method 05/09/25 06:27 80 21 99 05/09/25 06:21 75 15 99 05/09/25 06:12 66 13 98 05/09/25 06:01 114/60 05/09/25 05:48 66 13 98 05/09/25 05:30 78 12 94 05/09/25 05:30 102/62 05/09/25 05:27 56 L 12 96 05/09/25 05:15 58 L 13 95 05/09/25 05:12 79 14 97 05/09/25 05:03 59 L 13 98 05/09/25 05:00 113/65 05/09/25 05:00 113/65 05/09/25 04:45 60 12 97 05/09/25 04:42 78 13 97 05/09/25 04:39 57 L 15 97 05/09/25 04:15 62 21 98 05/09/25 04:12 82 16 98 05/09/25 03:51 71 20 99 05/09/25 03:48 60 21 99 05/09/25 03:42 58 L 18 98 05/09/25 03:21 83 13 97 05/09/25 03:15 55 L 13 96 05/09/25 03:00 36.6 C 05/09/25 02:42 53 L 17 92 05/09/25 02:30 107/55 L 05/09/25 02:30 58 L 12 95 05/09/25 02:21 58 L 14 100 05/09/25 02:12 80 27 H 98 05/09/25 02:06 76 20 97 05/09/25 02:03 53 L 13 97 05/09/25 02:00 110/74 05/09/25 02:00 110/74 05/09/25 01:57 52 L 13 98 05/09/25 01:51 55 L 13 98 05/09/25 01:45 54 L 14 98 05/09/25 01:30 109/62 05/09/25 01:27 74 21 95 05/09/25 01:23 93/65 L 05/09/25 01:23 93/65 L 05/09/25 01:12 61 17 100 05/09/25 01:06 53 L 14 97 05/09/25 01:03 51 L 14 97 05/09/25 01:00 85/49 L 05/09/25 00:42 54 L 17 98 05/09/25 00:33 52 L 15 93 05/09/25 00:27 53 L 16 95 05/09/25 00:00 70 20 99 05/09/25 00:00 96/64 L 05/09/25 00:00 96/64 L 05/09/25 00:00 96/64 L 05/09/25 00:00 96/64 L 05/08/25 23:54 56 L 17 98 05/08/25 23:45 56 L 17 96 05/08/25 23:30 105/61 05/08/25 23:30 105/61 05/08/25 23:30 105/61 05/08/25 23:30 74 15 99 05/08/25 23:27 66 16 98 05/08/25 23:21 53 L 16 97 05/08/25 23:12 78 20 96 05/08/25 23:06 52 L 19 96 05/08/25 23:00 92/58 L 05/08/25 22:57 59 L 17 96 05/08/25 22:54 62 16 96 05/08/25 22:06 60 18 99 05/08/25 22:00 96/58 L 05/08/25 22:00 96/58 L 05/08/25 22:00 54 L 19 98 05/08/25 21:51 73 16 98 05/08/25 21:45 61 19 97 05/08/25 21:36 63 16 98 05/08/25 21:30 55 L 16 98 05/08/25 21:30 111/63 05/08/25 21:30 111/63 05/08/25 21:30 111/63 05/08/25 21:27 65 16 98 05/08/25 21:18 55 L 17 99 05/08/25 21:06 56 L 17 97 05/08/25 21:03 67 20 97 05/08/25 21:00 36.6 C 05/08/25 21:00 105/65 05/08/25 21:00 105/65 05/08/25 20:51 65 19 98 05/08/25 20:48 58 L 20 97 05/08/25 20:30 118/77 05/08/25 20:30 118/77 05/08/25 20:30 118/77 05/08/25 20:24 72 25 H 97 05/08/25 20:15 75 19 97 05/08/25 20:09 64 18 98 05/08/25 20:03 61 15 98 05/08/25 20:00 Room Air 05/08/25 20:00 113/65 05/08/25 19:57 64 19 97 Laboratory Results Short CBC 05/08/25 05/09/25 Range/Units 13:26 04:22 WBC 6.36 11.10 H (4.8-10.8) K/ul Hgb 13.6 L 12.0 L (14.0-18.0) g/dl Hct 39.5 L 36.8 L (42.0-52.0) % Plt Count 87 L 76 L (130-400) K/uL BMP 05/08/25 05/09/25 13:26 04:22 Sodium 131 L 137 Potassium 3.9 4.2 Chloride 98 106 Carbon Dioxide 21 22 BUN 42 H 28 H Creatinine 1.20 0.96 Glucose 113 H 121 H Calcium 9.0 8.5 L Liver Function 05/08/25 05/09/25 Range/Units 13:26 04:22 Total Bilirubin 1.0 0.9 (0.2-1.0) mg/dl Direct Bilirubin 0.3 H (0-0.2) mg/dl AST 90 H 60 H (13-39) U/L ALT 52 43 (7-52) U/L Alkaline Phosphatase 106 H 66 (34-104) U/L Albumin 3.7 3.3 L (3.4-5.0) gm/dl Urine 05/08/25 Range/Units 14:37 Urine Color Dark Yellow Urine Appearance Cloudy A (Clear) Urine pH 5.5 (4.5-7.5) Ur Specific [place] 1.025 (1.000-1.030) Urine Protein 3+ H (Negative) Urine Glucose (UA) 3+ H (Negative) Medications Administered Home Medications Medication Instructions Recorded Confirmed Last Taken allopurinol 300 mg tablet 300 mg PO DAILY 10/14/24 05/08/25 11/06/24 07:00 apixaban 5 mg tablet (Eliquis) 5 mg PO BID 10/14/24 05/08/25 11/06/24 07:00 dicyclomine 10 mg capsule 10 mg PO BID PRN CRAMPING 10/14/24 05/08/25 11/06/24 07:00 ferrous sulfate 325 mg (65 mg 325 mg PO 3XWK 10/14/24 05/08/25 11/05/24 iron) tablet (iron) multivitamin 1 tab PO DAILY 10/14/24 05/08/25 11/06/24 07:00 omeprazole 20 mg capsule,delayed 20 mg PO BID 10/14/24 05/08/25 11/06/24 07:00 release rosuvastatin 20 mg tablet 20 mg PO QPM 10/14/24 05/08/25 11/05/24 20:00 tramadol 50 mg tablet 50 mg PO Q8H PRN Pain 10/14/24 05/08/25 10/23/24 magnesium oxide 400 mg PO 3XWK 11/06/24 05/08/25 11/05/24 bisacodyl 10 mg rectal suppository 10 mg [place] DAILY PRN constipation 11/09/24 05/08/25 Unknown #30 ea empagliflozin 10 mg tablet 10 mg PO QAM 05/08/25 05/08/25 Unknown (Jardiance) metoprolol succinate 100 mg 50 mg PO QPM 05/08/25 05/08/25 Unknown tablet,extended release 24 hr metoprolol succinate 100 mg 100 mg PO QAM 05/08/25 05/08/25 Unknown tablet,extended release 24 hr sacubitril 49 mg-valsartan 51 mg 1 tab PO BID 05/08/25 05/08/25 Unknown tablet (Entresto) spironolactone 25 mg tablet 25 mg PO QAM 05/08/25 05/08/25 Unknown Active Medications Generic Name Dose Route Start Last Admin Trade Name Freq PRN Reason Stop Dose Admin Allopurinol 300 mg 05/09/25 09:00 05/09/25 08:15 Allopurinol 300 Mg Tab PO 06/08/25 08:59 300 mg DAILY JANNET Administration Apixaban 5 mg 05/08/25 21:00 05/09/25 08:15 Apixaban 5 Mg Tablet PO 06/07/25 20:59 5 mg BID JANNET Administration
[2025-05-09] MEDS: 4.5GM X1 IV STA (08:54)
[2025-05-09 09:00] LABS: Alanine Aminotransferase 43.0 U/L (7-52); Alkaline Phosphatase 66.0 U/L (34-104); Bilirubin,Total 0.9 mg/dl (0.2-1.0); Lipase 21.0 U/L (11-82); Total Protein 6.2 gm/dl (6.0-8.3)
--- NOTE | 2025-05-09 12:07 | Critical Care Progress Note ---
Date of Service May 09, 2025 Assessment & Plan (1) Systolic heart failure: (2) Hypovolemia: (3) Shock circulatory: (4) Permanent atrial fibrillation: (5) Nausea, vomiting, and diarrhea: (6) Diverticulitis: Plan Reason Critically Ill: 70-year-old male present to the hospital for abdominal pain nausea vomiting and loose stools x 2 days. Was found to be hypotensive needing vasopressor support. Past medical history: A-fib on Eliquis, hypertension, dyslipidemia, cardiomyo enrrique with EF 35%, IBS, history of mitral valve replacement, bioprosthetic Neuro - [facility]: Negative Cardiac - 2D echo 10/14/2024: EF 25-30%, severe global hypokinesis of the left ventricle, RV normal in size with moderately reduced function -- Shock Probable hypovolemia. -- Elevated troponin Likely type II CT from hypotension Continue to trend EKG 05/08/2025, 13:18:-sinus tachycardia, left axis deviation, Q waves in 3 and aVF, poor R wave progression, mild ST depression on the V5 V6 -- History of A-fib On Eliquis at home --Systolic CHF On metoprolol succinate 50 as well as Entresto and spironolactone 25 Patient to take medication today Respiratory - -- Remote only 5-pack-year smoking history Saturating well on room air GI - -- Nausea vomiting diarrhea with acute sigmoid diverticulitis CT abdomen pelvis showing acute sigmoid diverticulitis. Does have history of diverticulosis --Transaminitis Mild elevation of AST and ALT along with alk phos Continue to trend -- GERD On omeprazole at home -- IBS Takes dicyclomine and bisacodyl as needed RENAL/LYTES - -- RAMON with elevated BUN likely from hypotension Dehydration a possibility as well Follow-up urine lites Monitor BUN/creatinine Avoid nephrotoxic medications Strict ins and outs ENDO - -- ICU hyperglycemia protocol HEME - -- Thrombocytopenia Chronic with acute worsening Continue to monitor -- Normocytic anemia Monitor H&H ID - E. coli in blood. Started Zosyn. Can likely de-escalate tomorrow --Prophylaxis VTE: Eliquis GI: Pantoprazole Lines: Peripheral Diet: N.p.o. Okay for downgrade out of ICU. ICU services to sign off. Thank you for the consult. Admission and Anticipated Discharge Date Admission Date: May 08, 2025 Subjective Patient's abdominal pain significantly improved. No significant vasopressor requirements at present. Oxygenating well on room air. Discussed at multidisciplinary rounds. Discussed with hospitalist service. Review of Systems Review of Systems: All systems reviewed & are unremarkable except as noted in HPI & below Physical Exam Physical Exam: Constitutional: No acute distress HEENT: EOMI, PERRLA Respiratory system: Good air entry bilaterally, no wheeze, no rhonchi, no crackles CVS: S1-S2 positive, no murmurs or gallops Abdomen: Soft, nontender, nondistended, positive bowel sounds x4 Extremities: +2 pulses bilaterally radialis/ dorsalis pedis, no cyanosis, no edema Neuro: Awake alert oriented x3 Psych: Normal mood and affect G/U: No Soares Results & Data Results & Data Vital Signs (Past 12 Hours) Vital Signs Temp Pulse Resp BP Pulse Ox O2 Del Method 05/09/25 08:33 71 17 97 Room Air 05/09/25 08:30 101/59 L 05/09/25 08:30 101/59 L 05/09/25 08:27 66 17 98 05/09/25 08:05 36.7 C 05/09/25 08:03 83 18 98 05/09/25 08:00 103/59 L 05/09/25 07:33 68 17 98 05/09/25 07:31 111/50 L 05/09/25 07:31 111/50 L 05/09/25 07:31 111/50 L 05/09/25 07:15 75 16 98 05/09/25 07:03 64 15 98 05/09/25 07:00 110/53 L 05/09/25 07:00 110/53 L 05/09/25 06:54 65 12 99 05/09/25 06:30 84 13 98 05/09/25 06:30 107/69 05/09/25 06:30 107/69 05/09/25 06:30 107/69 05/09/25 06:27 80 21 99 05/09/25 06:21 75 15 99 05/09/25 06:12 66 13 98 05/09/25 06:01 114/60 05/09/25 05:48 66 13 98 05/09/25 05:30 78 12 94 07/28/25 05:30 102/62 05/09/25 05:27 56 L 12 96 05/09/25 05:15 58 L 13 95 05/09/25 05:12 79 14 97 05/09/25 05:03 59 L 13 98 05/09/25 05:00 113/65 05/09/25 05:00 113/65 05/09/25 04:45 60 12 97 05/09/25 04:42 78 13 97 05/09/25 04:39 57 L 15 97 05/09/25 04:15 62 21 98 05/09/25 04:12 82 16 98 05/09/25 03:51 71 20 99 05/09/25 03:48 60 21 99 05/09/25 03:42 58 L 18 98 05/09/25 03:21 83 13 97 05/09/25 03:15 55 L 13 96 05/09/25 03:00 36.6 C 05/09/25 02:42 53 L 17 92 05/09/25 02:30 107/55 L 05/09/25 02:30 58 L 12 95 05/09/25 02:21 58 L 14 100 05/09/25 02:12 80 27 H 98 05/09/25 02:06 76 20 97 05/09/25 02:03 53 L 13 97 05/09/25 02:00 110/74 05/09/25 02:00 110/74 05/09/25 01:57 52 L 13 98 05/09/25 01:51 55 L 13 98 05/09/25 01:45 54 L 14 98 05/09/25 01:30 109/62 05/09/25 01:27 74 21 95 05/09/25 01:23 93/65 L 05/09/25 01:23 93/65 L 05/09/25 01:12 61 17 100 05/09/25 01:06 53 L 14 97 05/09/25 01:03 51 L 14 97 05/09/25 01:00 85/49 L 05/09/25 00:42 54 L 17 98 05/09/25 00:33 52 L 15 93 05/09/25 00:27 53 L 16 95 Coding Level of Care Code 82332 SUB INP/OBS CARE 2/35MIN Diagnoses Systolic heart failure I50.20 Hypovolemia E86.1 Shock circulatory R57.9 Permanent atrial fibrillation I48.21 Nausea, vomiting, and diarrhea R11.2; R19.7 Diverticulitis K57.92
[2025-05-09] MEDS: 4.5GM EXT INFUSION IV SCH (14:17)
[2025-05-09] MEDS: METOPROLOL SUCC 50MG EXT REL TAB PO SCH (20:07)
--- NOTE | 2025-05-10 05:36 | Electrocardiogram Report ---
Test Reason : Blood Pressure : */* mmHG Vent. Rate : 111 BPM Atrial Rate : 111 BPM P-R Int : 176 ms QRS Dur : 102 ms QT Int : 332 ms P-R-T Axes : * -65 98 degrees QTcB Int : 451 ms Sinus tachycardia with Premature atrial complexes Left axis deviation Inferior infarct , age undetermined Anteroseptal infarct (cited on or before 13-Oct-2024) Abnormal ECG When compared with ECG of 06-Nov-2024 15:51, No significant change Confirmed by Nikolai Carrion ([id number]) on 05/10/2025 5:36:05 AM Referred By: REFERRED SELF Confirmed By: Nikolai Carrion
--- NOTE | 2025-05-10 05:37 | Electrocardiogram Report ---
Test Reason : Blood Pressure : */* mmHG Vent. Rate : 78 BPM Atrial Rate : 78 BPM P-R Int : 114 ms QRS Dur : 104 ms QT Int : 422 ms P-R-T Axes : * -44 89 degrees QTcB Int : 481 ms Sinus rhythm with frequent Premature ventricular complexes Left axis deviation Inferior infarct Anterior infarct Prolonged QT Abnormal ECG When compared with ECG of 08-May-2025 13:18, Premature ventricular complexes are now Present Premature atrial complexes are no longer Present Confirmed by Nikolai Carrion ([id number]) on 05/10/2025 5:36:49 AM Referred By: REFERRED SELF Confirmed By: Nikolai Carrion
[2025-05-10 07:29] LABS: Hematocrit (blood only) 33.7 % (42.0-52.0); Hemoglobin 11.1 g/dl (14.0-18.0); Mean Corpuscular Hemoglobin 29.6 pg (25.0-34.0); Mean Corpuscular Volume 89.9 fL (80.0-100.0); Platelet Count 72 K/uL (130-400); RDW Standard Deviation 55.4 fL (36.4-46.3); Red Blood Count 3.75 M/uL (4.70-6.10); White Blood Count 7.26 K/ul (4.8-10.8)
[2025-05-10] MEDS: METOPROLOL SUCC 50MG EXT REL TAB PO SCH (08:07)
[2025-05-10 08:20] LABS: Alanine Aminotransferase 58.0 U/L (7-52); Albumin Globulin Ratio 1.1 (0.9-2); Alkaline Phosphatase 82.0 U/L (34-104); Anion Gap 6.0 (3-11); Bilirubin,Total 0.8 mg/dl (0.2-1.0); Blood Urea Nitrogen 18.0 mg/dl (6-23); Calcium 8.3 mg/dl (8.6-10.3); Carbon Dioxide 25.0 mmol/L (21-32); Chloride 104.0 mmol/L (98-107); Creatinine Clr Calc Pharmacy 103.6 ml/min; Globulin 2.8 gm/dl (2.5-4.0); Glucose 113.0 mg/dl (70-99(Fasting)); Magnesium 1.6 mg/dl (1.7-2.4); Potassium 3.6 mmol/L (3.5-5.1); Sodium 135.0 mmol/L (136-145); Total Protein 5.8 gm/dl (6.0-8.3)
[2025-05-10 11:00] LABS: Blood Culture Id Panel PCR Not Reported (NotDetected)
[2025-05-10] MEDS ORDERED: POTASSIUM PHOS 3 MMOL/1 ML INFUSION IV STA (13:38)
[2025-05-10] MEDS ORDERED: MAGNESIUM SULFATE / D5W 1 GM/100 ML BAG IV SCH (13:45)
[2025-05-10] MEDS ORDERED: Nursing to Pharmacy Communication SCH (14:00)
[2025-05-10] MEDS: MAGNESIUM SULFATE / D5W 1 GM/100 ML BAG IV SCH (14:13)
[2025-05-10] MEDS: POTASSIUM PHOSPHATE 21 MMOL in SODIUM CHLORIDE 0.9% 500 ML IV ONE (14:14)
--- NOTE | 2025-05-10 14:14 | Discharge Summary ---
Discharge Summary Date of Service May 10, 2025 Principal Dx & Hospital Course #1 = Principal Diagnosis (1) Hypovolemia: (2) Diverticulitis: (3) Permanent atrial fibrillation: (4) Cardiomyopathy: (5) Elevated troponin: (6) Hypertension: (7) Hyperlipidemia: (8) Systolic heart failure: Plan Mr. Milton Nam is a 70 year old male medical history remarkable for PAF, HTN, HFrEF iso NICM (EF 35% 02/14/2025), prediabetes admitted for acute diverticulitis and shock requiring pressor support. Patient was noted to have acute uncomplicated diverticulitis. Brief ICU admission for pressor support. Patient with notable improvement over night and downgrade planned from ICU. Patient with notable improvement and adamant to discharge. After long discussion, discharge plan and follow up coordinated with patient. Given hypotension, however, clinical improvement, discussed plan with Cardiology in [facility]. Plan to continue home metoprolol at a reduced dose and hold entresto/spironolactone for MTM clinic follow up. Patient with mild transaminitis, however, no nausea or other symptoms. Patient is eating well and reports feeling at baseline. Holdin rosuvastatin until follow up labs. Patient with noted thrombocytopenia which plateued. Given platelets at 72, held eliquis for plans to resume as they recover on op cbc. Patient discharged to continue cefuroxime 500mg bid and flagyl 500mg tid for 7 more days. On day of discharge, patient was eating well, ambulating independently and denying any further acute concerns. #Hypotension, suspect hypovolemic shock an likely early sepsis contributing #Bacteremia, Ecoli on PCR #Acute diverticulitis does not meet sepsis criteria. 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 ECHO stable compared to previous Continue Metoprolol Er at 50mg BID Hold Entresto 49-51 mg BID, will resume as able Hold Spironolactone 25 mg QD will resume as able Hold Jardiance 10 mg will resume as able QD #Chronic normocytic anemia #Acute on chronic Thrombocytopenia likely iso acute illness holding DOAC for now #transaminitis likely 2/2 hypotension elevated lipase noted, no pancreatitis noted on imaging suspect 2/2 to ongoing process, liver appears stable on imaging holding statin for now #HLD hold statin #Prediabetes A1C 6.3% 02/2025 resume jardiance Notes For Next Care Provider Obtain CBC for platelets (72 on d/c, but plateaued), obtain CMP for lfts (ast 64.alt 58. TB 0.8), obtain mag and phos ideally by FridayMay 13 Medication Changes From Visit Hold entresto until follow up with PCP Hold Eliquis until CBC obtained, resume if platelets normalize Hold rosuvastatin until follow up CMP Start phosa neutral for 4 doses Start cefuroxime 500mg bid and flagyl 500mg tid for diverticulitis x 7 more days Admission HPI Per Admitting Provider Patient is a 70 year old M with a past medical history of HTN, HLD, thoracic aortic aneurysm, permanent afib, systolic HF with EF 35%, cardiomyopathy, mitral valve replacement, IBS presenting with lower abdominal pain, nausea, vomiting, loose stool x 2 days. Symptoms began on Friday afternoon with nausea, decreased appetite and loose stool ~4x/day. H/O IBS, took Bentyl as per home routine without improvement. Tolerating po fluids okay. BP ranging 110/65 at home, so he took his regular scheduled home meds as prescribed. Reports having fevers, chills, slight headache at home, had 1 episode of vomiting enroute to [facility] today. No blood in stool, emesis, or urine. Denies weight loss, weakness, cognitive changes, vision/hearing changes, chest pain, SOB, swelling, difficulty breathing, urinary concerns, joint sw elling/pain, ambulation difficulty, skin rashes, lesions, bleeding, bruising. In the emergency department, patient was initially hemodynamically stable, then blood pressure began dropping to 70-80/40's. Suspect infectious etiology despite stable wbc and lactate 1.5. Labs workup showing hyponatremia with Na+ 131, clinically dry with no evidence of RAMON, initially 2 L NSS given with mild improvement in blood pressure, additional 500 ml NSS given for SBP >90. Norepi initiated. CT abdomen/pelvis showed acute uncomplicated sigmoid diverticulitis. No free air or abscess. AST 90, ALT 52, Alk Phos 106, Lipase 210. Blood cultures pending. Vanc and Zosyn given in the ED. Trop elevated at 345 initially with no change at 2 hr repeat. EKG showing sinus tachy with pac, vent rate 111, QTc 451. History obtained primarily from the patient and via hospitalization record. External chart review obtained from [facility]. Admission Exam Per Admitting Provider VITALS: Reviewed. WEIGHT/BMI reviewed. GEN: Healthy appearing, well-developed, NAD. PSYCH: Good Judgment. AOx3. Normal memory, mood, and affect. HEENT -Head: NC/AT; -Eyes: PERRL, EOMI. No discharge or redness; -Ears: External ears are normal. -Nose: Normal nares. -Mouth and throat: MMM. Normal gums, mucosa, palate,. Good dentition. NECK: Supple, with no masses. CV: S1, S2 no murmurs, extra sounds, reg rhythm, no swelling, pulses strong LUNGS: CTAB, no w/r/c. sats 95% RA ABD: Soft, distended, hyperactive bowel sounds, tender to lower quads, no masses or organomegaly. : N/A SKIN: Warm, well perfused. Abrasions to right knee MSK: No deformities, GARCIA without difficulty EXT: No clubbing, cyanosis, or edema. NEURO: CN II-XII grossly intact. Normal muscle strength and tone. No focal deficits. Discharge Exam Constitutional WD/WN, vitals as above Respiratory normal respiratory effort, lungs clear to auscultation Cardiovascular RRR, no murmur, no edema Gastrointestinal (Abdomen) normal bowel sounds, soft, nontender, no hepatosplenomegaly Musculoskeletal no cyanosis or clubbing, extremities motor strength 5/5 Updated Medication List Medication Instructions Recorded Confirmed Type allopurinol 300 mg tablet 300 mg PO DAILY 10/14/24 05/08/25 History apixaban 5 mg tablet (Eliquis) 5 mg PO BID 10/14/24 05/08/25 History dicyclomine 10 mg capsule 10 mg PO BID PRN CRAMPING 10/14/24 05/08/25 History ferrous sulfate 325 mg (65 mg 325 mg PO 3XWK 10/14/24 05/08/25 History iron) tablet (iron) multivitamin 1 tab PO DAILY 10/14/24 05/08/25 History omeprazole 20 mg capsule,delayed 20 mg PO BID 10/14/24 05/08/25 History release rosuvastatin 20 mg tablet 20 mg PO QPM 10/14/24 05/08/25 History tramadol 50 mg tablet 50 mg PO Q8H PRN Pain 10/14/24 05/08/25 History magnesium oxide 400 mg PO 3XWK 11/06/24 05/08/25 History bisacodyl 10 mg rectal suppository [address] DAILY PRN constipation 11/09/24 05/08/25 Rx #30 ea empagliflozin 10 mg tablet 10 mg PO QAM 05/08/25 05/08/25 History (Jardiance) metoprolol succinate 100 mg 50 mg PO QPM 05/08/25 05/08/25 History tablet,extended release 24 hr metoprolol succinate 100 mg 100 mg PO QAM 05/08/25 05/08/25 History tablet,extended release 24 hr sacubitril 49 mg-valsartan 51 mg 1 tab PO BID 05/08/25 05/08/25 History tablet (Entresto) spironolactone 25 mg tablet 25 mg PO QAM 05/08/25 05/08/25 History cefuroxime axetil 500 mg tablet 500 mg PO BID 7 days #15 tabs 05/10/25 Rx metronidazole 500 mg tablet 500 mg PO TID 7 days #22 tabs 05/10/25 Rx sodium di- and 1 tab PO QID #4 tabs 05/10/25 Rx monophosphate-potassium phos monobasic 250 mg tablet (Phospha Neutral) Hospital Stay Data Consultations 05/08/25 17:32 Consult Insurance Analyst Routine 05/09/25 14:38 Consult Infectious Diseases Routine Diagnostic Imagining Performed 05/08/25 13:52 CT Abd and Pelvis [CT abd pelvis IV con only] Stat Pending Results Patient Have Any Pending Studies at Discharge: No Discharge Instructions Given to Patient (Per Discharging Provider) You were admitted for acute diverticulitis with concerns for septic shock given low blood pressures requiring an ICU admission You improved quickly with IV antibiotics and fluids You will need to continue a low fiber diet for 2 weeks ((may 24) You will continue the following antibiotics: -Ceftin (cefuroxime) 500mg two times a day, your next dose is this evening, complete all tablets -Flagyl (metronidazole) 500mg three times a day, your next dose is this evening, complete all tablets You will need to work with your pcp to schedule a colonoscopy in 6-8 weeks Your liver enzymes were mildly elevated. This is likely due to your acute i llness given your rapid improvement Please hold your rosuvastatin until you obtain follo up labs in 3 days Your platelets are low, which again is likely due to the acute illness as they have stopped dropping rapidly; however, given risk for bleeding, please hold your eliquis until you obtain your repeat labs and your PCP tells you to resume. You were noted to have relatively lower blood pressure. Please continue your metoprolol however, reduce morning dose to 50mg in morning and 50mg in evening Please hold your spironolactone until follow up with your Heart Failure Pharmacist Please hold your entresto until follow up with your Heart Failure Pharmacist who will help your resume the entresto when your pressures stabilize Total Time Total Time Spent Total Time Spent (In Minutes): 45
--- NOTE | 2025-05-10 14:50 | Infectious Disease Consult ---
Date of Service May 10, 2025 Telehealth Information I performed this visit using a real-time telehealth connection between my location and the patients location ([facility]). After connecting through interactive tele-video, patient was identified by name and date of and/or wristband check.Patient (or authorized healthcare workforce services representative) was informed that this was a telemedicine visit and it was being conducted confidentially over secure lines. My office door was closed and no one else was present in the room with me.Patient (or authorized healthcare workforce services representative) provided consent to proceed with the visit, expressed an understanding of privacy and security of the telemedicine visit, and gave permission to have a hospital workforce services representative in the room in order to assist with the visit and to conduct portions of the visit, as needed. I informed the patient (or authorized healthcare workforce services representative) that I reviewed their record and presented the opportunity for them to ask any questions regarding the visit today. The patient agreed to participate. Assessment & Plan (1) E coli bacteremia: (2) Bacteremia due to Clostridium species: (3) Diverticulitis of sigmoid colon: Plan: Assessment: Septic shock - resolved E coli and C perfringens bacteremia Acute sigmoid diverticulitis Hx of hx of thoracic aortic aneurysm, A fib, HFrEF, MV replacement, and IBS Recommendations: - I agree w/ zosyn for now - F/u susceptibility of the E coli - De-escalate per susceptibility: may consider usin oral abx therapy if the susceptibility allows - Anticipate total 7 days of abx therapy: 05/09 to 05/15/25 - I have advised the patient to take probiotics while on abx therapy - Will continue to follow As the patient clearly has a source of infection that can explain E coli and C perfrigens in blood, I recommend to treat w/ a relatively short course of abx therapy w/o further ID work-up. During this patient encounter, one or more of the following was provided in addition to my in person visit: disease transmission risk assessment and mitigation; public health investigation, analysis, and testing; and/or complex antimicrobial therapy counseling and treatment. I spent a total of 67 minutes coordinating, documenting, and providing care for this patient excluding time spent in the performance of separately billed services or time spent by another provider/QHP. History of Present Illness History of Present Illness This is a 70 y/o male (Elías) w/ hx of HTN, HLD, thoracic aortic aneurysm, A fib, cardiomyopathy, HFrEF, MV replacement, and IBS, who presented to [facility] on 05/08[facility]25 for lower abd pain, n/v and loose BM x2 days. The symptoms began last Friday w/ nausea, decreased appetite and diarrhea (~4 times a day) but he had abd cramping for about a week. He took bentyl w/o improvement. He developed fever as well. He reports taking augmentin recently for sinusitis: augmentin completed on 04/29/25. Low grade fever was noted on admission along w/ hypotension, requiring vasopressor. Blood cultures showed E coli in 4 out of 4 bottles w/ CT A/P showing findings consistent w/ acute sigmoid diverticulitis. The patient is currently on zosyn. The patient feels that he is improving: belly pain improved and he is able to eat. BM improved to 0-2 BMs per day: it is not as watery. No urinary symptom, coughing, cp sor sob. No f/c. Allergies Allergy/AdvReac Type Severity Reaction Status Date / Time No Known Allergies Allergy Mild Verified 05/08/25 17:26 Home Medications Medication Instructions Recorded Confirmed Type allopurinol 300 mg tablet 300 mg PO DAILY 10/14/24 05/08/25 History apixaban 5 mg tablet (Eliquis) 5 mg PO BID 10/14/24 05/08/25 History dicyclomine 10 mg capsule 10 mg PO BID PRN CRAMPING 10/14/24 05/08/25 History ferrous sulfate 325 mg (65 mg 325 mg PO 3XWK 10/14/24 05/08/25 History iron) tablet (iron) multivitamin 1 tab PO DAILY 10/14/24 05/08/25 History omeprazole 20 mg capsule,delayed 20 mg PO BID 10/14/24 05/08/25 History release rosuvastatin 20 mg tablet 20 mg PO QPM 10/14/24 05/08/25 History tramadol 50 mg tablet 50 mg PO Q8H PRN Pain 10/14/24 05/08/25 History magnesium oxide 400 mg PO 3XWK 11/06/24 05/08/25 History bisacodyl 10 mg rectal suppository 10 mg TN DAILY PRN constipation 11/09/24 05/08/25 Rx #30 ea empagliflozin 10 mg tablet 10 mg PO QAM 05/08/25 05/08/25 History (Jardiance) metoprolol succinate 100 mg 50 mg PO QPM 05/08/25 05/08/25 History tablet,extended release 24 hr metoprolol succinate 100 mg 100 mg PO QAM 05/08/25 05/08/25 History tablet,extended release 24 hr sacubitril 49 mg-valsartan 51 mg 1 tab PO BID 05/08/25 05/08/25 History tablet (Entresto) spironolactone 25 mg tablet 25 mg PO QAM 05/08/25 05/08/25 History sodium di- and 1 tab PO QID #4 tabs 05/10/25 Rx monophosphate-potassium phos monobasic 250 mg tablet (Phospha Neutral) Patient History Social History Smoking Status: Never smoker Hx Alcohol Use: No Hx Substance Use: No Preferred Language: Bhutanese Communication Ability: Effective Hot Worker Required: No Beliefs That Will Affect Care: None Current Living Situation: Spouse Current Living Situation Comment: at home with Feels Safe at Home: Yes Assistive Devices: None Review of Systems as HPI and all others negative Physical Exam Gen: no acute distress Lungs: breathing comfortably on room air Neuro: alert, awake and oriented x3 Results & Data Vital Signs (Past 12 Hours) Vital Signs Temp Pulse Pulse Resp BP Pulse Ox O2 Del Method 05/10/25 13:02 90 05/10/25 11:22 36.7 C 87 18 121/72 97 Room Air 05/10/25 08:27 36.4 C L 84 18 105/63 96 Room Air 05/10/25 05:29 82 Laboratory Results WBC 6.36K -> 11.1K -> 7.26K H 11.1 Plt 72K Cr 0.71 (CrCl 103) LFT AST 90 -> 64, ALT 58 UA: LE neg Blood smear: no evidence of parasites Blood cx (05/08): E coli (4 of 4), Clostridium perfringens (1 of 4) CT A/P (05/08): Acute uncomplicated sigmoid diverticulitis. No free air or abscess.
[2025-05-10 15:06] VITALS: PULSE 83; RESP 20; TEMP 100; O2SAT 95
[2025-05-10] MEDS: POT PHOSPHATE MONOBASIC W/ SOD TAB PO SCH (16:37)
[2025-05-10] MEDS: metroNIDAZOLE 500 MG TAB PO SCH (16:37)
[2025-05-10 17:25] VITALS: BP 100/60
[2025-05-10] MEDS: METOPROLOL SUCC 25MG EXT REL TAB PO STA (17:51)
--- NOTE | 2025-05-11 08:25 | Coding Query ---
CODING QUERY To promote full compliance with coding requirements relating to patient care, provider participation is requested in all cases of certified procedural coder uncertainty. Please assist us with the question(s) below: Coding Question(s): Throughout the chart there is a note "does not meet sepsis criteria." However starting in the hospitalist progress note from 05/09 there is the following documentation, "hypotension, suspect hypovolemic shock an likely early sepsis contributing." Could you please indicate the status of Sepsis by placing an 'x' in the parenthesis below? Sepsis diagnosed and POA ( x ) Sepsis diagnoed and not POA ( ) Sepsis ruled out ( ) Physician's Response(s): Thank you Hiral Bashir Principal Diagnosis: "that condition established after study, to be chiefly responsible for occasioning the admission of the patient to the hospital for care." Co-Existing Principal Diagnosis: "when two or more diagnoses equally meet the criteria for principal diagnosis as determined by the circumstances of admission, diagnostic work up, and/or therapy provided, and the Alphabetic Index, Tabular List, or another coding guideline does not provide sequencing direction, any one of the diagnoses may be sequenced first." "When the physician has documented what appears to be a current diagnosis in the body of the record, but has not included the diagnosis in the final diagnostic statement, the physician should be asked whether the diagnosis should be added." (Source Coding [facility] 2 QTR90. p3-4) CARLO
== END 2025-05-10 18:34 | disposition home or self-care (01) | DRG 871 ==
LOC: ED 13:08 → 1E 16:41 → 2N 05-09 12:31